=== PATIENT | female | born 1940 | race Caucasian/White ===

== ENCOUNTER → 2020-06-19 14:52 | Outpatient (BNVA) | payer MEDICARE, SELFPAY | PROVIDERS: PCP Internal Medicine; Referring Provider Orthopaedic Surgery; Visit Provider Nurse Practitioner | DX: K58.2 Mixed irritable bowel syndrome (principal); K21.9 Gastro-esophageal reflux disease without esophagitis; Z87.19 Personal history of other diseases of the digestive system | CPT/HCPCS: 99214 ==

== ENCOUNTER 2020-07-01 08:15 | Outpatient (REF) | payer MEDICARE, SELFPAY ==
--- NOTE | 2020-07-01 08:24 | FL_ITS ---
EXAMINATION: FL SMALL BOWEL SERIES CLINICAL INFORMATION: Lower abdominal pain. COMPARISON: CT abdomen and pelvis with contrast 05/19/2020 TECHNIQUE: Following a oceanologist image of the abdomen, contrast was administered orally, and interval abdominal radiographs were performed to assess for contrast progression through the small bowel. Following contrast transit through the small bowel and into the colon, the patient was placed on the fluoroscopy table, and multiple spot images were obtained. FINDINGS: Office Runner image of the abdomen demonstrates scattered stool in the right colon. There is no megaly. No radiopaque calculi seen. There is mild facet joint arthropathy L4-L5 and L3-L5 disc levels. There is normal transit time of contrast material through the small bowel, with contrast present in the colon by 1 hour 30 minutes. Small bowel loops are of normal caliber throughout the abdomen and pelvis. The jejunal and ileal fold patterns are normal, without evidence of abnormal thickening. No fixed regions of luminal narrowing are seen to suggest stricturing. The terminal ileum demonstrates a normal appearance. FLUOROSCOPY TIME: 1.0 minute DOSE AREA PRODUCT: 7.197 uGy-m2 (microgray-meter squared) FL/FL small bowel follow through IMPRESSION: Normal small bowel series.
== END 2020-07-01 08:16 | disposition home or self-care (01) ==
LOC: HO.XRAY 08:15
PROVIDERS: PCP Internal Medicine; Visit Provider Nurse Practitioner
DX: R10.30 Lower abdominal pain, unspecified (principal)
CPT/HCPCS: 74250

== ENCOUNTER → 2020-07-04 08:24 | Outpatient (BNVA) | payer MEDICARE, SELFPAY | PROVIDERS: PCP Internal Medicine; Referring Provider Internal Medicine; Visit Provider Nurse Practitioner | DX: K58.2 Mixed irritable bowel syndrome (principal); K21.9 Gastro-esophageal reflux disease without esophagitis; Z88.1 Allergy status to other antibiotic agents; R10.30 Lower abdominal pain, unspecified | CPT/HCPCS: 99212 ==

== ENCOUNTER 2020-09-10 08:47 | Outpatient (REF) | payer MEDICARE, SELFPAY ==
[2020-09-10 11:12] LABS: MANUAL DIFF FLAG NO
[2020-09-10 11:29] LABS: Basophils Percent Auto 0.4 % (0-2); Eosinophils Absolute Auto 0.1 X10*3/uL (0.0-0.4); Eosinophils Percent Auto 0.6 % (0-4); Hematocrit 36.4 % (37-47); Hemoglobin 11.2 g/dl (12.0-16.0); Imm Gran Abs Auto 0.03 X10*3/uL (0.00-0.03); Imm Gran Pct Auto 0.4 % (0.0-0.4); Lymphocytes Absolute Auto 2.6 X10*3/uL (1.2-4.9); Mean Corpuscular HGB Conc 30.8 g/dl (31.0-35.0); Mean Corpuscular Hemoglobin 24.8 pg (27.0-33.0); Mean Corpuscular Volume 80.7 fL (80-98); Mean Platelet Volume 9.9 fL (9.4-12.3); Monocytes Absolute Auto 0.7 X10*3/uL (0.1-1.2); Monocytes Percent Auto 8.8 % (2-11); Neutrophils Absolute Auto 4.3 X10*3/uL (2.0-8.3); Neutrophils Percent Auto 55.8 % (45-73); Platelet Count 323 X10*3/uL (160-400); Red Blood Count 4.51 X10*6/uL (4.20-5.50); Red Cell Distribution Width 13.8 % (11.0-16.0); White Blood Count 7.8 X10*3/uL (4.8-10.8)
[2020-09-10 11:56] LABS: Alanine Aminotransferase 12 U/L (0-31); Albumin Level 4.1 g/dL (3.5-5.0); Alkaline Phosphatase 56 U/L (39-117); Anion Gap 18 (12-20); Aspartate Amino Transferase 14 U/L (5-31); Bilirubin Total 0.6 mg/dL (0.0-1.0); Blood Urea Nitrogen 19 mg/dL (9-16); Calcium 9.5 mg/dL (8.4-10.2); Carbon Dioxide 25 mmol/L (22-29); Chloride 100 mmol/L (96-108); Cholesterol 214 mg/dL; Estimated Glomerular Filt Rate > 60; Glucose Fasting 109 mg/dL (60-99); HDL Cholesterol 59 mg/dL; Iron 25 mcg/dL (30-160); LDL Cholesterol Calculated 113 mg/dl; Percent Iron Saturation 6 % (15-50); Sodium 139 mmol/L (135-145); Total Iron Binding Capacity 445 mcg/dL (228-428); Total Protein 6.5 g/dL (6.5-8.0); Triglycerides 210 mg/dL; Unsaturated Iron Binding 420 ug/dL
[2020-09-10 12:05] LABS: Ferritin 9 ng/mL (10-250)
[2020-09-10 12:06] LABS: Estimated Average Glucose 111 mg/dL; Hemoglobin A1c % 5.5 %
== END 2020-09-10 08:48 | disposition home or self-care (01) ==
LOC: HO.HMGCLDS 08:47
PROVIDERS: PCP Internal Medicine; Visit Provider Internal Medicine
DX: M81.0 Age-related osteoporosis without current pathological fracture (principal); N95.1 Menopausal and female climacteric states; R35.0 Frequency of micturition; I10 Essential (primary) hypertension; D64.9 Anemia, unspecified; I48.0 Paroxysmal atrial fibrillation; K21.9 Gastro-esophageal reflux disease without esophagitis; Z78.0 Asymptomatic menopausal state
CPT/HCPCS: 36415; 80053; 80061; 82306; 82728; 83036; 83540; 85025

== ENCOUNTER 2020-11-10 14:08 | Outpatient (REF) | payer MEDICARE, SELFPAY | END 2020-11-10 14:09 | disposition home or self-care (01) | LOC: HO.HOSX 14:08 | PROVIDERS: Visit Provider Orthopaedic Surgery | DX: Z13.89 Encounter for screening for other disorder (principal) ==

== ENCOUNTER → 2020-12-04 08:48 | Outpatient (BNVA) | payer MEDICARE, SELFPAY | PROVIDERS: PCP Internal Medicine; Visit Provider Internal Medicine | DX: I48.0 Paroxysmal atrial fibrillation (principal); I10 Essential (primary) hypertension; Z51.81 Encounter for therapeutic drug level monitoring; Z79.899 Other long term (current) drug therapy | CPT/HCPCS: 93005; 99212 ==

== ENCOUNTER 2021-03-10 10:19 | Outpatient (REF) | payer MEDICARE, SELFPAY ==
--- NOTE | ~2021-03-10 | XR_ITS ---
EXAMINATION: XR KNEE, RIGHT CLINICAL INFORMATION: Right knee pain COMPARISON: Right knee radiograph on 12/13/2018 TECHNIQUE: Four views of the right knee. FINDINGS: Prosthetic components of the right total knee arthroplasty are appropriately aligned without periprosthetic fracture or lucency. No component migration. No joint effusion. XR/XR knee RT 4V IMPRESSION: Appropriate alignment of the right total knee arthroplasty without evidence of complications.
== END 2021-03-10 10:20 | disposition home or self-care (01) ==
LOC: HO.XRAY 10:19
PROVIDERS: PCP Internal Medicine; Visit Provider Internal Medicine
DX: T84.84XA Pain due to internal orthopedic prosthetic devices, implants and grafts, initial encounter (principal); Z96.651 Presence of right artificial knee joint
CPT/HCPCS: 73564

== ENCOUNTER → 2021-03-12 13:46 | Outpatient (BNVA) | payer MEDICARE, SELFPAY | PROVIDERS: PCP Internal Medicine; Referring Provider Internal Medicine; Visit Provider Internal Medicine | DX: I10 Essential (primary) hypertension (principal); I48.0 Paroxysmal atrial fibrillation; R00.0 Tachycardia, unspecified; M81.0 Age-related osteoporosis without current pathological fracture; Z88.1 Allergy status to other antibiotic agents; Z51.81 Encounter for therapeutic drug level monitoring; Z79.899 Other long term (current) drug therapy | CPT/HCPCS: 93005; 99212 ==

== ENCOUNTER 2021-03-16 13:28 | Outpatient (REF) | payer MEDICARE, SELFPAY ==
[2021-03-16 16:45] LABS: MANUAL DIFF FLAG NO
[2021-03-16 16:50] LABS: Basophils Percent Auto 0.3 % (0-2); Eosinophils Absolute Auto 0.1 X10*3/uL (0.0-0.4); Eosinophils Percent Auto 0.5 % (0-4); Hematocrit 44.7 % (37-47); Hemoglobin 14.5 g/dl (12.0-16.0); Imm Gran Abs Auto 0.04 X10*3/uL (0.00-0.03); Imm Gran Pct Auto 0.4 % (0.0-0.4); Lymphocytes Absolute Auto 2.8 X10*3/uL (1.2-4.9); Lymphocytes Percent Auto 26.6 % (20-40); Mean Corpuscular HGB Conc 32.4 g/dl (31.0-35.0); Mean Corpuscular Hemoglobin 30.7 pg (27.0-33.0); Mean Corpuscular Volume 94.7 fL (80-98); Mean Platelet Volume 9.8 fL (9.4-12.3); Monocytes Absolute Auto 0.8 X10*3/uL (0.1-1.2); Monocytes Percent Auto 7.2 % (2-11); Neutrophils Absolute Auto 6.9 X10*3/uL (2.0-8.3); Platelet Count 346 X10*3/uL (160-400); Red Blood Count 4.72 X10*6/uL (4.20-5.50); Red Cell Distribution Width 12.9 % (11.0-16.0); White Blood Count 10.6 X10*3/uL (4.8-10.8)
[2021-03-16 17:15] LABS: Iron 48 mcg/dL (30-160); Percent Iron Saturation 11 % (15-50); Total Iron Binding Capacity 424 mcg/dL (228-428); Unsaturated Iron Binding 376 ug/dL
[2021-03-16 17:37] LABS: Ferritin 21 ng/mL (10-250)
== END 2021-03-16 13:29 | disposition home or self-care (01) ==
LOC: HO.HMGCLDS 13:28
PROVIDERS: PCP Internal Medicine; Visit Provider Internal Medicine
DX: D64.9 Anemia, unspecified (principal); I48.0 Paroxysmal atrial fibrillation; R00.0 Tachycardia, unspecified; Z86.2 Personal history of diseases of the blood and blood-forming organs and certain disorders involving the immune mechanism
CPT/HCPCS: 36415; 82728; 83540; 85025

== ENCOUNTER → 2021-06-01 10:15 | Outpatient (REF) | payer MEDICARE, SELFPAY ==
--- NOTE | 2021-06-01 10:19 | CA_ITS ---
Transthoracic Echocardiogram Patient (Last, First, Middle): Alisa Castaneda L Gender: Female Date of : 1940 Age: 81 Procedure Date: 06/01/2021 Procedure Type: Transthoracic Echocardiogram Location: OP Height: 152.4 cm Weight: 65.77 kg BSA: 1.63 m2 Heart Rate: bpm BP: 122 / 77 mmHg Environmental Program Manager: SARIKA/CARIN Referring MD: William Hansen MD Symptoms: I48.0 - Paroxysmal atrial fibrillation Study Quality: Good ECG Rhythm: Sinus Conclusions: - The left ventricular systolic function is normal. The calculated ejection fraction is 67% by biplane method. - There is mild calcification of the aortic valve. - There is mild posterior mitral annular calcification. There is mild mitral valve regurgitation. - Small plaque is seen in the sino tubular ridge. Findings Left Ventricle Normal left ventricular cavity size. There is mildly increased left ventricular wall thickness. The left ventricular systolic function is normal. The calculated ejection fraction is 67% by biplane method. There is no evidence of regional wall motion abnormalities. E/E prime ratio is between 8 and 15 consistent with indeterminate filling pressures. Evidence suggests grade I (mild) diastolic dysfunction. Right Ventricle Normal right ventricular cavity size and systolic function. Atria Both atria are normal in size. Aortic Valve There is a normal trileaflet aortic valve. There is mild calcification of the aortic valve. There is no aortic valve stenosis. There is mild aortic valve regurgitation. Mitral Valve There is mild posterior mitral annular calcification. There is mild mitral valve regurgitation. There is no mitral valve stenosis. Pulmonic Valve The pulmonic valve was not well visualized. There is trace pulmonic valve regurgitation. Tricuspid Valve Normal tricuspid valve structure. There is mild tricuspid valve regurgitation. The pulmonary artery systolic pressure is normal. Great Vessels The asc aorta is normal in size. Small plaque is seen in the sino tubular ridge. Venous The inferior vena cava is normal in size and collapses greater than 50% with inspiration. Pericardium/Pleural There is no evidence of pericardial effusion. Prior Study Comparison No significant change compared to prior study dated: 04/01/2020. Measurements 2D Linear Measurements IVSd: 1.00 0.6-0.9/0.6-1.0 cm LVIDd: 4.06 3.9-5.3/4.2-5.9 cm LVIDd Index: 2.49 2.4-3.2/2.2-3.1 cm/m2 LVIDs: 3.03 2.0-3.6 cm LVPWd: 1.01 0.7-1.1 cm Ao Root: 2.80 2.1-3.5 cm LA Diam: 3.40 2.7-3.8/3.0-4.0 cm LAIDs Index: 2.09 1.5-2.3 cm/m2 LV Mass: 162.99 67-162/88-224 g LV Mass Index: 100.00 43-95/49-115 g/m2 LVOT Diam: 2.10 3.0+(-)1.3 cm 2D Systolic Function EF 4C: 65.20 >55% EF 2C: 68.80 >55% EF BiP: 67.20 >55% Mitral Valve MV Pk E: 0.78 MV PK A: 1.21 MV Decel Time: 319.00 E/A: 0.60 E'Lateral: 8.16 E'Medial: 5.55 E/E' Med: 14.00 E/E' Lat: 9.50 PHT: 94.00 MVA PHT: 2.34 Decel [place]: 2.44 Aortic Valve AoV Pk Nick: 1.91 AoV Mn Nick: 1.36 AoV VTI: 0.49 AoV Pk Grad: 15.00 Aov Mn Grad: 8.00 ELVIE Cont.VTI: 1.90 AI Pk Nick: 4.34 AI [place]: 1.70 LVOT LVOT Pk Nick: 1.07 LVOT Mn Nick: 0.66 LVOT VTI: 0.27 LVOT Pk Grad: 5.00 LVOT Mn Grad: 2.00 LVOT Diam: 2.10 LVOT Area: 3.46 Diastolic Function MV Pk E: 0.78 MV Pk A: 1.21 E/A: 0.60 E'Medial: 5.55 E/E' Med: 14.00 E' Laterial: 8.16 E/E' Lat: 9.50 Right Ventricle TAPSE (mm): 2.28 TVS' Nick: 9.79 Tricuspid Valve TR Pk Nick: 2.44 TR Pk Grad: 24.00 RA Press: 3.00 RVSP: 27.00 Great Vessels Aorta Ao Root-2D: 2.80 2.0-3.7 cm Ao Asc: 2.80 2.1-3.4 cm Ao Arch: 2.60 Updated in Other Vendor System with Status of Final William Hansen MD electronically signed on 06/01/2021 12:09:31 PM with status of Final
== END ==
LOC: HO.CARD 10:15
PROVIDERS: PCP Internal Medicine; Visit Provider Internal Medicine
DX: I48.0 Paroxysmal atrial fibrillation (principal)
CPT/HCPCS: 93306

== ENCOUNTER → 2021-06-08 09:36 | Outpatient (BNVA) | payer MEDICARE, SELFPAY | PROVIDERS: PCP Internal Medicine; Referring Provider Internal Medicine; Visit Provider Internal Medicine | DX: I48.0 Paroxysmal atrial fibrillation (principal); I10 Essential (primary) hypertension; Z51.81 Encounter for therapeutic drug level monitoring; Z79.899 Other long term (current) drug therapy | CPT/HCPCS: 93005; 99212 ==

== ENCOUNTER → 2021-08-21 14:24 | Outpatient (BNVA) | payer MEDICARE, SELFPAY | PROVIDERS: PCP Internal Medicine; Referring Provider Internal Medicine; Visit Provider Nurse Practitioner | DX: K21.9 Gastro-esophageal reflux disease without esophagitis (principal); K30 Functional dyspepsia | CPT/HCPCS: 99212 ==

== ENCOUNTER → 2021-10-01 12:15 | Outpatient (BNVA) | payer MEDICARE, SELFPAY | PROVIDERS: PCP Internal Medicine; Referring Provider Internal Medicine; Visit Provider Nurse Practitioner | DX: K30 Functional dyspepsia (principal); K58.2 Mixed irritable bowel syndrome; K21.9 Gastro-esophageal reflux disease without esophagitis | CPT/HCPCS: 99212 ==

== ENCOUNTER → 2021-11-03 12:15 | Outpatient (BNVA) | payer MEDICARE, SELFPAY | PROVIDERS: PCP Internal Medicine; Referring Provider Internal Medicine; Visit Provider Nurse Practitioner | DX: K30 Functional dyspepsia (principal); K21.9 Gastro-esophageal reflux disease without esophagitis; K58.2 Mixed irritable bowel syndrome | CPT/HCPCS: 99212 ==

== ENCOUNTER → 2021-12-14 09:32 | Outpatient (BNVA) | payer MEDICARE, SELFPAY | PROVIDERS: PCP Internal Medicine; Referring Provider Internal Medicine; Visit Provider Internal Medicine | DX: I48.0 Paroxysmal atrial fibrillation (principal); I10 Essential (primary) hypertension; Z51.81 Encounter for therapeutic drug level monitoring; Z79.899 Other long term (current) drug therapy | CPT/HCPCS: 93005; 99212 ==

== ENCOUNTER → 2022-02-15 11:49 | Outpatient (BNVA) | payer MEDICARE, SELFPAY | PROVIDERS: PCP Internal Medicine; Visit Provider Nurse Practitioner | DX: K30 Functional dyspepsia (principal); K21.9 Gastro-esophageal reflux disease without esophagitis; K58.2 Mixed irritable bowel syndrome | CPT/HCPCS: 99212 ==

== ENCOUNTER 2022-05-26 12:23 | Emergency (ER) | payer MEDICARE, SELFPAY ==
--- NOTE | ~2022-05-26 | CT_ITS ---
EXAMINATION: CT ABDOMEN AND PELVIS WITHOUT CONTRAST CLINICAL INFORMATION: Left lower quadrant pain. COMPARISON: CT abdomen/pelvis dated from 05/19/2020. TECHNIQUE: Multidetector volumetric imaging was performed from the superior aspect of the liver through the pubic symphysis. Sagittal and coronal reformatted images were obtained on the technologist's workstation. This CT examination was performed using dose optimization techniques as appropriate, variously including the following: *Automated exposure control *Adjustment of mA and/or kV according to patient size (this includes techniques or standardized protocols for targeted exams where dose is matched to indication/reason for exam; i.e. extremities or head) *Use of iterative reconstruction technique DLP: 512 mGy-cm FINDINGS: LUNG BASES: Micronodules noted, for instance in the right middle lobe on image 7 of series 4. No focal consolidation or pleural effusion. Mild cardiomegaly with coronary calcifications. LIVER, GALLBLADDER, AND BILIARY TREE: The liver is normal in size, shape, and attenuation. No focal hepatic lesion or biliary ductal dilatation is present. The gallbladder is not visualized, possibly surgically absent. PANCREAS: Unremarkable. SPLEEN: Unremarkable. ADRENAL GLANDS: Unremarkable. KIDNEYS AND URETERS: Limited noncontrast examination. There are several water density cortical and parapelvic cysts and also a few other too small to characterize hypodensities that are in favor to represent simple cysts as well and for which no imaging follow-up is recommended. No nephrolithiasis or hydronephrosis. No perinephric fat stranding. BLADDER: Decompressed and suboptimally assessed. GASTROINTESTINAL TRACT: Moderate size hiatal hernia with equivocal gastric wall thickening. The stomach and the small bowel are nondilated. The appendix is not definitely seen, however there are no regional inflammatory changes to suspected acute appendicitis. Sigmoid diverticulosis. No pericolic inflammatory changes. No evidence of bowel obstruction. ABDOMINAL WALL: Small fat-containing umbilical hernia. LYMPH NODES: No lymphadenopathy by size criteria. VASCULAR: Limited noncontrast examination. Abdominal aorta is of normal diameter. Atherosclerotic disease. PELVIC VISCERA: Hysterectomy. No pelvic mass. OSSEOUS STRUCTURES: Degenerative change of the spine. No acute or aggressive appearing osseous abnormalities. CT/CT abdomen pelvis wo IV con IMPRESSION: Moderate size hiatal hernia with equivocal lower esophageal and gastric wall thickening suggesting the possibility of esophagitis/gastritis in the appropriate clinical context. Sigmoid diverticulosis but with no pericolic inflammatory changes to suspect acute diverticulitis. Incidentally noted pulmonary micronodules. Assuming patient has no history of malignancy, recommend follow-up per Fleischner Society recommendations. According to the UPDATED 2017 Fleischner Society recommendations, the advised followup imaging for solid nodules < 6 mm is: LOW RISK PATIENT: No routine follow up. HIGH RISK PATIENT: Optional CT at 12 months.
[2022-05-26 13:47] VITALS: BP 172/58; PULSE 59; RESP 16; TEMP 36.2; O2SAT 99; BMI 27.3
[2022-05-26 14:30] LABS: Basophils Percent Auto 0.4 % (0-2); Eosinophils Percent Auto 0.5 % (0-4); Hematocrit 40.7 % (37.0-47.0); Imm Gran Abs Auto 0.02 X10*3/uL (0.00-0.03); Imm Gran Pct Auto 0.2 % (0.0-0.4); Lymphocytes Absolute Auto 2.8 X10*3/uL (1.2-4.9); Lymphocytes Percent Auto 33.7 % (20-40); MANUAL DIFF FLAG NO; Mean Corpuscular HGB Conc 31.9 g/dl (31.0-35.0); Mean Corpuscular Hemoglobin 27.5 pg (27.0-33.0); Mean Platelet Volume 9.2 fL (9.4-12.3); Monocytes Absolute Auto 0.6 X10*3/uL (0.1-1.2); Monocytes Percent Auto 7.2 % (2-11); Neutrophils Absolute Auto 4.8 x10*3/uL (2.0-8.3); Platelet Count 296 X10*3/uL (160-400); Red Blood Count 4.73 X10*6/uL (4.20-5.50); Red Cell Distribution Width 13.5 % (11.0-16.0); White Blood Count 8.3 X10*3/uL (4.8-10.8)
[2022-05-26 14:44] LABS: Anion Gap 17 (12-20); Blood Urea Nitrogen 19 mg/dL (9-16); Calcium 10.1 mg/dL (8.4-10.2); Carbon Dioxide 27 mmol/L (22-29); Chloride 98 mmol/L (96-108); Creatinine Clr Calc Pharmacy 48.7; Estimated Glomerular Filt Rate > 60; Glucose Random 100 mg/dL (60-115); Potassium 4.4 mmol/L (3.3-5.1); Sodium 138 mmol/L (135-145)
[2022-05-26 16:53] VITALS: BP 179/69; PULSE 66; RESP 18; TEMP 36.5; O2SAT 98
--- NOTE | 2022-05-26 16:57 | ED.ABDPAIN ---
HPI - Abdominal Pain General Chief Complaint: Abdominal Pain Stated Complaint: abd pain Time Seen by Provider: 05/26/22 15:26 Source: patient Mode of arrival: ambulatory Limitations: no limitations History of Present Illness HPI narrative: 81-year-old female htn, a fib on eliquis, IBS? presents to the clinic with complaints of left lower quadrant pain times 2-3 weeks worsening.? Patient tells me it is a dull, nagging pain that intermittently turns into a sharp discomfort that is intolerable.? Patient tells me initially she thought she pulled a muscle however the pain is now constant in nature and very uncomfortable.? She reports associated nausea and changes in bowel habits, she tells me she has fluctuating between constipated and diarrhea.? She has been tolerating PO intake without issue. Reports subjective chills however denies fevers, chest pain, shortness of breath, nausea, vomiting, headache, dizziness, vision changes.? No history of diverticulitis.? However patient tells me she has a longstanding GI history. Was seen at by this PA and advised to go to ED for CT of abdomen. Related Data Previous Rx's Medication Instructions Recorded hydrochlorothiazide 25 mg tablet 25 mg PO DAILY #90 tabs 12/29/21 apixaban 5 mg tablet (Eliquis) 5 mg PO BID #180 tabs 01/26/22 metoclopramide HCl 5 mg tablet 5 mg PO QIDACHS 30 days #120 tabs 02/15/22 (Reglan) omeprazole 20 mg capsule,delayed 20 mg PO BID #180 caps 02/15/22 release amlodipine 2.5 mg tablet 2.5 mg PO DAILY #90 tabs 03/29/22 metoprolol succinate 25 mg 25 mg PO DAILY #90 tabs 03/29/22 tablet,extended release 24 hr flecainide 50 mg tablet 50 mg PO BID #180 tabs 05/17/22 cyclobenzaprine 10 mg tablet 5 mg PO BEDTIME PRN muscle spasm 05/26/22 #7 tabs ondansetron 4 mg disintegrating 4 mg PO Q6H PRN nausea and 05/26/22 tablet vomiting #14 tabs Allergies Allergy/AdvReac Type Severity Reaction Status Date / Time levofloxacin [From Levaquin] Allergy Unknown RASH Verified 05/26/22 10:35 Review of Systems Review of Systems Constitutional : No Weight loss, No Fever, + Chills, No Fatigue, No Malaise ENT/Mouth : No sore throat, No Rhinorrhea Eyes: No Eye Pain, No Swelling, No Redness Cardiovascular : No Chest Pain, No SOB, No Dyspnea on Exertion, No Orthopnea, No Edema, No Palpitations Respiratory : No Cough, No Sputum, No Wheezing Gastrointestinal : + Nausea, No Vomiting, + Diarrhea, + Constipation, + abdominal Pain, No Hematochezia, No Melena Genitourinary : No Dysuria, No Urinary Frequency, No Hematuria, Musculoskeletal : No joint pain, No Myalgias, No Joint Swelling Skin : No Skin Lesions, No rash Neuro : No Weakness, No Numbness, No Dizziness, No Headache Yes all other systems are reviewed and are negative [facility] Past Medical History Attestation statement: The following information was validated with the patient. Source: old records reviewed and nursing notes reviewed Medical History Anemia Essential hypertension History of colitis Hx of iron deficiency anemia Mixed dyslipidemia Osteoarthritis of right knee Osteoporosis Paroxysmal atrial fibrillation Post-menopause Primary osteoarthritis involving multiple joints Urinary frequency Vaginal dryness, menopausal Surgical History History of bladder suspension procedure History of cholecystectomy History of mammogram History of repair of hiatal hernia Hx of bilateral oophorectomy Hx of total knee arthroplasty Hx of total knee arthroplasty Family History Family History Father No problems noted. Mother No problems noted. Family/Other Cancer Brother History of kidney cancer Lung cancer, Onset Age: 65 Sister Breast cancer, Onset Age: 28 Social History Social History Housing: Assisted Living Facility Alcohol intake: current Alcohol intake frequency: holidays/special occasions only Patient Tobacco Use Status: Never used Tobacco e-Cigarette/Vaping Use: Never Used Advance Directives: No Advance Directives Information Provided: No Current occupational status: retired Physical Exam ED Vital Signs: Vital Signs - 24 hr 05/26/22 13:47 05/26/22 16:53 Temperature 97.1 F 97.7 F Pulse Rate 59 66 Respiratory Rate 16 18 Blood Pressure 172/58 H 179/69 H Pulse Oximetry 99 98 Oxygen Delivery Method Room Air Room Air BMI result Body Mass Index 27.3 vss Appearance: Alert.? Oriented X3.? No acute distress.? Head:? Normocephalic, atraumatic, no step-offs or deformities Eyes: Pupils equal, round and reactive to light.? ENT: Pharynx normal.? Neck: Normal inspection.? Neck supple.? CVS: Normal heart rate and rhythm.? Pulses normal.? Respiratory: No respiratory distress.? Breath sounds normal.? Abdomen: Soft and +LLQ pain.? Skin: Skin warm and dry.? Normal skin color.? Normal skin turgor.? Extremities: No lower extremity edema.? No calf ttp.? 5/5 strength to bilateral upper and lower extremities Neuro: Oriented X 3.? No motor deficit.? No sensory deficit. CN 2-12 intact Course Reevaluation(s) Reevaluation #1: CBCB within normal limits. Chemistry no acute electrolyte abnormalities requiring intervention. UA and scan pending. Time: 17:02 Reevaluation #2: Patient requesting to go home, unable to give us a urine. Telling me she would like to leave, not complaining of urinary symptoms, no CVA tenderness unlikely Suzie lower UTI. CT of the abdomen and pelvis with a moderate-sized hiatal hernia with surrounding gastric wall thickening suggesting possible esophagitis versus gastritis. However, patient's history not consistent with this. Sigmoid diverticulosis is noted however no acute diverticulitis. There are pulmonary nodules noted, educated patient on this. Advised to follow-up with PCP and return with new or worsening symptoms. Educated on worrisome signs and symptoms and outlined on discharge. At this time I feel comfortable discharge home this pain could also be musculoskeletal in nature therefore sending her home on a low dose of cyclobenzaprine as well as Zofran for nausea. Comfortable discharge Time: 17:47 MDM - Abdominal Pain MDM Narrative Medical decision making narrative: [id number] 81 year old female present to ED with LLQ pain X few weeks worsening. Went to and was sent in for further evaluation. On exam tender to LLQ. VSS. Concerns for diverticulitis vs diverticulosis. unlikely acute abdomen. Plan- labs, urine, ct of abd and pelvis. Medical Records Attestation: I reviewed the patient's medical records. Lab Data Attestation: I reviewed the patient's lab results. Result diagrams: 05/26/22 14:24 05/26/22 14:24 Labs: Lab Results 05/26/22 05/26/22 Range/Units 14:24 14:24 WBC 8.3 (4.8-10.8) X10*3/uL RBC 4.73 (4.20-5.50) X10*6/uL Hgb 13.0 (12.0-16.0) g/dl Hct 40.7 (37.0-47.0) % MCV 86.0 (80.0-98.0) fL MCH 27.5 (27.0-33.0) pg MCHC 31.9 (31.0-35.0) g/dl RDW 13.5 (11.0-16.0) % Plt Count 296 (160-400) X10*3/uL MPV 9.2 L (9.4-12.3) fL Immature Gran % (Auto) 0.2 (0.0-0.4) % Neut % (Auto) 58.0 (45-73) % Lymph % (Auto) 33.7 (20-40) % [place] % (Auto) 7.2 (2-11) % Eos % (Auto) 0.5 (0-4) % Baso % (Auto) 0.4 (0-2) % Lymph # (Auto) 2.8 (1.2-4.9) X10*3/uL [place] # (Auto) 0.6 (0.1-1.2) X10*3/uL Eos # (Auto) 0.0 (0.0-0.4) X10*3/uL Baso # (Auto) 0.0 (0.0-0.2) X10*3/uL Abs Immat Gran (auto) 0.02 (0.00-0.03) X10*3/uL Absolute Neuts (auto) 4.8 (2.0-8.3) x10*3/uL Absolute Nucleated RBC 0.000 (0.0-0.012) X10*3/uL Nucleated RBC % (auto) 0.0 (0.0-0.2) /100WBC Sodium 138 (135-145) mmol/L Potassium 4.4 (3.3-5.1) mmol/L Chloride 98 (96-108) mmol/L Carbon Dioxide 27 (22-29) mmol/L Anion Gap 17 (12-20) BUN 19 H (9-16) mg/dL Creatinine 0.74 (0.5-1.4) mg/dL Estim Creat Clear Calc 48.7 Estimated GFR > 60 Random Glucose 100 (60-115) mg/dL Calcium 10.1 D (8.4-10.2) mg/dL Discharge Plan Discharge Clinical Impression: Abdominal pain, LLQ, Diverticulosis, Pulmonary nodule, Hiatal hernia Patient Disposition: Home, Self-Care Instructions: Abdominal Pain (ED) Additional Instructions: Take your medications as prescribed. If you were prescribed antibiotics today, it is important that you take your medication to their entirety, do not skip any doses, do not finish them early. Follow-up with your primary care provider this week. Follow-up with GI if needed. Return to the emergency department with new or worsening symptoms. Such as fevers, chills, chest pain, shortness of breath, nausea, vomiting, dizziness, headache, vision changes, lethargy In case of emergency call 911 CT/CT abdomen pelvis wo IV con IMPRESSION: Moderate size hiatal hernia with equivocal lower esophageal and gastric wall thickening suggesting the possibility of esophagitis/gastritis in the appropriate clinical context. Sigmoid diverticulosis but with no pericolic inflammatory changes to suspect acute diverticulitis. Incidentally noted pulmonary micronodules. Assuming patient has no history of malignancy, recommend follow-up per Fleischner Society recommendations. According to the UPDATED 2017 Fleischner Society recommendations, the advised followup imaging for solid nodules < 6 mm is: LOW RISK PATIENT: No routine follow up. HIGH RISK PATIENT: Optional CT at 12 months. Prescriptions: New cyclobenzaprine 10 mg tablet 5 mg PO BEDTIME PRN (Reason: muscle spasm) Qty: 7 0RF ondansetron 4 mg tablet,disintegrating 4 mg PO Q6H PRN (Reason: nausea and vomiting) Qty: 14 0RF No Action hydrochlorothiazide 25 mg tablet 25 mg PO DAILY Qty: 90 3RF Eliquis 5 mg tablet 5 mg PO BID Qty: 180 3RF amlodipine 2.5 mg tablet 2.5 mg PO DAILY Qty: 90 3RF metoprolol succinate 25 mg tablet extended release 24 hr 25 mg PO DAILY Qty: 90 0RF flecainide 50 mg tablet 50 mg PO BID Qty: 180 3RF metoclopramide HCl [Reglan] 5 mg tablet 5 mg PO QIDACHS 30 Days Qty: 120 6RF omeprazole 20 mg capsule,delayed release(DR/EC) 20 mg PO BID Qty: 180 2RF Referrals: Mer Quinonez MD [Primary Care Provider] - 2 days [place] [Physician] - 2 weeks Stand Alone Forms: Work/School Release
[2022-05-26 18:55] LABS: Alanine Aminotransferase 12 U/L (0-31); Albumin Level 4.4 g/dL (3.5-5.0); Alkaline Phosphatase 58 U/L (39-117); Aspartate Amino Transferase 14 U/L (5-31); Bilirubin Direct 0.2 mg/dL (0.0-0.5); Bilirubin Total 0.6 mg/dL (0.0-1.0); Lipase 39 U/L (8-78); Total Protein 6.8 g/dL (6.5-8.0)
== END 2022-05-26 18:16 | disposition home or self-care (01) ==
PROVIDERS: Physician Assistant; Emergency Provider Emergency Medicine; PCP Internal Medicine
DX: R10.32 Left lower quadrant pain (principal); K57.30 Diverticulosis of large intestine without perforation or abscess without bleeding; K44.9 Diaphragmatic hernia without obstruction or gangrene; R91.1 Solitary pulmonary nodule; I10 Essential (primary) hypertension; I48.0 Paroxysmal atrial fibrillation; E78.2 Mixed hyperlipidemia; Z79.01 Long term (current) use of anticoagulants; Z79.899 Other long term (current) drug therapy
CPT/HCPCS: 36415; 74176; 80048; 80076; 83690; 85025; 99282; 99284

== ENCOUNTER → 2022-06-21 10:02 | Outpatient (BNVA) | payer MEDICARE, SELFPAY | PROVIDERS: PCP Internal Medicine; Referring Provider Internal Medicine; Visit Provider Internal Medicine | DX: I48.0 Paroxysmal atrial fibrillation (principal); I10 Essential (primary) hypertension; Z51.81 Encounter for therapeutic drug level monitoring; Z79.899 Other long term (current) drug therapy | CPT/HCPCS: 93005; 99212 ==

== ENCOUNTER → 2022-08-10 12:12 | Outpatient (BNVA) | payer MEDICARE, SELFPAY | PROVIDERS: PCP Internal Medicine; Visit Provider Nurse Practitioner | DX: K21.9 Gastro-esophageal reflux disease without esophagitis (principal); K30 Functional dyspepsia; K58.2 Mixed irritable bowel syndrome; Z79.899 Other long term (current) drug therapy | CPT/HCPCS: 99212 ==

== ENCOUNTER → 2022-10-05 11:35 | Outpatient (BNVA) | payer MEDICARE, SELFPAY | PROVIDERS: PCP Internal Medicine; Visit Provider Nurse Practitioner | DX: K30 Functional dyspepsia (principal); K21.9 Gastro-esophageal reflux disease without esophagitis; K58.2 Mixed irritable bowel syndrome | CPT/HCPCS: 99212 ==

== ENCOUNTER → 2022-12-14 10:20 | Outpatient (BNVA) | payer MEDICARE, SELFPAY | PROVIDERS: PCP Internal Medicine; Referring Provider Internal Medicine; Visit Provider Internal Medicine | DX: I48.0 Paroxysmal atrial fibrillation (principal); I10 Essential (primary) hypertension; Z51.81 Encounter for therapeutic drug level monitoring; Z79.899 Other long term (current) drug therapy | CPT/HCPCS: 93005; 99212 ==

== ENCOUNTER 2022-12-29 10:35 | Outpatient (AMB) | payer MEDICARE, SELFPAY ==
--- NOTE | 2022-12-29 11:03 | MHC.PC.OV ---
Vital Signs 12/29/22 11:11 Height 5 ft Weight 145 lb BMI 28.3 BP 130/66 Blood Pressure Location Lt brachial Position Sitting Pulse 57 Pulse Source Pulse Oximeter Pulse Oximetry (%) 97 Oxygen Delivery Method Room Air Intake Visit Reasons: 6 month follow up Intake Note: Pt is here today for her 6 mo. f/u Allergies levofloxacin [From Levaquin] Allergy (Unknown, Verified 08/02/23 00:48) RASH Medication List - Last Reconciled 12/29/22 by Mer Quinonez MD amlodipine 2.5 mg PO DAILY apixaban (Eliquis) 5 mg PO BID dicyclomine 10 mg PO QID flecainide 50 mg PO BID hydrochlorothiazide 25 mg PO DAILY metoclopramide HCl (Reglan) 5 mg PO QIDACHS 30 days metoprolol succinate ER 25 mg PO DAILY omeprazole 20 mg PO BID Tobacco use date assessed: 12/29/22 Fall risk assessment: No Falls in past year Last assessed Fall Risk: 12/29/22 HPI 6 month follow up HPI Details 83-year-old lady with atrial fibrillation, mixed dyslipidemia, osteoarthritis, and hypertension, here today for follow-up. She has been feeling well with no complaints at present time, blood pressure has been staying stable and controlled on amlodipine, metoprolol and hydrochlorothiazide. [facility] Medical History Hx of diverticulitis of colon Mixed dyslipidemia Hx of iron deficiency anemia Osteoarthritis of right knee Anemia Post-menopause Vaginal dryness, menopausal Urinary frequency Primary osteoarthritis involving multiple joints Osteoporosis Paroxysmal atrial fibrillation Essential hypertension History of colitis Surgical History Hx of total knee arthroplasty History of mammogram Hx of total knee arthroplasty Hx of bilateral oophorectomy History of bladder suspension procedure History of repair of hiatal hernia (01/26/06) History of cholecystectomy Family History Father No problems noted. Mother No problems noted. Family/Other Cancer Brother History of kidney cancer Lung cancer, Onset Age: 65 Sister Breast cancer, Onset Age: 28 Household Members: None Housing: Apartment Do you presently have visiting nurse or other home services: No Alcohol intake: current Alcohol intake frequency: holidays/special occasions only Alcohol type: wine Patient Tobacco Use Status: Never used Tobacco e-Cigarette/Vaping Use: Never Used service: No Current occupational status: retired Cognitive needs: No Hearing needs: No Vision needs: Yes Questionnaire PHQ-9 Over the last 2 weeks, how often have you been bothered by any of the following problems? 1. Little interest or pleasure in doing things: not at all 2. Feeling down, depressed, or hopeless: not at all 3. Trouble falling or staying asleep, or sleeping too much: several days 4. Feeling tired or having little energy: several days 5. Poor appetite or overeating: not at all 6. Feeling bad about yourself - or that you are a failure or have let yourself or your family down: not at all 7. Trouble concentrating on things, such as reading the newspaper or watching television: not at all 8. Moving or speaking so slowly that other people could have noticed. Or the opposite - being so fidgety or restless that you have been moving around a lot more than usual: not at all 9. Thoughts that you would be better off or of hurting yourself in some way: not at all Total score: 2 Depression Screening Interpretation: Negative [id number] - PHQ-9 Billing: Yes Source: Developed by Drs. Rio Levine, Hazel Hinton, Ronnie Bueno and colleagues, with an educational patricia from [employer]. Thrive Questionnaire Declines Thrive assessment: No Date Thrive assessed: 12/29/22 I am a: Patient What is your living situation today?: I have a steady place to live Within the past 12 months, did the food you bought not last and you didn't have the money to get more?: Never true Within the past 12 months, did you worry whether your food would run out before you got money to buy more?: Never true Do you have trouble paying for medicines?: No Do you have trouble getting transportation to medical appointments?: No Do you have trouble paying your heating and electricity bill?: No Do you have trouble taking care of your child, family member or friend?: No Do you have trouble with day-to-day activities such as bathing, preparing meals, shopping, managing finances, etc.?: No Are you currently unemployed and looking for a job?: No Are you interested in more education?: No AUDIT C Alcohol Use Questionnaire (AUDIT-C) 1. How often do you have a drink containing alcohol?: Monthly or less 2. How many drinks containing alcohol do you have on a typical day when you are drinking?: 1 or 2 3. How often do you have six or more drinks on one occasion?: Never Total Score: 1 SERGIO-7 AMB Questionnaire SERGIO-7 Date SERGIO - 7 assessed: 12/29/22 Source: Developed by Drs. Rio Levine, Hazel Hinton, Ronnie Bueno and colleagues, with an educational patricia from [employer]. SERGIO-7 Assessment Billing SERGIO-7 Assessment Tool: pt declined-do not bill Review of Systems Const Denies weakness Eyes Denies change in vision ENT Reports Normal hearing present and Denies dizziness Card Denies chest pain, Denies chest pain with activity, Denies rapid heart rate, Denies edema, Denies leg edema, Denies lightheadedness, Denies palpitations, Denies dyspnea on exertion and Denies orthopnea Resp Denies cough and Denies dyspnea on exertion GI Denies hematochezia and Denies change in stool character Reports no additional complaints Musc Denies abnormal gait, Denies muscle cramps, Denies muscle weakness, Denies numbness, Denies radiating pain into limb and Denies tingling Neuro Reports Normal hearing present, Denies Abnormal speech present, Denies abnormal gait, Denies dizziness, Denies numbness, Denies tingling and Denies weakness Psych Reports no additional complaints Endo Denies palpitations Physical exam (Primary Care) Vital Signs: Last Vital Signs Pulse 57 12/29/22 11:11 BP 130/66 12/29/22 11:11 Pulse Ox 97 12/29/22 11:11 Oxygen Delivery Method Room Air 12/29/22 11:11 BMI result Body Mass Index 28.3 Tobacco/Smoking Status: Tobacco use Status Tobacco use date assessed 12/29/22 12/29/22 11:16 Patient Tobacco Use Status Never used Tobacco 12/29/22 11:03 e-Cigarette/Vaping Use Never Used 12/29/22 11:03 PHQ-9: PHQ-9 Score PHQ-9: Total score 2 12/29/22 11:46 Depression Screening Interpretation: Negative Thrive Assessment: Date of Thrive Assessment Date Thrive assessed 12/29/22 12/29/22 11:21 Advance Care Planning discussion: Exists, not on file Const General: cooperative, comfortable and no acute distress Orientation/consciousness: patient oriented x3 Limitations: no limitations HENMT Ears: hearing grossly normal bilaterally, external ears normal, TM's normal bilaterally and EAC's normal General nose exam: Normal external nose present, Normal nasal mucous membranes and turbinates present and No nasal discharge present Mouth: Normal oral and palatal mucosa present, oropharynx normal and moist mucous membranes Eyes General: appearance normal, both eyes and all related structures Conjunctivae: conjunctivae normal Pupils: Equal, round and reactive pupils present EOM: EOMs intact bilaterally Neck Neck: Yes full ROM, Yes no lymphadenopathy and Yes supple Resp Effort & Inspection: normal respiratory effort and able to speak in complete sentences Auscultation: clear to auscultation bilaterally Cardio Rate: regular rate Rhythm: regular rhythm Heart sounds: S1 normal heart sound present and S2 normal heart sound present GI Inspection: Yes normal to inspection Palpation (GI): Soft to palpation, Firmness to palpation present (GI), nontender and no masses Auscultation: normal bowel sounds Back/Spine/Pelvis Cervical Spine: cervical ROM normal Thoracic/Lumbar Spine: thoracic and lumbar spine normal to inspection Skin General skin exam: no rashes or lesions noted Neuro General: patient oriented x3, gait normal, tone normal, moves all extremities, Normal light touch and pain sensation and no focal motor deficits Cranial nerves: Yes Equal, round and reactive pupils present and Yes Normal hearing present Cognition (Neuro): normal cognition Speech: No Abnormal speech present Gait exam (Neuro): Normal gait present Motor exam (neuro): 5/5 motor strength present throughout Extrem General: Yes full ROM, Yes no joint enlargement, Yes no pedal edema and Yes normal gait Assessment and Plan Assessment & Plan (1) Essential hypertension: Code(s): I10 - Essential (primary) hypertension Plan: Blood pressure at goal of less than 130/80. Continue with current medication. Reinforced importance of following a low sodium diet, getting regular exercise, and lowering stress levels. (2) GERD (gastroesophageal reflux disease): Code(s): K21.9 - Gastro-esophageal reflux disease without esophagitis Plan: Followed by GI clinic, currently on omeprazole 20 mg 1 capsule twice a day (3) Irritable bowel syndrome with both constipation and diarrhea: Comment: seems to have resolved once started reglan that solved the CIC part of the sequence Code(s): K58.2 - Mixed irritable bowel syndrome Plan: Controlled with metoclopramide (4) Paroxysmal atrial fibrillation: Code(s): I48.0 - Paroxysmal atrial fibrillation Plan: Currently on apixaban 5 mg 1 tablet twice a day and flecainide 50 mg 1 tablet twice a day, currently followed by cardiology Orders: Orders Vitamin D 25-OH Total 12/29/22 M81.0 - Age-related osteoporosis without current pathological fracture, I10 - Essential (primary) hypertension, K21.9 - Gastro-esophageal reflux disease without esophagitis, K58.2 - Mixed irritable bowel syndrome Basic Metabolic Panel Fasting 12/29/22 M81.0 - Age-related osteoporosis without current pathological fracture, I10 - Essential (primary) hypertension, K21.9 - Gastro-esophageal reflux disease without esophagitis, K58.2 - Mixed irritable bowel syndrome Complete Blood Count Auto Diff 12/29/22 M81.0 - Age-related osteoporosis without current pathological fracture, I10 - Essential (primary) hypertension, K21.9 - Gastro-esophageal reflux disease without esophagitis, K58.2 - Mixed irritable bowel syndrome Coding Level of Care Code Est Pt Level 4 (48666) Diagnoses Essential hypertension I10 GERD (gastroesophageal reflux disease) K21.9 Irritable bowel syndrome with both constipation and diarrhea K58.2 Paroxysmal atrial fibrillation I48.0 Additional Codes Vital Signs *Quality* - Advance Care Planning discussion: Exists, not on file ([id number])
[2022-12-29 11:11] VITALS: BP 130/66; PULSE 57; O2SAT 97; BMI 28.3
== END 2022-12-29 11:55 | disposition home or self-care (01) ==
LOC: HO.HMGC 10:35
PROVIDERS: PCP Internal Medicine; Visit Provider Internal Medicine
DX: I10 Essential (primary) hypertension (principal); K21.9 Gastro-esophageal reflux disease without esophagitis; K58.2 Mixed irritable bowel syndrome; I48.0 Paroxysmal atrial fibrillation; Z00.00 Encounter for general adult medical examination without abnormal findings
CPT/HCPCS: 1123F; 99214

== ENCOUNTER 2023-04-01 11:06 | Outpatient (AMB) | payer MEDICARE, SELFPAY ==
[2023-04-01 11:10] VITALS: BP 123/58; PULSE 57; BMI 28.4
--- NOTE | 2023-04-01 11:10 | MHC.OFFVIS ---
Intake Vital Signs 04/01/23 11:10 Height 5 ft Weight 145 lb 8.081 oz BMI 28.4 BP 123/58 L Blood Pressure Location Lt brachial Position Sitting Pulse 57 Intake Visit Reasons: 6 month follow up Intake Note: Patient returns today in 6 months follow up. CC: Patient reports very painful BMs and nausea. Denies ohter GI symptoms today. [employer] Required: No Allergies levofloxacin [From Levaquin] Allergy (Unknown, Verified 04/13/23 11:11) RASH HPI 6 month follow up HPI Details Assessment & Plan (1) Delayed gastric emptying: ?Code(s): K30 - Functional dyspepsia ?Plan: She found the dicyclomine at the 10 mg dose was very helpful for her left lower quadrant pain and she is pleased with this.? She continues on her Reglan with no adverse effects and along with her omeprazole twice a day has good control of her heartburn.? At this time she is quite pleased with her entire GI regimen and has no further complaints.? Return office visit in 6 months. (2) GERD (gastroesophageal reflux disease): ?Code(s): K21.9 - Gastro-esophageal reflux disease without esophagitis (3) Irritable bowel syndrome with both constipation and diarrhea: ?Comment: seems to have resolved once started reglan that solved the CIC part of the sequence ?Code(s): K58.2 - Mixed irritable bowel syndrome ? ? ? Medications: Refilled omeprazole 20 mg PO BID 180 c aps 2RF K21.9 - Gastro-eso phageal reflux dis ease without esoph agitis ? dicyclomine 10 mg PO QID 120 c aps 6RF K58.2 - Mixed irri table bowel syndro me ? metoclopramide HCl (Reglan) 5 mg PO QIDACHS 12 0 tabs 6RF 30 days K30 - Functional d yspepsia TODAY'S VISIT She is having more abdominal pain, at times severe, when she has to have a BM. It is so bad she gets sweaty and dizzy at times and 'I feel like I will pass out. The pain is more in the periumbilical area now and it moves. This really sounds like biliary cramping. She admits she does not like to take medicines, and she is unsure how often she takes the Bentyl and whether or not she is taking the reglan. She is also on omeprazole, and her GERD has been okay. She says her PCP and her dtr wants her to have a colonoscopy, but she is not keen on the idea. Her last colonoscopy was > 10 years ago here, with Dr. Hanley, [place] I can not find the record. She denies any FHX of crc or polyps. She would be too old (over 79) for Cologuard. I doubt this would be of any diagnostic benefit for the current condition, and she has not alarm signs or sx that would indicate a risk for CRC. Before doing any test, I write down the medications she is supposed to be taking, and I will see her back in 2 weeks to see how her body responds to restarting all medications and taking them as directed. Additional testing will depend on her response. ROV 2 weeks. [facility] Medical History Anemia Essential hypertension History of colitis Hx of iron deficiency anemia Mixed dyslipidemia Osteoarthritis of right knee Osteoporosis Paroxysmal atrial fibrillation Post-menopause Primary osteoarthritis involving multiple joints Urinary frequency Vaginal dryness, menopausal Surgical History History of bladder suspension procedure History of cholecystectomy History of mammogram History of repair of hiatal hernia Hx of bilateral oophorectomy Hx of total knee arthroplasty Hx of total knee arthroplasty Family History Father No problems noted. Mother No problems noted. Family/Other Cancer Brother History of kidney cancer Lung cancer, Onset Age: 65 Sister Breast cancer, Onset Age: 28 Social History Housing: Assisted Living Facility Alcohol intake: current Alcohol intake frequency: holidays/special occasions only Patient Tobacco Use Status: Never used Tobacco e-Cigarette/Vaping Use: Never Used Current occupational status: retired Cognitive needs: No Hearing needs: No Vision needs: Yes Review of Systems Const Denies fatigue, Denies fever(s), Denies night sweats, Reports poor appetite and Denies weight loss ENT Reports Normal hearing present, Denies dental pain, Denies dysphagia, Denies hearing loss, Denies mouth pain, Denies odynophagia, Denies throat swelling, Denies tongue swelling and Reports other (Dentition adequate) Card Reports no additional complaints Resp Reports no additional complaints GI Reports abdominal pain, Denies melena, Denies bloating, Denies hematochezia, Reports constipation, Reports GI cramping, Denies dysphagia, Denies excessive flatus, Denies early satiety, Reports heartburn, Denies diarrhea, Reports nausea, Denies odynophagia, Denies vomiting and Denies hematemesis Skin/Breast Denies pruritus, Denies lesions, Denies rash and Denies jaundice Neuro Reports Normal hearing present and Denies Abnormal speech present Endo Denies fatigue Aller/Immun Denies throat swelling and Denies tongue swelling Physical Exam Vital Signs: Last Vital Signs Pulse 57 04/01/23 11:10 BP 123/58 L 04/01/23 11:10 BMI result Body Mass Index 28.4 Const General: cooperative, no acute distress, well developed and well groomed Nutritional Appearance: average body habitus and well nourished Orientation/consciousness: oriented to person, oriented to place and oriented to time Limitations: No language barrier HEENT Head: Yes normocephalic and Yes atraumatic Eyes General: appearance normal, both eyes and all related structures Pupils: Equal, round and reactive pupils present Neck Neck: Yes normal visual inspection and Yes no lymphadenopathy Thyroid: Thyroid normal Resp Effort & Inspection: normal respiratory effort and able to speak in complete sentences Auscultation: clear to auscultation bilaterally Cardio Rate: regular rate Rhythm: regular rhythm Heart sounds: Normal, physiologic split S2 sound present Peripheral pulses: radial pulses present and posterior tibial pulses present GI Inspection: No distended and No Abdominal panniculus present Palpation (GI): Soft to palpation, nontender, no guarding, not rigid and No hepatosplenomegaly present Percussion: Yes normal to percussion Auscultation: normal bowel sounds Rectal Exam - Female: deferred Skin General skin exam: no rashes or lesions noted, turgor normal, skin not dry, no jaundice, No spider nevi and no striae Rashes: no rashes Nails: normal Neuro General: oriented to person, oriented to place and oriented to time Cranial nerves: Yes Equal, round and reactive pupils present and Yes Normal hearing present Speech: No Abnormal speech present Extrem General: Yes normal to inspection, No clubbing, No cyanosis and No edema Psych Appearance: grossly normal and well kempt Mental Status: mental status grossly normal Speech and movement: Normal speech and movement present Affect: normal affect Attitude: cooperative Thought process: Normal thought process present and not confabulating Thought content: Normal thought content present Insight: Limited insight present (Psych) Judgement: Limited judgement present (Psych) Assessment & Plan Assessment & Plan (1) Irritable bowel syndrome with both constipation and diarrhea: Comment: seems to have resolved once started reglan that solved the CIC part of the sequence Code(s): K58.2 - Mixed irritable bowel syndrome Plan: She is having more abdominal pain, at times severe, when she has to have a BM. It is so bad she gets sweaty and dizzy at times and 'I feel like I will pass out. The pain is more in the periumbilical area now and it moves. This really sounds like biliary cramping. She admits she does not like to take medicines, and she is unsure how often she takes the Bentyl and whether or not she is taking the reglan. She is also on omeprazole, and her GERD has been okay. She says her PCP and her dtr wants her to have a colonoscopy, but she is not keen on the idea. Her last colonoscopy was > 10 years ago here, with Dr. Hanley, [place] I can not find the record. She denies any FHX of crc or polyps. She would be too old (over 79) for Cologuard. I doubt this would be of any diagnostic benefit for the current condition, and she has not alarm signs or sx that would indicate a risk for CRC. Before doing any test, I write down the medications she is supposed to be taking, and I will see her back in 2 weeks to see how her body responds to restarting all medications and taking them as directed. Additional testing will depend on her response. ROV 2 weeks. (2) GERD (gastroesophageal reflux disease): Code(s): K21.9 - Gastro-esophageal reflux disease without esophagitis (3) Delayed gastric emptying: Code(s): K30 - Functional dyspepsia Coding Level of Care Code Est Pt Level 3 (76509) Diagnoses Irritable bowel syndrome with both constipation and diarrhea K58.2 GERD (gastroesophageal reflux disease) K21.9 Delayed gastric emptying K30
== END 2023-04-01 11:43 | disposition home or self-care (01) ==
PROVIDERS: Visit Provider Nurse Practitioner
DX: K58.2 Mixed irritable bowel syndrome (principal); K21.9 Gastro-esophageal reflux disease without esophagitis; K30 Functional dyspepsia
CPT/HCPCS: 99213

== ENCOUNTER → 2023-04-01 11:06 | Outpatient (BNVA) | payer MEDICARE, SELFPAY | PROVIDERS: Visit Provider Nurse Practitioner | DX: K30 Functional dyspepsia (principal); K21.9 Gastro-esophageal reflux disease without esophagitis; K58.2 Mixed irritable bowel syndrome | CPT/HCPCS: 99212 ==

== ENCOUNTER 2023-04-13 11:04 | Outpatient (AMB) | payer MEDICARE, SELFPAY ==
--- NOTE | 2023-04-13 11:08 | A.OFFVIS_ITS ---
Intake Vital Signs 04/13/23 11:09 Height 5 ft Weight 145 lb 8.081 oz BMI 28.4 BP 140/64 H Blood Pressure Location Lt brachial Position Sitting Pulse 59 Intake Visit Reasons: 2 week follow up Intake Note: Patient returns today in 2 weeks follow up. CC: Patient reports she is feeling much much better from painful BMs and nausea.Denies ohter GI symptoms today. 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 It is so bad she gets sweaty and dizzy at times adn 'I feel like I will pass out. The pain is more in the periumbilical area now and it moves. This really sounds like biliary cramping. She admits she does not like to take medicines, and she is unsure how often she takes the bnetyl and whether or not she is taking the reglan. She is also on omeprazole, and her GERD has been okay. She says her PCP and her dtr wants her to have a colonoscopy, but she is not keen on the idea. Her last colonoscopy was > 10 years ago here, with Dr. Hanley, bur I can not find the record. She denies any FHX of crc or polyps. She would be too old (over 79) for Cologuard. I doubt this would be of any diagnostic benefit for the current condition, and she has not alarm signs or sx that would indicate a risk for CRC. Before doing any test, I write down the medications she is supposed to be taking, and I wll see her back in 2 weeks to see how her body responds to restarting all medications and taking them as directed. Additional testing will depend on her response. ROV 2 weeks.??? Assessment & Plan (1) Irritable bowel syndrome with both constipation and diarrhea: ?Comment: seems to have resolved once started reglan that solved the CIC part of the sequence ?Code(s): K58.2 - Mixed irritable bowel syndrome (2) GERD (gastroesophageal reflux disease): ?Code(s): K21.9 - Gastro-esophageal reflux disease without esophagitis (3) Delayed gastric emptying: ?Code(s): K30 - Functional dyspepsia TODAY'S VISIT She restarted her medications and although she is not taking the 4th dose 3 seems to control her sx acceptably. She also only takes the reglan twice a day but also this helps her. She still has cramping just before BM's,but I don't feel like I will pass out. She is happy with this and hopes it will get better. Return office visit in 4 months [facility] Medical History Anemia Essential hypertension History of colitis Hx of iron deficiency anemia Mixed dyslipidemia Osteoarthritis of right knee Osteoporosis Paroxysmal atrial fibrillation Post-menopause Primary osteoarthritis involving multiple joints Urinary frequency Vaginal dryness, menopausal Surgical History History of bladder suspension procedure History of cholecystectomy History of mammogram History of repair of hiatal hernia Hx of bilateral oophorectomy Hx of total knee arthroplasty Hx of total knee arthroplasty Family History Father No problems noted. Mother No problems noted. Family/Other Cancer Brother History of kidney cancer Lung cancer, Onset Age: 65 Sister Breast cancer, Onset Age: 28 Social History Housing: Assisted Living Facility Alcohol intake: current Alcohol intake frequency: holidays/special occasions only Patient Tobacco Use Status: Never used Tobacco e-Cigarette/Vaping Use: Never Used Current occupational status: retired Cognitive needs: No Hearing needs: No Vision needs: Yes Review of Systems Const Denies fatigue, Denies fever(s), Denies night sweats, Denies poor appetite and Denies weight loss ENT Reports Normal hearing present, Denies dental pain, Denies dysphagia, Denies hearing loss, Denies mouth pain, Denies odynophagia, Denies throat swelling, Denies tongue swelling and Reports other (Dentition adequate) Card Reports no additional complaints Resp Reports no additional complaints GI Denies abdominal pain, Denies melena, Denies bloating, Denies hematochezia, Reports constipation, Reports GI cramping, Denies dysphagia, Denies excessive flatus, Denies early satiety, Reports heartburn, Denies diarrhea, Denies nausea, Denies odynophagia, Denies vomiting and Denies hematemesis Skin/Breast Denies pruritus, Denies lesions, Denies rash and Denies jaundice Neuro Reports Normal hearing present and Denies Abnormal speech present Endo Denies fatigue Aller/Immun Denies throat swelling and Denies tongue swelling Physical Exam Vital Signs: Last Vital Signs Pulse 59 04/13/23 11:09 BP 140/64 H 04/13/23 11:09 BMI result Body Mass Index 28.4 Const General: cooperative, no acute distress, well developed and well groomed Nutritional Appearance: average body habitus and well nourished Orientation/consciousness: oriented to person, oriented to place and oriented to time Limitations: No language barrier HEENT Head: Yes normocephalic and Yes atraumatic Eyes General: appearance normal, both eyes and all related structures Pupils: Equal, round and reactive pupils present Neck Neck: Yes normal visual inspection and Yes no lymphadenopathy Thyroid: Thyroid normal Resp Effort & Inspection: normal respiratory effort and able to speak in complete sentences Auscultation: clear to auscultation bilaterally Cardio Rate: regular rate Rhythm: regular rhythm Heart sounds: Normal, physiologic split S2 sound present Peripheral pulses: radial pulses present and posterior tibial pulses present GI Inspection: No distended and No Abdominal panniculus present Palpation (GI): Soft to palpation, nontender, no guarding, not rigid and No hepatosplenomegaly present Percussion: Yes normal to percussion Auscultation: normal bowel sounds Rectal Exam - Female: deferred Skin General skin exam: no rashes or lesions noted, turgor normal, skin not dry, no jaundice, No spider nevi and no striae Rashes: no rashes Nails: normal Neuro General: oriented to person, oriented to place and oriented to time Cranial nerves: Yes Equal, round and reactive pupils present and Yes Normal hearing present Speech: No Abnormal speech present Extrem General: Yes normal to inspection, No clubbing, No cyanosis and No edema Psych Appearance: grossly normal and well kempt Mental Status: mental status grossly normal Speech and movement: Normal speech and movement present Affect: normal affect Attitude: cooperative Thought process: Normal thought process present and not confabulating Thought content: Normal thought content present Insight: Fair insight present (Psych) Judgement: Fair judgement present (Psych) Assessment & Plan Assessment & Plan (1) Irritable bowel syndrome with both constipation and diarrhea: Comment: seems to have resolved once started reglan that solved the CIC part of the sequence Code(s): K58.2 - Mixed irritable bowel syndrome Plan: She restarted her medications and although she is not taking the 4th dose 3 seems to control her sx acceptably. She also only takes the reglan twice a day but also this helps her. She still has cramping just before BM's,but I don't feel like I will pass out. She is happy with this and hopes it will get better. Return office visit in 4 months (2) GERD (gastroesophageal reflux disease): Code(s): K21.9 - Gastro-esophageal reflux disease without esophagitis Medications: Refilled metoclopramide HCl (Reglan) 5 mg PO QIDACHS 30 days 120 tabs 6RF K30 - Functional dyspepsia Coding Level of Care Code Est Pt Level 3 (15893) Diagnoses Irritable bowel syndrome with both constipation and diarrhea K58.2 GERD (gastroesophageal reflux disease) K21.9
[2023-04-13 11:09] VITALS: BP 140/64; PULSE 59; BMI 28.4
== END 2023-04-13 11:22 | disposition home or self-care (01) ==
PROVIDERS: PCP Internal Medicine; Visit Provider Nurse Practitioner
DX: K58.2 Mixed irritable bowel syndrome (principal); K21.9 Gastro-esophageal reflux disease without esophagitis
CPT/HCPCS: 99213

== ENCOUNTER → 2023-04-13 11:04 | Outpatient (BNVA) | payer MEDICARE, SELFPAY | PROVIDERS: PCP Internal Medicine; Visit Provider Nurse Practitioner | DX: K58.2 Mixed irritable bowel syndrome (principal); K21.9 Gastro-esophageal reflux disease without esophagitis | CPT/HCPCS: 99212 ==

== ENCOUNTER 2023-06-06 18:46 | Inpatient (IN) | payer MEDICARE, SELFPAY ==
--- NOTE | ~2023-06-06 | CT_ITS ---
EXAMINATION: CT ABDOMEN AND PELVIS WITHOUT CONTRAST CLINICAL INFORMATION: 83-year-old female with abdominal pain and no bowel movement, history of diverticulosis diverticulitis COMPARISON: 05/26/2022 TECHNIQUE: Multidetector volumetric imaging was performed from the superior aspect of the liver through the pubic symphysis. Sagittal and coronal reformatted images were obtained on the technologist's workstation. This CT examination was performed using dose optimization techniques as appropriate, variously including the following: *Automated exposure control *Adjustment of mA and/or kV according to patient size (this includes techniques or standardized protocols for targeted exams where dose is matched to indication/reason for exam; i.e. extremities or head) *Use of iterative reconstruction technique DLP: 614 mGy-cm FINDINGS: LUNG BASES: The visualized lung bases are unremarkable. LIVER, GALLBLADDER, AND BILIARY TREE: The liver is normal in size, shape, and attenuation. No focal hepatic lesion or biliary ductal dilatation is present. Bladder is not seen likely surgically absent. CBD is nondilated. PANCREAS: Unremarkable. SPLEEN: Unremarkable. ADRENAL GLANDS: Unremarkable. KIDNEYS AND URETERS: There is an exophytic cyst in the upper pole of right kidney measured 3.7 cm in the lower pole of right kidney measured 2.8 cm, another upper pole 2.0 cm cyst seen and there are parapelvic cysts seen bilaterally. No evidence of hydroureteronephrosis or solid masses and no calcifications seen. BLADDER: Unremarkable. GASTROINTESTINAL TRACT: There is large hiatal hernia with significant amount of stomach is identified above the diaphragm. There are changes of diverticulosis in the sigmoid colon and there is haziness surrounding the thickened wall of the sigmoid colon most likely diverticulitis. There is likely abscess formation surrounding sigmoid colon, new since previous examination correlate clinically and follow-up by colonoscopy following treatment. ABDOMINAL WALL: No significant hernia is appreciated. LYMPH NODES: Not seen VASCULAR: Calcified abdominal aorta is nondilated PELVIC VISCERA: Patient is status post hysterectomy OSSEOUS STRUCTURES: There are degenerative changes in lumbar spine without fractures. CT/CT abdomen pelvis wo IV con IMPRESSION: 1. Sigmoid colon diverticulitis with likely abscess formation surrounding the sigmoid colon. Follow-up by colonoscopy following treatment is recommended. 2. Large hiatal hernia. 3. Bilateral renal cysts. 4. Status post cholecystectomy and hysterectomy. Fleischner guidelines were followed.
[2023-06-06 18:59] VITALS: BP 132/62; BP 186/90; PULSE 80; PULSE 84; RESP 18; TEMP 37.3; O2SAT 96; BMI 29.7
--- NOTE | 2023-06-06 18:59 | ED_ITS ---
HPI - Abdominal Pain General Chief Complaint: Abdominal Pain Stated Complaint: ABD PAIN Time Seen by Provider: 06/06/23 18:52 Source: patient and EMS Mode of arrival: EMS Limitations: no limitations History of Present Illness HPI narrative: 83-year-old female came in by ambulance for evaluation of lower abdominal pain. Started at 02:30 this morning awake the patient up from sleep, patient was complaining of lower abdominal crampy pain that has been constant since it started now it is getting worse, last bowel movement was 2 days ago and was normal, patient feeling nauseous but no vomiting, no fever or chills, no sick contact. Do not remember passing flatus. Past surgical history is significant for hysterectomy, appendectomy, cholecystectomy. Patient had history of diverticulitis in the past. Related Data Previous Rx's Medication Instructions Recorded dicyclomine 10 mg capsule 10 mg PO QID #120 caps 10/05/22 omeprazole 20 mg capsule,delayed 20 mg PO BID #180 caps 10/05/22 release hydrochlorothiazide 25 mg tablet 25 mg PO DAILY #90 tabs 01/04/23 metoprolol succinate 25 mg 25 mg PO DAILY #90 tabs 01/04/23 tablet,extended release 24 hr metoclopramide HCl 5 mg tablet 5 mg PO QIDACHS 30 days #120 tabs 04/13/23 (Reglan) amlodipine 2.5 mg tablet 2.5 mg PO DAILY #90 tabs 04/25/23 flecainide 50 mg tablet 50 mg PO BID #180 tabs 05/02/23 apixaban 5 mg tablet (Eliquis) 5 mg PO BID 90 days #180 tabs 05/17/23 Allergies Allergy/AdvReac Type Severity Reaction Status Date / Time levofloxacin [From Levaquin] Allergy Unknown RASH Verified 06/06/23 18:58 Review of Systems Review of Systems All other systems are reviewed and are negative Constitutional: Reports as per HPI and Reports no additional constitutional complaints Eyes: Reports as per HPI and Reports no additional eye complaints Reports system reviewed and no additional complaints, except as documented Cardiovascular: Reports as per HPI and Reports no additional cardiovascular complaints Respiratory: Reports as per HPI and Reports no additional respiratory complaints Gastrointestinal: Reports as per HPI and Reports no additional gastrointestinal complaints Genitourinary: Reports no additional female genitourinary complaints Musculoskeletal: Reports no additional musculoskeletal complaints Skin/Breast: Reports system reviewed and no additional complaints, except as docu Psychiatric: Reports no additional psychiatric complaints Endocrine: Reports no additional endocrine complaints Hematologic/Lymphatic: Reports no additional hematologic/lymphatic complaints Allergic/Immunologic: Reports no additional allergic/immunologic complaints Reports system reviewed and no additional complaints, except as documented and Reports Abnormal speech present [facility] Past Medical History Medical History Mixed dyslipidemia Hx of iron deficiency anemia Osteoarthritis of right knee Anemia Post-menopause Vaginal dryness, menopausal Urinary frequency Primary osteoarthritis involving multiple joints Osteoporosis Paroxysmal atrial fibrillation Essential hypertension History of colitis Surgical History Hx of total knee arthroplasty History of mammogram Hx of total knee arthroplasty Hx of bilateral oophorectomy History of bladder suspension procedure History of repair of hiatal hernia History of cholecystectomy Family History Family History Father No problems noted. Mother No problems noted. Family/Other Cancer Brother History of kidney cancer Lung cancer, Onset Age: 65 Sister Breast cancer, Onset Age: 28 Social History Social History Housing: Assisted Living Facility Alcohol intake: current Alcohol intake frequency: holidays/special occasions only Alcohol type: wine Patient Tobacco Use Status: Never used Tobacco Smoked in Last 30 Days: No e-Cigarette/Vaping Use: Never Used Use of substances other than those prescribed or required for medical reasons: No Advance Directives: No Advance Directives Information Provided: No Current occupational status: retired Cognitive needs: No Hearing needs: No Vision needs: Yes Physical Exam ED Vital Signs: Vital Signs - 24 hr 06/06/23 18:59 06/06/23 19:23 06/06/23 21:19 Temperature 99.1 F Pulse Rate 80 77 78 Respiratory Rate 18 18 18 Blood Pressure 132/62 154/64 H 159/52 H Pulse Oximetry 96 94 96 Oxygen Delivery Method Room Air Room Air Room Air BMI result Body Mass Index 29.7 Vital signs have been reviewed and appear to be correct. Blood pressure elevated. Heart rate normal. Respiratory rate normal. Temperature normal. Oxygen saturation normal. Appearance: Alert. Oriented X3. No acute distress. Head: Normal external exam. Normocephalic. Atraumatic. No Decker signs noted. No raccoon eyes noted Eyes: PERRLA. EOMI. Conjunctiva and sclera normal. Eyelids normal. ENT: TM's Normal. Pharynx normal. Uvula midline. Moist mucous membranes. No trismus noted. No drooling noted. No muffled voice noted. Neck: Normal inspection. Neck supple. FROM. No adenopathy. Thyroid Normal. No meningeal signs. No neck mass noted. CVS: Normal heart rate and rhythm. Heart sound normal. No murmurs noted. Pulses normal throughout. Respiratory: No respiratory distress. Painless inspiration. Breath sounds normal. No wheezes/rales/rhonchi noted. Chest nontender. No accessory muscle usage noted or decreased air movement noted. Abdomen: Soft , lower abdominal tenderness, no guarding, no rebound tenderness. Bowel sounds normal in all 4 quadrants. No distention noted. No organomegaly noted. No visible injury noted. Back: No CVA tenderness. Full range of motion noted. Skin: Skin warm and dry. Normal skin color. Normal skin turgor. No rashes/lesions/lacerations noted. Extremities: No lower extremity edema. Extremities exhibit normal range of motion. Extremities nontender. Neuro: Oriented X 3. Cranial nerve exam: II-XII are grossly intact No motor deficit. No sensory deficit. Reflexes normal. Course Course Course Narrative: 83-year-old female came in with abdominal pain CT revealed acute sigmoid diverticulitis with abscess formation the case was discussed with Dr. Milner. Plan is 1. Admit to the hospitalist. 2. Broad-spectrum antibiotic 3. Further surgical evaluation as an inpatient. Medical Decision Making Differential Diagnosis Differential Diagnoses: The differential diagnosis associated with the presentation includes ( SBO, diverticulitis, colitis, constipation, electrolyte abnormality, severe anemia, sepsis.) Admission/Observation Consideration of admission/observation: Escalation of care including admission/observation considered Consult Healthcare Provider Management of the patient was discussed with: Hospitalist ( Dr. Mendosa.) and Planishing Hammer Operator (Dr. Milner.) Lab Data MDM Lab Attestation statement: I reviewed the patient's lab results. 06/06/23 19:57 06/06/23 19:57 Labs: Lab Results 06/06/23 Range/Units 19:57 WBC 11.9 H (4.8-10.8) X10*3/uL RBC 3.91 L (4.20-5.50) X10*6/uL Hgb 9.2 L D (12.0-16.0) g/dl Hct 30.2 L D (37.0-47.0) % MCV 77.2 L (80.0-98.0) fL MCH 23.5 L (27.0-33.0) pg MCHC 30.5 L (31.0-35.0) g/dl RDW 14.7 (11.0-16.0) % Plt Count 289 (160-400) X10*3/uL MPV 9.5 (9.4-12.3) fL Immature Gran % (Auto) 0.6 H (0.0-0.4) % Neut % (Auto) 75.7 H (45-73) % Lymph % (Auto) 14.4 L (20-40) % [place]oshone % (Auto) 9.0 (2-11) % Eos % (Auto) 0.0 (0-4) % Baso % (Auto) 0.3 (0-2) % Lymph # (Auto) 1.7 (1.2-4.9) X10*3/uL [place]oshone # (Auto) 1.1 (0.1-1.2) X10*3/uL Eos # (Auto) 0.0 (0.0-0.4) X10*3/uL Baso # (Auto) 0.0 (0.0-0.2) X10*3/uL Abs Immat Gran (auto) 0.07 H (0.00-0.03) X10*3/uL Absolute Neuts (auto) 9.1 H (2.0-8.3) x10*3/uL Absolute Nucleated RBC 0.000 (0.0-0.012) X10*3/uL Nucleated RBC % (auto) 0.0 (0.0-0.2) /100WBC Sodium 136 (135-145) mmol/L Potassium 3.5 D (3.3-5.1) mmol/L Chloride 98 (96-108) mmol/L Carbon Dioxide 27 (22-29) mmol/L Anion Gap 15 (12-20) BUN 13 (9-16) mg/dL Creatinine 0.72 (0.5-1.4) mg/dL Estim Creat Clear Calc 50.4 Estimated GFR > 60 Random Glucose 116 H (60-115) mg/dL Calcium 9.8 (8.4-10.2) mg/dL Total Bilirubin 0.6 (0.0-1.0) mg/dL Direct Bilirubin 0.3 (0.0-0.5) mg/dL AST 14 (5-31) U/L ALT 11 (0-31) U/L Alkaline Phosphatase 52 (39-117) U/L Troponin I High Sens < 2.7 (<3.5-17.0) ng/L Total Protein 6.2 L (6.5-8.0) g/dL Albumin 3.8 (3.5-5.0) g/dL Lipase 18 (8-78) U/L Independent Interpretation I performed an independent interpretation of an: CT Scan ( abdomen and pelvis: Sigmoid diverticulitis with possible abscess formation.) Radiology Impression Discussion of test interpretation with radiology: I have reviewed the radiologist's reading. (1. Sigmoid colon diverticulitis with likely abscess formation surrounding the sigmoid colon. Follow-up by colonoscopy following treatment is recommended. 2. Large hiatal hernia. 3. Bilateral renal cysts. 4. Status post cholecystectomy and hysterectomy. ) Medications Administered Discontinued Medications Generic Name Dose Route Start Last Admin Trade Name Freq PRN Reason Stop Dose Admin Sodium Chloride 1,000 mls @ 999 mls/hr 06/06/23 18:57 06/06/23 19:58 Ns IV 06/06/23 19:57 999 mls/hr .Q1H1M ONE Administration Magnesium Hydroxide 30 ml 06/06/23 18:57 06/06/23 19:58 Milk Of Magnesia 30 Ml Oral.Susp PO 06/06/23 18:58 30 ml ONCE ONE Administration Discharge Plan Discharge Clinical Impression: Diverticulitis large intestine Patient Disposition: Admitted As Inpatient
[2023-06-06 19:23] VITALS: BP 154/64; PULSE 77; RESP 18; O2SAT 94
[2023-06-06] MEDS: Milk of Magnesia 30 ML ORAL.SUSP PO (19:58)
[2023-06-06] MEDS: 0.9 % Sodium Chloride 1,000 ML 999 ML IV (19:58)
--- NOTE | 2023-06-06 20:05 | PC.NURSE ---
this RN assumed care of pt. pt a&ox3. respirations even and unlabored. pt reports abdominal pain since 2am this morning. pt reports last BM yesterday. pt abdomen soft but tender to touch in all 4 quadrants. pt has hypoactive bowel sounds throughout. IV established, labs obtained and sent. pt medicated per nov.
[2023-06-06 20:07] LABS: MANUAL DIFF FLAG NO
[2023-06-06 20:11] LABS: Basophils Percent Auto 0.3 % (0-2); Hematocrit 30.2 % (37.0-47.0); Hemoglobin 9.2 g/dl (12.0-16.0); Imm Gran Abs Auto 0.07 X10*3/uL (0.00-0.03); Imm Gran Pct Auto 0.6 % (0.0-0.4); Lymphocytes Absolute Auto 1.7 X10*3/uL (1.2-4.9); Lymphocytes Percent Auto 14.4 % (20-40); Mean Corpuscular HGB Conc 30.5 g/dl (31.0-35.0); Mean Corpuscular Hemoglobin 23.5 pg (27.0-33.0); Mean Corpuscular Volume 77.2 fL (80.0-98.0); Mean Platelet Volume 9.5 fL (9.4-12.3); Monocytes Absolute Auto 1.1 X10*3/uL (0.1-1.2); Neutrophils Absolute Auto 9.1 x10*3/uL (2.0-8.3); Neutrophils Percent Auto 75.7 % (45-73); Platelet Count 289 X10*3/uL (160-400); Red Blood Count 3.91 X10*6/uL (4.20-5.50); Red Cell Distribution Width 14.7 % (11.0-16.0); White Blood Count 11.9 X10*3/uL (4.8-10.8)
[2023-06-06 20:28] LABS: Alanine Aminotransferase 11 U/L (0-31); Albumin Level 3.8 g/dL (3.5-5.0); Alkaline Phosphatase 52 U/L (39-117); Anion Gap 15 (12-20); Aspartate Amino Transferase 14 U/L (5-31); Bilirubin Direct 0.3 mg/dL (0.0-0.5); Bilirubin Total 0.6 mg/dL (0.0-1.0); Blood Urea Nitrogen 13 mg/dL (9-16); Calcium 9.8 mg/dL (8.4-10.2); Carbon Dioxide 27 mmol/L (22-29); Chloride 98 mmol/L (96-108); Creatinine Clr Calc Pharmacy 50.4; Estimated Glomerular Filt Rate > 60; Glucose Random 116 mg/dL (60-115); Lipase 18 U/L (8-78); Potassium 3.5 mmol/L (3.3-5.1); Sodium 136 mmol/L (135-145); Total Protein 6.2 g/dL (6.5-8.0)
[2023-06-06 20:37] LABS: Troponin-I High Sensitivity < 2.7 ng/L (<3.5-17.0)
[2023-06-06 21:19] VITALS: BP 159/52; PULSE 78; RESP 18; O2SAT 96
--- NOTE | 2023-06-06 22:17 | P.HPHOSP_ITS ---
History of Present Illness Date of Service: 06/06/23 Chief Complaint: Abd pain An 83 years old lady with PMH of Afib on Eliquis, HTN, GERD among others who presents to the hospital with LL abdominal pain and chills. The patient reports feeling well until last night when she started to feel abd pain and chills with associated nausea but no fever, vomiting, change in bowel habit or urinary symptoms. Her bowel movements are regular every day but she has been constipated for 2 days now. In ED a CT scan showed evidence of diverticulitis with possible abscess formation. discussed with surgery and will be admitted for medical management and surgical evaluation. Review of Systems 2 Review of Systems: No fever but reporting chills and weakness No chest pain, palpitation No shortness of breath or coughing LLQ abdominal pain with nausea but no vomiting No urinary symptoms No any rash or wounds PMFSH Medical History Mixed dyslipidemia Hx of iron deficiency anemia Osteoarthritis of right knee Anemia Post-menopause Vaginal dryness, menopausal Urinary frequency Primary osteoarthritis involving multiple joints Osteoporosis Paroxysmal atrial fibrillation Essential hypertension History of colitis Family History Father No problems noted. Mother No problems noted. Family/Other Cancer Brother History of kidney cancer Lung cancer, Onset Age: 65 Sister Breast cancer, Onset Age: 28 Surgical History Hx of total knee arthroplasty History of mammogram Hx of total knee arthroplasty Hx of bilateral oophorectomy History of bladder suspension procedure History of repair of hiatal hernia History of cholecystectomy Social History Housing: Assisted Living Facility Alcohol intake: current Alcohol intake frequency: holidays/special occasions only Alcohol type: wine Patient Tobacco Use Status: Never used Tobacco Smoked in Last 30 Days: No e-Cigarette/Vaping Use: Never Used Use of substances other than those prescribed or required for medical reasons: No Advance Directives: No Advance Directives Information Provided: No Current occupational status: retired Cognitive needs: No Hearing needs: No Vision needs: Yes Meds Allergies Allergy/AdvReac Type Severity Reaction Status Date / Time levofloxacin [From Levaquin] Allergy Unknown RASH Verified 06/06/23 18:58 Physical Exam 2 Vital Signs and Narrative: Vital Signs: Last Vital Signs Temp 99.1 F 06/06/23 18:59 Pulse 78 06/06/23 21:19 Resp 18 06/06/23 21:19 BP 159/52 H 06/06/23 21:19 Pulse Ox 96 06/06/23 21:19 O2 Del Method Room Air 06/06/23 21:19 BMI result Body Mass Index 29.7 Const: Other: Constitutional : Awake, interactive, not in distress Neck : Normal inspection, Supple Cardiovascular : RRR, no JVP, no lower extremity edema Respiratory : good bilateral air entry, no crackles, wheezes or rhonchi Gastrointestinal: soft, lax, decreased bowel sounds, LLQ tenderness with no rebound or surgical signs Skin : Warm, Dry Neurological : Alert & oriented x3, No focal deficit Results Labs 06/06/23 19:57 06/06/23 19:57 Labs: Laboratory Results - last 24 hr 06/06/23 19:57 MCV 77.2 L MCH 23.5 L MCHC 30.5 L RDW 14.7 Plt Count 289 MPV 9.5 Immature Gran % (Auto) 0.6 H Neut % (Auto) 75.7 H Lymph % (Auto) 14.4 L [place] % (Auto) 9.0 Eos % (Auto) 0.0 Baso % (Auto) 0.3 Lymph # (Auto) 1.7 [place] # (Auto) 1.1 Eos # (Auto) 0.0 Baso # (Auto) 0.0 Abs Immat Gran (auto) 0.07 H Absolute Neuts (auto) 9.1 H Absolute Nucleated RBC 0.000 Nucleated RBC % (auto) 0.0 Anion Gap 15 Estim Creat Clear Calc 50.4 Estimated GFR > 60 Random Glucose 116 H Calcium 9.8 Total Bilirubin 0.6 Direct Bilirubin 0.3 AST 14 ALT 11 Alkaline Phosphatase 52 Total Protein 6.2 L Albumin 3.8 Lipase 18 Imaging Radiologist's Impressions: Impressions Abdomen/Pelvis CT 06/06/23 19:18 IMPRESSION: 1. Sigmoid colon diverticulitis with likely abscess formation surrounding the sigmoid colon. Follow-up by colonoscopy following treatment is recommended. 2. Large hiatal hernia. 3. Bilateral renal cysts. 4. Status post cholecystectomy and hysterectomy. Fleischner guidelines were followed. Assessment and Plan (1) Diverticulitis large intestine: Status: Acute Plan An 83 years old lady with PMH of Afib on Eliquis, HTN, GERD among others who presents to the hospital with LL abdominal pain and chills. Acute infectious diverticulitis w possible abscess Not septic pending cultures CT scan as reported Start IV Flagyl and Ceftriaxone NPO now , advance as tolerated surgery eval PAF Hold eliquis in case surgical intervention needed, full dose Lovenox Continue Flecainide and Metoprolol HTN Hold home meds for now Med rec pending DVT PPx Lovenox Patient will need at least 2 nights of hospital stay for treatment of diverticulitis pending sepcialist evaluation Time Spent With Patient Time: Total time managing care of this patient today ____ minutes. Quality Stroke Does the patient have a stroke diagnosis?: No VTE Prior VTE?: No VTE Risk Level:: Medical - moderate - high VTE Device Contraindication: Treatment Not Indicated VTE Drug Contraindication: N/A - Med Ordered
[2023-06-06] MEDS: Piperacillin Sodium/Tazobactam 3.375 GM in 0.9 % Sodium Chloride 50 ML IV (22:21)
--- NOTE | 2023-06-06 22:31 | PHA.MEDREC ---
Pharmacy Consult ? Medication Reconciliation Pharmacy has completed the medication reconciliation.
[2023-06-06 22:42] LABS: Lactic Acid 1.3 mmol/L (0.5-2.0)
--- NOTE | 2023-06-06 23:25 | PC.NURSE ---
report given to [facility] nurse
[2023-06-06 23:31] VITALS: BP 143/53; PULSE 75; TEMP 37.1; O2SAT 94
[2023-06-06] MEDS: cefTRIAXone sodium 1 GM in 0.9 % Sodium Chloride 50 ML IV (23:36)
[2023-06-06] MEDS: 0.9 % Sodium Chloride 1,000 ML 75 ML IVCONT (23:41)
[2023-06-07 00:14] VITALS: BP 169/72; PULSE 72; RESP 18; TEMP 37.3; O2SAT 95
[2023-06-07] MEDS: metroNIDAZOLE/NS 500 MG/100 ML PIGGYBACK 100 MG IV ×3 (00:16→16:28)
[2023-06-07] MEDS: 0.9 % Sodium Chloride Flush 3 ML SYRINGE IVFLUSH (00:16)
[2023-06-07 07:12] LABS: Hematocrit 28.1 % (37.0-47.0); Hemoglobin 8.5 g/dl (12.0-16.0); Mean Corpuscular HGB Conc 30.2 g/dl (31.0-35.0); Mean Corpuscular Hemoglobin 23.7 pg (27.0-33.0); Mean Corpuscular Volume 78.3 fL (80.0-98.0); Mean Platelet Volume 9.8 fL (9.4-12.3); Platelet Count 287 X10*3/uL (160-400); Red Blood Count 3.59 X10*6/uL (4.20-5.50); Red Cell Distribution Width 14.8 % (11.0-16.0); White Blood Count 11.5 X10*3/uL (4.8-10.8)
[2023-06-07 07:34] LABS: Anion Gap 13 (12-20); Blood Urea Nitrogen 9 mg/dL (9-16); Carbon Dioxide 25 mmol/L (22-29); Chloride 102 mmol/L (96-108); Creatinine Clr Calc Pharmacy 56.7; Estimated Glomerular Filt Rate > 60; Glucose Random 99 mg/dL (60-115); Potassium 3.4 mmol/L (3.3-5.1); Sodium 137 mmol/L (135-145)
[2023-06-07 07:49] VITALS: BP 167/80; PULSE 72; RESP 18; TEMP 37.3; O2SAT 95
--- NOTE | 2023-06-07 08:11 | P.CONGS_ITS ---
History of Present Illness Consult details Consult date: 06/07/23 Requesting physician: Padmaja Hdez Narrative: 83-year-old female patient presenting with complaints of lower abdominal pain. She reports a long history of abdominal symptoms and is being followed by Gastroenterology. The current symptoms began at approximately 02:00 on Tuesday and suddenly woke her up from sleep. She denies symptoms as severe as this located mainly in the lower abdomen. She denies nausea, vomiting, fever or chills. She last moved her bowels on Tuesday but does report passing a small amount of flatus today. She denies a previous history of diverticulitis. Workup in the emergency department revealed a mildly elevated WBC. CT abdomen and pelvis revealed evidence of diverticulitis with a small abscess. She is admitted to the hospitalist service for IV antibiotics. Review of Systems 2 Review of Systems: Yes all other systems are reviewed and are negative Constitutional: Constitutional: Denies chills, Denies fever(s), Denies headache(s), Denies poor appetite and Denies weakness ENT: Denies headache(s) Cardiovascular: Cardiovascular: Denies chest pain, Denies irregular heart rhythm, Denies palpitations and Denies dyspnea Respiratory: Respiratory: Denies cough, Denies excessive phlegm production and Denies dyspnea Gastrointestinal: Gastrointestinal: Reports abdominal pain, Denies bloating, Denies change in bowel habits, Reports constipation, Denies heartburn, Denies diarrhea, Denies nausea and Denies vomiting Genitourinary: Genitourinary: Denies urinary frequency Musculoskeletal: Musculoskeletal: Denies back pain, Denies muscle weakness and Denies numbness Integumentary/Breasts: Skin/Breast: Denies changing lesions and Denies unusual bruising Neurologic: Denies headache(s), Denies numbness, Denies paresthesias and Denies weakness Psychiatric: Psychiatric: Denies anxiety and Denies depression Endocrine: Endocrine: Denies palpitations Hematologic/Lymphatic: Hematologic/Lymphatic: Denies lymphadenopathy PMFSH Past Medical History Medical History Mixed dyslipidemia Hx of iron deficiency anemia Osteoarthritis of right knee Anemia Post-menopause Vaginal dryness, menopausal Urinary frequency Primary osteoarthritis involving multiple joints Osteoporosis Paroxysmal atrial fibrillation Essential hypertension History of colitis Family History Family History Father No problems noted. Mother No problems noted. Family/Other Cancer Brother History of kidney cancer Lung cancer, Onset Age: 65 Sister Breast cancer, Onset Age: 28 Surgical History Surgical History Hx of total knee arthroplasty History of mammogram Hx of total knee arthroplasty Hx of bilateral oophorectomy History of bladder suspension procedure History of repair of hiatal hernia History of cholecystectomy Social History Social History Household Members: None Housing: Apartment Do you presently have visiting nurse or other home services: No Alcohol intake: current Alcohol intake frequency: holidays/special occasions only Alcohol type: wine Patient Tobacco Use Status: Never used Tobacco Smoked in Last 30 Days: No e-Cigarette/Vaping Use: Never Used Use of substances other than those prescribed or required for medical reasons: No Have you been hit, kicked, punched, or otherwise hurt by someone within the past year? If so, by whom?: No Do you feel safe in your current relationship?: No Current Relationship Is there a partner from a previous relationship who is making you feel unsafe now?: No Are you made to feel afraid or neglected: No Advance Directives: No Advance Directives Information Provided: No Do you have thoughts of harming others: None Do you have a plan to hurt others: No Plan Recently lost weight without trying: No Eating poorly because of decreased appetite: No Nutrition Risks: Gastrointestinal Malabsorption Patient : No : No Poor oral hygiene: No Current occupational status: retired Cognitive needs: No Hearing needs: No Vision needs: Yes Meds Allergies Allergy/AdvReac Type Severity Reaction Status Date / Time levofloxacin [From Levaquin] Allergy Unknown RASH Verified 06/06/23 18:58 Active Medications: Current Medications Acetaminophen (Acetaminophen 325 Mg Tablet) 650 mg PO Q6H PRN PRN Reason: Pain, Mild (Pain Scale 1-3) Enoxaparin Sodium (Enoxaparin Sodium 80 Mg/0.8 Ml Syringe) 70 mg SUBCUT Q12H [facility] Flecainide Acetate (Flecainide Acetate 50 Mg Tablet) 50 mg PO BID [facility] Ceftriaxone Sodium 1 gm/ (Sodium Chloride) 50 mls @ 100 mls/hr IV Q24H [facility] Last Infusion: 06/07/23 00:17 Dose: Infused Metronidazole (Flagyl) 500 mg in 100 mls @ 100 mls/hr IV Q8H [facility] Last Infusion: 06/07/23 01:20 Dose: Infused Sodium Chloride (Ns) 1,000 mls @ 75 mls/hr IVCONT .[id number] [facility] Last Admin: 06/06/23 23:41 Dose: 75 mls/hr Metoprolol Succinate (Metoprolol Succinate Er 25 Mg Tab.Er.24h) 25 mg PO DAILY [facility]; Protocol Morphine Sulfate (Morphine Sulfate 4 Mg/Ml Cartridge) 1 mg IVPUSH Q4H PRN; Protocol PRN Reason: Pain, Severe (Pain Scale 7-10) Ondansetron HCl (Ondansetron Hcl 4 Mg/2 Ml Vial) 4 mg IVPUSH Q8H PRN PRN Reason: Nausea and Vomiting Sodium Chloride (0.9 % Sodium Chloride Flush 3 Ml Syringe) 3 ml IVFLUSH QSHIFT [facility] Last Admin: 06/07/23 07:14 Dose: Not Given Home Medications Medication Instructions Recorded Confirmed Last Taken Type metoclopramide HCl 5 mg tablet 5 mg PO QIDACHS PRN stomach pain 06/06/23 06/06/23 Unknown History (Reglan) Physical Exam 2 Vital Signs: Vital Signs: Last Vital Signs Temp 99.2 F 06/07/23 07:49 Pulse 72 06/07/23 07:49 Resp 18 06/07/23 07:49 BP 167/80 H 06/07/23 07:49 Pulse Ox 95 06/07/23 07:49 O2 Del Method Room Air 06/07/23 07:49 BMI result Body Mass Index 29.7 Const: General: cooperative and no acute distress Nutritional Appearance: w ell nourished Orientation/consciousness: patient oriented x3 Limitations: no limitations HEENT: Head: Yes normocephalic and Yes atraumatic Ears: hearing grossly normal bilaterally Resp: Effort & Inspection: normal respiratory effort, no audible wheezes, no cough and no respiratory distress Cardio: Jugular venous distension: no JVD GI: Inspection: Yes normal to inspection Palpation (GI): Soft to palpation, Tenderness to palpation present (GI) in the LLQ and in the RLQ, Guarding due to palpation present (GI) and not rigid Skin: Other: Warm, dry, no rash Neuro: General: patient oriented x3 Extrem: General: Yes no clubbing, cyanosis or edema Results Labs 06/07/23 06:18 06/07/23 06:18 Labs: Abnormal lab results 06/06/23 06/07/23 Range/Units 19:57 06:18 WBC 11.9 H 11.5 H (4.8-10.8) X10*3/uL RBC 3.91 L 3.59 L (4.20-5.50) X10*6/uL Hgb 9.2 L D 8.5 L (12.0-16.0) g/dl Hct 30.2 L D 28.1 L (37.0-47.0) % MCV 77.2 L 78.3 L (80.0-98.0) fL MCH 23.5 L 23.7 L (27.0-33.0) pg MCHC 30.5 L 30.2 L (31.0-35.0) g/dl Immature Gran % (Auto) 0.6 H (0.0-0.4) % Neut % (Auto) 75.7 H (45-73) % Lymph % (Auto) 14.4 L (20-40) % Abs Immat Gran (auto) 0.07 H (0.00-0.03) X10*3/uL Absolute Neuts (auto) 9.1 H (2.0-8.3) x10*3/uL Random Glucose 116 H (60-115) mg/dL Total Protein 6.2 L (6.5-8.0) g/dL Short CBC 06/06/23 06/07/23 Range/Units 19:57 06:18 WBC 11.9 H 11.5 H (4.8-10.8) X10*3/uL Hgb 9.2 L D 8.5 L (12.0-16.0) g/dl Hct 30.2 L D 28.1 L (37.0-47.0) % Plt Count 289 287 (160-400) X10*3/uL BMP 06/06/23 06/07/23 19:57 06:18 Sodium 136 137 Potassium 3.5 D 3.4 Chloride 98 102 Carbon Dioxide 27 25 BUN 13 9 Creatinine 0.72 0.64 Calcium 9.8 9.0 D Liver Function 06/06/23 Range/Units 19:57 Total Bilirubin 0.6 (0.0-1.0) mg/dL Direct Bilirubin 0.3 (0.0-0.5) mg/dL AST 14 (5-31) U/L ALT 11 (0-31) U/L Alkaline Phosphatase 52 (39-117) U/L Albumin 3.8 (3.5-5.0) g/dL All other labs normal. Imaging Abdomen CT scan report/results: image reviewed CT scan - pelvis: image reviewed Assessment and Plan (1) Diverticulitis large intestine: Qualifiers: Diverticulitis bleeding: without bleeding Diverticulitis complication: with abscess Qualified Code(s): K57.20 - Diverticulitis of large intestine with perforation and abscess without bleeding Status: Acute Plan 83-year-old female patient presenting with acute onset of abdominal pain in lower abdomen found to have sigmoid diverticulitis with an abscess formation. Abscess does not appear amenable to drainage with IR. Patient is on Eliquis for PAF. Options include sigmoid colectomy with end-colostomy verses treatment with IV antibiotics with eventual elective sigmoid colectomy. I would recommend continuing antibiotics and reserve surgery of the patient does not improve with non operative management. Patient expressed understanding and agrees with the plan. Time Spent With Patient Time: Total time managing care of this patient today ____ minutes. Procedures Date of Service Date of Service: 06/07/23
[2023-06-07] MEDS: Flecainide Acetate 50 MG TABLET PO ×2 (08:26→19:51)
[2023-06-07] MEDS: Metoprolol Succinate ER 25 MG TAB.ER.24H PO (08:26)
[2023-06-07] MEDS: Enoxaparin Sodium 80 MG/0.8 ML SYRINGE 70 MG SUBCUT ×2 (08:27→19:50)
[2023-06-07] MEDS: amLODIPine Besylate 2.5 MG TABLET PO (09:01)
--- NOTE | 2023-06-07 09:10 | MHC.CM.PN ---
IMM DELIVERED. PT LIVES IN [facility]DEP[facility]IVING AT [facility]. INDEPENDENT WITH MOBILITY. +DRIVES +COVID VAX + HCP AT HOME (PART OF WILL) PCP DR. MARTI AT [facility] DP: HOME, NO SERVICES ANTICIPATED. DAUGHTER WILL TRANSPORT. CM WILL CONTINUE TO FOLLOW FOR ANY CHANGE IN DC PLAN/NEEDS.
[2023-06-07 11:57] VITALS: BP 133/70; PULSE 68; RESP 18; TEMP 36.3; O2SAT 98
[2023-06-07] MEDS: 0.9 % Sodium Chloride 1,000 ML 75 ML IVCONT (12:31)
[2023-06-07 15:24] VITALS: BP 163/72; PULSE 64; RESP 14; TEMP 37.3; O2SAT 96
--- NOTE | 2023-06-07 15:31 | HO.PM.IMPN ---
Subjective Subjective Date of Service: 06/07/23 Interval History: Acute infectious diverticulitis w possible abscess Review of Systems still has llq pain slightly improving than last night no fever or chills Physical Exam Vital Signs: Vital Signs: Last Vital Signs Temp 99.2 F 06/07/23 15:24 Pulse 64 06/07/23 15:24 Resp 14 06/07/23 15:24 BP 163/72 H 06/07/23 15:24 Pulse Ox 96 06/07/23 15:24 O2 Del Method Room Air 06/07/23 15:24 BMI result Body Mass Index 29.7 Constitutional : Awake, interactive, not in distress Neck : Normal inspection, Supple Cardiovascular : RRR, no JVP, no lower extremity edema Respiratory : good bilateral air entry, no crackles, wheezes or rhonchi Gastrointestinal: soft,bowel sounds present , LLQ tenderness with no rebound or guarding Skin : Warm, Dry Neurological : Alert & oriented x3, No focal deficit Objective Data Active Medications Acetaminophen (Acetaminophen 325 Mg Tablet) 650 mg PO Q6H PRN PRN Reason: Pain, Mild (Pain Scale 1-3) Amlodipine Besylate (Amlodipine Besylate 2.5 Mg Tablet) 2.5 mg PO DAILY [facility]; Protocol Last Admin: 06/07/23 09:01 Dose: 2.5 mg Documented By: COTEMA Enoxaparin Sodium (Enoxaparin Sodium 80 Mg/0.8 Ml Syringe) 70 mg SUBCUT Q12H [facility] Last Admin: 06/07/23 08:27 Dose: 70 mg Documented By: COTEMA Flecainide Acetate (Flecainide Acetate 50 Mg Tablet) 50 mg PO BID [facility] Last Admin: 06/07/23 08:26 Dose: 50 mg Documented By: COTEMA Ceftriaxone Sodium 1 gm/ (Sodium Chloride) 50 mls @ 100 mls/hr IV Q24H [facility] Last Infusion: 06/07/23 00:17 Dose: Infused Documented By: ANTOIC Metronidazole (Flagyl) 500 mg in 100 mls @ 100 mls/hr IV Q8H [facility] Last Infusion: 06/07/23 09:34 Dose: Infused Documented By: COTEMA Sodium Chloride (Ns) 1,000 mls @ 75 mls/hr IVCONT .[id number] [facility] Last Admin: 06/07/23 12:31 Dose: 75 mls/hr Documented By: COTEMA Metoclopramide HCl (Metoclopramide Hcl 5 Mg Tablet) 5 mg PO QIDACHS PRN PRN Reason: stomach pain Metoprolol Succinate (Metoprolol Succinate Er 25 Mg Tab.Er.24h) 25 mg PO DAILY [facility]; Protocol Last Admin: 06/07/23 08:26 Dose: 25 mg Documented By: COTEMA Morphine Sulfate (Morphine Sulfate 4 Mg/Ml Cartridge) 1 mg IVPUSH Q4H PRN; Protocol PRN Reason: Pain, Severe (Pain Scale 7-10) Omeprazole (Omeprazole 20 Mg Capsule.Dr) 20 mg PO BID@0630,1630 [facility] Ondansetron HCl (Ondansetron Hcl 4 Mg/2 Ml Vial) 4 mg IVPUSH Q8H PRN PRN Reason: Nausea and Vomiting Sodium Chloride (0.9 % Sodium Chloride Flush 3 Ml Syringe) 3 ml IVFLUSH QSHIFT [facility] Last Admin: 06/07/23 07:14 Dose: Not Given Documented By: COTEMA Non-Admin Reason: IV Running Labs 06/07/23 06:18 06/07/23 06:18 Labs: Laboratory Results - last 24 hr 06/06/23 06/06/23 06/07/23 19:57 22:21 06:18 MCV 77.2 L 78.3 L MCH 23.5 L 23.7 L MCHC 30.5 L 30.2 L RDW 14.7 14.8 Plt Count 289 287 MPV 9.5 9.8 Immature Gran % (Auto) 0.6 H Neut % (Auto) 75.7 H Lymph % (Auto) 14.4 L [place] % (Auto) 9.0 Eos % (Auto) 0.0 Baso % (Auto) 0.3 Lymph # (Auto) 1.7 [place] # (Auto) 1.1 Eos # (Auto) 0.0 Baso # (Auto) 0.0 Abs Immat Gran (auto) 0.07 H Absolute Neuts (auto) 9.1 H Absolute Nucleated RBC 0.000 0.000 Nucleated RBC % (auto) 0.0 0.0 Anion Gap 15 13 Estim Creat Clear Calc 50.4 56.7 Estimated GFR > 60 > 60 Random Glucose 116 H 99 Lactic Acid 1.3 Calcium 9.8 9.0 D Total Bilirubin 0.6 Direct Bilirubin 0.3 AST 14 ALT 11 Alkaline Phosphatase 52 Total Protein 6.2 L Albumin 3.8 Lipase 18 Assessment and Plan (1) Diverticulitis large intestine: Status: Acute Plan 83 years old lady with PMH of Afib on Eliquis, HTN, GERD among others who presents to the hospital with LL abdominal pain and chills. Acute infectious diverticulitis w possible abscess Not septic pending cultures CT scan as reported continue IV Flagyl and Ceftriaxone (06/07/23) surgery eval noted- continue iv antibiotics and start clearliquids PAF Hold eliquis in case surgical intervention needed, full dose Lovenox Continue Flecainide and Metoprolol HTN Hold home meds for now Med rec pending DVT PPx: Lovenox ongoing hospitlisatio need:Acute infectious diverticulitis w possible abscess -need iv antibiotics ,need to follow blood cultures and moniter clinically. Time Spent With Patient Time: Total time managing care of this patient today ____ minutes. Quality Stroke Does the patient have a stroke diagnosis?: No VTE Prior VTE?: No VTE Risk Level:: Medical - moderate - high VTE Device Contraindication: Treatment Not Indicated VTE Drug Contraindication: N/A - Med Ordered
[2023-06-07] MEDS: Omeprazole 20 MG CAPSULE.DR PO (16:28)
[2023-06-07] MEDS: cefTRIAXone sodium 2 GM in 0.9 % Sodium Chloride 50 ML IV (17:55)
[2023-06-07] MEDS: Acetaminophen 325 MG TABLET 650 MG PO (19:50)
[2023-06-07 20:37] VITALS: TEMP 36.3
[2023-06-08] MEDS: metroNIDAZOLE/NS 500 MG/100 ML PIGGYBACK 100 MG IV ×4 (00:42→23:40)
[2023-06-08 00:48] VITALS: BP 178/79; PULSE 66; RESP 18; TEMP 36.6; O2SAT 94
[2023-06-08] MEDS: 0.9 % Sodium Chloride 1,000 ML 75 ML IVCONT (03:15)
[2023-06-08] MEDS: Omeprazole 20 MG CAPSULE.DR PO ×2 (05:52→15:21)
[2023-06-08 06:32] LABS: Appearance Urine Clear; Color Urine Yellow; Glucose Urine UA Negative (Negative); Leukocyte Esterase Urine Negative (Negative); Nitrite Urine Negative (Negative); Specific Gravity - Urine 1.015 (1.005-1.025); Urine Blood Negative (Negative); Urine Ketones Negative (Negative); Urine Protein Negative (Neg-Trace)
[2023-06-08 07:03] VITALS: BP 171/74; PULSE 68; RESP 18; TEMP 37; O2SAT 97
--- NOTE | 2023-06-08 08:30 | PM.PNGS ---
Subjective Subjective Date of Service: 06/08/23 <Susanne Benson PA-C - Last Filed: 06/08/23 08:33> 06/08/23 <Gilbert Milner MD - Last Filed: 06/08/23 10:30> Interval history: Feels a little better this morning, pain improved. Would like to advance diet. Passing flatus and having BM without increasing pain. Has been up out of bed and ambulating. <Susanne Benson PA-C - Last Filed: 06/08/23 08:33> Physical Exam Vital Signs: Vital Signs: Last Vital Signs Temp 98.6 F 06/08/23 07:03 Pulse 68 06/08/23 07:03 Resp 18 06/08/23 07:03 BP 171/74 H 06/08/23 07:03 Pulse Ox 97 06/08/23 07:03 O2 Del Method Room Air 06/08/23 07:03 BMI result Body Mass Index 29.7 <Susanne Benson PA-C - Last Filed: 06/08/23 08:33> Const: General: comfortable, no acute distress and alert <Susanne Benson PA-C - Last Filed: 06/08/23 08:33> Orientation/consciousness: patient oriented x3 <PAT White Last Filed: 06/08/23 08:33> GI: Inspection: Yes normal to inspection and No distended <Susanne Benson PA-C - Last Filed: 06/08/23 08:33> Palpation (GI): Soft to palpation, Tenderness to palpation present (GI) (mild LLQ tenderness), no guarding and not rigid <Susanne Benson PA-C - Last Filed: 06/08/23 08:33> Skin: General skin exam: no rashes or lesions noted <PAT White Last Filed: 06/08/23 08:33> Neuro: General: patient oriented x3 and moves all extremities <PAT White Last Filed: 06/08/23 08:33> Objective Data Active Medications Acetaminophen (Acetaminophen 325 Mg Tablet) 650 mg PO Q6H PRN PRN Reason: Pain, Mild (Pain Scale 1-3) Last Admin: 06/07/23 19:50 Dose: 650 mg Documented By: AFSHIN Amlodipine Besylate (Amlodipine Besylate 2.5 Mg Tablet) 2.5 mg PO DAILY [facility]; Protocol Last Admin: 06/07/23 09:01 Dose: 2.5 mg Documented By: CAITLIN Enoxaparin Sodium (Enoxaparin Sodium 80 Mg/0.8 Ml Syringe) 70 mg SUBCUT Q12H [facility] Last Admin: 06/07/23 19:50 Dose: 70 mg Documented By: AFSHIN Flecainide Acetate (Flecainide Acetate 50 Mg Tablet) 50 mg PO BID [facility] Last Admin: 06/07/23 19:51 Dose: 50 mg Documented By: AFSHIN Metronidazole (Flagyl) 500 mg in 100 mls @ 100 mls/hr IV Q8H [facility] Last Infusion: 06/08/23 02:02 Dose: Infused Documented By: BELINDA Sodium Chloride (Ns) 1,000 mls @ 75 mls/hr IVCONT .[id number] [facility] Last Admin: 06/08/23 03:15 Dose: 75 mls/hr Documented By: MARU Ceftriaxone Sodium 2 gm/ (Sodium Chloride) 50 mls @ 100 mls/hr IV Q24H [facility] Last Infusion: 06/07/23 18:29 Dose: Infused Documented By: CAITLIN Lidocaine (Lidocaine 4 % Patch Adh..Patch) 1 patch TRANSDERMA DAILY [facility]; Protocol Metoclopramide HCl (Metoclopramide Hcl 5 Mg Tablet) 5 mg PO QIDACHS PRN PRN Reason: stomach pain Metoprolol Succinate (Metoprolol Succinate Er 25 Mg Tab.Er.24h) 25 mg PO DAILY [facility]; Protocol Last Admin: 06/07/23 08:26 Dose: 25 mg Documented By: CAITLIN Morphine Sulfate (Morphine Sulfate 4 Mg/Ml Cartridge) 2 mg IVPUSH Q4H PRN; Protocol PRN Reason: Pain, Severe (Pain Scale 7-10) Omeprazole (Omeprazole 20 Mg Capsule.Dr) 20 mg PO BID@0630,1630 [facility] Last Admin: 06/08/23 05:52 Dose: 20 mg Documented By: BELINDA Ondansetron HCl (Ondansetron Hcl 4 Mg/2 Ml Vial) 4 mg IVPUSH Q8H PRN PRN Reason: Nausea and Vomiting Sodium Chloride (0.9 % Sodium Chloride Flush 3 Ml Syringe) 3 ml IVFLUSH QSHIFT [facility] Last Admin: 06/08/23 00:42 Dose: Not Given Documented By: BELINDA Non-Admin Reason: IV Running <Susanne Benson PA-C - Last Filed: 06/08/23 08:33> Labs CBC & Chem 7: 06/07/23 06:18 06/07/23 06:18 <Susanne Benson PA-C - Last Filed: 06/08/23 08:33> Labs: Laboratory Results - last 24 hr 06/08/23 05:50 Urine Color Yellow Urine Appearance Clear Urine pH 6.0 Ur Specific Crane 1.015 Urine Protein Negative Urine Glucose (UA) Negative Urine Ketones Negative Urine Blood Negative Urine Nitrite Negative Ur Leukocyte Esterase Negative <Susanne Benson PA-C - Last Filed: 06/08/23 08:33> Microbiology Microbiology Results: Microbiology 06/06/23 22:37 Blood Culture - Preliminary Blood - Venous No growth after 24 hours. 06/06/23 22:21 Blood Culture - Preliminary Blood - Venous No growth after 24 hours. <Susanne Benson PA-C - Last Filed: 06/08/23 08:33> Procedures Date of Service Date of Service: 06/08/23 <Susanne Benson PA-C - Last Filed: 06/08/23 08:33> 06/08/23 <Gilbert Milner MD - Last Filed: 06/08/23 10:30> Progress Note: A&P Assessment and plan (1) Diverticulitis large intestine: Status: Acute <Susanne Benson PA-C - Last Filed: 06/08/23 08:33> Assessment and Plan: 83-year-old female patient admitted for sigmoid diverticulitis with an abscess formation. Appears to be improving with supportive measures. Recommend continuing antibiotics. Advance diet as tolerated. Patient agrees with the plan. <Susanne Benson PA-C - Last Filed: 06/08/23 08:33> 83-year-old female patient admitted for sigmoid diverticulitis with an abscess formation. Appears to be improving with supportive measures. Recommend continuing antibiotics. Advance diet as tolerated. Patient agrees with the plan. Agree with the above assessment and plan. Patient is symptomatically improved and her abdominal exam is much improved. Agree with advancing diet; transition to po meds in 1-2 days. Discussed possible elective sigmoid colectomy to prevent further episodes. Patient ideally should have a colonoscopy prior to surgery once diverticulitis has resolved. <Gilbert Milner MD - Last Filed: 06/08/23 10:30> Time Spent With Patient Time: Total time managing care of this patient today ____ minutes. <Susanne Benson PA-C - Last Filed: 06/08/23 08:33> Quality Stroke Does the patient have a stroke diagnosis?: No <Susanne Benson PA-C - Last Filed: 06/08/23 08:33> VTE Prior VTE?: No <Susanne Benson PA-C - Last Filed: 06/08/23 08:33> VTE Risk Level:: Medical - moderate - high <Susanne Benson PA-C - Last Filed: 06/08/23 08:33> VTE Device Contraindication: Treatment Not Indicated <Susanne Benson PA-C - Last Filed: 06/08/23 08:33> VTE Drug Contraindication: N/A - Med Ordered <Susanne Benson PA-C - Last Filed: 06/08/23 08:33>
[2023-06-08] MEDS: amLODIPine Besylate 2.5 MG TABLET PO (09:14)
[2023-06-08] MEDS: Flecainide Acetate 50 MG TABLET PO ×2 (09:15→20:22)
[2023-06-08] MEDS: Enoxaparin Sodium 80 MG/0.8 ML SYRINGE 70 MG SUBCUT ×2 (09:15→20:22)
[2023-06-08] MEDS: Metoprolol Succinate ER 25 MG TAB.ER.24H PO (09:15)
--- NOTE | 2023-06-08 11:06 | MHC.CM.PN ---
EMR reviewed. Per MD rounds pt not medically cleared for DC at this time. Continues IV abx, advancing diet. CM will continue to follow.
--- NOTE | 2023-06-08 14:54 | P.PNIM_ITS ---
Subjective Subjective Date of Service: 06/08/23 Interval History: Acute infectious diverticulitis w possible abscess Review of Systems LLq pain ( still present but improving somewhat) no fevers leucocytosis seems improving Physical Exam 2 Vital Signs: Vital Signs: Last Vital Signs Temp 98.6 F 06/08/23 07:03 Pulse 68 06/08/23 07:03 Resp 18 06/08/23 07:03 BP 171/74 H 06/08/23 07:03 Pulse Ox 97 06/08/23 07:03 O2 Del Method Room Air 06/08/23 07:03 BMI result Body Mass Index 29.7 Constitutional : Awake, interactive, not in distress Neck : Normal inspection, Supple Cardiovascular : RRR, no JVP, no lower extremity edema Respiratory : good bilateral air entry, no crackles, wheezes or rhonchi Gastrointestinal: soft,bowel sounds present , LLQ tenderness with no rebound or guarding Skin : Warm, Dry Neurological : Alert & oriented x3, No focal deficit Objective Data Active Medications Acetaminophen (Acetaminophen 325 Mg Tablet) 650 mg PO Q6H PRN PRN Reason: Pain, Mild (Pain Scale 1-3) Last Admin: 06/07/23 19:50 Dose: 650 mg Documented By: AFSHIN Amlodipine Besylate (Amlodipine Besylate 2.5 Mg Tablet) 2.5 mg PO DAILY [facility]; Protocol Last Admin: 06/08/23 09:14 Dose: 2.5 mg Documented By: JESSICA Enoxaparin Sodium (Enoxaparin Sodium 80 Mg/0.8 Ml Syringe) 70 mg SUBCUT Q12H [facility] Last Admin: 06/08/23 09:15 Dose: 70 mg Documented By: JESSICA Flecainide Acetate (Flecainide Acetate 50 Mg Tablet) 50 mg PO BID [facility] Last Admin: 06/08/23 09:15 Dose: 50 mg Documented By: JESSICA Metronidazole (Flagyl) 500 mg in 100 mls @ 100 mls/hr IV Q8H [facility] Last Infusion: 06/08/23 10:38 Dose: Infused Documented By: NASIR Ceftriaxone Sodium 2 gm/ (Sodium Chloride) 50 mls @ 100 mls/hr IV Q24H [facility] Last Infusion: 06/07/23 18:29 Dose: Infused Documented By: COTEMA Lidocaine (Lidocaine 4 % Patch Adh..Patch) 1 patch TRANSDERMA DAILY [facility]; Protocol Last Admin: 06/08/23 09:17 Dose: Not Given Documented By: JESSICA Non-Admin Reason: Patient Refused Metoclopramide HCl (Metoclopramide Hcl 5 Mg Tablet) 5 mg PO QIDACHS PRN PRN Reason: stomach pain Metoprolol Succinate (Metoprolol Succinate Er 25 Mg Tab.Er.24h) 25 mg PO DAILY [facility]; Protocol Last Admin: 06/08/23 09:15 Dose: 25 mg Documented By: JESSICA Morphine Sulfate (Morphine Sulfate 4 Mg/Ml Cartridge) 2 mg IVPUSH Q4H PRN; Protocol PRN Reason: Pain, Severe (Pain Scale 7-10) Omeprazole (Omeprazole 20 Mg Capsule.Dr) 20 mg PO BID@0630,1630 [facility] Last Admin: 06/08/23 05:52 Dose: 20 mg Documented By: BELINDA Ondansetron HCl (Ondansetron Hcl 4 Mg/2 Ml Vial) 4 mg IVPUSH Q8H PRN PRN Reason: Nausea and Vomiting Sodium Chloride (0.9 % Sodium Chloride Flush 3 Ml Syringe) 3 ml IVFLUSH QSHIFT [facility] Last Admin: 06/08/23 14:26 Dose: Not Given Documented By: TITO Non-Admin Reason: IV Running Labs 06/07/23 06:18 06/07/23 06:18 Labs: Laboratory Results - last 24 hr 06/08/23 05:50 Urine Color Yellow Urine Appearance Clear Urine pH 6.0 Ur Specific [place] 1.015 Urine Protein Negative Urine Glucose (UA) Negative Urine Ketones Negative Urine Blood Negative Urine Nitrite Negative Ur Leukocyte Esterase Negative Microbiology Microbiology Results: Microbiology 06/06/23 22:37 Blood Culture - Preliminary Blood - Venous No growth after 24 hours. 06/06/23 22:21 Blood Culture - Preliminary Blood - Venous No growth after 24 hours. Assessment and Plan (1) Diverticulitis large intestine: Status: Acute Plan 83 years old lady with PMH of Afib on Eliquis, HTN, GERD among others who presents to the hospital with LL abdominal pain and chills. Acute infectious diverticulitis w possible abscess Not septic pending cultures CT scan as reported continue IV Flagyl and Ceftriaxone (06/07/23) surgery eval noted- continue iv antibiotics and start clearliquids PAF Hold eliquis in case surgical intervention needed, full dose Lovenox Continue Flecainide and Metoprolol HTN Hold home meds for now Med rec pending DVT PPx: Lovenox ongoing hospitlisation need:Acute infectious diverticulitis w possible abscess - need iv antibiotics ,need to follow blood cultures and moniter clinically. Time Spent With Patient Time: Total time managing care of this patient today ____ minutes. Quality Stroke Does the patient have a stroke diagnosis?: No VTE Prior VTE?: No VTE Risk Level:: Medical - moderate - high VTE Device Contraindication: Treatment Not Indicated VTE Drug Contraindication: N/A - Med Ordered
[2023-06-08 15:24] VITALS: BP 147/68; PULSE 69; RESP 20; TEMP 36.6; O2SAT 97
[2023-06-08] MEDS: cefTRIAXone sodium 2 GM in 0.9 % Sodium Chloride 50 ML IV (17:29)
[2023-06-08 19:19] VITALS: BP 137/61; PULSE 64; RESP 20; TEMP 36.7; O2SAT 98
[2023-06-08] MEDS: Acetaminophen 325 MG TABLET 650 MG PO (20:25)
[2023-06-08] MEDS: 0.9 % Sodium Chloride Flush 3 ML SYRINGE IVFLUSH (23:40)
[2023-06-09] VITALS: BP 160/68; PULSE 71; RESP 18; TEMP 36.2; O2SAT 97
[2023-06-09] MEDS: ondansetron HCL 4 MG/2 ML VIAL IVPUSH (05:39)
[2023-06-09] MEDS: Omeprazole 20 MG CAPSULE.DR PO (05:41)
[2023-06-09 07:44] VITALS: BP 143/67; PULSE 70; RESP 16; TEMP 36.2; O2SAT 96
[2023-06-09] MEDS: Metoprolol Succinate ER 25 MG TAB.ER.24H PO (08:30)
[2023-06-09] MEDS: Enoxaparin Sodium 80 MG/0.8 ML SYRINGE 70 MG SUBCUT ×2 (08:30→20:34)
[2023-06-09] MEDS: Flecainide Acetate 50 MG TABLET PO ×2 (08:30→20:33)
[2023-06-09] MEDS: metroNIDAZOLE/NS 500 MG/100 ML PIGGYBACK 100 MG IV ×3 (08:35→23:18)
[2023-06-09] MEDS: 0.9 % Sodium Chloride Flush 3 ML SYRINGE IVFLUSH ×3 (08:35→20:34)
--- NOTE | 2023-06-09 12:51 | HO.PM.IMPN ---
Subjective Subjective Date of Service: 06/09/23 Interval History: Acute infectious diverticulitis w possible abscess Review of Systems LLq pain improving no fevers leucocytosis seems improving Physical Exam Vital Signs: Vital Signs: Last Vital Signs Temp 97.2 F 06/09/23 07:44 Pulse 70 06/09/23 07:44 Resp 16 06/09/23 07:44 BP 143/67 H 06/09/23 07:44 Pulse Ox 96 06/09/23 07:44 O2 Del Method Room Air 06/09/23 07:44 BMI result Body Mass Index 29.7 Constitutional : Awake, interactive, not in distress Neck : Normal inspection, Supple Cardiovascular : RRR, no JVP, no lower extremity edema Respiratory : good bilateral air entry, no crackles, wheezes or rhonchi Gastrointestinal: soft,bowel sounds present , LLQ tenderness with no rebound or guarding Skin : Warm, Dry Neurological : Alert & oriented x3, No focal deficit Objective Data Active Medications Acetaminophen (Acetaminophen 325 Mg Tablet) 650 mg PO Q6H PRN PRN Reason: Pain, Mild (Pain Scale 1-3) Last Admin: 06/08/23 20:25 Dose: 650 mg Documented By: MERYL Amlodipine Besylate (Amlodipine Besylate 2.5 Mg Tablet) 2.5 mg PO DAILY [facility]; Protocol Last Admin: 06/09/23 08:30 Dose: 2.5 mg Documented By: HIMANSHU Enoxaparin Sodium (Enoxaparin Sodium 80 Mg/0.8 Ml Syringe) 70 mg SUBCUT Q12H [facility] Last Admin: 06/09/23 08:30 Dose: 70 mg Documented By: HIMANSHU Flecainide Acetate (Flecainide Acetate 50 Mg Tablet) 50 mg PO BID [facility] Last Admin: 06/09/23 08:30 Dose: 50 mg Documented By: HIMANSHU Metronidazole (Flagyl) 500 mg in 100 mls @ 100 mls/hr IV Q8H [facility] Last Infusion: 06/09/23 09:35 Dose: Infused Documented By: HIMANSHU Ceftriaxone Sodium 2 gm/ (Sodium Chloride) 50 mls @ 100 mls/hr IV Q24H [facility] Last Infusion: 06/08/23 18:02 Dose: Infused Documented By: TITO Lidocaine (Lidocaine 4 % Patch Adh..Patch) 1 patch TRANSDERMA DAILY [facility]; Protocol Last Admin: 06/09/23 08:39 Dose: Not Given Documented By: HIMANSHU Non-Admin Reason: Patient Refused Metoclopramide HCl (Metoclopramide Hcl 5 Mg Tablet) 5 mg PO QIDACHS PRN PRN Reason: stomach pain Metoprolol Succinate (Metoprolol Succinate Er 25 Mg Tab.Er.24h) 25 mg PO DAILY [facility]; Protocol Last Admin: 06/09/23 08:30 Dose: 25 mg Documented By: HIMANSHU Morphine Sulfate (Morphine Sulfate 4 Mg/Ml Cartridge) 2 mg IVPUSH Q4H PRN; Protocol PRN Reason: Pain, Severe (Pain Scale 7-10) Omeprazole (Omeprazole 20 Mg Capsule.Dr) 20 mg PO BID@0630,1630 [facility] Last Admin: 06/09/23 05:41 Dose: 20 mg Documented By: DANAERISJayy Ondansetron HCl (Ondansetron Hcl 4 Mg/2 Ml Vial) 4 mg IVPUSH Q8H PRN PRN Reason: Nausea and Vomiting Last Admin: 06/09/23 05:39 Dose: 4 mg Documented By: MERYL Sodium Chloride (0.9 % Sodium Chloride Flush 3 Ml Syringe) 3 ml IVFLUSH QSHIFT [facility] Last Admin: 06/09/23 08:35 Dose: 3 ml Documented By: HIMANSHU Labs 06/09/23 09:01 06/07/23 06:18 Labs: Laboratory Results - last 24 hr 06/09/23 09:01 Hold Green Top See Note Microbiology Microbiology Results: Microbiology 06/06/23 22:37 Blood Culture - Preliminary Blood - Venous No growth after 48 hours. 06/06/23 22:21 Blood Culture - Preliminary Blood - Venous No growth after 48 hours. Assessment and Plan (1) Diverticulitis large intestine: Status: Acute Plan 83 years old lady with PMH of Afib on Eliquis, HTN, GERD among others who presents to the hospital with LL abdominal pain and chills. Acute infectious diverticulitis w possible abscess Not septic pending cultures CT scan as reported continue IV Flagyl and Ceftriaxone (06/07/23) surgery eval noted- continue iv antibiotics and start clearliquids PAF Hold eliquis in case surgical intervention needed, full dose Lovenox Continue Flecainide and Metoprolol HTN Hold home meds for now Med rec pending DVT PPx: Lovenox ongoing hospitlisation need:Acute infectious diverticulitis w possible abscess -need iv antibiotics ,need to follow blood cultures and moniter clinically. Time Spent With Patient Time: Total time managing care of this patient today ____ minutes. Quality Stroke Does the patient have a stroke diagnosis?: No VTE Prior VTE?: No VTE Risk Level:: Medical - moderate - high VTE Device Contraindication: Treatment Not Indicated VTE Drug Contraindication: N/A - Med Ordered
--- NOTE | 2023-06-09 13:36 | PM.PNGS ---
Subjective Subjective Date of Service: 06/09/23 Interval history: Patient is tolerating regular diet but does note some nausea as she eats. She is to have some low-level abdominal pain in the left lower quadrant. Bowels are passing but are loose. No blood is noted. Physical Exam Vital Signs: Vital Signs: Last Vital Signs Temp 97.2 F 06/09/23 07:44 Pulse 70 06/09/23 07:44 Resp 16 06/09/23 07:44 BP 143/67 H 06/09/23 07:44 Pulse Ox 96 06/09/23 07:44 O2 Del Method Room Air 06/09/23 07:44 BMI result Body Mass Index 29.7 Const: General: comfortable and no acute distress Nutritional Appearance: well nourished Orientation/consciousness: patient oriented x3 Resp: Effort & Inspection: normal respiratory effort GI: Inspection: Yes normal to inspection Palpation (GI): Soft to palpation, Tenderness to palpation present (GI) in the LLQ, no guarding and not rigid Percussion: Yes normal to percussion Auscultation: normal bowel sounds Neuro: General: patient oriented x3 Extrem: General: Yes no clubbing, cyanosis or edema Objective Data Active Medications Acetaminophen (Acetaminophen 325 Mg Tablet) 650 mg PO Q6H PRN PRN Reason: Pain, Mild (Pain Scale 1-3) Last Admin: 06/08/23 20:25 Dose: 650 mg Documented By: MERYL Amlodipine Besylate (Amlodipine Besylate 2.5 Mg Tablet) 2.5 mg PO DAILY [facility]; Protocol Last Admin: 06/09/23 08:30 Dose: 2.5 mg Documented By: HIMANSHU Enoxaparin Sodium (Enoxaparin Sodium 80 Mg/0.8 Ml Syringe) 70 mg SUBCUT Q12H [facility] Last Admin: 06/09/23 08:30 Dose: 70 mg Documented By: HIMANSHU Flecainide Acetate (Flecainide Acetate 50 Mg Tablet) 50 mg PO BID [facility] Last Admin: 06/09/23 08:30 Dose: 50 mg Documented By: HIMANSHU Metronidazole (Flagyl) 500 mg in 100 mls @ 100 mls/hr IV Q8H [facility] Last Infusion: 06/09/23 09:35 Dose: Infused Documented By: HIMANSHU Ceftriaxone Sodium 2 gm/ (Sodium Chloride) 50 mls @ 100 mls/hr IV Q24H [facility] Last Infusion: 06/08/23 18:02 Dose: Infused Documented By: TITO Lidocaine (Lidocaine 4 % Patch Adh..Patch) 1 patch TRANSDERMA DAILY [facility]; Protocol Last Admin: 06/09/23 08:39 Dose: Not Given Documented By: HIMANSHU Non-Admin Reason: Patient Refused Metoclopramide HCl (Metoclopramide Hcl 5 Mg Tablet) 5 mg PO QIDACHS PRN PRN Reason: stomach pain Metoprolol Succinate (Metoprolol Succinate Er 25 Mg Tab.Er.24h) 25 mg PO DAILY [facility]; Protocol Last Admin: 06/09/23 08:30 Dose: 25 mg Documented By: HIMANSHU Morphine Sulfate (Morphine Sulfate 4 Mg/Ml Cartridge) 2 mg IVPUSH Q4H PRN; Protocol PRN Reason: Pain, Severe (Pain Scale 7-10) Omeprazole (Omeprazole 20 Mg Capsule.Dr) 20 mg PO BID@0630,1630 [facility] Last Admin: 06/09/23 05:41 Dose: 20 mg Documented By: MERYL Ondansetron HCl (Ondansetron Hcl 4 Mg/2 Ml Vial) 4 mg IVPUSH Q8H PRN PRN Reason: Nausea and Vomiting Last Admin: 06/09/23 05:39 Dose: 4 mg Documented By: MERYL Sodium Chloride (0.9 % Sodium Chloride Flush 3 Ml Syringe) 3 ml IVFLUSH QSHIFT [facility] Last Admin: 06/09/23 08:35 Dose: 3 ml Documented By: HIMANSHU Labs 06/09/23 09:01 06/07/23 06:18 Labs: Laboratory Results - last 24 hr 06/09/23 09:01 Hold Green Top See Note Microbiology Microbiology Results: Microbiology 06/06/23 22:37 Blood Culture - Preliminary Blood - Venous No growth after 48 hours. 06/06/23 22:21 Blood Culture - Preliminary Blood - Venous No growth after 48 hours. Procedures Date of Service Date of Service: 06/09/23 Progress Note: A&P Assessment and plan (1) Diverticulitis large intestine: Status: Acute Plan 83-year-old female patient admitted for sigmoid diverticulitis with abscess formed. She continues to make improvement with decreased abdominal pain. She is now tolerating a small amount of a regular diet but does report some nausea. Continue antibiotics per hospitalist team. I will follow patient up in 1-2 weeks following discharge to discuss definitive treatment for her sigmoid diverticulitis. Patient expressed understanding and agrees with the plan. Time Spent With Patient Time: Total time managing care of this patient today ____ minutes. Quality Stroke Does the patient have a stroke diagnosis?: No VTE Prior VTE?: No VTE Risk Level:: Medical - moderate - high VTE Device Contraindication: Treatment Not Indicated VTE Drug Contraindication: N/A - Med Ordered
[2023-06-09 15:38] VITALS: BP 144/65; PULSE 71; RESP 22; TEMP 37.1; O2SAT 97
[2023-06-09] MEDS: cefTRIAXone sodium 2 GM in 0.9 % Sodium Chloride 50 ML IV (16:37)
[2023-06-09] MEDS: Acetaminophen 325 MG TABLET 650 MG PO (19:42)
[2023-06-09 23:23] VITALS: BP 171/70; PULSE 62; RESP 22; TEMP 36.6; O2SAT 94
[2023-06-10 07:29] VITALS: BP 161/72; PULSE 60; RESP 20; TEMP 36.1; O2SAT 97
[2023-06-10] MEDS: Flecainide Acetate 50 MG TABLET PO (08:38)
[2023-06-10] MEDS: Metoprolol Succinate ER 25 MG TAB.ER.24H PO (08:38)
[2023-06-10] MEDS: Enoxaparin Sodium 80 MG/0.8 ML SYRINGE 70 MG SUBCUT (08:39)
[2023-06-10] MEDS: metroNIDAZOLE/NS 500 MG/100 ML PIGGYBACK 100 MG IV (08:39)
--- NOTE | 2023-06-10 15:00 | PM.DS ---
DS: Providers Provider Date of Service: 06/10/23 Date of admission: 06/06/23 22:27 Date of discharge: 06/10/23 Primary care physician: Mer Quinonez MD Consults: 06/06/23 22:12 Consult to General Surgery Routine Consulting Provider: [facility] General Surgeons Reason for consultation: Diverticuliti with suspected abscess Attending physician on discharge: Padmaja Hdez Discharging clinician: Padmaja Hdez DS: Diagnosis Discharge Diagnosis (1) Diverticulitis large intestine: Status: Acute DS: Summary Hospital Course Hospital Course: 83 years old lady with PMH of Afib on Eliquis, HTN, GERD among others who presents to the hospital with LL abdominal pain and chills. The patient reports feeling well until last night when she started to feel abd pain and chills with associated nausea but no fever, vomiting, change in bowel habit or urinary symptoms. Her bowel movements are regular every day but she has been constipated for 2 days now. In ED a CT scan showed evidence of diverticulitis with possible abscess formation. discussed with surgery and will be admitted for medical management and surgical evaluation. Hospital course: Patient was admitted for abdominal pain found to have a diverticulitis with the possible abscess: Started on IV antibiotics, blood cultures sent: Patient seems to be improved significantly with IV antibiotics, abdominal pain resolved, tolerating diet, seen by surgery: Recommended to switch to p.o. antibiotics upon discharge as well as patient will benefit from outpatient colonoscopy and Discussed possible elective sigmoid colectomy to prevent further episodes.blood culture nge @48 hrs. plan: Complete the course of p.o. Augmentin for 7 days. Assessment plan coordination time spent 50 minute. Time Spent with Patient Time attestation: Total time managing care of this patient today ____ minutes. Discharge coordination time: Greater than 30 minutes Quality: Safe Use of Opioids Does Pt have an Active Cancer Diagnosis on the Problem List?: No Quality: Stroke Does the patient have a stroke diagnosis?: No Physical Exam Vital Signs: Vital Signs: Last Vital Signs Temp 97.0 F 06/10/23 07:29 Pulse 60 06/10/23 07:29 Resp 20 06/10/23 07:29 BP 161/72 H 06/10/23 07:29 Pulse Ox 97 06/10/23 07:29 O2 Del Method Room Air 06/10/23 07:29 BMI result Body Mass Index 29.7 Constitutional : Awake, interactive, not in distress Neck : Normal inspection, Supple Cardiovascular : RRR, no JVP, no lower extremity edema Respiratory : good bilateral air entry, no crackles, wheezes or rhonchi Gastrointestinal: soft,bowel sounds present ,no rebound or guarding Skin : Warm, Dry Neurological : Alert & oriented x3, No focal deficit DS: Data Data Completed and Pending Labs on day of discharge: Preliminary micro results at discharge 06/06/23 22:37 Blood Culture - Preliminary Blood - Venous No growth after 48 hours. 06/06/23 22:21 Blood Culture - Preliminary Blood - Venous No growth after 48 hours. Imaging Chest x-ray: Radiologist's impression: ITS Impressions Abdomen/Pelvis CT 06/06/23 19:18 IMPRESSION: 1. Sigmoid colon diverticulitis with likely abscess formation surrounding the sigmoid colon. Follow-up by colonoscopy following treatment is recommended. 2. Large hiatal hernia. 3. Bilateral renal cysts. 4. Status post cholecystectomy and hysterectomy. Fleischner guidelines were followed. Discharge Plan Discharge Anticipated Discharge Date/Time: 06/10/23 14:52 Patient Disposition: Home, Self-Care Discharge Diagnosis: diverticulitis with abcess Referrals: Mer Quinonez MD [Primary Care Provider] - 1 Week Gilbert Milner MD [Physician] - 1 Week Discharge Medications: New amoxicillin-pot clavulanate 875-125 mg tablet 1 tab PO BID Qty: 14 0RF Continued hydrochlorothiazide 25 mg tablet 25 mg PO DAILY Qty: 90 1RF metoprolol succinate 25 mg tablet extended release 24 hr 25 mg PO DAILY Qty: 90 1RF amlodipine 2.5 mg tablet 2.5 mg PO DAILY Qty: 90 3RF flecainide 50 mg tablet 50 mg PO BID Qty: 180 3RF Eliquis 5 mg tablet 5 mg PO BID 90 Days Qty: 180 3RF metoclopramide HCl [Reglan] 5 mg tablet 5 mg PO QIDACHS PRN (Reason: stomach pain) omeprazole 20 mg capsule,delayed release(DR/EC) 20 mg PO BID Qty: 180 2RF Discharge Orders: Discharge Order (Routine); Ordered 06/10/23 Ordered By: Padmaja Hdez Diet: Advance to usual diet Activity on Discharge: As tolerated Stand Alone Forms: Patient Portal Discharge page Care Plan Goals: Patient was admitted for abdominal pain found to have a diverticulitis with the possible abscess: Started on IV antibiotics, blood cultures sent: Patient seems to be improved significantly with IV antibiotics, abdominal pain resolved, tolerating diet, seen by surgery: Recommended to switch to p.o. antibiotics upon discharge as well as patient will benefit from outpatient colonoscopy and Discussed possible elective sigmoid colectomy to prevent further episodes. Health Concerns: As above. Plan of Treatment: Complete the course of p.o. Augmentin for 7 days. Assessment: As above.
--- NOTE | 2023-06-10 15:36 | MHC.CM.PN ---
PT WILL DC HOME TODAY WITH NO SERVICES VIA FAMILY TRANSPORT
== END 2023-06-10 17:39 | disposition home or self-care (01) | DRG 392 ==
LOC: HO.ED 21:23 → HO.EDOVER 22:32 → HO.IMC 22:54
PROVIDERS: Admitting Provider Student in an Organized Health Care Education/Training Program; Emergency Provider Emergency Medicine; PCP Internal Medicine; Visit Provider Internal Medicine
DX: K57.20 Diverticulitis of large intestine with perforation and abscess without bleeding (principal); K21.9 Gastro-esophageal reflux disease without esophagitis; I48.0 Paroxysmal atrial fibrillation; I10 Essential (primary) hypertension; Z79.01 Long term (current) use of anticoagulants; Z79.899 Other long term (current) drug therapy
CPT/HCPCS: 36415; 74176; 80048; 80076; 81003; 83605; 83690; 84484; 85014; 85018; 85025; 85027; 87040; 99285; J0696; J1650; J2405; J2543

== ENCOUNTER → 2023-06-06 20:52 | Outpatient (BNV) | payer MEDICARE, SELFPAY | PROVIDERS: Emergency Provider Emergency Medicine; PCP Internal Medicine; Visit Provider Student in an Organized Health Care Education/Training Program | DX: K57.20 Diverticulitis of large intestine with perforation and abscess without bleeding (principal) | CPT/HCPCS: 99222; 99232; 99239 ==

== ENCOUNTER → 2023-06-06 22:27 | Outpatient (BNV) | payer MEDICARE, SELFPAY | PROVIDERS: Admitting Provider Student in an Organized Health Care Education/Training Program; Emergency Provider Emergency Medicine; PCP Internal Medicine; Visit Provider Surgery | DX: K57.20 Diverticulitis of large intestine with perforation and abscess without bleeding (principal) | CPT/HCPCS: 99222; 99232 ==

== ENCOUNTER 2023-06-21 10:28 | Outpatient (AMB) | payer MEDICARE, SELFPAY ==
[2023-06-21 10:30] VITALS: BP 143/66; PULSE 70; BMI 27.9
--- NOTE | 2023-06-21 10:30 | MHC.OFFVIS ---
Intake Vital Signs 06/21/23 10:30 Height 5 ft Weight 143 lb BMI 27.9 BP 143/66 H Blood Pressure Location Rt brachial Position Sitting Pulse 70 Intake Visit Reasons: Sigmoid diverticulitis Intake Note: Patient referred for sigmoid diverticulitis. Had abd/ pelvis US on 06-06-23. Denies pain or discomfort on abd. Reports normal BM. 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 She was also found to be anemic at that time. Patient has complete resolution of her lower abdominal symptoms. She has time diet. He is having regular bowel habits. Patient has not had colonoscopy for many years time. She is unclear how long perhaps greater than 10 years. Patient also states she has had chronic diverticulitis symptoms going on for several decades. Chart was reviewed patient evaluated. Patient among other things is on Eliquis for atrial fibrillation. [facility] Medical History Mixed dyslipidemia Hx of iron deficiency anemia Osteoarthritis of right knee Anemia Post-menopause Vaginal dryness, menopausal Urinary frequency Primary osteoarthritis involving multiple joints Osteoporosis Paroxysmal atrial fibrillation Essential hypertension History of colitis Surgical History Hx of total knee arthroplasty History of mammogram Hx of total knee arthroplasty Hx of bilateral oophorectomy History of bladder suspension procedure History of repair of hiatal hernia (01/26/06) History of cholecystectomy Family History Father No problems noted. Mother No problems noted. Family/Other Cancer Brother History of kidney cancer Lung cancer, Onset Age: 65 Sister Breast cancer, Onset Age: 28 Social History Household Members: None Housing: Apartment Do you presently have visiting nurse or other home services: No Alcohol intake: current Alcohol intake frequency: holidays/special occasions only Alcohol type: wine Patient Tobacco Use Status: Never used Tobacco e-Cigarette/Vaping Use: Never Used service: No Current occupational status: retired Cognitive needs: No Hearing needs: No Vision needs: Yes Physical Exam Vital Signs: Last Vital Signs Pulse 70 06/21/23 10:30 BP 143/66 H 06/21/23 10:30 BMI result Body Mass Index 27.9 Const Other: Pleasant elderly female in no acute distress. Chest Other: Chest breath sounds bilaterally, HS 1 and 2, atrial fibrillation? GI Other: Abdomen moderately corpulent, soft, benign. Assessment & Plan Assessment & Plan (1) Diverticulitis large intestine: Code(s): K57.32 - Diverticulitis of large intestine without perforation or abscess without bleeding Qualifiers: Diverticulitis bleeding: without bleeding Diverticulitis complication: with abscess Qualified Code(s): K57.20 - Diverticulitis of large intestine with perforation and abscess without bleeding (2) Anemia: Code(s): D64.9 - Anemia, unspecified Plan Current plan is for the patient for GI evaluation for colonoscopy which is long overdue. This is to confirm the diverticular disease and to rule out any other pathology , with the patient being anemic. All questions were answered. Patient will see me after colonoscopy. Coding Level of Care Code New Pt Level 5 (12995) Diagnoses Diverticulitis of large intestine with abscess without bleeding K57.20 Diverticulitis bleeding: without bleeding Diverticulitis complication: with abscess Anemia D64.9
== END 2023-06-21 11:01 | disposition home or self-care (01) ==
PROVIDERS: PCP Internal Medicine; Visit Provider Surgery
DX: K57.20 Diverticulitis of large intestine with perforation and abscess without bleeding (principal); D64.9 Anemia, unspecified
CPT/HCPCS: 99204

== ENCOUNTER → 2023-06-21 10:28 | Outpatient (BNVA) | payer MEDICARE, SELFPAY | PROVIDERS: PCP Internal Medicine; Visit Provider Surgery ==

== ENCOUNTER 2023-06-30 12:48 | Outpatient (AMB) | payer MEDICARE, SELFPAY ==
--- NOTE | 2023-06-30 13:02 | MHC.PC.OV ---
Vital Signs 06/30/23 13:03 Height 5 ft Weight 143 lb 6 oz BMI 28.0 Intake Visit Reasons: AWV G0439 Allergies levofloxacin [From Levaquin] Allergy (Unknown, Verified 06/30/23 13:06) RASH Tobacco use date assessed: 06/30/23 Fall risk assessment: No Falls in past year Last assessed Fall Risk: 06/30/23 Dental Screening Dental Screen Date: 06/30/23 Did you have a dental visit in the last 12 months?: Yes Did you have a dental problem in the last 6 months where you did not have access to dental care?: No Was dental information given to patient?: Patient has dentist COUNTS INCLUDE 234 BEDS AT THE [facility] Medical History Mixed dyslipidemia Hx of iron deficiency anemia Osteoarthritis of right knee Anemia Post-menopause Vaginal dryness, menopausal Urinary frequency Primary osteoarthritis involving multiple joints Osteoporosis Paroxysmal atrial fibrillation Essential hypertension History of colitis Surgical History Hx of total knee arthroplasty History of mammogram Hx of total knee arthroplasty Hx of bilateral oophorectomy History of bladder suspension procedure History of repair of hiatal hernia (01/26/06) History of cholecystectomy Family History Father No problems noted. Mother No problems noted. Family/Other Cancer Brother History of kidney cancer Lung cancer, Onset Age: 65 Sister Breast cancer, Onset Age: 28 Social History Household Members: None Housing: Apartment Do you presently have visiting nurse or other home services: No Alcohol intake: current Alcohol intake frequency: holidays/special occasions only Alcohol type: wine Patient Tobacco Use Status: Never used Tobacco e-Cigarette/Vaping Use: Never Used service: No Current occupational status: retired Cognitive needs: No Hearing needs: No Vision needs: Yes Questionnaire Thrive Questionnaire Date Thrive assessed: 06/07/23 SERGIO-7 AMB Questionnaire SERIGO-7 Date SERGIO - 7 assessed: 12/29/22 Source: Developed by Drs. Rio Levine, Hazel Hinton, Ronnie Bueno and colleagues, with an educational patricia from [employer] Physical exam (Primary Care) Tobacco/Smoking Status: Tobacco use Status Tobacco use date assessed 12/29/22 12/29/22 11:16 Patient Tobacco Use Status Never used Tobacco 06/10/23 14:56 e-Cigarette/Vaping Use Never Used 12/29/22 11:03 Thrive Assessment: Date of Thrive Assessment Date Thrive assessed 06/07/23 06/07/23 09:07 Coding
[2023-06-30 13:03] VITALS: BP 170/88; PULSE 54; O2SAT 98; BMI 28.0
[2023-06-30 13:07] VITALS: BMI 28.0
--- NOTE | 2023-06-30 13:07 | AM.OFFVISMDC ---
Intake Vital Signs 06/30/23 13:03 06/30/23 13:07 Height 5 ft Weight 143 lb 6 oz BMI 28.0 28.0 BP 170/88 H Blood Pressure Location Lt brachial Position Sitting Pulse 54 Pulse Source Pulse Oximeter Pulse Oximetry (%) 98 Oxygen Delivery Method Room Air Intake Visit Reasons: AWV G0439 Intake Note: ?SWV ? year old presents for her ? Annual Wellness Visit, initial visit.? Medical / Social History Reviewed? Past Medical History ?Yes . ? [place] of Care / Care Team list updated ?Yes . ? Surgical/Hospitalization History ?Yes . ? Current Medications (including OTC and supplements) ?Yes . ? Family History ?Yes . ? Tobacco Control form ?Yes . ? AUDIT-C (Alcohol use) form ?Yes . ? Illicit drug use in Social History ?Yes . ? Current diagnosis of depression? ?No ? Appropriate PHQ2/PHQ9 completed ?Yes . ? Data entered by ?Lock[employer] Pocket Setter and reviewed by provider ? Fall Risk ? Fall History? Have you had any falls with injury in the past year? ?No . ? Have you had two or more falls in the past year? ?No . ? Fall Risk Assessment: ?No falls in the past year . ? HRA filled out by the patient, reviewed by Provider and scanned. ?SWV ? Balance? Romberg ?Yes . ? Tandem walk ?Yes . ? Walk and Turn ?Yes . ? Rise from sit to stand ?Yes . ?Vision? Corrective lens ?Yes ? Vision screen ? Up-to-date, has an appointment Dr. Lui 01/13/2021 for her vision screening and glaucoma screening ?Hearing? Whisper test ?pass . ?Written Plan?Completed. See Patient Documents.? ? ? Allergies levofloxacin [From Levaquin] Allergy (Unknown, Verified 06/30/23 13:06) RASH PFSH Medical History (Updated 06/30/23 @ 13:45 by Mer Quinonez MD) Hx of diverticulitis of colon Mixed dyslipidemia Hx of iron deficiency anemia Osteoarthritis of right knee Anemia Post-menopause Vaginal dryness, menopausal Urinary frequency Primary osteoarthritis involving multiple joints Osteoporosis Paroxysmal atrial fibrillation Essential hypertension History of colitis Surgical History (Updated 06/21/23 @ 10:50 by Ky Marquis MD) Hx of total knee arthroplasty History of mammogram Hx of total knee arthroplasty Hx of bilateral oophorectomy History of bladder suspension procedure History of repair of hiatal hernia (01/26/06) History of cholecystectomy Family History Father No problems noted. Mother No problems noted. Family/Other Cancer Brother History of kidney cancer Lung cancer, Onset Age: 65 Sister Breast cancer, Onset Age: 28 Social History Household Members: None Housing: Apartment Do you presently have visiting nurse or other home services: No Alcohol intake: current Alcohol intake frequency: holidays/special occasions only Alcohol type: wine Patient Tobacco Use Status: Never used Tobacco e-Cigarette/Vaping Use: Never Used service: No Current occupational status: retired Cognitive needs: No Hearing needs: No Vision needs: Yes Questionnaire Medicare Wellness Checkup What is your age?: 79 or older What gender do you identify with?: female During the past 4 weeks, how much have you been bothered by emotional problems such as feeling anxious, depressed, irritable, sad or downhearted, and blue?: slightly During the past 4 weeks, has your physical & emotional health limited your social activities with family, friends, neighbors, or groups?: slightly During the past 4 weeks, how much bodily pain have you generally had?: mild pain During the past 4 weeks, was someone available to help you if you needed & wanted help?: yes, as much as I wanted During the past 4 weeks, what was the hardest physical activity you could do for at least 2 minutes?: moderate Can you get to places out of walking distance without help? (For eg., can you travel alone on buses, taxis or drive your car?): Yes Can you go shopping for groceries or clothes without someone's help?: Yes Can you prepare your own meals?: Yes Can you do your housework without help?: Yes Because of any health problems, do you need the help of another person with your personal care needs such as eating, bathing, dressing or getting around the house?: No Can you handle your own money without help?: Yes During the past 4 weeks, how would you rate your health in general?: good During the past 4 weeks how have things been going for you?: good & bad parts about equal Are you having difficulties driving your car?: no Do you always fasten your seat belt when you are in a car?: yes, usually During past 4 weeks, have you been bothered by the following: never: Falling or dizzy when standing up, Sexual problems?, Trouble eating well?, Teeth or denture problems? and Problems using the telephone? and sometimes: Tiredness or fatigue? Have you fallen 2 or more times in the past year?: No Are you afraid of falling?: No Are you a smoker?: no During the past 4 weeks, how many drinks of wine, beer, or other alcoholic beverages did you have?: 1 drink or less per week Do you exercise for about 20 minutes 3 or more times a week?: yes, most of the time Have you been given information to help with the following?: yes: Hazards in your house that might hurt you? and no: Keeping track of your medications? How often do you have trouble taking medicines the way you have been told to take them?: I always take medicine as prescribed What is your race?: White PHQ-9 Over the last 2 weeks, how often have you been bothered by any of the following problems? 1. Little interest or pleasure in doing things: not at all 2. Feeling down, depressed, or hopeless: not at all 3. Trouble falling or staying asleep, or sleeping too much: several days 4. Feeling tired or having little energy: several days 5. Poor appetite or overeating: not at all 6. Feeling bad about yourself - or that you are a failure or have let yourself or your family down: not at all 7. Trouble concentrating on things, such as reading the newspaper or watching television: not at all 8. Moving or speaking so slowly that other people could have noticed. Or the opposite - being so fidgety or restless that you have been moving around a lot more than usual: not at all 9. Thoughts that you would be better off or of hurting yourself in some way: not at all Total score: 2 Source: Developed by Drs. Rio Levine, Hazel Hinton, Ronnie Bueno and colleagues, with an educational patricia from [employer]. Physical Exam Vital Signs: Last Vital Signs Pulse 54 06/30/23 13:03 BP 170/88 H 06/30/23 13:03 Pulse Ox 98 06/30/23 13:03 Oxygen Delivery Method Room Air 06/30/23 13:03 BMI result Body Mass Index 28.0 Assessment & Plan Assessment & Plan (1) Anemia: Code(s): D64.9 - Anemia, unspecified (2) Hx of diverticulitis of colon: Code(s): Z87.19 - Personal history of other diseases of the digestive system Orders: Orders Vitamin D 25-OH Total Today D64.9 - Anemia, unspecified, Z87.19 - Personal history of other diseases of the digestive system IRON PROFILE Today D64.9 - Anemia, unspecified, Z87.19 - Personal history of other diseases of the digestive system Complete Blood Count Auto Diff Today D64.9 - Anemia, unspecified, Z87.19 - Personal history of other diseases of the digestive system Vitamin B12 and Folate Today D64.9 - Anemia, unspecified, Z87.19 - Personal history of other diseases of the digestive system Medications: New ferrous fumarate 325 mg PO DAILY 90 tabs 1RF Quality Reporting (2019) Depression/Bipolar (159/160/161/177) PHQ-9: Total score: 2 Coding Diagnoses Anemia D64.9 Hx of diverticulitis of colon Z87.19
--- NOTE | 2023-06-30 13:55 | A.OFFPC_ITS ---
<Statement entered by Mer Quinonez MD - 10/06/25 23:52> This note has been administratively?closed. Vital Signs 06/30/23 13:03 06/30/23 13:07 Height 5 ft Weight 143 lb 6 oz BMI 28.0 28.0 BP 170/88 H Blood Pressure Location Lt brachial Position Sitting Pulse 54 Pulse Source Pulse Oximeter Pulse Oximetry (%) 98 Oxygen Delivery Method Room Air Intake Visit Reasons: Follow up DC Intake Note: Pt is here today to f/u d/c Allergies levofloxacin (From Levaquin) Allergy (Intermediate, Verified 10/02/25 12:41) RASH Medication List - Last Reconciled 04/09/24 by Mer Quinonez MD amlodipine 5 mg PO QAM apixaban (Eliquis) 5 mg PO BID 90 days buspirone 5 mg PO QAM flecainide 50 mg PO BID hydrochlorothiazide 25 mg PO QAM hydrocodone-acetaminophen 5-325 mg 1 tab PO Q4-6H PRN metoclopramide HCl (Reglan) 5 mg PO QIDACHS PRN metoprolol succinate ER 25 mg PO BEDTIME omeprazole 40 mg PO BID@0630,1630 Tobacco use date assessed: 06/30/23 Fall risk assessment: No Falls in past year Last assessed Fall Risk: 06/30/23 Dental Screening Dental Screen Date: 06/30/23 Did you have a dental visit in the last 12 months?: Yes Was dental information given to patient?: Patient has dentist [facility] Medical History Hx of bad fall Laceration of left knee Iron deficiency anemia Nausea Generalized anxiety disorder Fundic gland polyposis of stomach Gastritis determined by biopsy Diverticulitis Colitis GERD (gastroesophageal reflux disease) Mixed dyslipidemia Hx of iron deficiency anemia Osteoarthritis of right knee Encounter for monitoring anti-arrhythmic therapy Post-menopause Vaginal dryness, menopausal Urinary frequency Primary osteoarthritis involving multiple joints Osteoporosis Paroxysmal atrial fibrillation Essential hypertension Surgical History Diverticular disease Status post partial resection of colon (03/15/24) History of esophagogastroduodenoscopy (EGD) (02/08/25) H/O colonoscopy Hx of hysterectomy Hx of total knee arthroplasty Hx of bilateral oophorectomy History of bladder suspension procedure History of repair of hiatal hernia (01/26/06) History of cholecystectomy Family History Father No problems noted. Mother No problems noted. Family/Other Cancer Brother History of kidney cancer Lung cancer, Onset Age: 65 Sister Breast cancer, Onset Age: 28 Social History Household Members: None Household Members Other:: lives at [facility] Housing: Apartment Housing Other:: resides in [place] across her daughter's house Are you a primary manager respiratory care to a significant other at home: No Do you presently have visiting nurse or other home services: No Alcohol intake: current Alcohol intake frequency: holidays/special occasions only Alcohol type: wine Patient Tobacco Use Status: Former Tobacco user Tobacco use type: Cigarette Years Smoked: 2 e-Cigarette/Vaping Use: Never Used Advance Directives Date on File: 09/24/19 service: No Current occupational status: retired Cognitive needs: No Hearing needs: No Vision needs: Yes Questionnaire Thrive Questionnaire Date Thrive assessed: 06/07/23 SERGIO-7 AMB Questionnaire SERGIO-7 Date SERGIO - 7 assessed: 12/29/22 Source: Developed by Drs. Rio Levine, Hazel Hinton, Ronnie Buneo and colleagues, with an educational patricia from [employer]. Physical exam (Primary Care) Vital Signs: Last Vital Signs Pulse 54 06/30/23 13:03 BP 170/88 H 06/30/23 13:03 Pulse Ox 98 06/30/23 13:03 Oxygen Delivery Method Room Air 06/30/23 13:03 BMI result Body Mass Index 28.0 Tobacco/Smoking Status: Tobacco use Status Tobacco use date assessed 06/30/23 06/30/23 13:56 Patient Tobacco Use Status Never used Tobacco 06/30/23 13:56 e-Cigarette/Vaping Use Never Used 06/30/23 13:56 Thrive Assessment: Date of Thrive Assessment Date Thrive assessed 06/07/23 06/30/23 13:56 Coding Level of Care Code Admin Sign Off/No Billing Diagnoses Anemia D64.9 Hx of diverticulitis of colon Z87.19
== END 2023-06-30 14:22 | disposition home or self-care (01) ==
PROVIDERS: Visit Provider Internal Medicine
DX: D64.9 Anemia, unspecified (principal); Z87.19 Personal history of other diseases of the digestive system
CPT/HCPCS: 99499

== ENCOUNTER 2023-06-30 13:56 | Outpatient (REF) | payer MEDICARE, SELFPAY ==
[2023-06-30 16:07] LABS: MANUAL DIFF FLAG NO
[2023-06-30 16:15] LABS: Basophils Percent Auto 0.3 % (0-2); Eosinophils Absolute Auto 0.1 X10*3/uL (0.0-0.4); Hematocrit 33.8 % (37.0-47.0); Hemoglobin 9.9 g/dl (12.0-16.0); Imm Gran Abs Auto 0.03 X10*3/uL (0.00-0.03); Imm Gran Pct Auto 0.3 % (0.0-0.4); Lymphocytes Absolute Auto 3.8 X10*3/uL (1.2-4.9); Lymphocytes Percent Auto 39.7 % (20-40); Mean Corpuscular HGB Conc 29.3 g/dl (31.0-35.0); Mean Corpuscular Hemoglobin 22.5 pg (27.0-33.0); Mean Corpuscular Volume 76.8 fL (80.0-98.0); Mean Platelet Volume 9.7 fL (9.4-12.3); Monocytes Absolute Auto 0.7 X10*3/uL (0.1-1.2); Monocytes Percent Auto 7.3 % (2-11); Neutrophils Absolute Auto 4.9 x10*3/uL (2.0-8.3); Neutrophils Percent Auto 51.4 % (45-73); Platelet Count 395 X10*3/uL (160-400); Red Cell Distribution Width 14.3 % (11.0-16.0); White Blood Count 9.5 X10*3/uL (4.8-10.8)
[2023-06-30 16:28] LABS: Iron 14 mcg/dL (30-160); Percent Iron Saturation 3 % (15-50); Total Iron Binding Capacity 411 mcg/dL (228-428); Unsaturated Iron Binding 397 ug/dL
[2023-06-30 16:46] LABS: Vitamin D 25-OH Total 102.5 ng/mL (>30)
[2023-06-30 17:01] LABS: Folate 14.5 ng/mL (> or = 4.0); Vitamin B12 419 pg/mL (200-900)
== END 2023-06-30 13:57 | disposition home or self-care (01) ==
LOC: HO.HMGCLDS 13:56
PROVIDERS: PCP Internal Medicine; Visit Provider Internal Medicine
DX: D64.9 Anemia, unspecified (principal); Z87.19 Personal history of other diseases of the digestive system
CPT/HCPCS: 36415; 82306; 82607; 82746; 83540; 85025

== ENCOUNTER 2023-07-04 12:34 | Outpatient (AMB) | payer MEDICARE, SELFPAY ==
--- NOTE | 2023-07-04 12:45 | A.OFFVIS_ITS ---
Intake Vital Signs 07/04/23 12:47 Height 5 ft Weight 143 lb BMI 27.9 BP 162/75 H Blood Pressure Location Lt brachial Position Sitting Pulse 60 Intake Visit Reasons: Colonoscopy needed Intake Note: Patient follow up for Anemia and 2nd pre colonoscopy screening. Patient cc: constipation and denies any other GI issues. Patient was admitted at [facility] x 5 days, she have some BW and CT scan was done . Investments Manager Required: No Accompanied by: Self / Same As Patient Allergies levofloxacin [From Levaquin] Allergy (Unknown, Verified 07/04/23 12:44) RASH HPI HPI Comments History of Present Illness Details This is an 83y.o F with PMH of pAF on eliquis, HTN, diverticulosis, chronic anemia who is here for pre-procedure appt. Pt previously pt of [facility] but requested to be seen for second opinion. Pertinent hx is significant for recent admission for complicated sigmoid diverticulitis with abscess formation. Was managed with Abx. Follow up imaging not available. She was also noted to be anemic during this admission with H/H 9.2/30.2 with microcytosis. Last known H/H prior to this in 2021 was normal. Of note, on review of labs FOBT + 2019 but pt does not recall having this done or its results. Last colo 2004 (Dr Dong): x1 rectal polyp which was HP. Pt was supposed to have a follow up colo in 2014 but lost to follow up and then switched providers to [facility] in the midst of pandemic when elective colos were not being scheduled. Currently, reports intermittent abd cramping maricarmen in LLQ which is chronic. No N/V/D, blood in stool. No change in appetite or unintentional weight loss. Lives by herself in an independent living facility and capable of all IADLs. [place] an [place] in [place] and well aware of her medical issues. [facility] Medical History (Updated 07/04/23 @ 13:39 by Vivien Rey MD) Hx of diverticulitis of colon Mixed dyslipidemia Hx of iron deficiency anemia Osteoarthritis of right knee Anemia Post-menopause Vaginal dryness, menopausal Urinary frequency Primary osteoarthritis involving multiple joints Osteoporosis Paroxysmal atrial fibrillation Essential hypertension History of colitis Surgical History Hx of total knee arthroplasty History of mammogram Hx of total knee arthroplasty Hx of bilateral oophorectomy History of bladder suspension procedure History of repair of hiatal hernia (01/26/06) History of cholecystectomy Family History Father No problems noted. Mother No problems noted. Family/Other Cancer Brother History of kidney cancer Lung cancer, Onset Age: 65 Sister Breast cancer, Onset Age: 28 Social History Household Members: None Housing: Apartment Do you presently have visiting nurse or other home services: No Alcohol intake: current Alcohol intake frequency: holidays/special occasions only Alcohol type: wine Patient Tobacco Use Status: Never used Tobacco e-Cigarette/Vaping Use: Never Used service: No Current occupational status: retired Cognitive needs: No Hearing needs: No Vision needs: Yes Review of Systems Const All systems reviewed & are unremarkable except as noted in HPI and below Physical Exam Vital Signs: Last Vital Signs Pulse 60 07/04/23 12:47 BP 162/75 H 07/04/23 12:47 BMI result Body Mass Index 27.9 Gen appear: NAD HEENT: nonicteric, no cervical lymphadenopathy Chest: CTA CVS: Regular S1/S2 Abd: soft, nontender, nondistended, bowel sounds + Ext: no peripheral edema Neuro: A/Ox3, noted to move all extremities spontaneously Psych: interacting appropriately Assessment & Plan Assessment & Plan (1) Hx of diverticulitis of colon: Code(s): Z87.19 - Personal history of other diseases of the digestive system (2) Anemia: Code(s): D64.9 - Anemia, unspecified (3) Paroxysmal atrial fibrillation: Code(s): I48.0 - Paroxysmal atrial fibrillation (4) Chronic anticoagulation: Code(s): Z79.01 - assisted (current) use of anticoagulants Plan Needs endoscopic evaluation for i) follow up of complicated diverticulitis and ii) iron deficiency anemia. Pt also had FOBT + in 2019 though context of this testing is unclear. DDx include gastritis/duodenitis, AVMs, large friable polyp, malignancy etc. Since has hx of recent complicated diverticulitis, this will be booked at least 6-8 weeks out. Will also get updated imaging to ensure resolution of abscess prior to colo. Plan: - CT Abd/pel with IV contrast - EGD/colo to be booked at least 8 weeks from complicated diverticulitis episode. She is aware this may be ovidio with a different provider. - Pt aware to HOLD her eliquis for 48h prior to the procedure based on Cr clearance - Requests suprep, instructions reviewed verbally and handout provided Follow up after scopes Orders: Orders CT abdomen pelvis w IV con Today K57.32 - Diverticulitis of large intestine without perforation or abscess without bleeding Medications: New sodium,potassium,mag sulfates 17.5-3.13-1.6 gram (Suprep Bowel Prep Kit) DILUTE as per instruction 354 mL 0RF Coding Level of Care Code Est Pt Level 4 (99378) Diagnoses Hx of diverticulitis of colon Z87.19 Anemia D64.9 Paroxysmal atrial fibrillation I48.0 Chronic anticoagulation Z79.01
[2023-07-04 12:47] VITALS: BP 162/75; PULSE 60; BMI 27.9
== END 2023-07-04 13:32 | disposition home or self-care (01) ==
PROVIDERS: PCP Internal Medicine; Visit Provider Internal Medicine
DX: Z87.19 Personal history of other diseases of the digestive system (principal); D64.9 Anemia, unspecified; I48.0 Paroxysmal atrial fibrillation; Z79.01 Long term (current) use of anticoagulants
CPT/HCPCS: 99214

== ENCOUNTER → 2023-07-04 12:34 | Outpatient (BNVA) | payer MEDICARE, SELFPAY | PROVIDERS: PCP Internal Medicine; Visit Provider Internal Medicine | DX: D64.9 Anemia, unspecified (principal); I48.0 Paroxysmal atrial fibrillation; Z79.01 Long term (current) use of anticoagulants; Z87.19 Personal history of other diseases of the digestive system | CPT/HCPCS: 99212 ==

== ENCOUNTER 2023-07-18 12:00 | Outpatient (AMB) | payer MEDICARE, SELFPAY ==
--- NOTE | 2023-07-18 12:30 | MHC.OFFVIS ---
Intake Vital Signs 07/18/23 12:31 Height 5 ft Weight 143 lb 4.807 oz BMI 28.0 BP 138/66 Blood Pressure Location Lt brachial Position Sitting Pulse 60 Intake Visit Reasons: 6 mth f/up Intake Note: 6 month follow up Group [employer] Vp Required: No Accompanied by: Self / Same As Patient Allergies levofloxacin [From Levaquin] Allergy (Unknown, Verified 07/18/23 12:32) RASH Medication List - Last Reconciled 07/18/23 by William Hansen MD amlodipine 2.5 mg PO DAILY apixaban (Eliquis) 5 mg PO BID 90 days ferrous fumarate 325 mg PO DAILY flecainide 50 mg PO BID hydrochlorothiazide 25 mg PO DAILY metoclopramide HCl (Reglan) 5 mg PO QIDACHS PRN metoprolol succinate ER 25 mg PO DAILY omeprazole 20 mg PO BID sodium,potassium,mag sulfates 17.5-3.13-1.6 gram (Suprep Bowel Prep Kit) DILUTE as per instruction HPI HPI Comments History of Present Illness Details Alisa returns for follow-up regarding atrial fibrillation. To recall, she was hospitalized in 2016 with atrial fibrillation and rapid rate. She was treated with beta-blockers for rate control and converted to sinus. On other occasion, she was readmitted with dizziness and presyncope and had sinus bradycardia. Then beta-nicole dose was decreased and Flecainide added. Over the last few years, she has generally been stable. No recurrent issues from atrial fibrillation standpoint. No issues anticoagulation. Blood pressures do go intermittently high but she states that during those times she is not well. More recently, she had a hospitalization for diverticulitis and she states she still not back to normal. During that time, she had high blood pressures but she also states she was in a lot of pain. [facility] Medical History (Updated 07/04/23 @ 13:39 by Vivien Rey MD) Hx of diverticulitis of colon Mixed dyslipidemia Hx of iron deficiency anemia Osteoarthritis of right knee Anemia Post-menopause Vaginal dryness, menopausal Urinary frequency Primary osteoarthritis involving multiple joints Osteoporosis Paroxysmal atrial fibrillation Essential hypertension History of colitis Surgical History Hx of total knee arthroplasty History of mammogram Hx of total knee arthroplasty Hx of bilateral oophorectomy History of bladder suspension procedure History of repair of hiatal hernia (01/26/06) History of cholecystectomy Family History Father No problems noted. Mother No problems noted. Family/Other Cancer Brother History of kidney cancer Lung cancer, Onset Age: 65 Sister Breast cancer, Onset Age: 28 Social History Household Members: None Housing: Apartment Do you presently have visiting nurse or other home services: No Alcohol intake: current Alcohol intake frequency: holidays/special occasions only Alcohol type: wine Patient Tobacco Use Status: Never used Tobacco e-Cigarette/Vaping Use: Never Used service: No Current occupational status: retired Cognitive needs: No Hearing needs: No Vision needs: Yes Review of Systems Const All systems reviewed & are unremarkable except as noted in HPI and below Reports as per HPI and Reports no additional complaints Eyes Reports as per HPI and Denies no additional complaints ENT Denies no additional complaints and Reports as per HPI Card Reports as per HPI, Reports no additional complaints, Denies acrocyanosis, Denies chest pain, Denies leg edema, Denies lightheadedness, Denies palpitations and Denies dyspnea Resp Reports as per HPI, Denies no additional complaints and Denies dyspnea GI Reports as per HPI and Denies no additional complaints Reports as per HPI Musc Reports no additional complaints and Reports as per HPI Skin/Breast Reports system reviewed and no additional complaints, except as documented Neuro Reports no additional complaints and Reports as per HPI Psych Reports no additional complaints and Reports as per HPI Endo Reports no additional complaints, Reports as per HPI and Denies palpitations Geovanny/Lymph Reports no additional complaints and Reports as per HPI Aller/Immun Reports no additional complaints and Reports as per HPI Physical Exam Vital Signs: Last Vital Signs Pulse 60 07/18/23 12:31 BP 138/66 07/18/23 12:31 BMI result Body Mass Index 28.0 Const General: comfortable and no acute distress Orientation/consciousness: patient oriented x3 HEENT Other: Unremarkable Head: Yes normal to inspection Neck Neck: Yes normal visual inspection Chest Chest palpation & inspection: normal inspection of the chest Resp Auscultation: clear to auscultation bilaterally Cardio Palpation: normal PMI Heart sounds: S1 normal heart sound present, S2 normal heart sound present, no gallops, no murmurs and no rubs GI Palpation (GI): Soft to palpation Back/Spine/Pelvis Other: unremarkable Skin General skin exam: no rashes or lesions noted Neuro General: patient oriented x3 Extrem General: Yes normal to inspection Psych Mental Status: mental status grossly normal Office Procedures EKG Details: EKG with sinus rhythm at 60/Min; leftward axis; left ventricular hypertrophy with mild QRS widening; borderline MT prolongation to 202 millisecond; [place] [id number], Complete Assessment & Plan Assessment & Plan (1) Paroxysmal atrial fibrillation: Code(s): I48.0 - Paroxysmal atrial fibrillation Plan: Continue beta-blockers and flecainide. On Eliqius. (2) Encounter for monitoring anti-arrhythmic therapy: Code(s): Z51.81 - Encounter for therapeutic drug level monitoring; Z79.899 - Other mcfp (current) drug therapy Plan: Has been stable on flecainide for many years. In the past, perfusion imaging unremarkable. Echocardiogram with preserved LVEF. Recheck echo before next visit. (3) Essential hypertension: Code(s): I10 - Essential (primary) hypertension Plan: Blood pressures do go up intermittently. Today, borderline. She states pressures generally go up when she is in pain or otherwise not well. No changes made today. In the repeat echo, we can assess for any significant LVH. Orders: Orders CA echo transthoracic complete 6 Months I48.0 - Paroxysmal atrial fibrillation, Z51.81 - Encounter for therapeutic drug level monitoring, Z79.899 - Other terminal makeup operator (current) drug therapy Coding Level of Care Code Est Pt Level 4 (64259) Diagnoses Paroxysmal atrial fibrillation I48.0 Encounter for monitoring anti-arrhythmic therapy Z51.81; Z79.899 Essential hypertension I10 CPT Codes EKG - CPT: 10326-[id number], Complete ([id number])
[2023-07-18 12:31] VITALS: BP 138/66; PULSE 60; BMI 28.0
== END 2023-07-18 12:51 | disposition home or self-care (01) ==
PROVIDERS: PCP Internal Medicine; Visit Provider Internal Medicine
DX: I48.0 Paroxysmal atrial fibrillation (principal); Z51.81 Encounter for therapeutic drug level monitoring; Z79.899 Other long term (current) drug therapy; I10 Essential (primary) hypertension
CPT/HCPCS: 93010; 99214

== ENCOUNTER 2023-07-18 12:00 | Outpatient (REF) | payer MEDICARE, SELFPAY ==
[2023-07-18 15:21] LABS: Anion Gap 12 (12-20); Blood Urea Nitrogen 14 mg/dL (9-16); Carbon Dioxide 31 mmol/L (22-29); Chloride 99 mmol/L (96-108); Estimated Glomerular Filt Rate > 60; Glucose Random 93 mg/dL (60-115); Potassium 4.1 mmol/L (3.3-5.1); Sodium 138 mmol/L (135-145)
== END 2023-07-18 12:01 | disposition home or self-care (01) ==
LOC: HO.LAB 12:00
PROVIDERS: Absent Provider Internal Medicine; PCP Internal Medicine; Visit Provider Internal Medicine
DX: I48.0 Paroxysmal atrial fibrillation (principal); I10 Essential (primary) hypertension; Z79.01 Long term (current) use of anticoagulants; Z79.899 Other long term (current) drug therapy
CPT/HCPCS: 36415; 80048; 93005; 99212

== ENCOUNTER 2023-08-09 13:41 | Outpatient (REF) | payer MEDICARE, SELFPAY ==
--- NOTE | ~2023-08-09 | CT_ITS ---
EXAMINATION: CT ABDOMEN AND PELVIS WITH CONTRAST CLINICAL INFORMATION: Diverticulitis of large intestine without perforation or abscess. COMPARISON: CT abdomen and pelvis 06/06/2023: Sigmoid colon diverticulitis with likely abscess formation surrounding the sigmoid colon. Follow-up by colonoscopy following treatment is recommended. TECHNIQUE: Multidetector volumetric images were obtained from the superior aspect of the liver through the pubic symphysis following administration 85 mL of Omnipaque 350 intravenous contrast. Sagittal and coronal reformatted images were obtained on the technologist's workstation. Oral Contrast: No. This CT examination was performed using dose optimization techniques as appropriate, variously including the following: *Automated exposure control. *Adjustment of mA and/or kV according to patient size (this includes techniques or standardized protocols for targeted exams where dose is matched to indication/reason for exam; i.e. extremities or head). *Use of iterative reconstruction technique. DLP: 382 mGy-cm FINDINGS: LUNG BASES: Heart is mildly enlarged. Triple-vessel coronary calcium is present. No infiltrates, effusions or lung masses are seen at the lung bases. LIVER, GALLBLADDER, AND BILIARY TREE: The liver is normal in size, shape, and attenuation. A single tiny 3 mm hypoattenuating mass is seen in the right lobe of the liver just beneath the hemidiaphragm (3:8). Statistically, a benign cyst and unchanged when compared to 05/19/2020 (prior 7:43). No worrisome focal hepatic lesion or biliary ductal dilatation is present. The gallbladder is not seen. PANCREAS: Unremarkable. SPLEEN: Unremarkable. ADRENAL GLANDS: Unremarkable. KIDNEYS AND URETERS: The kidneys are normal in size, shape, and attenuation. Extensive bilateral benign Bosniak class I cortical and parapelvic renal cysts are noted which require no additional imaging or follow-up. No solid renal masses are seen. No hydronephrosis, hydroureter, or calculi seen. No perinephric stranding. BLADDER: Unremarkable. GASTROINTESTINAL TRACT: Moderate-sized hiatal hernia is present. The small and large bowel are unremarkable aside from sigmoid diverticula without diverticulitis. The changes of acute diverticulitis seen at the time of the 06/06/2023 study have completely resolved. The appendix is unremarkable. ABDOMINAL WALL: No significant hernia is appreciated. There is a tiny periumbilical hernia seen containing only fat. LYMPH NODES: No retroperitoneal lymphadenopathy. VASCULAR: Calcific atherosclerotic changes are present in the aorta and iliac vessels. There is no evidence of an abdominal aortic aneurysm. PELVIC VISCERA: The uterus is not seen. An abnormal adnexal mass is not detected. No free intraperitoneal fluid is present. OSSEOUS STRUCTURES: Mild degenerative changes are present in the spine most marked in the lower thoracic region and at L5-S1 where there is a grade [address]/CT abdomen pelvis w IV con IMPRESSION: 1. No evidence of diverticulitis with resolution of the changes seen on the 06/06/2023 study. 2. Incidental note made of mild cardiomegaly with triple-vessel coronary calcium, tiny hepatic cyst, moderate-sized hiatal hernia, bilateral benign Bosniak class I renal cysts which require no additional imaging or follow-up, hysterectomy changes and degenerative changes in the spine with grade 1 anterolisthesis at L5-S1. Fleischner guidelines were followed.
== END 2023-08-09 13:42 | disposition home or self-care (01) ==
LOC: HO.CT 13:41
PROVIDERS: PCP Internal Medicine; Visit Provider Internal Medicine
DX: K57.32 Diverticulitis of large intestine without perforation or abscess without bleeding (principal)
CPT/HCPCS: 74177

== ENCOUNTER 2023-08-19 11:46 | Day surgery (SDC) | payer MEDICARE, SELFPAY ==
--- NOTE | 2023-08-18 09:25 | P.CONAN_ITS ---
Documented by User: Chinyere Lopez NP 08/18/23 09:28 HPI - Anesthesia Eval Consult details Narrative: 83yo F for Upper Endoscopy and Colonoscopy Eliquis for PAF Follows [facility] [place] cardiology. Last office visit 07/2023, stable. [facility] Active Problems Active Problems: All Active Problems (Updated 07/04/23 @ 13:39 by Vivien Rey MD) Chronic anticoagulation (Acute) Hx of diverticulitis of colon (Acute) Diverticulitis large intestine (Acute) Encounter for monitoring anti-arrhythmic therapy (Acute) Mixed dyslipidemia (Acute) Delayed gastric emptying (Acute) Sinus tachycardia (Acute) Hx of total knee arthroplasty (Acute) Post-menopause (Acute) Vaginal dryness, menopausal (Acute) Primary osteoarthritis involving multiple joints (Acute) Osteoporosis (Acute) Paroxysmal atrial fibrillation (Acute) Essential hypertension (Acute) GERD (gastroesophageal reflux disease) (Acute) Irritable bowel syndrome with both constipation and diarrhea (Acute) Past Medical History Medical History Hx of diverticulitis of colon Mixed dyslipidemia Hx of iron deficiency anemia Osteoarthritis of right knee Anemia Post-menopause Vaginal dryness, menopausal Urinary frequency Primary osteoarthritis involving multiple joints Osteoporosis Paroxysmal atrial fibrillation Essential hypertension History of colitis Family History Family History Father No problems noted. Mother No problems noted. Family/Other Cancer Brother History of kidney cancer Lung cancer, Onset Age: 65 Sister Breast cancer, Onset Age: 28 Surgical History Surgical History Hx of total knee arthroplasty History of mammogram Hx of total knee arthroplasty Hx of bilateral oophorectomy History of bladder suspension procedure History of repair of hiatal hernia (01/26/06) History of cholecystectomy Social History Social History Household Members: None Housing: Apartment Do you presently have visiting nurse or other home services: No Alcohol intake: current Alcohol intake frequency: holidays/special occasions only Alcohol type: wine Patient Tobacco Use Status: Never used Tobacco e-Cigarette/Vaping Use: Never Used Advance Directives: No Advance Directives Information Provided: Yes service: No Current occupational status: retired Cognitive needs: No Hearing needs: No Vision needs: Yes Meds Allergies Allergy/AdvReac Type Severity Reaction Status Date / Time levofloxacin [From Levaquin] Allergy Unknown RASH Verified 08/02/23 00:48 Home Medications Medication Instructions Recorded Confirmed Last Taken Type metoclopramide HCl 5 mg tablet 5 mg PO QIDACHS PRN stomach pain 06/06/23 3 Unknown History (Reglan) Exam Pertinent Lab Results Pertinent Lab Results: Laboratory Tests 06/30/23 07/18/23 14:01 13:23 WBC 9.5 Hgb 9.9 L Hct 33.8 L Plt Count 395 D Sodium 138 Potassium 4.1 D Chloride 99 Carbon Dioxide 31 H BUN 14 Creatinine 0.77 Narrative Narrative: EKG 07/2023 sinus rhythm at 60/Min; leftward axis; left ventricular hypertrophy with mild QRS widening; borderline MT prolongation to 202 millisecond; normal corrected QT. Assessment and Plan Assessment Anesthesia Assessment: Chart Reviewed Documented by User: Debbi Riley MD 08/19/23 11:50 PMFSH Past Medical History Medical History Hx of diverticulitis of colon Mixed dyslipidemia Hx of iron deficiency anemia Osteoarthritis of right knee Anemia Post-menopause Vaginal dryness, menopausal Urinary frequency Primary osteoarthritis involving multiple joints Osteoporosis Paroxysmal atrial fibrillation Essential hypertension History of colitis Family History Family History Father No problems noted. Mother No problems noted. Family/Other Cancer Brother History of kidney cancer Lung cancer, Onset Age: 65 Sister Breast cancer, Onset Age: 28 Family history of problems with anesthesia: No Surgical History Surgical History Hx of total knee arthroplasty History of mammogram Hx of total knee arthroplasty Hx of bilateral oophorectomy History of bladder suspension procedure History of repair of hiatal hernia (01/26/06) History of cholecystectomy History of Problems with Anesthesia: No Social History Social History Household Members: None Housing: Apartment Do you presently have visiting nurse or other home services: No Alcohol intake: current Alcohol intake frequency: holidays/special occasions only Alcohol type: wine Patient Tobacco Use Status: Never used Tobacco e-Cigarette/Vaping Use: Never Used Advance Directives: No Advance Directives Information Provided: Yes service: No Current occupational status: retired Cognitive needs: No Hearing needs: No Vision needs: Yes Meds Allergies Allergy/AdvReac Type Severity Reaction Status Date / Time levofloxacin [From Levaquin] Allergy Unknown RASH Verified 08/02/23 00:48 Home Medications Medication Instructions Recorded Confirmed Last Taken Type metoclopramide HCl 5 mg tablet 5 mg PO QIDACHS PRN stomach pain 06/06/23 07/18/23 Unknown History (Reglan) Exam Airway Mallampati Class: II TM Dist: >3cm Neck ROM: Full Heart: rrr Lungs: cta Assessment and Plan Assessment Anesthesia Assessment: Anesthesia Plan Discussed Final Anesthetic Review Family History of Problems with Anesthesia: No History of Problems with Anesthesia: No NPO: Yes ASA Class: II Final Preanesthetic Review: No Changes in Pt Med Stat, Meds/Allgs Chart Reviewed and Consent Obtained/Reviewed Patient Risk: Intermediate Procedure Risk: Intermediate Anesthetic Plan Anesthetic Plan: MAC: Disposition: Standard PACU
[2023-08-19 12:36] VITALS: BP 184/63; PULSE 68; RESP 16; TEMP 36.7; O2SAT 97; BMI 27.2
--- NOTE | 2023-08-19 12:37 | MHC.SHP ---
Pre-Procedural Eval Section A Date of Service: 08/19/23 The patient is an INPATIENT: No The History & Physical has been completed within 30 days and I have reviewed it.: No Section B Chief Complaint: screening, hx of diverticulitis, anemia Relevant Family History (Specify if Yes): No Relevant Social History: None Present Medications: see Short Stay Collaborative assessment Medical History: Significant History (Hx of diverticulitis of colon Mixed dyslipidemia Hx of iron deficiency anemia Osteoarthritis of right knee Anemia Post-menopause Vaginal dryness, menopausal Urinary frequency Primary osteoarthritis involving multiple joints Osteoporosis Paroxysmal atrial fibrillation Essential hypertension History o) History of Previous Operations: Relevant previous surgery/procedure and date(s) (Hx of total knee arthroplasty History of mammogram Hx of total knee arthroplasty Hx of bilateral oophorectomy History of bladder suspension procedure History of repair of hiatal hernia (01/26/06) History of cholecystectomy) Allergies: Allergies Allergy/AdvReac Type Severity Reaction Status Date / Time levofloxacin [From Levaquin] Allergy Unknown RASH Verified 08/02/23 00:48 Review of Systems Sugical H&P ROS: Negative: Constitution, Cardiovascular, Respiratory and Gastrointestinal Plan Diagnosis/Plan: Unchanged I have reviewed the history and physical and performed a pertinent physical examination on my patient. No changes have occurred unless specified. Time Spent With Patient Time: Total time managing care of this patient today ____ minutes.
--- NOTE | 2023-08-19 12:38 | HO.ANESPROP2 ---
[facility] Active Problems Active Problems: All Active Problems (Updated 07/04/23 @ 13:39 by Vivien Rey MD) Chronic anticoagulation (Acute) Hx of diverticulitis of colon (Acute) Diverticulitis large intestine (Acute) Encounter for monitoring anti-arrhythmic therapy (Acute) Mixed dyslipidemia (Acute) Delayed gastric emptying (Acute) Sinus tachycardia (Acute) Hx of total knee arthroplasty (Acute) Post-menopause (Acute) Vaginal dryness, menopausal (Acute) Primary osteoarthritis involving multiple joints (Acute) Osteoporosis (Acute) Paroxysmal atrial fibrillation (Acute) Essential hypertension (Acute) GERD (gastroesophageal reflux disease) (Acute) Irritable bowel syndrome with both constipation and diarrhea (Acute) Past Medical History Medical History Hx of diverticulitis of colon Mixed dyslipidemia Hx of iron deficiency anemia Osteoarthritis of right knee Anemia Post-menopause Vaginal dryness, menopausal Urinary frequency Primary osteoarthritis involving multiple joints Osteoporosis Paroxysmal atrial fibrillation Essential hypertension History of colitis Family History Family History Father No problems noted. Mother No problems noted. Family/Other Cancer Brother History of kidney cancer Lung cancer, Onset Age: 65 Sister Breast cancer, Onset Age: 28 Family history of problems with anesthesia: No Surgical History Surgical History (Updated 08/19/23 @ 12:35 by Brisa Tracy RN) Hx of hysterectomy Hx of total knee arthroplasty History of mammogram Hx of total knee arthroplasty Hx of bilateral oophorectomy History of bladder suspension procedure History of repair of hiatal hernia (01/26/06) History of cholecystectomy History of Problems with Anesthesia: No Social History Social History Household Members: None Housing: Apartment Do you presently have visiting nurse or other home services: No Alcohol intake: current Alcohol intake frequency: holidays/special occasions only Alcohol type: wine Patient Tobacco Use Status: Never used Tobacco e-Cigarette/Vaping Use: Never Used Advance Directives: No Advance Directives Information Provided: Yes service: No Current occupational status: retired Cognitive needs: No Hearing needs: No Vision needs: Yes Meds Allergies Allergy/AdvReac Type Severity Reaction Status Date / Time levofloxacin [From Levaquin] Allergy Unknown RASH Verified 08/02/23 00:48 Active Medications: Current Medications Lactated Ringer's (Lr) 1,000 mls @ 100 mls/hr IVCONT .Q10H [facility] Home Medications Medication Instructions Recorded Confirmed Last Taken Type metoclopramide HCl 5 mg tablet 5 mg PO QIDACHS PRN stomach pain 06/06/23 07/18/23 Unknown History (Reglan) Exam Airway Mallampati Class: II (top left tooth bonded) TM Dist: >3cm Neck ROM: Full Heart: rrr Lungs: cts Assessment and Plan Assessment Anesthesia Assessment: Anesthesia Plan Discussed and Chart Reviewed Final Anesthetic Review Family History of Problems with Anesthesia: No History of Problems with Anesthesia: No NPO: Yes ASA Class: III Final Preanesthetic Review: No Changes in Pt Med Stat, Meds/Allgs Chart Reviewed and Consent Obtained/Reviewed Patient Risk: Intermediate Procedure Risk: Intermediate Anesthetic Plan Anesthetic Plan: MAC: Disposition: Standard PACU
--- NOTE | 2023-08-19 12:42 | W.PM.OPN ---
Operative Note Operative Note Date of Service: 08/19/23 Narrative: FLEXIBLE TRANSORAL UPPER GASTROINTESTINAL ENDOSCOPY WITH BIOPSIES AND SNARE POLYPECTOMY OF GASTRIC POLYPS AND HEMOCLIP PLACEMENT AND COLONOSCOPY TILL CECUM WITH SNARE POLYPECTOMY, SUBMUCOSAL INJECTION AND HEMOCLIP PLACEMENT Pre-op diagnosis: Colon cancer screening, anemia, recent episode of diverticulitis Post-op diagnosis: Multiple gastric polyps, gastritis, colon polyps, diverticulosis, hemorrhoids Endoscopist:? Jasper Villasenor MD Anesthesia:?MAC UPPER ENDOSCOPY Consent: Indications for the procedure and potential complications of bleeding, perforation, reaction to medications and missed diagnosis were discussed with the patient and informed consent was obtained. Instrument: Olympus GIF H 190 mid size upper endoscope Monitoring: Vital signs and clinical assessment, continuous EKG monitoring, Pulse oximetry, Carbon Dioxide monitoring and blood pressure monitoring were done throughout the procedure. Procedure: The patient was placed in the left lateral decubitis position and pre-procedure medications were administered and a bite block was placed. The endoscope was inserted into the mouth and advanced under direct vision to the third part of duodenum. A careful inspection was made as the upper endoscope was withdrawn including a retroflexed examination of the proximal stomach; Findings and interventions are described below. Findings: Larynx: Normal Esophagus: GE junction at 34 cms, hiatal hernia 34 to 36 cms. A 3 cms elongated and ulcerated polyp in the hiatal hernia sac - partially removed with a hot snare. No esophagitis or Sadler's. Stomach: Multiple 2 to 4 cms elongated and ulcerated polyps in the gastric body. Six polyps were removed with a hot snare and removed with a Brewer net. A few additional polyps were not removed due to excessive length of the procedure. Multiple 5 to 10 mm smaller polyps in the gastric body and fundus. There was some bleeding from one polypectomy site which was controlled with one hemoclip placement Mild gastric erythema. Biopsies were obtained to check for H pylori. Grade 2 flap valve on retroflexed examination of the cardia. Duodenum: Normal bulb and descending duodenum Intervention: Biopsies as noted above COLONOSCOPY PROCEDURE NOTE Consent: Indications for the procedure and potential complications of bleeding, perforation, reaction to medications and missed diagnosis were discussed with the patient and informed consent was obtained. Instrument: Olympus PCF H 190 L variable stiffness pediatric colonoscope Monitoring: Vital signs and clinical assessment, intermittent blood pressure monitoring, continuous EKG monitoring, Pulse oximetry and Carbon Dioxide monitoring were done throughout the procedure. Colon withdrawl time was 16 minutes. Procedure: The patient was placed in the left lateral decubitis position and pre-procedure medications were administered. After a digital rectal examination of the ano-rectum, the video colonoscope was inserted into the rectum and advanced through the colon to the cecum. The colonoscope was slowly withdrawn in a retrograde panoramic fashion and the colon mucosa was carefully examined including a retroflexed view of the rectum. Findings and interventions are described below. Procedure Difficulty: There was narrowing of the colon from 25 to 30 cms due to severe diverticulosis which was navigated with some difficulty Findings: Terminal Ileum: Not evaluated Cecum: A 12-15 mm sessile polyp - raised with 3 cc of Eleview and removed with a hot snare. Polypectomy site was closed with 1 hemoclip. A 2nd 12 to 15 mm sessile polyp adjacent to the appendical orifice. Polyp was raised with 3 cc of Eleview and removed with a hot snare. Polypectomy site was closed with 1 hemoclip. Ascending Colon: A 2 cms sessile polyp in the mid AC removed with a hot snare and polypectomy site was closed with 1 hemoclip Transverse Colon: Normal Descending Colon: Moderate diverticulosis Sigmoid Colon: Severe diverticulosis with luminal narrowing Rectum: Normal Ano-rectum: Small internal hemorrhoids and hypertrophied anal papillae Colon preparation: Good after some irrigation Impression and Post Procedure Diagnosis: Endoscopy Findings: ESOPHAGUS: GE junction at 34 cms, hiatal hernia 34 to 36 cms. A 3 cms elongated and ulcerated polyp in the hiatal hernia sac - partially removed with a hot snare. STOMACH: Multiple elongated and ulcerated gastric polyps - removed with a hot snare and retrieved with a Brewer net. Anemia is likely due to slow blood loss from gastric polyps Colonoscopy Findings: Three medium sized polyps removed Moderate to severe diverticulosis seen in the left colon Small hemorrhoids on retroflexed exam. Plan: Await pathology results Patient has an appointment on 09/08/23 in the GI Clinic with Sierra Conklin NP. Repeat EGD in 4-6 months for FU of gastric polyps. Repeat Colonoscopy interval based on path results - in 3 years if polyps are adenomatous and 10 years if polyps are hyperplastic. Above findings were reviewed with the patient and gastric polyps, colon polyps and diverticulosis handouts were given in the discharge area
[2023-08-19] MEDS: Lactated Ringers 1,000 ML 100 ML IVCONT (12:56)
[2023-08-19 14:10] VITALS: BP 121/66; PULSE 76; RESP 16; TEMP 36.1; O2SAT 96
[2023-08-19 14:25] VITALS: BP 122/68; PULSE 69; RESP 16; O2SAT 96
[2023-08-19 14:40] VITALS: BP 138/60; PULSE 70; RESP 16; TEMP 36.7; O2SAT 96
== END 2023-08-19 15:10 | disposition home or self-care (01) ==
PROVIDERS: PCP Internal Medicine; Visit Provider Internal Medicine Gastroenterology
PROC: (CPT 43251; principal; 2023-08-19 13:00)
DX: K31.7 Polyp of stomach and duodenum (principal); K29.60 Other gastritis without bleeding; K44.9 Diaphragmatic hernia without obstruction or gangrene; Z12.11 Encounter for screening for malignant neoplasm of colon; D12.2 Benign neoplasm of ascending colon; D12.0 Benign neoplasm of cecum; K56.2 Volvulus; K57.30 Diverticulosis of large intestine without perforation or abscess without bleeding; K64.8 Other hemorrhoids; K62.89 Other specified diseases of anus and rectum; Z87.19 Personal history of other diseases of the digestive system; D64.9 Anemia, unspecified; R19.5 Other fecal abnormalities; I10 Essential (primary) hypertension; E78.2 Mixed hyperlipidemia; I48.0 Paroxysmal atrial fibrillation; Z79.01 Long term (current) use of anticoagulants; Z79.899 Other long term (current) drug therapy
CPT/HCPCS: 43251; 43239; 45385; 45381; 88305; 88342; J2704

== ENCOUNTER → 2023-08-19 11:46 | Outpatient (BNV) | payer MEDICARE, SELFPAY | PROVIDERS: PCP Internal Medicine; Visit Provider Internal Medicine Gastroenterology | DX: Z12.11 Encounter for screening for malignant neoplasm of colon (principal); K29.70 Gastritis, unspecified, without bleeding; K22.81 Esophageal polyp; K31.7 Polyp of stomach and duodenum; K57.30 Diverticulosis of large intestine without perforation or abscess without bleeding; K64.8 Other hemorrhoids; D12.0 Benign neoplasm of cecum; D12.2 Benign neoplasm of ascending colon | CPT/HCPCS: 43251; 45385 ==

== ENCOUNTER 2023-09-08 10:25 | Outpatient (AMB) | payer MEDICARE, SELFPAY ==
[2023-09-08 10:28] VITALS: BP 117/59; PULSE 59; BMI 27.6
--- NOTE | 2023-09-08 10:28 | MHC.OFFVIS ---
Intake Vital Signs 09/08/23 10:28 Height 5 ft Weight 141 lb 1.533 oz BMI 27.6 BP 117/59 L Blood Pressure Location Lt brachial Position Sitting Pulse 59 Intake Visit Reasons: S/P Double; Dr. Flannery Intake Note: Patient returns to in office visit today in follow up of EGD and Colonoscopy. CC: Patient underwent colo and EGD on 08/19/[address] Villasenor. Per patient she went to the ER in June last year and was found to have diverticulitis and anemia. Patient reports feeling a little weak. Denies other GI symptoms today. Drum Cleaner Required: No Accompanied by: Self / Same As Patient Allergies levofloxacin [From Levaquin] Allergy (Unknown, Verified 09/08/23 10:32) RASH HPI S/P Double; Dr. Flannery HPI Details Assessment & Plan (1) Irritable bowel syndrome with both constipation and diarrhea: Comment: seems to have resolved once started reglan that solved the CIC part of the sequence Code(s): K58.2 - Mixed irritable bowel syndrome Plan: She restarted her medications and although she is not taking the 4th dose 3 seems to control her sx acceptably. She also only takes the reglan twice a day but also this helps her. She still has cramping just before BM's,but I don't feel like I will pass out. She is happy with this and hopes it will get better. Return office visit in 4 months (2) GERD (gastroesophageal reflux disease): Code(s): K21.9 - Gastro-esophageal reflux disease without esophagitis Medications: Refilled metoclopramide HCl (Reglan) 5 mg PO QIDACHS 3 0 days 120 tabs 6R F K30 - Functional d yspepsia EGD/COLONOSCOPY 08/22/23 Findings: Larynx: Normal Esophagus: GE junction at 34 cms, hiatal hernia 34 to 36 cms. A 3 cms elongated and ulcerated polyp in the hiatal hernia sac - partially removed with a hot snare. No esophagitis or Sadler's. Stomach: Multiple 2 to 4 cms elongated and ulcerated polyps in the gastric body. Six polyps were removed with a hot snare and removed with a Brewer net. A few additional polyps were not removed due to excessive length of the procedure. Multiple 5 to 10 mm smaller polyps in the gastric body and fundus. There was some bleeding from one polypectomy site which was controlled with one hemoclip placement Mild gastric erythema. Biopsies were obtained to check for H pylori. Grade 2 flap valve on retroflexed examination of the cardia. Duodenum: Normal bulb and descending duodenum Findings: Terminal Ileum: Not evaluated Cecum: A 12-15 mm sessile polyp - raised with 3 cc of Eleview and removed with a hot snare. Polypectomy site was closed with 1 hemoclip. A 2nd 12 to 15 mm sessile polyp adjacent to the appendical orifice. Polyp was raised with 3 cc of Eleview and removed with a hot snare. Polypectomy site was closed with 1 hemoclip. Ascending Colon: A 2 cms sessile polyp in the mid AC removed with a hot snare and polypectomy site was closed with 1 hemoclip Transverse Colon: Normal Descending Colon: Moderate diverticulosis Sigmoid Colon: Severe diverticulosis with luminal narrowing Rectum: Normal Ano-rectum: Small internal hemorrhoids and hypertrophied anal papillae Colon preparation: Good after some irrigation Impression and Post Procedure Diagnosis: Endoscopy Findings: ESOPHAGUS: GE junction at 34 cms, hiatal hernia 34 to 36 cms. A 3 cms elongated and ulcerated polyp in the hiatal hernia sac - partially removed with a hot snare. STOMACH: Multiple elongated and ulcerated gastric polyps - removed with a hot snare and retrieved with a Brewer net. Anemia is likely due to slow blood loss from gastric polyps Colonoscopy Findings: Three medium sized polyps removed Moderate to severe diverticulosis seen in the left colon Small hemorrhoids on retroflexed exam. Plan: Await pathology results Patient has an appointment on 09/08/23 in the GI Clinic with Sierra Conklin NP. Repeat EGD in 4-6 months for FU of gastric polyps. Repeat Colonoscopy interval based on path results - in 3 years if polyps are adenomatous and 10 years if polyps are hyperplastic. BIOPSY Received: 08/22/23 Diagnosis A. Stomach, antrum, biopsy: Antral-type mucosa with moderate chronic inactive inflammation; no Helicobacter organisms seen. B. Stomach, polyps, biopsy: Fundic gland and hyperplastic mucosal polyps with background chronic ... active inflammation and erosive changes; negative for dysplasia no Helicobacter organisms seen. C. Cecum, polypectomies: Fragments of sessile serrated lesions/polyps; negative for cytologic dysplasia. D. Colon, ascending, polypectomy: Fragments of tubular adenoma; negative for high-grade dysplasia or carcinoma.. TODAY'S VISIT The EGD requires a 4 to six-month follow-up to check on the gastric polyps, and the colonoscopy needs to be repeated in 3 years due to the large size of the tubular adenomas. The procedure was well tolerated. The results were explained and the patient is agreeable to the follow-up interval as stated. The bowel pattern has returned to normal. Education was provided to tell any 1st degree relatives about their findings to be sure that they are screened by age 45. Educated that they will be put on a recall list when it is time for their repeat scope but should they move out of state or away from the hospital they will need to remember along with their primary to repeat the procedure in a timely fashion to avoid any adverse complications. She continues on Reglan 5 mg which she takes only twice a day, and omeprazole 20 mg twice a day. Given the polyps in the active inflammation we may wish to consider increasing the PPI dose. She is currently on iron therapy oral for anemia. She has been more constipated recently and has been taking her reglan more and she added senna which seems to be working well. I will try sending this as an rx. She requests that we do some additional blood work since she has not had her knee me a checked since June of 2023. She is also complaining of fatigue so if she is not anemic I think it is hood to add a thyroid study to try to help her discern the reason for her lack of energy. She will be seeing her primary soon as well but having this lab work will help facilitate her primary visit. ROV 4 weeks to eval o2o increase. [facility] Medical History (Updated 09/08/23 @ 15:17 by DAVIDA Harper) Encounter for monitoring anti-arrhythmic therapy Hx of diverticulitis of colon Mixed dyslipidemia Hx of iron deficiency anemia Osteoarthritis of right knee Anemia Post-menopause Vaginal dryness, menopausal Urinary frequency Primary osteoarthritis involving multiple joints Osteoporosis Paroxysmal atrial fibrillation Essential hypertension History of colitis Surgical History (Updated 09/08/23 @ 10:37 by DAVIDA Harper) Diverticulitis large intestine Hx of total knee arthroplasty History of esophagogastroduodenoscopy (EGD) H/O colonoscopy Hx of hysterectomy History of mammogram Hx of total knee arthroplasty Hx of bilateral oophorectomy History of bladder suspension procedure History of repair of hiatal hernia (01/26/06) History of cholecystectomy Family History Father No problems noted. Mother No problems noted. Family/Other Cancer Brother History of kidney cancer Lung cancer, Onset Age: 65 Sister Breast cancer, Onset Age: 28 Social History Household Members: None Housing: Apartment Do you presently have visiting nurse or other home services: No Alcohol intake: current Alcohol intake frequency: holidays/special occasions only Alcohol type: wine Patient Tobacco Use Status: Never used Tobacco e-Cigarette/Vaping Use: Never Used service: No Current occupational status: retired Cognitive needs: No Hearing needs: No Vision needs: Yes Review of Systems Const Reports fatigue, Denies fever(s), Denies night sweats, Denies poor appetite and Denies weight loss ENT Reports Normal hearing present, Denies dental pain, Denies dysphagia, Denies hearing loss, Denies mouth pain, Denies odynophagia, Denies throat swelling, Denies tongue swelling and Reports other (Dentition adequate) Card Reports no additional complaints Resp Reports no additional complaints GI Denies abdominal pain, Denies melena, Denies bloating, Denies hematochezia, Reports constipation, Reports GI cramping, Denies dysphagia, Denies excessive flatus, Denies early satiety, Reports heartburn, Reports diarrhea, Reports nausea, Denies odynophagia, Denies vomiting and Denies hematemesis Skin/Breast Denies pruritus, Denies lesions, Denies rash and Denies jaundice Neuro Reports Normal hearing present and Denies Abnormal speech present Endo Reports fatigue Aller/Immun Denies throat swelling and Denies tongue swelling Physical Exam Vital Signs: Last Vital Signs Pulse 59 09/08/23 10:28 BP 117/59 L 09/08/23 10:28 BMI result Body Mass Index 27.6 Const General: cooperative, no acute distress, well developed and well groomed Nutritional Appearance: average body habitus and well nourished Orientation/consciousness: oriented to person, oriented to place and oriented to time Limitations: No language barrier HEENT Head: Yes normocephalic and Yes atraumatic Eyes General: appearance normal, both eyes and all related structures Pupils: Equal, round and reactive pupils present Neck Neck: Yes normal visual inspection and Yes no lymphadenopathy Thyroid: Thyroid normal Resp Effort & Inspection: normal respiratory effort and able to speak in complete sentences Auscultation: clear to auscultation bilaterally Cardio Rate: regular rate Rhythm: regular rhythm Heart sounds: Normal, physiologic split S2 sound present Peripheral pulses: radial pulses present and posterior tibial pulses present GI Inspection: No distended and No Abdominal panniculus present Palpation (GI): Soft to palpation, nontender, no guarding, not rigid and No hepatosplenomegaly present Percussion: Yes normal to percussion Auscultation: normal bowel sounds Rectal Exam - Female: deferred Skin General skin exam: no rashes or lesions noted, turgor normal, skin not dry, no jaundice, No spider nevi and no striae Rashes: no rashes Nails: normal Neuro General: oriented to person, oriented to place and oriented to time Cranial nerves: Yes Equal, round and reactive pupils present and Yes Normal hearing present Speech: No Abnormal speech present Extrem General: Yes normal to inspection, No clubbing, No cyanosis and No edema Psych Appearance: grossly normal and well kempt Mental Status: mental status grossly normal Speech and movement: Normal speech and movement present Affect: normal affect Attitude: cooperative Thought process: Normal thought process present and not confabulating Thought content: Normal thought content present Insight: Fair insight present (Psych) and Limited insight present (Psych) Judgement: Fair judgement present (Psych) and Limited judgement present (Psych) Results Reviewed Results Reviewed: EGD/COLONOSCOPY 08/22/23 Findings: Larynx: Normal Esophagus: GE junction at 34 cms, hiatal hernia 34 to 36 cms. A 3 cms elongated and ulcerated polyp in the hiatal hernia sac - partially removed with a hot snare. No esophagitis or Sadler's. Stomach: Multiple 2 to 4 cms elongated and ulcerated polyps in the gastric body. Six polyps were removed with a hot snare and removed with a Brewer net. A few additional polyps were not removed due to excessive length of the procedure. Multiple 5 to 10 mm smaller polyps in the gastric body and fundus. There was some bleeding from one polypectomy site which was controlled with one hemoclip placement Mild gastric erythema. Biopsies were obtained to check for H pylori. Grade 2 flap valve on retroflexed examination of the cardia. Duodenum: Normal bulb and descending duodenum Findings: Terminal Ileum: Not evaluated Cecum: A 12-15 mm sessile polyp - raised with 3 cc of Eleview and removed with a hot snare. Polypectomy site was closed with 1 hemoclip. A 2nd 12 to 15 mm sessile polyp adjacent to the appendical orifice. Polyp was raised with 3 cc of Eleview and removed with a hot snare. Polypectomy site was closed with 1 hemoclip. Ascending Colon: A 2 cms sessile polyp in the mid AC removed with a hot snare and polypectomy site was closed with 1 hemoclip Transverse Colon: Normal Descending Colon: Moderate diverticulosis Sigmoid Colon: Severe diverticulosis with luminal narrowing Rectum: Normal Ano-rectum: Small internal hemorrhoids and hypertrophied anal papillae Colon preparation: Good after some irrigation Impression and Post Procedure Diagnosis: Endoscopy Findings: ESOPHAGUS: GE junction at 34 cms, hiatal hernia 34 to 36 cms. A 3 cms elongated and ulcerated polyp in the hiatal hernia sac - partially removed with a hot snare. STOMACH: Multiple elongated and ulcerated gastric polyps - removed with a hot snare and retrieved with a Brewer net. Anemia is likely due to slow blood loss from gastric polyps Colonoscopy Findings: Three medium sized polyps removed Moderate to severe diverticulosis seen in the left colon Small hemorrhoids on retroflexed exam. Plan: Await pathology results Patient has an appointment on 09/08/23 in the GI Clinic with Sierra Conklin NP. Repeat EGD in 4-6 months for FU of gastric polyps. Repeat Colonoscopy interval based on path results - in 3 years if polyps are adenomatous and 10 years if polyps are hyperplastic. BIOPSY Received: 08/22/23 Diagnosis A. Stomach, antrum, biopsy: Antral-type mucosa with moderate chronic inactive inflammation; no Helicobacter organisms seen. B. Stomach, polyps, biopsy: Fundic gland and hyperplastic mucosal polyps with background chronic ... active inflammation and erosive changes; negative for dysplasia no Helicobacter organisms seen. C. Cecum, polypectomies: Fragments of sessile serrated lesions/polyps; negative for cytologic dysplasia. D. Colon, ascending, polypectomy: Fragments of tubular adenoma; negative for high-grade dysplasia or carcinoma.. Assessment & Plan Assessment & Plan (1) Tubular adenoma of colon: Comment: 2022 scope= 2 large TA is repeat in 3 years Code(s): D12.6 - Benign neoplasm of colon, unspecified (2) Fundic gland polyposis of stomach: Code(s): K31.7 - Polyp of stomach and duodenum (3) Gastritis determined by biopsy: Code(s): K29.70 - Gastritis, unspecified, without bleeding (4) Anemia: Code(s): D64.9 - Anemia, unspecified (5) Irritable bowel syndrome with both constipation and diarrhea: Comment: seems to have resolved once started reglan that solved the CIC part of the sequence Code(s): K58.2 - Mixed irritable bowel syndrome (6) GERD (gastroesophageal reflux disease): Code(s): K21.9 - Gastro-esophageal reflux disease without esophagitis (7) Delayed gastric emptying: Code(s): K30 - Functional dyspepsia (8) Fatigue: Code(s): R53.83 - Other fatigue (9) Chronic anticoagulation: Code(s): 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 The procedure was well tolerated. The results were explained and the patient is agreeable to the follow-up interval as stated. The bowel pattern has returned to normal. Education was provided to tell any 1st degree relatives about their findings to be sure that they are screened by age 45. Educated that they will be put on a recall list when it is time for their repeat scope but should they move out of state or away from the hospital they will need to remember along with their primary to repeat the procedure in a timely fashion to avoid any adverse complications. She continues on Reglan 5 mg which she takes only twice a day, and omeprazole 20 mg twice a day. Given the polyps in the active inflammation we may wish to consider increasing the PPI dose. She is currently on iron therapy oral for anemia. She has been more constipated recently and has been taking her reglan more and she added senna which seems to be working well. I will try sending this as an rx. She requests that we do some additional blood work since she has not had her knee me a checked since June of 2023. She is also complaining of fatigue so if she is not anemic I think it is hood to add a thyroid study to try to help her discern the reason for her lack of energy. She will be seeing her primary soon as well but having this lab work will help facilitate her primary visit. If her anemia persists it is likely multifactorial including poor iron intake on top of chronic anticoagulation and possibly from continued gastritis with slow GI losses. ROV 4 weeks to eval o2o increase. Orders: Orders Comprehensive Met. 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 Medications: New omeprazole 40 mg PO BID 30 days 60 caps 6RF K29.70 - Gastritis, unspecified, without bleeding, K31.7 - Polyp of stomach and duodenum sennosides (Senna Laxative) 17.2 mg (2 x 8.6 mg) PO BEDTIME 60 tabs 6RF Changed From metoclopramide HCl (Reglan) 5 mg PO QIDACHS PRN stomach pain K30 - Functional dyspepsia To metoclopramide HCl (Reglan) 5 mg PO QIDACHS 120 tabs 6RF stomach pain K30 - Functional dyspepsia Discontinued omeprazole Discontinued Reason: Doctor's Order 20 mg PO BID 180 caps 2RF K21.9 - Gastro-esophageal reflux disease without esophagitis Coding Level of Care Code Est Pt Level 4 (04154) Diagnoses Tubular adenoma of colon D12.6 Fundic gland polyposis of stomach K31.7 Gastritis determined by biopsy K29.70 Anemia D64.9 Irritable bowel syndrome with both constipation and diarrhea K58.2 GERD (gastroesophageal reflux disease) K21.9 Delayed gastric emptying K30 Fatigue R53.83 Chronic anticoagulation Z79.01
== END 2023-09-08 10:55 | disposition home or self-care (01) ==
PROVIDERS: PCP Internal Medicine; Visit Provider Nurse Practitioner
DX: D12.6 Benign neoplasm of colon, unspecified (principal); K31.7 Polyp of stomach and duodenum; K29.70 Gastritis, unspecified, without bleeding; D64.9 Anemia, unspecified; K58.2 Mixed irritable bowel syndrome; K21.9 Gastro-esophageal reflux disease without esophagitis; K30 Functional dyspepsia; R53.83 Other fatigue; Z79.01 Long term (current) use of anticoagulants
CPT/HCPCS: 99214

== ENCOUNTER 2023-09-08 10:25 | Outpatient (REF) | payer MEDICARE, SELFPAY ==
[2023-09-08 11:24] LABS: MANUAL DIFF FLAG NO
[2023-09-08 11:39] LABS: Basophils Percent Auto 0.3 % (0-2); Eosinophils Absolute Auto 0.1 X10*3/uL (0.0-0.4); Hematocrit 42.9 % (37.0-47.0); Hemoglobin 13.7 g/dl (12.0-16.0); Imm Gran Abs Auto 0.03 X10*3/uL (0.00-0.03); Imm Gran Pct Auto 0.4 % (0.0-0.4); Lymphocytes Absolute Auto 2.4 X10*3/uL (1.2-4.9); Lymphocytes Percent Auto 33.5 % (20-40); Mean Corpuscular HGB Conc 31.9 g/dl (31.0-35.0); Mean Corpuscular Hemoglobin 27.6 pg (27.0-33.0); Mean Corpuscular Volume 86.3 fL (80.0-98.0); Mean Platelet Volume 9.4 fL (9.4-12.3); Monocytes Absolute Auto 0.6 X10*3/uL (0.1-1.2); Monocytes Percent Auto 8.1 % (2-11); Neutrophils Absolute Auto 4.1 x10*3/uL (2.0-8.3); Neutrophils Percent Auto 56.7 % (45-73); Platelet Count 261 X10*3/uL (160-400); Red Blood Count 4.97 X10*6/uL (4.20-5.50); Red Cell Distribution Width 18.1 % (11.0-16.0); White Blood Count 7.3 X10*3/uL (4.8-10.8)
[2023-09-08 12:19] LABS: Alanine Aminotransferase 17 U/L (0-31); Albumin Level 4.3 g/dL (3.5-5.0); Alkaline Phosphatase 55 U/L (39-117); Anion Gap 15 (12-20); Aspartate Amino Transferase 16 U/L (5-31); Bilirubin Total 0.3 mg/dL (0.0-1.0); Blood Urea Nitrogen 20 mg/dL (9-16); Calcium 10.4 mg/dL (8.4-10.2); Carbon Dioxide 26 mmol/L (22-29); Chloride 102 mmol/L (96-108); Estimated Glomerular Filt Rate > 60; Glucose Random 104 mg/dL (60-115); Potassium 3.8 mmol/L (3.3-5.1); Sodium 139 mmol/L (135-145); Total Protein 6.8 g/dL (6.5-8.0)
[2023-09-08 12:26] LABS: TSH reflex Free T4 1.06 uIU/mL (0.32-4.0)
== END 2023-09-08 10:26 | disposition home or self-care (01) ==
LOC: HO.LAB 10:25
PROVIDERS: PCP Internal Medicine; Visit Provider Nurse Practitioner
DX: D64.9 Anemia, unspecified (principal); R53.83 Other fatigue; Z79.01 Long term (current) use of anticoagulants
CPT/HCPCS: 36415; 80053; 84443; 85025; 99212

== ENCOUNTER 2023-09-14 10:49 | Outpatient (AMB) | payer MEDICARE, SELFPAY ==
--- NOTE | 2023-09-14 10:55 | A.OFFPC_ITS ---
Vital Signs 09/14/23 10:56 Height 5 ft Weight 140 lb 4 oz BMI 27.4 BP 160/84 H Blood Pressure Location Lt brachial Position Sitting Pulse 53 Pulse Source Pulse Oximeter Pulse Oximetry (%) 98 Oxygen Delivery Method Room Air Intake Visit Reasons: f/u anemia Ok'd per Kamar Intake Note: Pt is here to follow up for her labs Allergies levofloxacin [From Levaquin] Allergy (Unknown, Verified 09/14/23 10:59) RASH Tobacco use date assessed: 09/14/23 Fall risk assessment: No Falls in past year Last assessed Fall Risk: 09/14/23 Dental Screening Dental Screen Date: 09/14/23 Did you have a dental visit in the last 12 months?: Yes Did you have a dental problem in the last 6 months where you did not have access to dental care?: No Was dental information given to patient?: Patient has dentist HPI HPI Comments History of Present Illness Details Patient is an 83-year-old female here for follow-up visit for anemia. She was seen in office 3 months prior with complaints of fatigue and weakness. Labs demonstrated anemia, she was placed on 325 mg of ferrous fumarate. Patient recently had blood draw 7 days prior to this appointment. Patient no longer has anemia, levels have been corrected. She also recently had colonoscopy with several polyps removed. At today's appointment she offers similar complaint of fatigue, which is nearly constant. Denies any syncopal events. States she is able to eat and drink normally. Denies nausea, vomiting, diarrhea, shortness of breath, dizziness, chest pain. She has a past medical history significant for AFib, hypertension, GERD, and IBS. Patient is in office EKG demonstrated no changes. Her most recent thyroid, vitamin-D, CBC, vitamin B12 levels are all within normal limits. [facility]LY [facility] Medical History (Updated 09/14/23 @ 11:56 by DANETTE Hwang) Encounter for monitoring anti-arrhythmic therapy Hx of diverticulitis of colon Mixed dyslipidemia Hx of iron deficiency anemia Osteoarthritis of right knee Anemia Post-menopause Vaginal dryness, menopausal Urinary frequency Primary osteoarthritis involving multiple joints Osteoporosis Paroxysmal atrial fibrillation Essential hypertension History of colitis Surgical History (Updated 09/08/23 @ 10:37 by DAVIDA Harper) Diverticulitis large intestine Hx of total knee arthroplasty History of esophagogastroduodenoscopy (EGD) H/O colonoscopy Hx of hysterectomy History of mammogram Hx of total knee arthroplasty Hx of bilateral oophorectomy History of bladder suspension procedure History of repair of hiatal hernia (01/26/06) History of cholecystectomy Family History Father No problems noted. Mother No problems noted. Family/Other Cancer Brother History of kidney cancer Lung cancer, Onset Age: 65 Sister Breast cancer, Onset Age: 28 Social History Household Members: None Housing: Apartment Do you presently have visiting nurse or other home services: No Alcohol intake: current Alcohol intake frequency: holidays/special occasions only Alcohol type: wine Patient Tobacco Use Status: Never used Tobacco e-Cigarette/Vaping Use: Never Used service: No Current occupational status: retired Cognitive needs: No Hearing needs: No Vision needs: Yes Questionnaire Thrive Questionnaire Date Thrive assessed: 06/07/23 SERGIO-7 AMB Questionnaire SERGIO-7 Date SERGIO - 7 assessed: 12/29/22 Source: Developed by Drs. Rio Levine, Hazel Hinton, Ronnie Bueno and colleagues, with an educational patricia from [employer]. Review of Systems Const Details: Constitutional : No Weight loss, No Fever, No Chills, Admits Fatigue, ENT/Mouth : No sore throat, No Rhinorrhea Eyes: No Eye Pain, No Swelling, No Redness Cardiovascular : No Chest Pain, No SOB, No Dyspnea on Exertion, No Orthopnea, No Edema, No Palpitations Respiratory : No Cough, No Sputum, No Wheezing Gastrointestinal : No Nausea, No Vomiting, No Diarrhea, No Constipation, No abdominal Pain, No Hematochezia, No Melena Genitourinary : No Dysuria, No Urinary Frequency, No Hematuria, Musculoskeletal : No joint pain, No Myalgias, No Joint Swelling Skin : No Skin Lesions, No rash Neuro : No Weakness, No Numbness, No Dizziness, No Headache Psych : No Anxiety/Panic, No Depression Heme/Lymph: No Bruising, No Bleeding,No Lymphadenopathy Endocrine : No Polyuria, No Polydipsia All other systems reviewed and are negative Physical exam (Primary Care) Vital Signs: Last Vital Signs Pulse 53 09/14/23 10:56 BP 160/84 H 09/14/23 10:56 Pulse Ox 98 09/14/23 10:56 Oxygen Delivery Method Room Air 09/14/23 10:56 Care Plan Goal for BP management: Patient is in office EKG demonstrated heart rate of 63 beats per minute. Next steps: Patient will monitor blood pressure at home. BMI result Body Mass Index 27.4 Tobacco/Smoking Status: Tobacco use Status Tobacco use date assessed 09/14/23 09/14/23 11:01 Patient Tobacco Use Status Never used Tobacco 09/14/23 10:55 e-Cigarette/Vaping Use Never Used 09/14/23 10:55 Thrive Assessment: Date of Thrive Assessment Date Thrive assessed 06/07/23 09/14/23 10:55 Const Other: Appearance: Alert.? Oriented X3.? No acute distress.? Head: Normocephalic, atraumatic, no step-offs or deformities Eyes: Pupils equal, round and reactive to light.? ENT: Pharynx normal.? Neck: Normal inspection.? Neck supple.? CVS: Normal heart rate and rhythm.? Pulses normal.? Respiratory: No respiratory distress.? Breath sounds normal.? Abdomen: Soft and nontender.? Skin: Skin warm and dry.? Normal skin color.? Normal skin turgor.? Extremities: No lower extremity edema.? No calf ttp. 5/5 strength to bilateral upper and lower extremities Neuro: Oriented X 3.? No motor deficit.? No sensory deficit. CN 2-12 intact Office Procedures EKG [id number]-[id number], Complete Results Reviewed Results Reviewed: WBC 7.3 4.8-10.8 X10*3/uL RBC 4.97 4.20-5.50 X10*6/uL HGB 13.7 # 12.0-16.0 g/dl HCT 42.9 # 37.0-47.0 % MCV 86.3 80.0-98.0 fL MCH 27.6 27.0-33.0 pg MCHC 31.9 31.0-35.0 g/dl RDW 18.1 H 11.0-16.0 % PLT 261 # 160-400 X10*3/uL MPV 9.4 9.4-12.3 fL Neut Pct Auto 56.7 45-73 % ImGran Pct Auto 0.4 0.0-0.4 % Lymp Pct Auto 33.5 20-40 % Young Pct Auto 8.1 2-11 % Eos Pct Auto 1.0 0-4 % Baso Pct Auto 0.3 0-2 % NRBC Pct Auto 0.0 0.0-0.2 /100WBC ANC Neut Abs # 4.1 2.0-8.3 x10*3/uL ImGran Abs Auto 0.03 0.00-0.03 X10*3/uL Lymph Abs Auto 2.4 1.2-4.9 X10*3/uL Young Abs Auto 0.6 0.1-1.2 X10*3/uL Eos Abs Auto 0.1 0.0-0.4 X10*3/uL Baso Abs Auto 0.0 0.0-0.2 X10*3/uL NRBC Abs Auto 0.000 0.0-0.012 X10*3/uL Sodium 139 135-145 mmol/L Potassium 3.8 3.3-5.1 mmol/L CL 102 96-108 mmol/L CO2 26 22-29 mmol/L Gap 15 12-20 BUN 20 H 9-16 mg/dL Creat 0.80 0.5-1.4 mg/dL EGFR > 60 NOTE: For -[place] individuals, multiply the result by 1.210. Chronic Kidney Disease: Estimated GFR < 60 mL/min/1. 73m2 Severe Kidney Disease: Estimated GFR < 15 mL/min/1.73m2 Glucose, Random 104 60-115 mg/dL CA 10.4 H 8.4-10.2 mg/dL Total Bili 0.3 0.0-1.0 mg/dL AST (GOT) 16 5-31 U/L ALT (GPT) 17 0-31 U/L Protein, Total 6.8 6.5-8.0 g/dL Alb 4.3 3.5-5.0 g/dL Alk Phos 55 39-117 U/L TSH 1.06 0.32-4.0 uIU/mL Assessment and Plan Assessment & Plan (1) Fatigue: Comment: Patient baird had recent workup for anemia. Which has been corrected. The patient still has feelings of general fatigue during the day. 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 She has been instructed to get an appointment as soon as possible. She has been educated on signs of worsening symptoms and when to return back to the office or when to present to the emergency room. Code(s): R53.83 - Other fatigue Qualifiers: Fatigue type: other Qualified Code(s): R53.83 - Other fatigue Plan: Cardiology appointment. Follow-up with pcp. Orders: Orders AMB EKG-In Office Today R53.1 - Weakness Coding Level of Care Code Est Pt Level 3 (92714) Diagnoses Other fatigue R53.83 Fatigue type: other CPT Codes EKG - CPT: 10364-[id number], Complete ([id number]) Time Spent (min) 45
[2023-09-14 10:56] VITALS: BP 160/84; PULSE 53; O2SAT 98; BMI 27.4
== END 2023-09-14 13:44 | disposition home or self-care (01) ==
PROVIDERS: PCP Internal Medicine; Visit Provider Nurse Practitioner Primary Care
DX: R53.83 Other fatigue (principal)
CPT/HCPCS: 93000; 99213

== ENCOUNTER 2023-09-15 14:33 | Outpatient (AMB) | payer MEDICARE, SELFPAY ==
[2023-09-15 14:44] VITALS: BP 160/70; PULSE 61; BMI 27.4
--- NOTE | 2023-09-15 14:44 | A.OFFVIS_ITS ---
Intake Vital Signs 09/15/23 14:44 Height 5 ft Weight 140 lb 3.424 oz BMI 27.4 BP 160/70 H Blood Pressure Location Lt brachial Position Sitting Pulse 61 Intake Visit Reasons: Atrial fibrillation Intake Note: follow up Facility Specialist Required: No Accompanied by: Self / Same As Patient Allergies levofloxacin [From Levaquin] Allergy (Unknown, Verified 09/15/23 14:44) RASH Medication List - Last Reconciled 09/15/23 by William Hansen MD amlodipine 2.5 mg PO DAILY apixaban (Eliquis) 5 mg PO BID 90 days ferrous fumarate 325 mg PO DAILY flecainide 50 mg PO BID hydrochlorothiazide 25 mg PO DAILY metoclopramide HCl (Reglan) 5 mg PO QIDACHS metoprolol succinate ER 25 mg PO DAILY omeprazole 40 mg PO BID 30 days sennosides (Senna Laxative) 17.2 mg (2 x 8.6 mg) PO BEDTIME HPI HPI Comments History of Present Illness Details Alisa returns for follow-up regarding atrial fibrillation. To recall, she was hospitalized in 2016 with atrial fibrillation and rapid rate. She was treated with beta-blockers for rate control and converted to sinus. On other occasion, she was readmitted with dizziness and presyncope and had sinus bradycardia. Then beta-nicole dose was decreased and Flecainide added. She has essentially been in sinus rhythm all along and has not had any recurrent arrhythmia issues. She does get intermittent hypertension but it is very variable and lot of good readings and some high readings. Few months back, hospitalized for diverticulitis and after that, she still just not back to normal self. Lots of nonspecific complaints, tiredness, fatigue, lack of energy and overall sensation of not feeling good. [facility] Medical History (Updated 09/14/23 @ 11:56 by DANETTE Hwang) Encounter for monitoring anti-arrhythmic therapy Hx of diverticulitis of colon Mixed dyslipidemia Hx of iron deficiency anemia Osteoarthritis of right knee Anemia Post-menopause Vaginal dryness, menopausal Urinary frequency Primary osteoarthritis involving multiple joints Osteoporosis Paroxysmal atrial fibrillation Essential hypertension History of colitis Surgical History Diverticulitis large intestine Hx of total knee arthroplasty History of esophagogastroduodenoscopy (EGD) H/O colonoscopy Hx of hysterectomy History of mammogram Hx of total knee arthroplasty Hx of bilateral oophorectomy History of bladder suspension procedure History of repair of hiatal hernia (01/26/06) History of cholecystectomy Family History Father No problems noted. Mother No problems noted. Family/Other Cancer Brother History of kidney cancer Lung cancer, Onset Age: 65 Sister Breast cancer, Onset Age: 28 Social History Household Members: None Housing: Apartment Do you presently have visiting nurse or other home services: No Alcohol intake: current Alcohol intake frequency: holidays/special occasions only Alcohol type: wine Patient Tobacco Use Status: Never used Tobacco e-Cigarette/Vaping Use: Never Used service: No Current occupational status: retired Cognitive needs: No Hearing needs: No Vision needs: Yes Review of Systems Card Denies chest pain, Denies chest pain with activity, Denies syncope, Denies rapid heart rate, Denies pedal edema, Denies edema, Denies leg edema, Denies palpitati ons, Denies dyspnea, Denies dyspnea on exertion and Denies orthopnea Resp Denies cough, Denies dyspnea and Denies dyspnea on exertion GI Denies hematochezia and Denies change in stool character Musc Denies abnormal gait, Denies muscle cramps, Denies muscle weakness, Denies numbness, Denies radiating pain into limb and Denies tingling Neuro Denies abnormal gait, Denies syncope, Denies numbness and Denies tingling Endo Denies palpitations Physical Exam Vital Signs: Last Vital Signs Pulse 61 09/15/23 14:44 BP 160/70 H 09/15/23 14:44 BMI result Body Mass Index 27.4 Const General: comfortable and no acute distress Orientation/consciousness: patient oriented x3 HEENT Other: Unremarkable Head: Yes normal to inspection Neck Neck: Yes normal visual inspection Chest Chest palpation & inspection: normal inspection of the chest Resp Auscultation: clear to auscultation bilaterally Cardio Palpation: normal PMI Heart sounds: S1 normal heart sound present, S2 normal heart sound present, no gallops, no murmurs and no rubs GI Palpation (GI): Soft to palpation Back/Spine/Pelvis Other: unremarkable Skin General skin exam: no rashes or lesions noted Neuro General: patient oriented x3 Extrem General: Yes normal to inspection Psych Mental Status: mental status grossly normal Assessment & Plan Assessment & Plan (1) Paroxysmal atrial fibrillation: Code(s): I48.0 - Paroxysmal atrial fibrillation Plan: EKG from yesterday shows sinus rhythm at 63/Min; leftward axis; left ventricular hypertrophy; normal DE and corrected QT. Similar to prior. Continue beta-blockers and flecainide. Continue Eliquis. (2) Encounter for monitoring anti-arrhythmic therapy: Code(s): Z51.81 - Encounter for therapeutic drug level monitoring; Z79.899 - Other prison (current) drug therapy Plan: Has been stable on flecainide for many years. In the past, perfusion imaging unremarkable. Echocardiogram with preserved LVEF. (3) Essential hypertension: Code(s): I10 - Essential (primary) hypertension Plan: Blood pressure is intermittently high. Advised her to try taking amlodipine 2.5 mg x 2 tablets for the next few days and monitor blood pressures. We can adjust the doses according to her response. Possibly, may need to have different doses on different days based on her pressures as it seems to be fairly labile. Coding Level of Care Code Est Pt Level 4 (29768) Diagnoses Paroxysmal atrial fibrillation I48.0 Encounter for monitoring anti-arrhythmic therapy Z51.81; Z79.899 Essential hypertension I10
== END 2023-09-15 15:00 | disposition home or self-care (01) ==
PROVIDERS: PCP Internal Medicine; Visit Provider Internal Medicine
DX: I48.0 Paroxysmal atrial fibrillation (principal); Z51.81 Encounter for therapeutic drug level monitoring; Z79.899 Other long term (current) drug therapy; I10 Essential (primary) hypertension
CPT/HCPCS: 99214

== ENCOUNTER → 2023-09-15 14:33 | Outpatient (BNVA) | payer MEDICARE, SELFPAY | PROVIDERS: PCP Internal Medicine; Visit Provider Internal Medicine | DX: Z51.81 Encounter for therapeutic drug level monitoring (principal); I48.0 Paroxysmal atrial fibrillation; I10 Essential (primary) hypertension; Z79.899 Other long term (current) drug therapy | CPT/HCPCS: 99212 ==

== ENCOUNTER 2023-10-13 13:15 | Outpatient (AMB) | payer MEDICARE, SELFPAY ==
[2023-10-13 13:23] VITALS: BP 136/70; PULSE 53; BMI 27.0
--- NOTE | 2023-10-13 13:23 | A.OFFVIS_ITS ---
Intake Vital Signs 10/13/23 13:23 Height 5 ft Weight 138 lb 7.205 oz BMI 27.0 BP 136/70 Blood Pressure Location Lt brachial Position Sitting Pulse 53 Intake Visit Reasons: 1 month fu Intake Note: 1 month follow up Electrical Test Technician Required: No Accompanied by: Self / Same As Patient Allergies levofloxacin [From Levaquin] Allergy (Unknown, Verified 10/13/23 13:25) RASH Medication List - Last Reconciled 10/13/23 by William Hansen MD amlodipine 2.5 mg PO BID apixaban (Eliquis) 5 mg PO BID 90 days ferrous fumarate 325 mg PO DAILY flecainide 50 mg PO BID hydrochlorothiazide 25 mg PO DAILY metoclopramide HCl (Reglan) 5 mg PO QIDACHS metoprolol succinate ER 25 mg PO DAILY omeprazole 40 mg PO BID 30 days sennosides (Senna Laxative) 17.2 mg (2 x 8.6 mg) PO BEDTIME HPI HPI Comments History of Present Illness Details Alisa returns for follow-up regarding atrial fibrillation. To recall, she was hospitalized in 2016 with atrial fibrillation and rapid rate. She was treated with beta-blockers for rate control and converted to sinus. On another occasion, she was readmitted with dizziness and presyncope and had sinus bradycardia. Then beta-nicole dose was decreased and Flecainide added. She has essentially been in sinus rhythm all along and has not had any recurrent arrhythmia issues. She does get intermittent hypertension but it is very variable and lot of good readings and some high readings. Overall, tiredness but otherwise feels okay. [facility] Medical History (Updated 09/14/23 @ 11:56 by DANETTE Hwang) Encounter for monitoring anti-arrhythmic therapy Hx of diverticulitis of colon Mixed dyslipidemia Hx of iron deficiency anemia Osteoarthritis of right knee Anemia Post-menopause Vaginal dryness, menopausal Urinary frequency Primary osteoarthritis involving multiple joints Osteoporosis Paroxysmal atrial fibrillation Essential hypertension History of colitis Surgical History Diverticulitis large intestine Hx of total knee arthroplasty History of esophagogastroduodenoscopy (EGD) H/O colonoscopy Hx of hysterectomy History of mammogram Hx of total knee arthroplasty Hx of bilateral oophorectomy History of bladder suspension procedure History of repair of hiatal hernia (01/26/06) History of cholecystectomy Family History Father No problems noted. Mother No problems noted. Family/Other Cancer Brother History of kidney cancer Lung cancer, Onset Age: 65 Sister Breast cancer, Onset Age: 28 Social History Household Members: None Housing: Apartment Do you presently have visiting nurse or other home services: No Alcohol intake: current Alcohol intake frequency: holidays/special occasions only Alcohol type: wine Patient Tobacco Use Status: Never used Tobacco e-Cigarette/Vaping Use: Never Used service: No Current occupational status: retired Cognitive needs: No Hearing needs: No Vision needs: Yes Review of Systems Const Denies weakness ENT Denies dizziness Card Denies chest pain, Denies chest pain with activity, Denies syncope, Denies rapid heart rate, Denies pedal edema, Denies edema, Denies leg edema, Denies lightheadedness, Denies palpitations, Denies dyspnea, Denies dyspnea on exertion and Denies orthopnea Resp Denies cough, Denies dyspnea and Denies dyspnea on exertion GI Denies hematochezia and Denies change in stool character Musc Denies abnormal gait, Denies muscle cramps, Denies muscle weakness, Denies numbness, Denies radiating pain into limb and Denies tingling Neuro Denies abnormal gait, Denies dizziness, Denies syncope, Denies numbness, Denies tingling and Denies weakness Endo Denies palpitations Physical Exam Vital Signs: Last Vital Signs Pulse 53 10/13/23 13:23 BP 136/70 10/13/23 13:23 BMI result Body Mass Index 27.0 Const General: comfortable and no acute distress Orientation/consciousness: patient oriented x3 HEENT Other: Unremarkable Head: Yes normal to inspection Neck Neck: Yes normal visual inspection Chest Chest palpation & inspection: normal inspection of the chest Resp Auscultation: clear to auscultation bilaterally Cardio Palpation: normal PMI Heart sounds: S1 normal heart sound present, S2 normal heart sound present, no gallops, no murmurs and no rubs GI Palpation (GI): Soft to palpation Back/Spine/Pelvis Other: unremarkable Skin General skin exam: no rashes or lesions noted Neuro General: patient oriented x3 Extrem General: Yes normal to inspection Psych Mental Status: mental status grossly normal Office Procedures EKG Details: EKG with sinus bradycardia at 53/Min; leftward axis; ventricular hypertrophy with nonspecific QRS widening; top normal IN; normal corrected QT. Similar to prior. [id number], Complete Assessment & Plan Assessment & Plan (1) Paroxysmal atrial fibrillation: Code(s): I48.0 - Paroxysmal atrial fibrillation Plan: Continue beta-blockers and flecainide. Continue Eliquis. (2) Encounter for monitoring anti-arrhythmic therapy: Code(s): Z51.81 - Encounter for therapeutic drug level monitoring; Z79.899 - Other detention (current) drug therapy Plan: Has been stable on flecainide for many years. In the past, perfusion imaging unremarkable. Echocardiogram with preserved LVEF. (3) Essential hypertension: Code(s): I10 - Essential (primary) hypertension Plan: She has not taking amlodipine 2.5 mg twice a day and feels better with that. Blood pressure also improved. No further changes. Plan Total time spent including review of data, counseling, documentation, coordination of care-31 minutes. Medications: Changed From amlodipine 2.5 mg PO BID I10 - Essential (primary) hypertension To amlodipine 2.5 mg PO BID 180 tabs 3RF 90 days I10 - Essential (primary) hypertension Coding Level of Care Code Est Pt Level 4 (88184) Diagnoses Paroxysmal atrial fibrillation I48.0 Encounter for monitoring anti-arrhythmic therapy Z51.81; Z79.899 Essential hypertension I10 CPT Codes EKG - CPT: 34474-[id number], Complete ([id number])
== END 2023-10-13 13:42 | disposition home or self-care (01) ==
PROVIDERS: PCP Internal Medicine; Visit Provider Internal Medicine
DX: I48.0 Paroxysmal atrial fibrillation (principal); Z51.81 Encounter for therapeutic drug level monitoring; Z79.899 Other long term (current) drug therapy; I10 Essential (primary) hypertension
CPT/HCPCS: 93010; 99214

== ENCOUNTER → 2023-10-13 13:15 | Outpatient (BNVA) | payer MEDICARE, SELFPAY | PROVIDERS: PCP Internal Medicine; Visit Provider Internal Medicine | DX: I48.0 Paroxysmal atrial fibrillation (principal); I10 Essential (primary) hypertension; Z51.81 Encounter for therapeutic drug level monitoring; Z79.899 Other long term (current) drug therapy | CPT/HCPCS: 93005; 99212 ==

== ENCOUNTER 2023-10-27 11:22 | Outpatient (AMB) | payer MEDICARE, SELFPAY ==
--- NOTE | 2023-10-27 11:23 | A.OFFVIS_ITS ---
Intake Vital Signs 10/27/23 11:32 Height 5 ft Weight 138 lb BMI 26.9 BP 124/60 Blood Pressure Location Lt brachial Position Sitting Pulse 55 Intake Visit Reasons: 4 Wks F/U anemia, incr o2o for gastric polyps Intake Note: Patient follow up for Anemia and abdominal discomfort. Patient said everything is fine for today no GI issues. Stock Clerk Required: No Accompanied by: Self / Same As Patient Allergies levofloxacin [From Levaquin] Allergy (Unknown, Verified 11/09/23 09:17) RASH HPI 4 Wks F/U anemia, incr o2o for gastric polyps HPI Details Assessment & Plan (1) Tubular adenoma of colon: Comment: 2022 scope= 2 large TA is repeat in 3 ye ars Code(s): D12.6 - Benign neoplasm of colon, unspecified (2) Fundic gland polyposis of stomach: Code(s): K31.7 - Polyp of stomach and duodenum (3) Gastritis determined by biopsy: Code(s): K29.70 - Gastritis, unspecified, without bleeding (4) Anemia: Code(s): D64.9 - Anemia, unspecified (5) 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: Comment: seems to have resolved once started reglan that solved the CIC part of the sequence Code(s): K58.2 - Mixed irritable bowel syndrome (6) GERD (gastroesophageal reflux diseas e): Code(s): K21.9 - Gastro-esophageal reflux disease without esophagitis (7) Delayed gastric emptying: Code(s): K30 - Functional dyspepsia (8) Fatigue: Code(s): R53.83 - Other fatigue (9) Chronic anticoagulation: Code(s): Z79.01 - intermediate accountant (current) use of anticoagulants Plan The EGD requires a 4 to six-month follow-up to check on the gastric polyps, and the colonoscopy needs to be repeated in 3 years due to the large size of the tubular adenomas. The procedure was well tolerated. The results were explained and the patient is agreeable to the follow-up interval as stated. The bowel pattern has returned to normal. Education was provided to tell any 1st degree relatives about their findings to be sure that they are screened by age 45. Educated that they will be put on a recall list when it is time for their repeat scope but should they move out of state or away from the hospital they will need to remember along with their primary to repeat the procedure in a timely fashion to avoid any adverse complications. She continues on Reglan 5 mg which she takes only twice a day, and omeprazole 20 mg twice a day. Given the polyps in the active inflammation we may wish to consider increasing the PPI dose. She is currently on iron therapy oral for anemia. She has been more constipated recently and has been taking her reglan more and she added senna which seems to be working well. I will try sending this as an rx. She requests that we do some additional blood work since she has not had her knee me a checked since June of 2023. She is also complaining of fatigue so if she is not anemic I think it is hood to add a thyroid study to try to help her discern the reason for her lack of energy. She will be seeing her primary soon as well but having this lab work will help facilitate her primary visit. If her anemia persists it is likely multifactorial including poor iron intake on top of chronic anticoagulation and possibly from continued gastritis with slow GI losses. ROV 4 weeks to eval o2o increase. Orders: Orders Comprehensive Met. Panel Today D64.9 - Anemia, un specified, R53.83 - Other fatigue, Z 79.01 - intermediate accountant (current) use of a nticoagulants Complete Blood Cou nt Auto Diff Today D64.9 - Anemia, un specified, R53.83 - Other fatigue, Z 79.01 - intermediate accountant (current) use of a nticoagulants TSH reflex Free T4 Today D64.9 - Anemia, un specified, R53.83 - Other fatigue, Z 79.01 - intermediate accountant (current) use of a nticoagulants Medications: New omeprazole 40 mg PO BID 30 d ays 60 caps 6RF K29.70 - Gastritis , unspecified, wit hout bleeding, K31 .7 - Polyp of stom ach and duodenum sennosides (Senna Laxative) 17.2 mg (2 x 8.6 m g) PO BEDTIME 60 t abs 6RF Changed From metoclopramide HCl (Reglan) 5 mg PO QIDACHS P RN stomach pain K30 - Functional d yspepsia To metoclopramide HCl (Reglan) 5 mg PO QIDACHS 1 20 tabs 6RF stomac h pain K30 - Functional d yspepsia Discontinued omeprazole Disc ontinued Reason: Doctor's Order 20 mg PO BID 180 caps 2RF K21.9 - Gastro-eso phageal reflux dis ease without esoph agitis LABS: Laboratory Tests 09/08/23 11:22 WBC 7.3 Hgb 13.7 D Hct 42.9 D MCV 86.3 MCH 27.6 Plt Count 261 D Estimated GFR > 60 Total Bilirubin 0.3 AST 16 ALT 17 Alkaline Phosphata se 55 TSH 1.06 REPEAT EGD FROM 08/27 PROCEDURE BIOPSY TODAY'S VISIT Things are going well at the moment, she finds that if she does not get herself constipated, she does much better. She is using the senna every other day with good results. She continues on Reglan 5 mg which she takes only twice a day, senna 2 tabs at bedtime as needed, and omeprazole 40 mg twice a day. Return office visit in 6 months and after the EGD. [facility] Medical History (Updated 11/09/23 @ 09:36 by Elizabeth Zuluaga PA-C) Encounter for monitoring anti-arrhythmic therapy Hx of diverticulitis of colon Mixed dyslipidemia Hx of iron deficiency anemia Osteoarthritis of right knee Anemia Post-menopause Vaginal dryness, menopausal Urinary frequency Primary osteoarthritis involving multiple joints Osteoporosis Paroxysmal atrial fibrillation Essential hypertension History of colitis Surgical History Diverticulitis large intestine Hx of total knee arthroplasty History of esophagogastroduodenoscopy (EGD) H/O colonoscopy Hx of hysterectomy History of mammogram Hx of total knee arthroplasty Hx of bilateral oophorectomy History of bladder suspension procedure History of repair of hiatal hernia (01/26/06) History of cholecystectomy Family History Father No problems noted. Mother No problems noted. Family/Other Cancer Brother History of kidney cancer Lung cancer, Onset Age: 65 Sister Breast cancer, Onset Age: 28 Social History Household Members: None Housing: Apartment Do you presently have visiting nurse or other home services: No Alcohol intake: current Alcohol intake frequency: holidays/special occasions only Alcohol type: wine Patient Tobacco Use Status: Never used Tobacco e-Cigarette/Vaping Use: Never Used service: No Current occupational status: retired Cognitive needs: No Hearing needs: No Vision needs: Yes Review of Systems Const Denies fatigue, Denies fever(s), Denies night sweats, Denies poor appetite and Denies weight loss ENT Reports Normal hearing present, Denies dental pain, Denies dysphagia, Denies hearing loss, Denies mouth pain, Denies odynophagia, Denies throat swelling, Denies tongue swelling and Reports other (Dentition adequate) Card Reports no additional complaints Resp Reports no additional complaints GI Details: Denies abdominal pain, Denies melena, Denies bloating, Denies hematochezia, Reports constipation, Denies GI cramping, Denies dysphagia, Denies excessive flatus, Reports early satiety, Reports heartburn, Denies diarrhea, Denies nausea, Denies odynophagia, Denies vomiting and Denies hematemesis Skin/Breast Denies pruritus, Denies lesions, Denies rash and Denies jaundice Neuro Reports Normal hearing present and Denies Abnormal speech present Endo Denies fatigue Aller/Immun Denies throat swelling and Denies tongue swelling Physical Exam Vital Signs: Last Vital Signs Pulse 55 10/27/23 11:32 BP 124/60 10/27/23 11:32 BMI result Body Mass Index 26.9 Const General: cooperative, no acute distress, well developed and well groomed Nutritional Appearance: average body habitus and well nourished Orientation/consciousness: oriented to person, oriented to place and oriented to time Limitations: No language barrier HEENT Head: Yes normocephalic and Yes atraumatic Eyes General: appearance normal, both eyes and all related structures Pupils: Equal, round and reactive pupils present Neck Neck: Yes normal visual inspection and Yes no lymphadenopathy Thyroid: Thyroid normal Resp Effort & Inspection: normal respiratory effort and able to speak in complete sentences Auscultation: clear to auscultation bilaterally Cardio Rate: regular rate Rhythm: regular rhythm Heart sounds: Normal, physiologic split S2 sound present Peripheral pulses: radial pulses present and posterior tibial pulses present GI Inspection: No distended and No Abdominal panniculus present Palpation (GI): Soft to palpation, nontender, no guarding, not rigid and No hepatosplenomegaly present Percussion: Yes normal to percussion Auscultation: normal bowel sounds Rectal Exam - Female: deferred Skin General skin exam: no rashes or lesions noted, turgor normal, skin not dry, no jaundice, No spider nevi and no striae Rashes: no rashes Nails: normal Neuro General: oriented to person, oriented to place and oriented to time Cranial nerves: Yes Equal, round and reactive pupils present and Yes Normal hearing present Speech: No Abnormal speech present Extrem General: Yes normal to inspection, No clubbing, No cyanosis and No edema Psych Appearance: grossly normal and well kempt Mental Status: mental status grossly normal Speech and movement: Normal speech and movement present Affect: normal affect Attitude: cooperative Thought process: Normal thought process present and not confabulating Thought content: Normal thought content present Insight: Fair insight present (Psych) Judgement: Fair judgement present (Psych) Assessment & Plan Assessment & Plan (1) GERD (gastroesophageal reflux disease): Code(s): K21.9 - Gastro-esophageal reflux disease without esophagitis (2) Irritable bowel syndrome with both constipation and diarrhea: Comment: seems to have resolved once started reglan that solved the CIC part of the sequence Code(s): K58.2 - Mixed irritable bowel syndrome (3) Delayed gastric emptying: Code(s): K30 - Functional dyspepsia Plan Things are going well at the moment, she finds that if she does not get herself constipated, she does much better. She is using the senna every other day with good results. She continues on Reglan 5 mg which she takes only twice a day, senna 2 tabs at bedtime as needed, and omeprazole 40 mg twice a day. Return office visit in 6 months and after the EGD. REPEAT EGD FROM 08/27 PROCEDURE BIOPSY Medications: Refilled omeprazole 40 mg PO BID 180 caps 1RF 30 days K29.70 - Gastritis, unspecified, without bleeding, K31.7 - Polyp of stomach and duodenum sennosides (Senna Laxative) 17.2 mg (2 x 8.6 mg) PO BEDTIME 180 tabs 1RF metoclopramide HCl (Reglan) 5 mg PO QIDACHS 360 tabs 1RF stomach pain K30 - Functional dyspepsia omeprazole 40 mg PO BID 60 caps 6RF 30 days K29.70 - Gastritis, unspecified, without bleeding, K31.7 - Polyp of stomach and duodenum metoclopramide HCl (Reglan) 5 mg PO QIDACHS 360 tabs 1RF stomach pain K30 - Functional dyspepsia sennosides (Senna Laxative) 17.2 mg (2 x 8.6 mg) PO BEDTIME 180 tabs 1RF Coding Level of Care Code Est Pt Level 3 (28962) Diagnoses GERD (gastroesophageal reflux disease) K21.9 Irritable bowel syndrome with both constipation and diarrhea K58.2 Delayed gastric emptying K30
[2023-10-27 11:32] VITALS: BP 124/60; PULSE 55; BMI 26.9
== END 2023-10-27 12:10 | disposition home or self-care (01) ==
PROVIDERS: PCP Internal Medicine; Visit Provider Nurse Practitioner
DX: K21.9 Gastro-esophageal reflux disease without esophagitis (principal); K58.2 Mixed irritable bowel syndrome; K30 Functional dyspepsia
CPT/HCPCS: 99213

== ENCOUNTER → 2023-10-27 11:22 | Outpatient (BNVA) | payer MEDICARE, SELFPAY | PROVIDERS: PCP Internal Medicine; Visit Provider Nurse Practitioner | DX: K21.9 Gastro-esophageal reflux disease without esophagitis (principal); K58.2 Mixed irritable bowel syndrome; K30 Functional dyspepsia | CPT/HCPCS: 99212 ==

== ENCOUNTER 2023-11-09 09:05 | Outpatient (AMB) | payer MEDICARE, SELFPAY ==
--- NOTE | 2023-11-09 09:11 | MHC.OFFWIV ---
Intake Vital Signs 11/09/23 09:15 Height 5 ft Weight 137 lb BMI 26.8 BP 116/70 Blood Pressure Location Lt brachial Position Sitting Pulse 65 Pulse Source Pulse Oximeter Temp 97.3 F Temp Source Temporal Artery Scan Pulse Oximetry (%) 96 Oxygen Delivery Method Room Air Intake Visit Reasons: EST/uti (lobby) Intake Note: pt is here today for UTI started 3 days ago Patient Tobacco Use Status: Never used Tobacco Allergies levofloxacin [From Levaquin] Allergy (Unknown, Verified 11/09/23 09:17) RASH Do you need a note to return to daycare/school/sports/work: No HPI HPI Comments History of Present Illness Details She present with concern of UTI Onset a few days ago Overnight + dysuria, pressure, frequency and urgency No hematuria No fevers or chills No back pain She has tried to drink cranberry juice without relief PFSH Medical History (Updated 11/09/23 @ 09:36 by Elizabeth Zuluaga PA-C) Encounter for monitoring anti-arrhythmic therapy Hx of diverticulitis of colon Mixed dyslipidemia Hx of iron deficiency anemia Osteoarthritis of right knee Anemia Post-menopause Vaginal dryness, menopausal Urinary frequency Primary osteoarthritis involving multiple joints Osteoporosis Paroxysmal atrial fibrillation Essential hypertension History of colitis Surgical History Diverticulitis large intestine Hx of total knee arthroplasty History of esophagogastroduodenoscopy (EGD) H/O colonoscopy Hx of hysterectomy History of mammogram Hx of total knee arthroplasty Hx of bilateral oophorectomy History of bladder suspension procedure History of repair of hiatal hernia (01/26/06) History of cholecystectomy Family History Father No problems noted. Mother No problems noted. Family/Other Cancer Brother History of kidney cancer Lung cancer, Onset Age: 65 Sister Breast cancer, Onset Age: 28 Social History Household Members: None Housing: Apartment Do you presently have visiting nurse or other home services: No Alcohol intake: current Alcohol intake frequency: holidays/special occasions only Alcohol type: wine Patient Tobacco Use Status: Never used Tobacco e-Cigarette/Vaping Use: Never Used service: No Current occupational status: retired Cognitive needs: No Hearing needs: No Vision needs: Yes Review of Systems Const Denies body aches, Denies chills and Denies fever(s) Resp Denies cough GI Reports abdominal pain (suprapubic pressure), Denies constipation, Denies diarrhea, Denies nausea and Denies vomiting Denies hematuria, Reports dysuria, Denies urinary incontinence, Reports urinary hesitancy and Reports urinary urgency Musc Denies back pain Physical Exam Vital Signs: Last Vital Signs Temp 97.3 F 11/09/23 09:15 Pulse 65 11/09/23 09:15 BP 116/70 11/09/23 09:15 Pulse Ox 96 11/09/23 09:15 Oxygen Delivery Method Room Air 11/09/23 09:15 BMI result Body Mass Index 26.8 General: Non-toxic, NAD. Speaking full sentences. Skin: Warm dry throughout Eye: EOMI Respiratory: No respiratory distress MSK: Full ROM extremities. ABdominal: No CVAT. Non-tender Neurology: A/O. No aphasia or facial droop. Gait without abnormality Psych: Good mood and affect Assessment & Plan Assessment & Plan (1) Urinary tract infection: Code(s): N39.0 - Urinary tract infection, site not specified Qualifiers: Hematuria presence: without hematuria Urinary tract infection type: acute cystitis Qualified Code(s): N30.00 - Acute cystitis without hematuria Plan: Patient seen and evaluated. She was unable to give urine sample so additional water will be given 10:31 Pt has been given over 5 cups of water and placed in the waiting room to obtain a urine sample. She has been unable to in the last hour. 10:40 I went out to talk to patient and she is trying to urinate; 10:45 it was sucessful u/a: + leuks, blood, nitrate Keflex to pharmacy urine culture sent Patient gave verbal understanding and had no additional questions or concerns at time of discharge All questions answered Orders: Orders Urine Culture Today N39.0 - Urinary tract infection, site not specified Medications: New cephalexin 500 mg PO Q12H 14 caps 0RF Coding Level of Care Code Est Pt Level 3 (08007) Diagnoses Acute cystitis without hematuria N30.00 Hematuria presence: without hematuria Urinary tract infection type: acute cystitis
[2023-11-09 09:15] VITALS: BP 116/70; PULSE 65; TEMP 36.3; O2SAT 96; BMI 26.8
== END 2023-11-09 10:57 | disposition home or self-care (01) ==
PROVIDERS: PCP Internal Medicine; Visit Provider Physician Assistant
DX: N30.00 Acute cystitis without hematuria (principal)
CPT/HCPCS: 81003; 99213

== ENCOUNTER 2023-11-09 13:05 | Outpatient (REF) | payer MEDICARE, SELFPAY | END 2023-11-09 13:06 | disposition home or self-care (01) | LOC: HO.HMGCLNP 13:05 | PROVIDERS: Visit Provider Physician Assistant | DX: N39.0 Urinary tract infection, site not specified (principal) | CPT/HCPCS: 87086; 87088; 87186 ==

== ENCOUNTER 2023-12-09 09:44 | Inpatient (IN) | payer MEDICARE, SELFPAY ==
[2023-12-09] VITALS (10 sets, daily range): BP systolic 125–183; BP diastolic 52–96; PULSE 54–74; RESP 15–19; TEMP 36.1–37.2; O2SAT 95–99; BMI 26.3
--- NOTE | ~2023-12-09 | CT_ITS ---
EXAMINATION: CT ANGIOGRAM HEAD CT ANGIOGRAM NECK CLINICAL INFORMATION: Reason for Exam dizziness, unable to walk COMPARISON: None. TECHNIQUE: Initial noncontrast purchase request editor imaging of the head and neck was performed. Noncontrast head CT was also performed. Test bolus sequences followed by intravenous administration 70 mL of Omnipaque 350. Helical imaging was performed in the axial plane from the aortic arch to the skull vertex. Delayed postcontrast imaging of the head was also performed. The data was processed at the soil technologist workstation for generation of MIP sequences. Angled MIPs and volume rendered reformatted images were also generated at an offline 3D workstation. Stenoses are assessed in accordance with NASCET criteria unless otherwise indicated. DLP: 1944.06 mGy-cm This CT examination was performed using dose optimization techniques as appropriate, variously including the following: *Automated exposure control. *Adjustment of mA and/or kV according to patient size (this includes techniques or standardized protocols for targeted exams where dose is matched to indication/reason for exam; i.e. extremities or head). *Use of iterative reconstruction technique. FINDINGS: CT Head: There is no evidence of acute intracranial hemorrhage or edematous territorial infarction. A few foci of hypoattenuation in the periventricular and deep white matter are consistent with mild microangiopathy. May-white matter differentiation is preserved. Proportional prominence of the ventricles and sulcal spaces. No evidence for obstructive hydrocephalus. No abnormal mass effect or midline shift. No extra-axial fluid collections. No pathologic intra-axial enhancement or regional oligemia. Small right superior frontoparietal developmental venous anomaly. No acute soft tissue or osseous abnormalities. Complete right frontal sinus opacification. Partial opacification of the left frontal sinus and anterior ethmoid sinuses. CT Neck: There are several subcentimeter hypodense nodules in the thyroid gland which do not require further imaging follow-up based on size and age criteria. The remaining cervical soft tissues are within normal limits. Multilevel cervical spondylosis. CT Upper Chest: The visualized lung apices and upper mediastinum are within normal limits. Neck CTA: Aortic Arch: Normal contour and caliber. Classic 3 vessel branching pattern of the aortic arch. Great Vessel Origins: No significant stenosis of the branch origins. Right Common Carotid Artery: No focal stenosis or occlusion. Cervical Right Internal Carotid Artery: Mild calcific atherosclerotic disease of the carotid bulb and proximal internal carotid artery without flow-limiting stenosis. Left Common Carotid Artery: No focal stenosis or occlusion. Cervical Left Internal Carotid Artery: Mild calcific atherosclerotic disease of the carotid bulb and proximal internal carotid artery without flow-limiting stenosis. Cervical Right Vertebral Artery: No focal stenosis or occlusion. Cervical Left Vertebral Artery: Dominant. No focal stenosis or occlusion. Brain CTA: Intracranial Internal Carotid Arteries: Calcific atherosclerotic disease of the intracranial internal carotid arteries without occlusion or flow-limiting stenosis. Right Anterior Cerebral Artery: Normal A1 segment. Normal opacification of the distal [place] segments. Left Anterior Cerebral Artery: Normal A1 segment. Normal opacification of the distal DE[place]AH segments. Anterior Communicating Artery: Normal. Right Middle Cerebral Artery: Normal M1 segment of the MCA without focal stenosis or occlusion. Normal arborization of the distal segments. Left Middle Cerebral Artery: Normal M1 segment of the MCA without focal stenosis or occlusion. Normal arborization of the distal segments. Right Vertebral Artery: Normal V4 segment. Left Vertebral Artery: Normal V4 segment. Basilar Artery: Normal without focal stenosis or occlusion. Normal appearance of the proximal superior cerebellar arteries. Right Posterior Cerebral Artery: configuration.. Normal opacification of the distal SIZE MAKER segments. Left Posterior Cerebral Artery: The P1 segment is diminutive. origin of the SIZE MAKER with robust opacification of the posterior communicating artery. Normal opacification of the distal SIZE MAKER segments. Normal opacification of the superior sagittal, straight, transverse, and sigmoid sinuses. CT/CT angio head neck IMPRESSION: 1. No acute intracranial abnormality including hemorrhage, mass effect, hydrocephalus, or acute territorial edematous infarction. 2. No arterial high grade stenosis or large vessel occlusion in the head or neck.
--- NOTE | 2023-12-09 10:04 | ED_ITS ---
HPI - General Adult General Chief complaint: Dizziness Stated complaint: NEAR SYNCOPE DIZZY Time Seen by Provider: 12/09/23 10:04 History of Present Illness HPI narrative: The patient is an 83-year-old woman who lives alone in her own apartment. She says that she felt very tired this morning and got out of bed later than usual. She was able to make her way to the bathroom but while sitting on the toilet she felt increasingly dizzy as if she might pass out. She thought she was going to fall off the toilet but was able to lower herself to the floor so that she did not injure herself. She then was able to contact an ambulance and was brought to the hospital. No significant headache. No difficulty speaking. No visual symptoms. No lateralizing weakness. She says that she felt that there was some room spinning dizziness but no significant nausea or vomiting. Related Data Home Medications ?Medication ?Instructions ?Recorded ?Confirmed amlodipine 2.5 mg tablet 5 mg PO DAILY 12/09/23 12/09/23 metoclopramide HCl 5 mg tablet 5 mg PO QIDACHS PRN stomach pain 12/09/23 12/09/23 (Reglan) sennosides 8.6 mg tablet (Senna 8.6 mg PO BEDTIME PRN Constipation 12/09/23 12/09/23 Laxative) Previous Rx's ?Medication ?Instructions ?Recorded flecainide 50 mg tablet 50 mg PO BID #180 tabs 05/02/23 apixaban 5 mg tablet (Eliquis) 5 mg PO BID 90 days #180 tabs 05/17/23 hydrochlorothiazide 25 mg tablet 25 mg PO DAILY #90 tabs 06/14/23 metoprolol succinate 25 mg 25 mg PO DAILY #90 tabs 06/14/23 tablet,extended release 24 hr omeprazole 40 mg capsule,delayed 40 mg PO BID 30 days #180 caps 10/27/23 release Allergies Allergy/AdvReac Type Severity Reaction Status Date / Time levofloxacin [From Levaquin] Allergy Unknown RASH Verified 12/09/23 10:08 [facility] Past Medical History Medical History (Updated 12/09/23 @ 15:31 by Caleb Fuentes MD) Encounter for monitoring anti-arrhythmic therapy Hx of diverticulitis of colon Mixed dyslipidemia Hx of iron deficiency anemia Osteoarthritis of right knee Anemia Post-menopause Vaginal dryness, menopausal Urinary frequency Primary osteoarthritis involving multiple joints Osteoporosis Paroxysmal atrial fibrillation Essential hypertension History of colitis Surgical History Diverticulitis large intestine Hx of total knee arthroplasty History of esophagogastroduodenoscopy (EGD) H/O colonoscopy Hx of hysterectomy History of mammogram Hx of total knee arthroplasty Hx of bilateral oophorectomy History of bladder suspension procedure History of repair of hiatal hernia (01/26/06) History of cholecystectomy Family History Family History Father No problems noted. Mother No problems noted. Family/Other Cancer Brother History of kidney cancer Lung cancer, Onset Age: 65 Sister Breast cancer, Onset Age: 28 Social History Social History Household Members: None Housing: Apartment Do you presently have visiting nurse or other home services: No Alcohol intake: current Alcohol intake frequency: holidays/special occasions only Alcohol type: wine Patient Tobacco Use Status: Never used Tobacco Smoked in Last 30 Days: Yes e-Cigarette/Vaping Use: Never Used Use of substances other than those prescribed or required for medical reasons: No Advance Directives: No Advance Directives Information Provided: No service: No Current occupational status: retired Cognitive needs: No Hearing needs: No Vision needs: Yes Physical Exam ED Vital Signs: Vital Signs - 24 hr 12/09/23 09:58 12/09/23 11:09 12/09/23 13:05 Temperature 98.9 F 97.7 F 98.1 F Pulse Rate 63 54 65 Respiratory Rate 18 17 15 Blood Pressure 125/61 173/63 H 183/62 H Pulse Oximetry 96 99 97 Oxygen Delivery Method Room Air Room Air Room Air 12/09/23 14:57 Temperature Pulse Rate 68 Respiratory Rate 19 Blood Pressure Pulse Oximetry Oxygen Delivery Method BMI result Body Mass Index 26.3 Medications Administered Discontinued Medications Generic Name Dose Route Start Last Admin Trade Name Freq PRN Reason Stop Dose Admin Aspirin 81 mg 12/09/23 14:17 12/09/23 15:15 Aspirin 81 Mg Tab.Chew PO 12/09/23 14:18 81 mg ONCE ONE Administration Sodium Chloride 1,000 mls @ 999 mls/hr 12/09/23 12:00 12/09/23 14:58 Ns IV 12/09/23 13:00 Infused .Q1H1M OSIEL Infusion Iohexol 100 ml 12/09/23 12:53 12/09/23 12:54 Iohexol 350 Mg/Ml 100 Ml Infus..Btl IV 12/09/23 12:54 70 ml ONCE ONE Administration Meclizine HCl 25 mg 12/09/23 13:54 12/09/23 15:15 Meclizine Hcl 25 Mg Tablet PO 12/09/23 13:55 25 mg ONCE ONE Administration Medical Decision Making Medical Decision Making [facility] Narrative: The patient is an 83-year-old woman who presents with a near syncopal episode, a sense of dizziness, and difficulty walking. She says that she woke up feeling very tired and not quite right. I think it is therefore reasonable to infer that the patient's last known well time was when she last got up to go to the bathroom during the middle of the night which she estimates as being at around 04:00. On arrival here the patient does not have any miserable neurological deficit. Her NIH stroke scale was 0. The patient is not a candidate for thrombolytic therapy as her NIH stroke scale is 0 and her last known well time was more than 4-1/2 hours prior to arrival. Additionally the patient is on apixaban. Although the patient had an NIH stroke scale of 0 her gait is significantly impaired and she can not walk safely by herself. It is possible her symptoms could represent peripheral vertigo syndrome but she does not show any obvious nystagmus and she has not really showing obvious severe positional changes. I think therefore that possible stroke syndrome has to be considered and she should be hospitalized for further evaluation. Lab Data 12/09/23 10:55 12/09/23 10:55 Labs: Lab Results 12/09/23 12/09/23 12/09/23 Range/Units 10:41 10:42 10:55 WBC 7.5 (4.8-10.8) X10*3/uL RBC 4.28 (4.20-5.50) X10*6/uL Hgb 13.3 (12.0-16.0) g/dl Hct 39.1 (37.0-47.0) % MCV 91.4 (80.0-98.0) fL MCH 31.1 (27.0-33.0) pg MCHC 34.0 (31.0-35.0) g/dl RDW 13.2 (11.0-16.0) % Plt Count 244 (160-400) X10*3/uL MPV 9.0 L (9.4-12.3) fL Immature Gran % (Auto) 0.3 (0.0-0.4) % Neut % (Auto) 63.2 (45-73) % Lymph % (Auto) 28.1 (20-40) % [place] % (Auto) 7.4 (2-11) % Eos % (Auto) 0.7 (0-4) % Baso % (Auto) 0.3 (0-2) % Lymph # (Auto) 2.1 (1.2-4.9) X10*3/uL [place] # (Auto) 0.6 (0.1-1.2) X10*3/uL Eos # (Auto) 0.1 (0.0-0.4) X10*3/uL Baso # (Auto) 0.0 (0.0-0.2) X10*3/uL Abs Immat Gran (auto) 0.02 (0.00-0.03) X10*3/uL Absolute Neuts (auto) 4.7 (2.0-8.3) x10*3/uL Absolute Nucleated RBC 0.000 (0.0-0.012) X10*3/uL Nucleated RBC % (auto) 0.0 (0.0-0.2) /100WBC Sodium 140 (135-145) mmol/L Potassium 4.1 (3.3-5.1) mmol/L Chloride 101 (96-108) mmol/L Carbon Dioxide 29 (22-29) mmol/L Anion Gap 14 (12-20) BUN 17 H (9-16) mg/dL Creatinine 0.72 (0.5-1.4) mg/dL Estim Creat Clear Calc 47.5 Estimated GFR > 60 Random Glucose 112 (60-115) mg/dL Calcium 10.0 (8.4-10.2) mg/dL Magnesium 1.9 (1.6-2.6) mg/dL Total Bilirubin 0.4 (0.0-1.0) mg/dL Direct Bilirubin 0.1 (0.0-0.5) mg/dL AST 14 (5-31) U/L ALT 12 (0-31) U/L Alkaline Phosphatase 52 (39-117) U/L Troponin I High Sens < 2.7 (<3.5-17.0) ng/L C-Reactive Protein 0.30 (< or = 0.50) mg/dL B-Natriuretic Peptide 69 (<100) pg/mL Total Protein 6.4 L (6.5-8.0) g/dL Albumin 3.9 (3.5-5.0) g/dL Urine Color Yellow Urine Appearance Clear Urine pH 7.0 (5.0-9.0) Ur Specific [place] 1.020 (1.005-1.025) Urine Protein Negative (Neg-Trace) mg/dL Urine Glucose (UA) Negative (Negative) mg/dL Urine Ketones Negative (Negative) mg/dL Urine Blood Negative (Negative) Urine Nitrite Negative (Negative) Ur Leukocyte Esterase Negative (Negative) Ethyl Alcohol < 10 mg/dL Influenza Type A (PCR) NEGATIVE (Negative) Influenza Type B (PCR) NEGATIVE (Negative) RSV RNA Qual (PCR) NEGATIVE (Negative) SARS-CoV-2 RNA (RT-PCR) NEGATIVE (Negative) Critical Care Time Critical Care Time Critical Care Time: Yes Total Critical Care Time: 35 Attestation: The patient was critically ill with a high probability of imminent or life- threatening deterioration. ?I spent greater than 30 minutes of discontinuous time evaluating the patient, delivering critical care at the bedside, discussing evaluating data with consultants. ?Critical care time does not include time spent performing separately billable procedures or teaching. ?Time spent performing critical care with 35 minutes. Discharge Plan Discharge Clinical Impression: Difficulty walking, Near syncope Patient Disposition: Admitted As Inpatient
--- NOTE | 2023-12-09 10:13 | ECG_ITS ---
Test Reason : syncope Blood Pressure : / mmHG Vent. Rate : 055 BPM Atrial Rate : 055 BPM P-R Int : 170 ms QRS Dur : 114 ms QT Int : 446 ms P-R-T Axes : 000 218 162 degrees QTc Int : 426 ms Suspect limb lead reversal, interpretation assumes no reversal Sinus bradycardia Right superior axis deviation Pulmonary disease pattern T wave abnormality, consider inferior ischemia Abnormal ECG When compared with ECG of 15-AUG-2018 04:06, QRS axis Shifted left T wave inversion now evident in Lateral leads Referred By: Caleb Fuentes Electronically Signed By:VLADIMIR CH MD
[2023-12-09 10:54] LABS: Appearance Urine Clear; Color Urine Yellow; Glucose Urine UA Negative (Negative); Leukocyte Esterase Urine Negative (Negative); Nitrite Urine Negative (Negative); Urine Blood Negative (Negative); Urine Ketones Negative (Negative); Urine Protein Negative (Neg-Trace)
[2023-12-09 10:59] LABS: MANUAL DIFF FLAG NO
[2023-12-09 11:01] LABS: Basophils Percent Auto 0.3 % (0-2); Eosinophils Absolute Auto 0.1 X10*3/uL (0.0-0.4); Eosinophils Percent Auto 0.7 % (0-4); Hematocrit 39.1 % (37.0-47.0); Hemoglobin 13.3 g/dl (12.0-16.0); Imm Gran Abs Auto 0.02 X10*3/uL (0.00-0.03); Imm Gran Pct Auto 0.3 % (0.0-0.4); Lymphocytes Absolute Auto 2.1 X10*3/uL (1.2-4.9); Lymphocytes Percent Auto 28.1 % (20-40); Mean Corpuscular Hemoglobin 31.1 pg (27.0-33.0); Mean Corpuscular Volume 91.4 fL (80.0-98.0); Monocytes Absolute Auto 0.6 X10*3/uL (0.1-1.2); Monocytes Percent Auto 7.4 % (2-11); Neutrophils Absolute Auto 4.7 x10*3/uL (2.0-8.3); Neutrophils Percent Auto 63.2 % (45-73); Platelet Count 244 X10*3/uL (160-400); Red Blood Count 4.28 X10*6/uL (4.20-5.50); Red Cell Distribution Width 13.2 % (11.0-16.0); White Blood Count 7.5 X10*3/uL (4.8-10.8)
[2023-12-09 11:20] LABS: B Type Natriuretic Peptide 69 pg/mL (<100)
[2023-12-09 11:22] LABS: Alanine Aminotransferase 12 U/L (0-31); Albumin Level 3.9 g/dL (3.5-5.0); Alkaline Phosphatase 52 U/L (39-117); Anion Gap 14 (12-20); Aspartate Amino Transferase 14 U/L (5-31); Bilirubin Direct 0.1 mg/dL (0.0-0.5); Bilirubin Total 0.4 mg/dL (0.0-1.0); Blood Urea Nitrogen 17 mg/dL (9-16); Carbon Dioxide 29 mmol/L (22-29); Chloride 101 mmol/L (96-108); Creatinine Clr Calc Pharmacy 47.5; Estimated Glomerular Filt Rate > 60; Ethanol < 10 mg/dL; Glucose Random 112 mg/dL (60-115); Magnesium 1.9 mg/dL (1.6-2.6); Potassium 4.1 mmol/L (3.3-5.1); Sodium 140 mmol/L (135-145); Total Protein 6.4 g/dL (6.5-8.0)
[2023-12-09 11:23] LABS: Troponin-I High Sensitivity < 2.7 ng/L (<3.5-17.0)
[2023-12-09 11:51] LABS: Influenza A PCR NEGATIVE (Negative); Influenza B PCR NEGATIVE (Negative); Resp Syncy Virus RNA Qual PCR NEGATIVE (Negative); SARS COV2 PCR INHOUSE NEGATIVE (Negative)
[2023-12-09] MEDS: iohexoL 350 MG/ML 100 ML INFUS..BTL IV (12:54)
[2023-12-09] MEDS: 0.9 % Sodium Chloride 1,000 ML 999 ML IV (14:05)
--- NOTE | 2023-12-09 14:31 | P.HPHOSP_ITS ---
History of Present Illness Date of Service: 12/09/23 Attending physician on admission: Padmaja Hdez Chief Complaint: Dizziness, weakness, fall at home Pt is an 83-year-old female with a PMH significant for?paroxysmal AFib on Eliquis, HTN, and irritable bowel syndrome who presents to the ED for evaluation of presyncopal episode with fall at home. Patient reports she was essentially in her normal state of health when she woke up this morning. [place] tired but states that has been her normal for awhile now. Went into the bathroom, sat on the toilet, and felt and aura like she was going to pass out before going to the bathroom. Began tipping to her right side, missed grabbing the safety rail and ended up on the floor. Denies head strike or any other trauma during the fall. Used a call rodriguez in the bathroom to reach out for help. When EMS arrived and helped her up she reports feeling lightheaded and dizzy with difficulty walking, though denies feeling like the room was spinning. Reports she has been eating and drinking normally. Has been complaint with medications and no recent medication changes. No recent illnesses. Denies any hemiparesis, numbness or tingling in extremities, dysarthria, or difficulty word finding. Reports one previous similar episode an unspecified long time ago . At that time pt was able to sit on the sofa until she felt better. Today in the ED pt was ambulated but felt wobbly and had difficutly walking. Denies chest pain/pressure, palpitations. No shortness of breath. Denies headache or acute vision changes. No fever, chills, nausea, vomiting, or abdominal pain. Of note, says it has been years since she was last known to be in AFib. In the ED pt was hypertensive up to 183/62, vitals otherwise WNL. Labs were grossly unremarkable. No leukocytosis. Stable H& H. No electrolyte abnormalities. Renal and hepatic function WNL. Troponin negative. BNP WNL. UA negative for UTI. Tested negative for flu, COVID, RSV. Ethyl alcohol levels undetectable. CTA of head and neck negative for acute intracranial abnormality including hemorrhage, mass effect, hydrocephalus, or acute territorial edematous infarction. Also negative for arterial high-grade stenosis or large vessel occlusion in the head or neck. EKG demonstrated sinus bradycardia 55 with pulmonary disease pattern and T-wave inversions in I, II, and aVL, the likely had limb lead reversal. Pt was treated with IVF, meclizine, and aspirin. Pt will be admitted to the hospital under observation for treatment and further evaluation presyncopal episode. Review of Systems 2 Review of Systems: Lightheadedness, dizziness Fall at home Weakness, difficulty ambulating Denies hemiparesis, headache, acute vision changes, dysarthria, or difficulty word finding No numbness or tingling in extremities Denies chest pain/pressure, palpitations No shortness a breath Denies fever, chills, nausea, vomiting, abdominal pain PMFSH Medical History Encounter for monitoring anti-arrhythmic therapy Hx of diverticulitis of colon Mixed dyslipidemia Hx of iron deficiency anemia Osteoarthritis of right knee Anemia Post-menopause Vaginal dryness, menopausal Urinary frequency Primary osteoarthritis involving multiple joints Osteoporosis Paroxysmal atrial fibrillation Essential hypertension History of colitis Family History Father No problems noted. Mother No problems noted. Family/Other Cancer Brother History of kidney cancer Lung cancer, Onset Age: 65 Sister Breast cancer, Onset Age: 28 Surgical History Diverticulitis large intestine Hx of total knee arthroplasty History of esophagogastroduodenoscopy (EGD) H/O colonoscopy Hx of hysterectomy History of mammogram Hx of total knee arthroplasty Hx of bilateral oophorectomy History of bladder suspension procedure History of repair of hiatal hernia (01/26/06) History of cholecystectomy Social History Household Members: None Housing: Apartment Do you presently have visiting nurse or other home services: No Alcohol intake: current Alcohol intake frequency: holidays/special occasions only Alcohol type: wine Patient Tobacco Use Status: Never used Tobacco e-Cigarette/Vaping Use: Never Used service: No Current occupational status: retired Cognitive needs: No Hearing needs: No Vision needs: Yes Meds Allergies Allergy/AdvReac Type Severity Reaction Status Date / Time levofloxacin [From Levaquin] Allergy Unknown RASH Verified 12/09/23 10:08 Home Medications ?Medication ?Instructions ?Recorded ?Confirmed ?Last Taken ?Type amlodipine 2.5 mg tablet 5 mg PO DAILY 12/09/23 12/09/23 12/08/23 History metoclopramide HCl 5 mg tablet 5 mg PO QIDACHS PRN stomach pain 12/09/23 12/09/23 12/08/23 History (Reglan) sennosides 8.6 mg tablet (Senna 8.6 mg PO BEDTIME PRN Constipation 12/09/23 12/09/23 Unknown History Laxative) Physical Exam 2 Vital Signs and Narrative: Vital Signs: Last Vital Signs Temp 98.1 F 12/09/23 13:05 Pulse 65 12/09/23 13:05 Resp 15 12/09/23 13:05 BP 183/62 H 12/09/23 13:05 Pulse Ox 97 12/09/23 13:05 O2 Del Method Room Air 12/09/23 13:05 BMI result Body Mass Index 26.3 Constitutional: Alert, in no acute distress. Mental Status: Oriented to person, place and time. Eyes: Pupils are equal, round, and reactive to light. Ear, Nose, and Throat: Oropharynx clear, mucous membranes moist. Ears and nose without deformities. Trachea midline. Respiratory: Clear to auscultation bilaterally. No wheezing, rales, or rhonchi. Cardiovascular: S1, S2 regular. No murmurs, rubs, or gallops. Gastrointestinal: Abdomen soft, non-tender, non-distended. Normal bowel sounds. Neurologic: Cranial nerves II-XII are grossly intact bilaterally. No focal neurological deficits. Moves all extremities spontaneously. Skin: Warm, dry. Musculoskeletal: No cyanosis or clubbing. Extremities: No edema. Psychiatric: Normal mood and affect. Results Labs 12/09/23 10:55 12/09/23 10:55 Labs: Laboratory Results - last 24 hr 12/09/23 12/09/23 12/09/23 10:41 10:42 10:55 MCV 91.4 MCH 31.1 MCHC 34.0 RDW 13.2 Plt Count 244 MPV 9.0 L Immature Gran % (Auto) 0.3 Neut % (Auto) 63.2 Lymph % (Auto) 28.1 [place] % (Auto) 7.4 Eos % (Auto) 0.7 Baso % (Auto) 0.3 Lymph # (Auto) 2.1 [place] # (Auto) 0.6 Eos # (Auto) 0.1 Baso # (Auto) 0.0 Abs Immat Gran (auto) 0.02 Absolute Neuts (auto) 4.7 Absolute Nucleated RBC 0.000 Nucleated RBC % (auto) 0.0 Anion Gap 14 Estim Creat Clear Calc 47.5 Estimated GFR > 60 Random Glucose 112 Calcium 10.0 Magnesium 1.9 Total Bilirubin 0.4 Direct Bilirubin 0.1 AST 14 ALT 12 Alkaline Phosphatase 52 Troponin I High Sens < 2.7 C-Reactive Protein 0.30 B-Natriuretic Peptide 69 Total Protein 6.4 L Albumin 3.9 Urine Color Yellow Urine Appearance Clear Urine pH 7.0 Ur Specific [place] 1.020 Urine Protein Negative Urine Glucose (UA) Negative Urine Ketones Negative Urine Blood Negative Urine Nitrite Negative Ur Leukocyte Esterase Negative Ethyl Alcohol < 10 Influenza Type A (PCR) NEGATIVE Influenza Type B (PCR) NEGATIVE RSV RNA Qual (PCR) NEGATIVE SARS-CoV-2 RNA (RT-PCR) NEGATIVE Imaging Radiologist's Impressions: Impressions Head/Neck CTA 12/09/23 12:55 IMPRESSION: 1. No acute intracranial abnormality including hemorrhage, mass effect, hydrocephalus, or acute territorial edematous infarction. 2. No arterial high grade stenosis or large vessel occlusion in the head or neck. Assessment and Plan (1) Near syncope: Status: Acute Plan Pt is an 83-year-old female with a PMH significant for?paroxysmal AFib on Eliquis, HTN, and irritable bowel syndrome who presents to the ED for evaluation of presyncopal episode with fall at home. Pt will be admitted to the hospital under observation for treatment and further evaluation presyncopal episode. Pre syncopal episode with fall at home Unclear etiology:? Differential includes vasovagal, cardiac, neurologic, orthostatic CTA of head and neck negative for acute intracranial pathology or large vessel stenosis Random glucose 112; EKG NSR; CBC & CMP unremarkable; RSV/COVID/flu negative Patient received IVF in ED Cardiology consult Neurology consult Will defer additional imaging -- echocardiogram and/or MRI -- to specialist consults Monitor on telemetry Paroxysmal AFib Denies any chest pain/pressure, palpitations Reports last known to be in AFib many years ago EKG showing normal sinus rhythm Continue flecainide, metoprolol, Eliquis IBS/GERD Continue omeprazole, metoclopramide Full Code Attending:?Dr. Hdez DVT Prophylaxis: On Eliquis Patient will be hospital under observation treatment and further evaluation of presyncopal episode. Patient will require close cardiac monitoring and specialist consultation with Neurology and Cardiology with the possibility for additional imaging. Quality Stroke Does the patient have a stroke diagnosis?: No VTE Prior VTE?: No VTE Risk Level:: Medical - moderate - high VTE Device Contraindication: Treatment Not Indicated VTE Drug Contraindication: N/A - Med Ordered
[2023-12-09] MEDS: Aspirin 81 MG TAB.CHEW PO (15:15)
[2023-12-09] MEDS: Meclizine HCl 25 MG TABLET PO (15:15)
--- NOTE | 2023-12-09 15:42 | MHC.STROKE ---
Pt to be admitted to hospital for pre-syncope, fall Consult given to Dr. Duarte per hospitalist request. Pt awake, alert and oriented x 3. Reports that she felt well yesterday. Denies any recent illness or headaches. States that she went to bed last evening at 2230 and felt well at that time. States I don't sleep well so I got up in the middle of the night to use the bathroom . Pt denies any symptoms at that time. (cannot recall at what time she woke in the middle of the night) In the am, patient reports that she woke at approx 0845 and when she went to sit on the toilet, she didn't feel right. Patient could not articulate whether or not it was dizziness or weakness. She reports that she fell on the floor. Denies headstrike. Pt is on Eliquis. She states that she lives in assisted living and was able to get to the call rodriguez in her bathroom and rang for help. Pt denies difficulty with speech or significant weakness in her limbs. No neuro deficits at this time. CTA did not reveal any acute changes or LVO. Plan is for admission to hospital with consults to neuro and cardiology. Pt aware and agreeable to plan. Will assist as needed.
--- NOTE | 2023-12-09 16:00 | PHA.MEDREC ---
Pharmacy Consult ? Medication Reconciliation Pharmacy has completed the medication reconciliation. Pt states that she takes two-2.5 mg tablets of norvasc once in the am instead of 1 tab bid
[2023-12-09] MEDS: amLODIPine Besylate 5 MG TABLET PO (17:44)
[2023-12-09] MEDS: Metoprolol Succinate ER 25 MG TAB.ER.24H PO (17:44)
[2023-12-09] MEDS: Apixaban 5 MG TABLET PO (17:44)
[2023-12-09] MEDS: hydroCHLOROthiazide 25 MG TABLET PO (17:44)
--- NOTE | 2023-12-09 18:37 | PC.NURSE ---
called pharmacy for medication not available in pyxis, awaiting medication to arrive from pharmacy
--- NOTE | 2023-12-09 19:10 | PC.NURSE ---
Assumed care of pt. Pt lying on stretcher, no acute distress or complaints. VSS per charting. Neuro intact. Continuing plan of care for admission
[2023-12-09] MEDS: Flecainide Acetate 50 MG TABLET PO (19:13)
[2023-12-10] VITALS (9 sets, daily range): BP systolic 129–170; BP diastolic 59–73; PULSE 56–67; RESP 16–20; TEMP 36.2–37.3; O2SAT 94–99
[2023-12-10] MEDS: 0.9 % Sodium Chloride Flush 3 ML SYRINGE IVFLUSH ×4 (05:06→22:04)
[2023-12-10] MEDS: Omeprazole 40 MG CAPSULE.DR PO ×2 (05:06→15:36)
[2023-12-10] MEDS: Apixaban 5 MG TABLET PO ×2 (09:24→22:03)
[2023-12-10] MEDS: amLODIPine Besylate 5 MG TABLET PO (09:25)
[2023-12-10] MEDS: Metoprolol Succinate ER 25 MG TAB.ER.24H PO (09:25)
[2023-12-10] MEDS: Flecainide Acetate 50 MG TABLET PO ×2 (09:25→22:03)
[2023-12-10] MEDS: hydroCHLOROthiazide 25 MG TABLET PO (09:25)
--- NOTE | 2023-12-10 11:37 | PM.CNCAR ---
History of Present Illness History of Present Illness Date of Service: 12/10/23 Requesting physician: Padmaja Hdez Consult reason: other (Dizziness) Chief complaint: Pre-syncope with fall at home Narrative: I was consulted to see Gilbert in cardiology consultation today. She follows with Dr. Hansen for paroxysmal atrial fibrillation. Patient with prior medical history of paroxysmal atrial fibrillation, hypertension, hyperlipidemia acid reflux disease as well as irritable bowel syndrome. Patient says she was in usual state of health yesterday. Got up to go to the bathroom and she felt somewhat dizzy/lightheaded when she started sitting on the toilet seat. She said this has happened once many years ago. She does suffer from vertigo. She felt like things were spinning and then she lost balance and fell to the ground. She did not lose consciousness. She not have any palpitations, chest pain, shortness of breath. She has never had a syncopal episode in the past. She came to the emergency room. Initially noted to have hypertension but subsequently blood pressure have kind of lowered and slightly elevated range. There is no clear evidence of orthostasis. She denies any recent illness. Denies any nausea vomiting, diarrhea. Denies any upper respiratory lower respiratory symptoms. Also denies any bleeding issues. No focal neurologic deficits. Overnight admitted and observed. During sleep hours heart rate going into the 30s. No ventricular arrhythmias. Review of Systems Constitutional: Constitutional: Reports no additional constitutional complaints Eyes: Eyes: Reports no additional eye complaints Cardiovascular: Cardiovascular: Denies chest pain, Reports lightheadedness, Denies Loss of Consciousness, Denies palpitations and Denies dyspnea Respiratory: Respiratory: Reports no additional respiratory complaints and Denies dyspnea Gastrointestinal: Gastrointestinal: Reports no additional gastrointestinal complaints Genitourinary: Genitourinary: Reports no additional female genitourinary complaints Musculoskeletal: Musculoskeletal: Reports no additional musculoskeletal complaints Integumentary/Breasts: Skin/Breast: Reports system reviewed and no additional complaints, except as docu Neurologic: Reports system reviewed and no additional complaints, except as documented Psychiatric: Psychiatric: Reports no additional psychiatric complaints Endocrine: Endocrine: Denies palpitations PMFSH Past Medical History Medical History Encounter for monitoring anti-arrhythmic therapy Hx of diverticulitis of colon Mixed dyslipidemia Hx of iron deficiency anemia Osteoarthritis of right knee Anemia Post-menopause Vaginal dryness, menopausal Urinary frequency Primary osteoarthritis involving multiple joints Osteoporosis Paroxysmal atrial fibrillation Essential hypertension History of colitis Family History Family History Father No problems noted. Mother No problems noted. Family/Other Cancer Brother History of kidney cancer Lung cancer, Onset Age: 65 Sister Breast cancer, Onset Age: 28 Surgical History Surgical History Diverticulitis large intestine Hx of total knee arthroplasty History of esophagogastroduodenoscopy (EGD) H/O colonoscopy Hx of hysterectomy History of mammogram Hx of total knee arthroplasty Hx of bilateral oophorectomy History of bladder suspension procedure History of repair of hiatal hernia (01/26/06) History of cholecystectomy Social History Social History Household Members: None Housing: Other Housing Other:: independent living Do you presently have visiting nurse or other home services: No Alcohol intake: current Alcohol intake frequency: holidays/special occasions only Alcohol type: wine Patient Tobacco Use Status: Never used Tobacco Smoked in Last 30 Days: Yes e-Cigarette/Vaping Use: Never Used Use of substances other than those prescribed or required for medical reasons: No Currently Displaying Signs/Symptoms of Drug Intoxication Withdrawal: No Have you been hit, kicked, punched, or otherwise hurt by someone within the past year? If so, by whom?: No Is there a partner from a previous relationship who is making you feel unsafe now?: No Are you made to feel afraid or neglected: No Advance Directives: No Advance Directives Information Provided: No Do you have thoughts of harming others: None Do you have a plan to hurt others: No Plan Nutrition Risks: No Nutritional Risk Patient : No service: No Current occupational status: retired Cognitive needs: No Hearing needs: No Vision needs: Yes Meds Allergies Allergy/AdvReac Type Severity Reaction Status Date / Time levofloxacin [From Levaquin] Allergy Unknown RASH Verified 12/09/23 10:08 Active Medications: Current Medications Acetaminophen (Acetaminophen 325 Mg Tablet) 650 mg PO Q6H PRN PRN Reason: Pain, Mild (Pain Scale 1-3) Amlodipine Besylate (Amlodipine Besylate 5 Mg Tablet) 5 mg PO DAILY [facility]; Protocol Last Admin: 12/10/23 09:25 Dose: 5 mg Apixaban (Apixaban 5 Mg Tablet) 5 mg PO BID [facility] Last Admin: 12/10/23 09:24 Dose: 5 mg Benzonatate (Benzonatate 100 Mg Capsule) 100 mg PO TID PRN PRN Reason: Cough Docusate Sodium (Docusate Sodium 100 Mg Capsule) 100 mg PO DAILY PRN PRN Reason: Constipation Flecainide Acetate (Flecainide Acetate 50 Mg Tablet) 50 mg PO BID [facility] Last Admin: 12/10/23 09:25 Dose: 50 mg Hydrochlorothiazide (Hydrochlorothiazide 25 Mg Tablet) 25 mg PO DAILY [facility]; Protocol Last Admin: 12/10/23 09:25 Dose: 25 mg Melatonin (Melatonin 3 Mg Tablet) 6 mg PO BEDTIME PRN PRN Reason: Insomnia Metoclopramide HCl (Metoclopramide Hcl 5 Mg Tablet) 5 mg PO QIDACHS PRN PRN Reason: stomach pain Metoprolol Succinate (Metoprolol Succinate Er 25 Mg Tab.Er.24h) 25 mg PO DAILY [facility]; Protocol Last Admin: 12/10/23 09:25 Dose: 25 mg Omeprazole (Omeprazole 40 Mg Capsule.Dr) 40 mg PO BID@0630,1630 [facility] Last Admin: 12/10/23 05:06 Dose: 40 mg Ondansetron HCl (Ondansetron Hcl 4 Mg/2 Ml Vial) 4 mg IVPUSH Q8H PRN PRN Reason: Nausea and Vomiting Senna (Sennosides 8.6 Mg Tablet) 8.6 mg PO BEDTIME PRN PRN Reason: Constipation Sodium Chloride (0.9 % Sodium Chloride Flush 3 Ml Syringe) [facility] Last Admin: 12/10/23 09:26 Dose: 3 ml Home Medications ?Medication ?Instructions ?Recorded ?Confirmed ?Last Taken ?Type amlodipine 2.5 mg tablet 5 mg PO DAILY 12/09/23 12/09/23 12/08/23 History metoclopramide HCl 5 mg tablet 5 mg PO QIDACHS PRN stomach pain 12/09/23 12/09/23 12/08/23 History (Reglan) sennosides 8.6 mg tablet (Senna 8.6 mg PO BEDTIME PRN Constipation 12/09/23 12/09/23 Unknown History Laxative) Physical Exam Vital Signs: Vital Signs: Last Vital Signs Temp 97.7 F 12/10/23 11:15 Pulse 57 12/10/23 11:15 Resp 18 12/10/23 11:15 BP 132/60 12/10/23 11:15 Pulse Ox 94 12/10/23 11:15 O2 Del Method Room Air 12/10/23 11:15 BMI result Body Mass Index 26.3 Const: General: cooperative, comfortable, no acute distress, alert and awake Nutritional Appearance: average body habitus Orientation/consciousness: patient oriented x3 Limitations: no limitations HEENT: Head: Yes normocephalic and Yes atraumatic Neck: Neck: Yes trachea midline, Yes supple and Yes no JVD Resp: Effort & Inspection: normal respiratory effort Auscultation: clear to auscultation bilaterally Cardio: Jugular venous distension: no JVD Palpation: normal PMI Rate: regular rate Rhythm: regular rhythm Heart sounds: S1 normal heart sound present, S2 normal heart sound present, no click, no gallops and no murmurs GI: Auscultation: normal bowel sounds Skin: General skin exam: no rashes or lesions noted Neuro: General: patient oriented x3 and no focal motor deficits Extrem: General: Yes no clubbing, cyanosis or edema Psych: Appearance: grossly normal Objective Labs and Meds 12/09/23 10:55 12/09/23 10:55 Lab results: Laboratory Results - last 24 hr 12/09/23 10:42 Influenza Type A (PCR) NEGATIVE Influenza Type B (PCR) NEGATIVE RSV RNA Qual (PCR) NEGATIVE SARS-CoV-2 RNA (RT-PCR) NEGATIVE EKG as listed Imaging Radiologist's impression: Impressions Head/Neck CTA 12/09/23 12:55 IMPRESSION: 1. No acute intracranial abnormality including hemorrhage, mass effect, hydrocephalus, or acute territorial edematous infarction. 2. No arterial high grade stenosis or large vessel occlusion in the head or neck. Assessment and Plan (1) Dizziness: Status: Acute Dizziness which is unexplained. There is no clear evidence of orthostasis. Noted overnight to have sinus bradycardia. Sick sinus syndrome as possible although less likely. Would suggest to reduce metoprolol to 12.5 mg daily. Will require outpatient workup. She is scheduled for echocardiogram in January will pre permanent. Will also suggest a stress test. Meanwhile currently do not notice any cardiac etiology for her symptoms. Possible vertigo. Awaiting Neurology consultation. From cardiac perspective can be discharged home. Maintain adequate hydration. (2) Paroxysmal atrial fibrillation: Status: Acute Paroxysmal atrial fibrillation without any clear recurrence. Currently on flecainide therapy. Will need to evaluate for structural heart issues given her advanced age and symptoms of dizziness. There is no evidence of ventricular arrhythmias at this point time. Will continue with flecainide. Reduce metoprolol as above but requires to be continued given that she is on flecainide therapy. Continue full oral anticoagulation with no obvious source of bleeding or signs of bleeding noted. Will follow up in the clinic. Thank you for allowing us to partake in her care Procedures Date of Service Date of Service: 12/10/23
--- NOTE | 2023-12-10 15:00 | PM.NEUROCN ---
History of Present Illness Data of Consult Service Date: 12/10/23 Primary Care Provider: Mer Quinonez MD HPI Reason for consult: Syncope 83 years old woman with underlying history of atrial fibrillation and hypertension slept without any problem and woke up couple of times to urinate. Around 09:00 she finally woke up and was going to the bathroom when she fell lightheaded and dizzy and might have passed out. She said that something similar had happened once in the past when she was walking. There was no physical injury or witnessing of any convulsion. There was no headache. Review of Systems Review of Systems: No cold or flu-like illness or cardiac symptoms PMFSH Past Medical History Medical History Encounter for monitoring anti-arrhythmic therapy Hx of diverticulitis of colon Mixed dyslipidemia Hx of iron deficiency anemia Osteoarthritis of right knee Anemia Post-menopause Vaginal dryness, menopausal Urinary frequency Primary osteoarthritis involving multiple joints Osteoporosis Paroxysmal atrial fibrillation Essential hypertension History of colitis Family History Family History Father No problems noted. Mother No problems noted. Family/Other Cancer Brother History of kidney cancer Lung cancer, Onset Age: 65 Sister Breast cancer, Onset Age: 28 Surgical History Surgical History Diverticulitis large intestine Hx of total knee arthroplasty History of esophagogastroduodenoscopy (EGD) H/O colonoscopy Hx of hysterectomy History of mammogram Hx of total knee arthroplasty Hx of bilateral oophorectomy History of bladder suspension procedure History of repair of hiatal hernia (01/26/06) History of cholecystectomy Social History Social History Household Members: None Housing: Other Housing Other:: independent living Do you presently have visiting nurse or other home services: No Alcohol intake: current Alcohol intake frequency: holidays/special occasions only Alcohol type: wine Patient Tobacco Use Status: Never used Tobacco Smoked in Last 30 Days: Yes e-Cigarette/Vaping Use: Never Used Use of substances other than those prescribed or required for medical reasons: No Currently Displaying Signs/Symptoms of Drug Intoxication Withdrawal: No Have you been hit, kicked, punched, or otherwise hurt by someone within the past year? If so, by whom?: No Is there a partner from a previous relationship who is making you feel unsafe now?: No Are you made to feel afraid or neglected: No Advance Directives: No Advance Directives Information Provided: No Do you have thoughts of harming others: None Do you have a plan to hurt others: No Plan Nutrition Risks: No Nutritional Risk Patient : No service: No Current occupational status: retired Cognitive needs: No Hearing needs: No Vision needs: Yes Meds Allergies Allergy/AdvReac Type Severity Reaction Status Date / Time levofloxacin [From Levaquin] Allergy Unknown RASH Verified 12/09/23 10:08 Active Medications: Current Medications Acetaminophen (Acetaminophen 325 Mg Tablet) 650 mg PO Q6H PRN PRN Reason: Pain, Mild (Pain Scale 1-3) Amlodipine Besylate (Amlodipine Besylate 5 Mg Tablet) 5 mg PO DAILY [facility]; Protocol Last Admin: 12/10/23 09:25 Dose: 5 mg Apixaban (Apixaban 5 Mg Tablet) 5 mg PO BID [facility] Last Admin: 12/10/23 09:24 Dose: 5 mg Benzonatate (Benzonatate 100 Mg Capsule) 100 mg PO TID PRN PRN Reason: Cough Docusate Sodium (Docusate Sodium 100 Mg Capsule) 100 mg PO DAILY PRN PRN Reason: Constipation Flecainide Acetate (Flecainide Acetate 50 Mg Tablet) 50 mg PO BID [facility] Last Admin: 12/10/23 09:25 Dose: 50 mg Hydrochlorothiazide (Hydrochlorothiazide 25 Mg Tablet) 25 mg PO DAILY [facility]; Protocol Last Admin: 12/10/23 09:25 Dose: 25 mg Melatonin (Melatonin 3 Mg Tablet) 6 mg PO BEDTIME PRN PRN Reason: Insomnia Metoclopramide HCl (Metoclopramide Hcl 5 Mg Tablet) 5 mg PO QIDACHS PRN PRN Reason: stomach pain Metoprolol Succinate (Metoprolol Succinate Er 25 Mg Tab.Er.24h) 25 mg PO DAILY [facility]; Protocol Last Admin: 12/10/23 09:25 Dose: 25 mg Omeprazole (Omeprazole 40 Mg Capsule.Dr) 40 mg PO BID@0630,1630 [facility] Last Admin: 12/10/23 05:06 Dose: 40 mg Ondansetron HCl (Ondansetron Hcl 4 Mg/2 Ml Vial) 4 mg IVPUSH Q8H PRN PRN Reason: Nausea and Vomiting Senna (Sennosides 8.6 Mg Tablet) 8.6 mg PO BEDTIME PRN PRN Reason: Constipation Sodium Chloride (0.9 % Sodium Chloride Flush 3 Ml Syringe) 3 ml IVFLUSH QSHIFT [facility] Last Admin: 12/10/23 09:26 Dose: 3 ml Home Medications ?Medication ?Instructions ?Recorded ?Confirmed ?Last Taken ?Type amlodipine 2.5 mg tablet 5 mg PO DAILY 12/09/23 12/09/23 12/08/23 History metoclopramide HCl 5 mg tablet 5 mg PO QIDACHS PRN stomach pain 12/09/23 12/09/23 12/08/23 History (Reglan) sennosides 8.6 mg tablet (Senna 8.6 mg PO BEDTIME PRN Constipation 12/09/23 12/09/23 Unknown History Laxative) Physical Exam Vital Signs: Vital Signs: Last Vital Signs Temp 97.7 F 12/10/23 11:15 Pulse 57 12/10/23 11:15 Resp 18 12/10/23 11:15 BP 132/60 12/10/23 11:15 Pulse Ox 94 12/10/23 11:15 O2 Del Method Room Air 12/10/23 11:15 BMI result Body Mass Index 26.3 Neuro: Other: She is alert and awake with normal spontaneity of speech fluency comprehension and normal affect. Face is symmetrical. Visual max are full. Deep tendon reflexes are trace with flexor plantars. [id number] testing is normal. Speech is normal. Results Labs 12/09/23 10:55 12/09/23 10:55 Labs: Head CT revealed mild cerebral and cerebellar atrophy and minimal microvascular ischemic changes Assessment and Plan (1) Near syncope: Status: Acute 83 years old woman with couple of reported episodes of feeling lightheaded and dizzy an either passing out or feeling like she was going to pass out. Her blood pressure was not low and she was not medically sick. Despite that, in elderly, orthostasis is not uncommon upon waking up. She was advised to take appropriate precautions. As far as complex partial seizure disorder is concerned, which is also possibility, EEG is recommended as outpatient or while she is here. Procedures Date of Service Date of Service: 12/10/23
--- NOTE | 2023-12-10 16:10 | HO.PM.IMPN ---
Subjective Subjective Date of Service: 12/10/23 Interval History: dizziness Review of Systems still has dizziness denies any chest pain or sob orthostasis negative Physical Exam Vital Signs: Vital Signs: Last Vital Signs Temp 98.4 F 12/10/23 15:29 Pulse 59 12/10/23 15:29 Resp 18 12/10/23 15:29 BP 131/61 12/10/23 15:29 Pulse Ox 95 12/10/23 15:29 O2 Del Method Room Air 12/10/23 15:29 BMI result Body Mass Index 26.3 Appearance: Alert.? Oriented X3.? cvs: rrr, [id number] . res: clear to auscultation ,no rhonchii or wheezing abd: no rebound or guarding ,nt, bs present. ext pulses present , no cyanosis. neuro: axo3 , nonfocal. Objective Data Active Medications Acetaminophen (Acetaminophen 325 Mg Tablet) 650 mg PO Q6H PRN PRN Reason: Pain, Mild (Pain Scale 1-3) Amlodipine Besylate (Amlodipine Besylate 5 Mg Tablet) 5 mg PO DAILY [facility]; Protocol Last Admin: 12/10/23 09:25 Dose: 5 mg Documented By: JAMILA Apixaban (Apixaban 5 Mg Tablet) 5 mg PO BID [facility] Last Admin: 12/10/23 09:24 Dose: 5 mg Documented By: JAMILA Benzonatate (Benzonatate 100 Mg Capsule) 100 mg PO TID PRN PRN Reason: Cough Docusate Sodium (Docusate Sodium 100 Mg Capsule) 100 mg PO DAILY PRN PRN Reason: Constipation Flecainide Acetate (Flecainide Acetate 50 Mg Tablet) 50 mg PO BID [facility] Last Admin: 12/10/23 09:25 Dose: 50 mg Documented By: JAMILA Hydrochlorothiazide (Hydrochlorothiazide 25 Mg Tablet) 25 mg PO DAILY [facility]; Protocol Last Admin: 12/10/23 09:25 Dose: 25 mg Documented By: JAMILA Melatonin (Melatonin 3 Mg Tablet) 6 mg PO BEDTIME PRN PRN Reason: Insomnia Metoclopramide HCl (Metoclopramide Hcl 5 Mg Tablet) 5 mg PO QIDACHS PRN PRN Reason: stomach pain Metoprolol Succinate (Metoprolol Succinate Er 25 Mg Tab.Er.24h) 25 mg PO DAILY [facility]; Protocol Last Admin: 12/10/23 09:25 Dose: 25 mg Documented By: JAMILA Omeprazole (Omeprazole 40 Mg Ignacio.) 40 mg PO BID@0630,1630 [facility] Last Admin: 12/10/23 15:36 Dose: 40 mg Documented By: JASON Ondansetron HCl (Ondansetron Hcl 4 Mg/2 Ml Vial) 4 mg IVPUSH Q8H PRN PRN Reason: Nausea and Vomiting Senna (Sennosides 8.6 Mg Tablet) 8.6 mg PO BEDTIME PRN PRN Reason: Constipation Sodium Chloride (0.9 % Sodium Chloride Flush 3 Ml Syringe) 3 ml IVFLUSH QSHIFT [facility] Last Admin: 12/10/23 15:36 Dose: 3 ml Documented By: JASON Labs 12/09/23 10:55 12/09/23 10:55 Assessment and Plan (1) Dizziness: Status: Acute (2) Difficulty walking: Status: Acute Assessment and Plan: 83-year-old female with a PMH significant for?paroxysmal AFib on Eliquis, HTN, and irritable bowel syndrome who presents to the ED for evaluation of presyncopal episode with fall at home. Pt will be admitted to the hospital under observation for treatment and further evaluation presyncopal episode. Pre syncopal episode with fall at home Unclear etiology:? Differential includes neurocardiogenic CTA of head and neck negative for acute intracranial pathology or large vessel stenosis EKG NSR; CBC & CMP unremarkable; RSV/COVID/flu negative no clear cut evidence of orthostasis, but still symptomatic cardiology /neuroeval noted -adjusted metoprolol to 12.5 mg po bid Pt -possible need acute rehab. also added Ot eval. Monitor on telemetry Paroxysmal AFib Denies any chest pain/pressure, palpitations Reports last known to be in AFib many years ago EKG showing normal sinus rhythm Continue flecainide, metoprolol, Eliquis IBS/GERD Continue omeprazole, metoclopramide Full Code Attending:?Dr. Hdez DVT Prophylaxis: On Eliquis Patient will be hospital under observation treatment and further evaluation of presyncopal episode.: bradycardia overnight ,dizziness - Patient will require close cardiac monitoring and specialist consultation with Neurology and Cardiology with the possibility for additional imaging. ? rehab placement. Quality Stroke Does the patient have a stroke diagnosis?: No VTE Prior VTE?: No VTE Risk Level:: Medical - moderate - high VTE Device Contraindication: Treatment Not Indicated VTE Drug Contraindication: N/A - Med Ordered
--- NOTE | 2023-12-10 16:24 | MHC.CM.PN ---
PT REPORTS SHE LIVES ALONE AT [facility] SHE IS INDEPENDENT WITH CARE, HAS NO DME AND NO SERVICES SHE REPORTS SHE HAS A HCP AT HOME, COPY REQUESTED PCP: YAS MARTI OBSERVATION NOTICE DELIVERED DCP TBD: HOME WITH [facility] VS REHAB TRANSPORT TBD BY [facility]
[2023-12-11] VITALS (10 sets, daily range): BP systolic 126–149; BP diastolic 61–69; PULSE 56–70; RESP 16–18; TEMP 36.1–36.9; O2SAT 95–97
[2023-12-11] MEDS: Omeprazole 40 MG CAPSULE.DR PO ×2 (06:23→16:03)
[2023-12-11] MEDS: hydroCHLOROthiazide 12.5 MG TABLET PO (09:06)
[2023-12-11] MEDS: Metoprolol Tartrate 12.5 MG HALFTAB PO (09:06)
[2023-12-11] MEDS: 0.9 % Sodium Chloride Flush 3 ML SYRINGE IVFLUSH (09:07)
[2023-12-11] MEDS: amLODIPine Besylate 5 MG TABLET PO (09:07)
[2023-12-11] MEDS: Apixaban 5 MG TABLET PO ×2 (09:07→20:03)
[2023-12-11] MEDS: Flecainide Acetate 50 MG TABLET PO ×2 (09:07→20:03)
[2023-12-11] MEDS: Lactated Ringers 1,000 ML 100 ML IVCONT ×2 (09:11→20:03)
--- NOTE | 2023-12-11 14:25 | HO.PM.IMPN ---
Subjective Subjective Date of Service: 12/11/23 Interval History: dizziness Review of Systems feels dizzy , difficult to walk feels dizzy denies chest pain or sob Physical Exam Vital Signs: Vital Signs: Last Vital Signs Temp 97.0 F 12/11/23 07:44 Pulse 63 12/11/23 11:50 Resp 18 12/11/23 07:44 BP 146/63 H 12/11/23 11:50 Pulse Ox 95 12/11/23 07:44 O2 Del Method Room Air 12/11/23 07:44 BMI result Body Mass Index 26.3 Appearance: Alert.? Oriented X3.? mucousa -somewhat dry cvs: rrr, [id number] . res: clear to auscultation ,no rhonchii or wheezing abd: no rebound or guarding ,nt, bs present. ext pulses present , no cyanosis. neuro: axo3 , nonfocal. Objective Data Active Medications Acetaminophen (Acetaminophen 325 Mg Tablet) 650 mg PO Q6H PRN PRN Reason: Pain, Mild (Pain Scale 1-3) Amlodipine Besylate (Amlodipine Besylate 5 Mg Tablet) 5 mg PO DAILY [facility]; Protocol Last Admin: 12/11/23 09:07 Dose: 5 mg Documented By: ARMINDA Apixaban (Apixaban 5 Mg Tablet) 5 mg PO BID [facility] Last Admin: 12/11/23 09:07 Dose: 5 mg Documented By: ARMINDA Benzonatate (Benzonatate 100 Mg Capsule) 100 mg PO TID PRN PRN Reason: Cough Docusate Sodium (Docusate Sodium 100 Mg Capsule) 100 mg PO DAILY PRN PRN Reason: Constipation Flecainide Acetate (Flecainide Acetate 50 Mg Tablet) 50 mg PO BID [facility] Last Admin: 12/11/23 09:07 Dose: 50 mg Documented By: ARMINDA Hydrochlorothiazide (Hydrochlorothiazide 12.5 Mg Tablet) 12.5 mg PO DAILY [facility]; Protocol Last Admin: 12/11/23 09:06 Dose: 12.5 mg Documented By: ARMINDA Lactated Ringer's (Lr) 1,000 mls @ 100 mls/hr IVCONT .Q10H [facility] Last Infusion: 12/11/23 13:00 Dose: 100 mls/hr Documented By: ARMINDA Melatonin (Melatonin 3 Mg Tablet) 6 mg PO BEDTIME PRN PRN Reason: Insomnia Metoclopramide HCl (Metoclopramide Hcl 5 Mg Tablet) 5 mg PO QIDACHS PRN PRN Reason: stomach pain Metoprolol Tartrate (Metoprolol Tartrate 12.5 Mg Halftab) 12.5 mg PO BID [facility]; Protocol Last Admin: 12/11/23 09:06 Dose: 12.5 mg Documented By: ARMINDA Omeprazole (Omeprazole 40 Mg Capsule.) 40 mg PO BID@0630,1630 [facility] Last Admin: 12/11/23 06:23 Dose: 40 mg Documented By: DMITRI Ondansetron HCl (Ondansetron Hcl 4 Mg/2 Ml Vial) 4 mg IVPUSH Q8H PRN PRN Reason: Nausea and Vomiting Senna (Sennosides 8.6 Mg Tablet) 8.6 mg PO BEDTIME PRN PRN Reason: Constipation Sodium Chloride (0.9 % Sodium Chloride Flush 3 Ml Syringe) 3 ml IVFLUSH QSHIFT [facility] Last Admin: 12/11/23 09:07 Dose: 3 ml Documented By: ARMINDA Labs 12/09/23 10:55 12/09/23 10:55 Assessment and Plan (1) Dizziness: Status: Acute (2) Near syncope: Status: Acute Plan 83-year-old female with a PMH significant for?paroxysmal AFib on Eliquis, HTN, and irritable bowel syndrome who presents to the ED for evaluation of presyncopal episode with fall at home. Pt will be admitted to the hospital under observation for treatment and further evaluation presyncopal episode. Pre syncopal episode with fall at home Unclear etiology:? Differential includes neurocardiogenic CTA of head and neck negative for acute intracranial pathology or large vessel stenosis EKG NSR; CBC & CMP unremarkable; RSV/COVID/flu negative no clear cut evidence of orthostasis, but still symptomatic cardiology /neuroeval noted -adjusted metoprolol to 12.5 mg po bid , added eeg. Pt -possible need acute rehab. still has dizziness -Ivf trial possible dehration and prerenal azotemia , also added Ot eval. Monitor on telemetry Paroxysmal AFib Denies any chest pain/pressure, palpitations Reports last known to be in AFib many years ago EKG showing normal sinus rhythm Continue flecainide, metoprolol, Eliquis IBS/GERD Continue omeprazole, metoclopramide Full Code DVT Prophylaxis: On Eliquis ongoing hospitlisation stay for 48 -72 hrs -persistent dizziness , dehydration and prerenal azotemeia - need IVf and tele monitering ,as well as need EEg , Pt also recomeneded acute rehab. Quality Stroke Does the patient have a stroke diagnosis?: No VTE Prior VTE?: No VTE Risk Level:: Medical - moderate - high VTE Device Contraindication: Treatment Not Indicated VTE Drug Contraindication: N/A - Med Ordered
[2023-12-12] VITALS (9 sets, daily range): BP systolic 147–172; BP diastolic 63–108; PULSE 69–90; RESP 16–18; TEMP 36.1–37.1; O2SAT 97–99
--- NOTE | 2023-12-12 | EEG_ITS ---
This is a 16-channel EEG with an EKG lead. The patient is reported alert and awake during the tracing. Background EEG rhythm is mixed theta beta medium amplitude with no obvious asymmetry or paroxysmal tendency. Photic stimulation did not produce any significant abnormality. Hyperventilation is not performed. Cardiac lead did not reveal any significant abnormality. Frequent muscle and lead artifacts are noted. IMPRESSION: Mild slowing with no evidence of seizure disorder. MD LUZ MARIA Fitzgerald/NABIL / [phone]
[2023-12-12] MEDS: Omeprazole 40 MG CAPSULE.DR PO ×2 (06:03→15:48)
[2023-12-12] MEDS: Lactated Ringers 1,000 ML 100 ML IVCONT (06:04)
[2023-12-12] MEDS: hydroCHLOROthiazide 12.5 MG TABLET PO (08:40)
[2023-12-12] MEDS: Apixaban 5 MG TABLET PO ×2 (08:40→22:59)
[2023-12-12] MEDS: amLODIPine Besylate 5 MG TABLET PO (08:40)
[2023-12-12] MEDS: Flecainide Acetate 50 MG TABLET PO ×2 (08:40→22:59)
--- NOTE | 2023-12-12 09:31 | MHC.CM.PN ---
cm attempted to meet w/pt however pt off unit for EEG per hospitalist, cm to revisit, per hospitalist pt also being recommended acute rehab and referral to be placed.
[2023-12-12] MEDS: 0.9 % Sodium Chloride Flush 3 ML SYRINGE IVFLUSH ×2 (15:48→23:03)
--- NOTE | 2023-12-12 17:00 | P.PNIM_ITS ---
Subjective Subjective Date of Service: 12/12/23 Interval History: dizziness Review of Systems feels dizzy , difficult to walk feels dizzy denies chest pain or sob Physical Exam 2 Vital Signs: Vital Signs: Last Vital Signs Temp 98.1 F 12/12/23 15:43 Pulse 79 12/12/23 15:43 Resp 16 12/12/23 15:43 BP 160/65 H 12/12/23 15:43 Pulse Ox 97 12/12/23 15:43 O2 Del Method Room Air 12/12/23 15:43 BMI result Body Mass Index 26.3 Appearance: Alert.? Oriented X3.? mucousa -somewhat dry cvs: rrr, [id number] . res: clear to auscultation ,no rhonchii or wheezing abd: no rebound or guarding ,nt, bs present. ext pulses present , no cyanosis. neuro: axo3 , nonfocal Objective Data Active Medications Acetaminophen (Acetaminophen 325 Mg Tablet) 650 mg PO Q6H PRN PRN Reason: Pain, Mild (Pain Scale 1-3) Amlodipine Besylate (Amlodipine Besylate 5 Mg Tablet) 5 mg PO DAILY [facility]; Protocol Last Admin: 12/12/23 08:40 Dose: 5 mg Documented By: ARMINDA Apixaban (Apixaban 5 Mg Tablet) 5 mg PO BID [facility] Last Admin: 12/12/23 08:40 Dose: 5 mg Documented By: ARMINDA Benzonatate (Benzonatate 100 Mg Capsule) 100 mg PO TID PRN PRN Reason: Cough Docusate Sodium (Docusate Sodium 100 Mg Capsule) 100 mg PO DAILY PRN PRN Reason: Constipation Flecainide Acetate (Flecainide Acetate 50 Mg Tablet) 50 mg PO BID [facility] Last Admin: 12/12/23 08:40 Dose: 50 mg Documented By: ARMINDA Hydrochlorothiazide (Hydrochlorothiazide 12.5 Mg Tablet) 12.5 mg PO DAILY [facility]; Protocol Last Admin: 12/12/23 08:40 Dose: 12.5 mg Documented By: ARMINDA Melatonin (Melatonin 3 Mg Tablet) 6 mg PO BEDTIME PRN PRN Reason: Insomnia Metoclopramide HCl (Metoclopramide Hcl 5 Mg Tablet) 5 mg PO QIDACHS PRN PRN Reason: stomach pain Metoprolol Tartrate (Metoprolol Tartrate 12.5 Mg Halftab) 12.5 mg PO BID [facility]; Protocol Last Admin: 12/11/23 20:03 Dose: Not Given Documented By: JASON Non-Admin Reason: Physician Held Med Omeprazole (Omeprazole 40 Mg Capsule.Dr) 40 mg PO BID@0630,1630 [facility] Last Admin: 12/12/23 15:48 Dose: 40 mg Documented By: ARMINDA Ondansetron HCl (Ondansetron Hcl 4 Mg/2 Ml Vial) 4 mg IVPUSH Q8H PRN PRN Reason: Nausea and Vomiting Senna (Sennosides 8.6 Mg Tablet) 8.6 mg PO BEDTIME PRN PRN Reason: Constipation Sodium Chloride (0.9 % Sodium Chloride Flush 3 Ml Syringe) 3 ml IVFLUSH QSHIFT [facility] Last Admin: 12/12/23 15:48 Dose: 3 ml Documented By: ARMINDA Labs 12/09/23 10:55 12/09/23 10:55 Assessment and Plan (1) Dizziness: Status: Acute (2) Near syncope: Status: Acute Plan 83-year-old female with a PMH significant for?paroxysmal AFib on Eliquis, HTN, and irritable bowel syndrome who presents to the ED for evaluation of presyncopal episode with fall at home. Pt will be admitted to the hospital under observation for treatment and further evaluation presyncopal episode. Pre syncopal episode with fall at home Unclear etiology:? Differential includes neurocardiogenic CTA of head and neck negative for acute intracranial pathology or large vessel stenosis EKG NSR; CBC & CMP unremarkable; RSV/COVID/flu negative no clear cut evidence of orthostasis, but still symptomatic cardiology /neuroeval noted -adjusted metoprolol to 12.5 mg po bid , added eeg. Pt -possible need acute rehab. still has dizziness -Ivf trial possible dehration and prerenal azotemia , also added Ot eval. Monitor on telemetry Paroxysmal AFib Denies any chest pain/pressure, palpitations Reports last known to be in AFib many years ago EKG showing normal sinus rhythm Continue flecainide, metoprolol, Eliquis IBS/GERD Continue omeprazole, metoclopramide Full Code DVT Prophylaxis: On Eliquis ongoing hospitlisation stay for 48 -72 hrs -persistent dizziness , dehydration and prerenal azotemeia - need IVf and tele monitering ,as well as need EEg , Pt also recomeneded acute rehab. Quality Stroke Does the patient have a stroke diagnosis?: No VTE Prior VTE?: No VTE Risk Level:: Medical - moderate - high VTE Device Contraindication: Treatment Not Indicated VTE Drug Contraindication: N/A - Med Ordered
[2023-12-13] VITALS: BP 131/73; PULSE 74; RESP 20; TEMP 36.4
[2023-12-13 04:00] VITALS: BP 100/46; PULSE 70; RESP 20; TEMP 36.2
[2023-12-13] MEDS: Omeprazole 40 MG CAPSULE.DR PO ×2 (06:07→16:38)
[2023-12-13 07:59] VITALS: BP 140/66; PULSE 73; RESP 20; TEMP 36.1; O2SAT 99
[2023-12-13] MEDS: Apixaban 5 MG TABLET PO (08:33)
[2023-12-13] MEDS: Flecainide Acetate 50 MG TABLET PO (08:33)
--- NOTE | 2023-12-13 08:34 | MHC.CM.PN ---
LATE ENTRY NOTE FOR 12/12/23, CM MET W/PT TO DISCUSS DISPO, PT HAD JUST FINISHED WORKING W/P.T., PT REPORTS SHE IS DECLINING STR/ACUTE REHAB HOWEVER IS OPEN TO HOME P.T., PT REPORTS HER DTR IS AN RN AND THEREFORE DOES NOT NEED SN HOWEVER WILL ALLOW P.T. TO COME INTO HER HOME, NO PREFERENCES AND PT AGREEABLE TO REFERRAL TO [facility], CM WILL CONT TO FOLLOW DC NEEDS.
[2023-12-13] MEDS: 0.9 % Sodium Chloride Flush 3 ML SYRINGE IVFLUSH (08:35)
[2023-12-13] MEDS: LORazepam 0.5 MG TABLET 0.25 MG PO (10:25)
[2023-12-13 11:35] VITALS: BP 135/55; PULSE 77; RESP 17; TEMP 36.2; O2SAT 97
--- NOTE | 2023-12-13 13:09 | MHC.CM.PN ---
Pt medically cleared for dc home w/new [facility] for home OT/PT, pt's dtr for transport 4:30-5pm, pt's rn aware.
--- NOTE | 2023-12-13 13:26 | PM.DS ---
DS: Providers Provider Date of Service: 12/13/23 Date of admission: 12/11/23 13:25 Date of discharge: 12/13/23 Primary care physician: Mer Quinonez MD Consults: 12/09/23 14:37 Consult to Neurology Routine Consulting Provider: [facility] Reason for consultation: Pre-syncopal episode with fall at home 12/09/23 15:36 Consult to Cardiology Routine Consulting Provider: [facility] Reason for consultation: Pre-syncopal episode, hx of AFib on Eliquis and flecainide Attending physician on discharge: Padmaja Hdez Discharging clinician: Padmaja Hdez DS: Diagnosis Discharge Diagnosis (1) Dizziness: Status: Acute (2) Near syncope: Status: Acute DS: Summary Hospital Course Hospital Course: 83-year-old female with a PMH significant for?paroxysmal AFib on Eliquis, HTN, and irritable bowel syndrome who presents to the ED for evaluation of presyncopal episode with fall at home. Patient reports she was essentially in her normal state of health when she woke up this morning. [place] tired but states that has been her normal for awhile now. Went into the bathroom, sat on the toilet, and felt and aura like she was going to pass out before going to the bathroom. Began tipping to her right side, missed grabbing the safety rail and ended up on the floor. Denies head strike or any other trauma during the fall. Used a call rodriguez in the bathroom to reach out for help. When EMS arrived and helped her up she reports feeling lightheaded and dizzy with difficulty walking, though denies feeling like the room was spinning. Reports she has been eating and drinking normally. Has been complaint with medications and no recent medication changes. No recent illnesses. Denies any hemiparesis, numbness or tingling in extremities, dysarthria, or difficulty word finding. Reports one previous similar episode an unspecified long time ago . At that time pt was able to sit on the sofa until she felt better. Today in the ED pt was ambulated but felt wobbly and had difficutly walking. Denies chest pain/pressure, palpitations. No shortness of breath. Denies headache or acute vision changes. No fever, chills, nausea, vomiting, or abdominal pain. Of note, says it has been years since she was last known to be in AFib. In the ED pt was hypertensive up to 183/62, vitals otherwise WNL. Labs were grossly unremarkable. No leukocytosis. Stable H& H. No electrolyte abnormalities. Renal and hepatic function WNL. Troponin negative. BNP WNL. UA negative for UTI. Tested negative for flu, COVID, RSV. Ethyl alcohol levels undetectable. CTA of head and neck negative for acute intracranial abnormality including hemorrhage, mass effect, hydrocephalus, or acute territorial edematous infarction. Also negative for arterial high-grade stenosis or large vessel occlusion in the head or neck. EKG demonstrated sinus bradycardia 55 with pulmonary disease pattern and T-wave inversions in I, II, and aVL, the likely had limb lead reversal. Pt was treated with IVF, meclizine, and aspirin. Pt will be admitted to the hospital under observation for treatment and further evaluation presyncopal episode. Hospital course: Patient came to the hospital because of dizziness-etiology is unclear but possible related to dehydration and blood pressure medications: Patient's troponin negative, telemetry seems fine,Head Cta -negative , orthostasis negative, was evaluated by Cardiology and Neurology both. EEG also seems fine. Cardiology recommended to switch metoprolol to 12.5 mg b.i.d. due to bradycardia. Neurology recommended EEG which comes out to be okay. In addition amlodipine switched to 2.5 mg daily. Hydrochlorothiazide stopped With above supportive care including hydration and adjusting blood pressure medications-patient seems to be improved significantly ,currently asymptomatic. Seen by PT recommended rehab but patient not interested, patient will go home with PT OT. Above management discussed with the patient in detail length she understand and in agreement with the above plan. plan: Amlodipine adjusted to 2.5 mg daily, hydrochlorothiazide stopped, metoprolol changed to 12.5 mg b.i.d.. Patient was told to walk slowly and get up slowly also. Follow-up with PCP outpatient. Above management discussed with the patient in detail length she understand in agreement with the above plan, time spent 40 minute. Time Attestation Total time managing care of this patient today: 40 mintues. Discharge Coordination Time (in mins): 40 min Quality: Safe Use of Opioids Does Pt have an Active Cancer Diagnosis on the Problem List?: No Quality: Stroke Does the patient have a stroke diagnosis?: No Physical Exam Vital Signs: Vital Signs: Last Vital Signs Temp 97.2 F 12/13/23 11:35 Pulse 77 12/13/23 11:35 Resp 17 12/13/23 11:35 BP 135/55 L 12/13/23 11:35 Pulse Ox 97 12/13/23 11:35 O2 Del Method Room Air 12/13/23 11:35 BMI result Body Mass Index 26.3 Appearance: Alert.? Oriented X3.? mucousa -somewhat dry cvs: rrr, [id number] . res: clear to auscultation ,no rhonchii or wheezing abd: no rebound or guarding ,nt, bs present. ext pulses present , no cyanosis. neuro: axo3 , nonfocal Discharge Plan Discharge Anticipated Discharge Date/Time: 12/13/23 13:05 Patient Disposition: Home Health Service Discharge Diagnosis: htn ,dehydration/prerenal azotemia Referrals: Ernesto PURVIS [Outside] - 1 Day (HOME OCCUPATIONAL AND PHYSICAL THERAPY) Mer Quinonez MD [Primary Care Provider] - 1 Week Discharge Medications: New metoprolol tartrate 25 mg tablet 12.5 mg PO BID Qty: 120 0RF Continued flecainide 50 mg tablet 50 mg PO BID Qty: 180 3RF Eliquis 5 mg tablet 5 mg PO BID 90 Days Qty: 180 3RF Hold Instructions: Resume on 08/26/23. sennosides [Senna Laxative] 8.6 mg tablet 8.6 mg PO BEDTIME PRN (Reason: Constipation) metoclopramide HCl [Reglan] 5 mg tablet 5 mg PO QIDACHS PRN (Reason: stomach pain) omeprazole 40 mg capsule,delayed release(DR/EC) 40 mg PO BID 30 Days Qty: 180 1RF Changed amlodipine 2.5 mg tablet 2.5 mg PO DAILY Qty: 90 0RF Discontinued metoprolol succinate 25 mg tablet extended release 24 hr 25 mg PO DAILY Qty: 90 1RF hydrochlorothiazide 25 mg tablet 25 mg PO DAILY Qty: 90 1RF Discharge Orders: Discharge Order (Routine); Ordered 12/13/23 Ordered By: Padmaja Hdez Diet: Advance to usual diet Activity on Discharge: As tolerated Stand Alone Forms: Patient Portal Discharge page Print Language: Martiniquais Care Plan Goals: Patient came to the hospital because of dizziness-etiology is unclear but possible related to dehydration and blood pressure medications: Patient's troponin negative, telemetry seems fine,Head Cta -negative , orthostasis negative, was evaluated by Cardiology and Neurology both. EEG also seems fine. Cardiology recommended to switch metoprolol to 12.5 mg b.i.d. due to bradycardia. Neurology recommended EEG which comes out to be okay. In addition amlodipine switched to 2.5 mg daily. Hydrochlorothiazide stopped With above supportive care including hydration and adjusting blood pressure medications-patient seems to be improved significantly ,currently asymptomatic. Seen by PT recommended rehab but patient not interested, patient will go home with PT OT. Above management discussed with the patient in detail length she understand and in agreement with the above plan. Health Concerns: As above. Plan of Treatment: Amlodipine adjusted to 2.5 mg daily, hydrochlorothiazide stopped, metoprolol changed to 12.5 mg b.i.d.. Patient was told to walk slowly and get up slowly also. Follow-up with PCP outpatient. Assessment: As above.
--- NOTE | 2023-12-13 13:29 | W.MHC.F2F ---
Service Date Service Date: 12/13/23 Encounter Date of encounter: 12/13/23 Encounter: dizziness Reasons for Services Signs and symptoms assessed: dizziness Reason for shelter: CV/CP assess and/or care, medication management, medication treatment and teach disease management Reason for physical therapy: home safety and mobility, therapeutic exercises, restore joint function, gait/transfer training, assess need for DME, ADL training, energy conservation and other Reason for occupational therapy: home safety and mobility, therapeutic exercises, restore joint function, gait/transfer training, assess need for DME, ADL training, energy conservation and other MD Overseeing Care: Louisa Grijalva Homebound: Leaving the home is medically contraindicated at this time without the asist of a device and/or another person due th the listed conditions above and below. Reason homebound: weakness related to hospital stay Homebound supporting statement: Dizziness and generalized weak post hospitalization stay-need help to go to appointments, PT and OT Certification: Based on the above findings, I certify that this patient is confined to the home and needs intermittent shelter care, physical therapy and/or speech therapy, or continues to need occupational therapy. The patient is under my care, and I have initiated the establishment of the plan of care. The patient will be followed by a physician who will periodically review the plan of care. Time Spent With Patient Time: Total time managing care of this patient today ____ minutes.
--- NOTE | 2023-12-13 15:56 | P.F2F_ITS ---
Service Date Service Date: 12/13/23 Encounter Date of encounter: 12/13/23 Encounter: dizziness Reasons for Services Signs and symptoms assessed: dizziness Reason for physical therapy: home safety and mobility, therapeutic exercises, restore joint function, gait/transfer training, assess need for DME, ADL training, energy conservation and other Reason for occupational therapy: home safety and mobility, therapeutic exercises, restore joint function, gait/transfer training, assess need for DME, ADL training, energy conservation and other Homebound: Leaving the home is medically contraindicated at this time without the asist of a device and/or another person due th the listed conditions above and below. Reason homebound: weakness related to hospital stay Homebound supporting statement: patient with multiple comorbidities generalised weak post hospitlisation stay - need help with pt/ot. Certification: Based on the above findings, I certify that this patient is confined to the home and needs intermittent half-way care, physical therapy and/or speech therapy, or continues to need occupational therapy. The patient is under my care, and I have initiated the establishment of the plan of care. The patient will be followed by a physician who will periodically review the plan of care. Time Spent With Patient Time: Total time managing care of this patient today ____ minutes.
== END 2023-12-13 16:49 | disposition home health service (06) | DRG 641 ==
LOC: HO.ED 15:31 → HO.EDOVER 15:50 → HO.IMC 19:28
PROVIDERS: Admitting Provider Student in an Organized Health Care Education/Training Program; Emergency Provider Emergency Medicine; PCP Internal Medicine; Visit Provider Internal Medicine
DX: E86.0 Dehydration (principal); I10 Essential (primary) hypertension; I48.0 Paroxysmal atrial fibrillation; E78.5 Hyperlipidemia, unspecified; R55 Syncope and collapse; R42 Dizziness and giddiness; R00.1 Bradycardia, unspecified; T44.7X5A Adverse effect of beta-adrenoreceptor antagonists, initial encounter; K21.9 Gastro-esophageal reflux disease without esophagitis; K58.9 Irritable bowel syndrome, unspecified; Z20.822 Contact with and (suspected) exposure to COVID-19; Z79.01 Long term (current) use of anticoagulants; Z79.899 Other long term (current) drug therapy
CPT/HCPCS: 0241U; 36415; 70496; 70498; 80048; 80076; 80307; 81003; 83735; 83880; 84484; 85025; 86140; 93005; 95816; 97162; 97166; 97530; 99222; 99285; J7120; Q9967

== ENCOUNTER → 2023-12-09 10:13 | Outpatient (BNV) | payer MEDICARE, SELFPAY | PROVIDERS: Emergency Provider Emergency Medicine; Visit Provider Internal Medicine Cardiovascular Disease | DX: R00.1 Bradycardia, unspecified (principal) | CPT/HCPCS: 93010 ==

== ENCOUNTER → 2023-12-09 15:30 | Outpatient (BNV) | payer MEDICARE, SELFPAY | PROVIDERS: Admitting Provider Student in an Organized Health Care Education/Training Program; Emergency Provider Emergency Medicine; PCP Internal Medicine; Visit Provider Internal Medicine Cardiovascular Disease | DX: R42 Dizziness and giddiness (principal); I48.0 Paroxysmal atrial fibrillation | CPT/HCPCS: 99222 ==

== ENCOUNTER → 2023-12-09 15:30 | Outpatient (BNV) | payer MEDICARE, SELFPAY | PROVIDERS: Admitting Provider Student in an Organized Health Care Education/Training Program; Emergency Provider Emergency Medicine; PCP Internal Medicine; Visit Provider Student in an Organized Health Care Education/Training Program | DX: R42 Dizziness and giddiness (principal); R55 Syncope and collapse | CPT/HCPCS: 99222; 99231; 99239; G0180 ==

== ENCOUNTER → 2023-12-09 15:30 | Outpatient (BNV) | payer MEDICARE, SELFPAY | PROVIDERS: Admitting Provider Student in an Organized Health Care Education/Training Program; Emergency Provider Emergency Medicine; PCP Internal Medicine; Visit Provider Psychiatry & Neurology Neurology | DX: R55 Syncope and collapse (principal) | CPT/HCPCS: 99222 ==

== ENCOUNTER 2024-01-09 13:06 | Outpatient (AMB) | payer MEDICARE, SELFPAY ==
--- NOTE | 2024-01-09 13:28 | A.OFFPC_ITS ---
Vital Signs 01/09/24 13:31 Height 5 ft Weight 136 lb 6 oz BMI 26.6 BP 148/78 H Blood Pressure Location Lt brachial Position Sitting Pulse 67 Pulse Source Pulse Oximeter Pulse Oximetry (%) 98 Oxygen Delivery Method Room Air Intake Visit Reasons: ED f/u from 12/08/23 Allergies levofloxacin [From Levaquin] Allergy (Intermediate, Verified 05/08/24 01:33) RASH Medication List - Last Reconciled 05/08/24 by Mer Quinonez MD amlodipine 2.5 mg PO QAM apixaban (Eliquis) 5 mg PO BID 90 days buspirone 5 mg PO BID flecainide 50 mg PO BID metoclopramide HCl (Reglan) 5 mg PO QIDACHS PRN metoprolol succinate ER 12.5 mg PO BID omeprazole 40 mg PO BID@0630,1630 Tobacco use date assessed: 01/09/24 Fall risk assessment: 1 Fall in past year Last assessed Fall Risk: 01/09/24 Dental Screening Dental Screen Date: 01/09/24 Did you have a dental visit in the last 12 months?: No Did you have a dental problem in the last 6 months where you did not have access to dental care?: No Was dental information given to patient?: Patient has dentist HPI ED f/u from 12/08/23 HPI Details 83-year-old female with a past medical h istory significant for?paroxysmal AFib on Eliquis, HTN, and irritable bowel syndrome who is here for follow-up after recent hospital admission, where she presented for evaluation of presyncopal episode, with a fall at home. Patient reports she was essentially in her normal state of health when she woke up this morning. [place] tired but states that has been her normal for awhile now. Went into the bathroom, sat on the toilet, and felt and aura like she was going to pass out before going to the bathroom. Began tipping to her right side, missed grabbing the safety rail and ended up on the floor. Denies head strike or any other trauma during the fall. Used a call rodriguez in the bathroom to reach out for help. When EMS arrived and helped her up she reports feeling lightheaded and dizzy with difficulty walking, though denies feeling like the room was spinning. Reports she has been eating and drinking normally. Has been complaint with medications and no recent medication changes. No recent illnesses. Denies any hemiparesis, numbness or tingling in extremities, dysarthria, or difficulty word finding. Reports one previous similar episode an unspecified long time ago . At that time pt was able to sit on the sofa until she felt better. Blood pressure was elevated at ED at 183/62, vitals otherwise WNL, o rthostasis negative. . Labs were grossly unremarkable. No leukocytosis. Stable H& H. No electrolyte abnormalities. Renal and hepatic function WNL. Troponin negative. BNP WNL. UA negative for UTI. Tested negative for flu, COVID, RSV. Ethyl alcohol levels undetectable. CTA of head and neck negative for acute intracranial abnormality including hemorrhage, mass effect, hydrocephalus, or acute territorial edematous infarction. Also negative for arterial high-grade stenosis or large vessel occlusion in the head or neck. EKG demonstrated sinus bradycardia 55 with pulmonary disease pattern and T-wave inversions in I, II, and aVL, the likely had limb lead reversal. Pt was treated with IVF, meclizine, and aspirin.. She was evaluated by Cardiology and Neurology . Cardiology recommended to switch metoprolol to 12.5 mg b.i.d. due to bradycardia, amlodipine adjusted to 2.5 mg daily and hydrochlorothiazide was stopped. Neurology recommended EEG which comes out to be okay. In addition amlodipine switched to 2.5 mg daily. Hydrochlorothiazide stopped Seen by PT recommended rehab but patient not interested, patient receiving home with PT/OT. At present patient states that she has been feeling better, already receiving home PT/OT, has not had any further episodes of presyncope but still gets a little dizzy on sudden changes in position or getting up fast from a sitting or lying position. She however has been feeling anxious ever since her discharge from the hospital, she lives alone, sometimes unable to control her constant worrying. [facility] Medical History (Updated 05/08/24 @ 01:56 by Mer Quinonez MD) Diverticulitis Colitis GERD (gastroesophageal reflux disease) Anxiety Mixed dyslipidemia Hx of iron deficiency anemia Osteoarthritis of right knee Encounter for monitoring anti-arrhythmic therapy Post-menopause Vaginal dryness, menopausal Urinary frequency Primary osteoarthritis involving multiple joints Osteoporosis Paroxysmal atrial fibrillation Essential hypertension Surgical History History of esophagogastroduodenoscopy (EGD) H/O colonoscopy Hx of hysterectomy Hx of total knee arthroplasty Hx of bilateral oophorectomy History of bladder suspension procedure History of repair of hiatal hernia (01/26/06) History of cholecystectomy Family History Father No problems noted. Mother No problems noted. Family/Other Cancer Brother History of kidney cancer Lung cancer, Onset Age: 65 Sister Breast cancer, Onset Age: 28 Social History Household Members: None Housing: Apartment Housing Other:: resides at [facility] Are you a primary home care music therapist to a significant other at home: No Do you presently have visiting nurse or other home services: No Alcohol intake: current Alcohol intake frequency: holidays/special occasions only Alcohol type: wine Patient Tobacco Use Status: Former Tobacco user Tobacco use type: Cigarette Years Smoked: 2 e-Cigarette/Vaping Use: Never Used Advance Directives Date on File: 09/24/19 service: No Current occupational status: retired Cognitive needs: No Hearing needs: No Vision needs: Yes Questionnaire Thrive Questionnaire Date Thrive assessed: 12/10/23 AUDIT C Alcohol Use Questionnaire (AUDIT-C) 1. How often do you have a drink containing alcohol?: Never 3. How often do you have six or more drinks on one occasion?: Never Total Score: 0 Score Reviewed/Action Taken: Yes SERGIO-7 AMB Questionnaire SERGIO-7 Date SERGIO - 7 assessed: 01/09/24 Feeling nervous, anxious, or on edge: 1 = Several days Not being able to stop or control worryin = Several days Worrying too much about different things: 1 = Several days Trouble relaxin = Several days Being so restless that it is hard to sit still: 0 = Not at all Becoming easily annoyed or irritable: 1 = Several days Feeling afraid as if something awful might happen: 1 = Several days Total SERGIO-7 score (0-4 normal; 5-9 mild; 10-14 moderate; 15-21 severe): 6 Source: Developed by Hazel HickmanW. Jamaal, Ronnie Bueno and colleagues, with an educational patricia from [employer]. Review of Systems Const Reports as per HPI, Denies chills, Denies fatigue and Denies fever(s) Eyes Denies change in vision ENT Reports no additional complaints Card Reports as per HPI, Denies chest pain, Denies chest pain with activity, Denies syncope, Denies rapid heart rate, Denies leg edema, Denies palpitations, Denies dyspnea on exertion and Denies orthopnea Resp Denies cough and Denies dyspnea on exertion GI Reports no additional complaints Reports no additional complaints Musc Denies muscle weakness, Denies numbness, Denies radiating pain into limb and Denies tingling Skin/Breast Denies lesions and Denies rash Neuro Reports as per HPI, Denies Abnormal speech present, Denies syncope, Denies numbness and Denies tingling Psych Reports no additional complaints Endo Denies fatigue and Denies palpitations Geovanny/Lymph Reports no additional complaints Aller/Immun Reports no additional complaints Physical exam (Primary Care) Vital Signs: Last Vital Signs Pulse 67 01/09/24 13:31 BP 148/78 H 01/09/24 13:31 Pulse Ox 98 01/09/24 13:31 Oxygen Delivery Method Room Air 01/09/24 13:31 BMI result Body Mass Index 26.6 Tobacco/Smoking Status: Tobacco use Status Tobacco use date assessed 01/09/24 01/09/24 13:34 Patient Tobacco Use Status Never used Tobacco 01/09/24 13:30 e-Cigarette/Vaping Use Never Used 01/09/24 13:30 Thrive Assessment: Date of Thrive Assessment Date Thrive assessed 12/10/23 01/09/24 13:30 Const General: cooperative, comfortable and no acute distress Orientation/consciousness: patient oriented x3 HENMT Ears: hearing grossly normal bilaterally, external ears normal, TM's normal bilaterally and EAC's normal General nose exam: Normal external nose present, Normal nasal mucous membranes and turbinates present and No nasal discharge present Mouth: Normal oral and palatal mucosa present, oropharynx normal and moist mucous membranes Eyes General: appearance normal, both eyes and all related structures Conjunctivae: conjunctivae normal Pupils: Equal, round and reactive pupils present EOM: EOMs intact bilaterally Neck Neck: Yes full ROM, Yes no lymphadenopathy and Yes supple Resp Effort & Inspection: normal respiratory effort and able to speak in complete sentences Auscultation: clear to auscultation bilaterally Cardio Rate: regular rate Rhythm: regular rhythm Heart sounds: S1 normal heart sound present and S2 normal heart sound present GI Inspection: Yes normal to inspection Palpation (GI): Soft to palpation, nontender and no masses Auscultation: normal bowel sounds Back/Spine/Pelvis Cervical Spine: cervical ROM normal Thoracic/Lumbar Spine: thoracic and lumbar spine normal to inspection Skin General skin exam: no rashes or lesions noted Neuro General: patient oriented x3, gait normal, tone normal, moves all extremities, Normal light touch and pain sensation and no focal motor deficits Cranial nerves: Yes Equal, round and reactive pupils present Cognition (Neuro): normal cognition Speech: No Abnormal speech present Gait exam (Neuro): Normal gait present Motor exam (neuro): 5/5 motor strength present throughout Extrem General: Yes full ROM, Yes no joint enlargement, Yes no pedal edema and Yes normal gait Psych Appearance: grossly normal and well kempt Speech and movement: Normal speech and movement present Affect: normal affect Attitude: cooperative Thought process: Normal thought process present Results Reviewed Results Reviewed: Name: Alisa Castaneda Age/Sex: 83/F : 1940 Unit#: [id number] Attend Dr: Padmaja Hdez MD Re12/11/23 Status: DIS IN Location: [facility] 4821 Disch: 12/13/23 SPEC : [id number] ELIANE: 12/09/23 STATUS: COMP REQ : [id number] RECD: 12/09/[address]: Caleb Fuentes MD COMP: 12/09/23 ENTERED: 12/09/[address]: ORDERED: CBC Auto Diff Test Result Flag Reference WBC 7.5 4.8-10.8 X10*3/uL RBC 4.28 4.20-5.50 X10*6/uL HGB 13.3 12.0-16.0 g/dl HCT 39.1 37.0-47.0 % MCV 91.4 80.0-98.0 fL MCH 31.1 27.0-33.0 pg MCHC 34.0 31.0-35.0 g/dl RDW 13.2 11.0-16.0 % PLT 244 160-400 X10*3/uL MPV 9.0 L 9.4-12.3 fL Neut Pct Auto 63.2 45-73 % ImGran Pct Auto 0.3 0.0-0.4 % Lymp Pct Auto 28.1 20-40 % Pima Pct Auto 7.4 2-11 % Eos Pct Auto 0.7 0-4 % Baso Pct Auto 0.3 0-2 % NRBC Pct Auto 0.0 0.0-0.2 /100WBC ANC Neut Abs # 4.7 2.0-8.3 x10*3/uL ImGran Abs Auto 0.02 0.00-0.03 X10*3/uL Lymph Abs Auto 2.1 1.2-4.9 X10*3/uL Pima Abs Auto 0.6 0.1-1.2 X10*3/uL Eos Abs Auto 0.1 0.0-0.4 X10*3/uL Baso Abs Auto 0.0 0.0-0.2 X10*3/uL NRBC Abs Auto 0.000 0.0-0.012 X10*3/uL Name: Alisa Castaneda Age/Sex: 83/F : 1940 Unit#: [id number] Attend Dr: Padmaja Hdez MD Re12/11/23 Status: DIS IN Location: [facility] 481 Disch: 12/13/23 SPEC : [id number] ELIANE: 12/09/23 STATUS: COMP REQ : [id number] RECD: 12/09/23-[address]: Caleb Fuentes MD COMP: 12/09/23-1121 ENTERED: 12/09/23-[address]: ORDERED: Liver Panel, BMP, MG, C Reactive Prot, Ethanol Test Result Flag Reference Sodium 140 135-145 mmol/L Potassium 4.1 3.3-5.1 mmol/L CL 101 96-108 mmol/L CO2 29 22-29 mmol/L Gap 14 12-20 BUN 17 H 9-16 mg/dL Creat 0.72 0.5-1.4 mg/dL Estimated CrCl 47.5 Provided height and weight: 152.4 cm, 61.2 kg. eGFR (calculated from the MDRD study equation) and eCrCl (calculated from the Cockcroft-Gault equation) are based on different parameters and may not yield comparable results. If eCrCl result is absurd, please check patient's height/weight. EGFR > 60 NOTE: For -[place] individuals, multiply the result by 1.210. Chronic Kidney Disease: Estimated GFR < 60 mL/m in/1.73m2 Severe Kidney Disease: Estimated GFR < 15 mL/min/1.73m2 Glucose, Random 112 60-115 mg/dL CA 10.0 8.4-10.2 mg/dL Magnesium 1.9 1.6-2.6 mg/dL Total Bili 0.4 0.0-1.0 mg/dL Direct Bili 0.1 0.0-0.5 mg/dL AST (GOT) 14 5-31 U/L ALT (GPT) 12 0-31 U/L CRP 0.30 < or = 0.50 mg/dL Protein, Total 6.4 L 6.5-8.0 g/dL Alb 3.9 3.5-5.0 g/dL Alk Phos 52 39-117 U/L Ethanol < 10 mg/dL Serum/plasma ethanol results are to be used for medical/treatment purposes only. Assessment and Plan Assessment & Plan (1) Benign positional vertigo: Code(s): H81.10 - Benign paroxysmal vertigo, unspecified ear Qualifiers: Laterality: unspecified laterality Qualified Code(s): H81.10 - Benign paroxysmal vertigo, unspecified ear Plan: Referred to vestibular rehabilitation therapy for evaluation and treatment of possible benign positional vertigo. Given a prescription for meclizine 12.5 mg per tablet to take 1 tablet once a day only as needed for acute episodes of l ightheadedness (2) Paroxysmal atrial fibrillation: Comment: follows w/HCS Code(s): I48.0 - Paroxysmal atrial fibrillation Plan: Currently on flecainide and Eliquis (3) Essential hypertension: Code(s): I10 - Essential (primary) hypertension Plan: On amlodipine 2.5 mg daily, metoprolol succinate 12.5 mg 1 tab twice a day (4) Anxiety: Code(s): F41.9 - Anxiety disorder, unspecified Plan: Started on buspirone 5 mg per tablet taken 1 tablet twice a day. Patient however declines referral for counseling (5) Hospital discharge follow-up: Code(s): Z09 - Encounter for follow-up examination after completed treatment for conditions other than malignant neoplasm Orders: Orders PT Evaluation and Treatment 01/09/24 H81.10 - Benign paroxysmal vertigo, unspecified ear Medications: New buspirone 5 mg PO BID 60 tabs 1RF meclizine 12.5 mg PO DAILY PRN 10 tabs 0RF dizziness Coding Level of Care Code Est Pt Level 4 (05574) Complex EM visit Add On G2211 Diagnoses Benign paroxysmal positional vertigo, unspecified laterality H81.10 Laterality: unspecified laterality Paroxysmal atrial fibrillation I48.0 Essential hypertension I10 Anxiety F41.9 Hospital discharge follow-up Z09
[2024-01-09 13:31] VITALS: BP 148/78; PULSE 67; O2SAT 98; BMI 26.6
== END 2024-01-09 14:08 | disposition home or self-care (01) ==
PROVIDERS: PCP Internal Medicine; Visit Provider Internal Medicine
DX: H81.10 Benign paroxysmal vertigo, unspecified ear (principal); I48.0 Paroxysmal atrial fibrillation; I10 Essential (primary) hypertension; F41.9 Anxiety disorder, unspecified; Z09 Encounter for follow-up examination after completed treatment for conditions other than malignant neoplasm
CPT/HCPCS: 99214; G2211

== ENCOUNTER → 2024-01-16 12:39 | Outpatient (REF) | payer MEDICARE, SELFPAY ==
--- NOTE | 2024-01-16 12:54 | CA_ITS ---
Transthoracic Echocardiogram Patient (Last, First, Middle): Alisa Castaneda L Gender: Female Date of : 1940 Age: 83 Procedure Date: 01/16/2024 Procedure Type: Transthoracic Echocardiogram Location: OP Height: 152.4 cm Weight: 61.69 kg BSA: 1.58 m2 Heart Rate: 57 bpm BP: 148 / 74 mmHg Television Schedule Coordinator: SB Referring MD: William Hansen MD Marketing Production Specialist: Dawood Duncan MD Symptoms: Z51.81 - Encounter for therapeutic drug level monitoring Study Quality: Adequate ECG Rhythm: Bradycardia Conclusions: - 1. Normal LV ejection fraction of 60 65% with impaired relaxation filling pattern 2. Possible mild aortic stenosis 3. Normal RV systolic pressure 4. No gross pericardial effusion Findings Left Ventricle Normal left ventricular size, thickness, and systolic function. The visually estimated ejection fraction is between 60-65%. Spectral Doppler is indicative of an impaired relaxation filling pattern. E/E prime ratio is between 8 and 15 consistent with indeterminate filling pressures. Right Ventricle Normal right ventricular cavity size and systolic function. Atria The left atrium is likely dilated. Interatrial shunt cannot be excluded. The right atrium was not well visualized. Aortic Valve There is mild calcification of the aortic valve. There is mild aortic valve stenosis. There is no aortic valve regurgitation. Mitral Valve The mitral valve was not well visualized. There is mild anterior and posterior mitral leaflet thickening. There is mild mitral annular calcification. There is no mitral valve regurgitation. There is no mitral valve stenosis. Pulmonic Valve The pulmonic valve was not well visualized. Tricuspid Valve Likely normal tricuspid valve structure and function. There is trace tricuspid valve regurgitation. The right ventricular systolic pressure is normal. The right ventricular systolic pressure is 26 mmHg. Normal right atrial pressure. There is no evidence of pulmonary hypertension. Great Vessels The pulmonary artery was not well visualized. There is no dilatation of the ascending aorta measuring 2.90 cm. Small plaque is seen in the sino tubular ridge and ascending aorta. Venous The inferior vena cava is normal in size and collapses greater than 50% with inspiration. Pericardium/Pleural There is no evidence of pericardial effusion. Measurements 2D Linear Measurements IVSd: 0.80 0.6-0.9/0.6-1.0 cm LVIDd: 4.89 3.9-5.3/4.2-5.9 cm LVIDd Index: 3.09 2.4-3.2/2.2-3.1 cm/m2 LVIDs: 3.37 2.0-3.6 cm LVPWd: 0.71 0.7-1.1 cm LA Diam: 3.60 2.7-3.8/3.0-4.0 cm LAIDs Index: 2.28 1.5-2.3 cm/m2 LV Mass: 150.51 67-162/88-224 g LV Mass Index: 95.26 43-95/49-115 g/m2 LVOT Diam: 1.90 3.0+(-)1.3 cm 2D Systolic Function EF 4C: 67.70 >55% EF 2C: 63.40 >55% EF BiP: 65.20 >55% Mitral Valve MV Pk E: 0.58 MV PK A: 1.12 MV Decel Time: 245.00 E/A: 0.50 E'Lateral: 4.90 E'Medial: 5.22 E/E' Med: 11.10 E/E' Lat: 11.80 PHT: 72.00 MVA PHT: 3.06 Decel [place]: 2.36 Aortic Valve AoV Pk Nick: 1.80 AoV Mn Nick: 1.32 AoV VTI: 0.41 AoV Pk Grad: 13.00 Aov Mn Grad: 8.00 ELVIE Cont.VTI: 1.57 AI Pk Nick: 4.20 AI [place]: 1.48 LVOT LVOT Pk Nick: 0.92 LVOT Mn Nick: 0.61 LVOT VTI: 0.23 LVOT Pk Grad: 3.00 LVOT Mn Grad: 2.00 LVOT Diam: 1.90 LVOT Area: 2.84 Diastolic Function MV Pk E: 0.58 MV Pk A: 1.12 E/A: 0.50 E'Medial: 5.22 E/E' Med: 11.10 E' Laterial: 4.90 E/E' Lat: 11.80 Right Ventricle TAPSE (mm): 18.40 Tricuspid Valve TR Pk Nick: 2.39 TR Pk Grad: 23.00 RA Press: 3.00 RVSP: 26.00 Great Vessels Aorta Sinus of Valsalva: 2.40 2.0-3.5 cm Ao Asc: 2.90 2.1-3.4 cm Pulmonary Valve PV Pk Nick: 1.00 Peak PV Grad: 4.00 Updated in Other Vendor System with Status of Final Dawood Duncan MD electronically signed on 01/16/2024 3:18:46 PM with status of Final
== END ==
LOC: HO.CARD 12:39
PROVIDERS: PCP Internal Medicine; Visit Provider Internal Medicine
DX: I48.0 Paroxysmal atrial fibrillation (principal); Z79.899 Other long term (current) drug therapy
CPT/HCPCS: 93306

== ENCOUNTER → 2024-01-16 12:54 | Outpatient (BNV) | payer MEDICARE, SELFPAY | PROVIDERS: PCP Internal Medicine; Visit Provider Internal Medicine Cardiovascular Disease | DX: I35.0 Nonrheumatic aortic (valve) stenosis (principal); I34.81 Nonrheumatic mitral (valve) annulus calcification | CPT/HCPCS: 93306 ==

== ENCOUNTER 2024-02-02 13:11 | Outpatient (AMB) | payer MEDICARE, SELFPAY ==
[2024-02-02 13:26] VITALS: BP 134/62; PULSE 55; BMI 26.5
--- NOTE | 2024-02-02 13:26 | MHC.OFFVIS ---
Vital Signs 02/02/24 13:26 Height 5 ft Weight 135 lb 12.876 oz BMI 26.5 BP 134/62 Blood Pressure Location Lt brachial Position Sitting Pulse 55 Pulse Source Monitor Intake Visit Reasons: f/up echo/ event/ laura Instructor Ground Services Required: No Allergies levofloxacin [From Levaquin] Allergy (Unknown, Verified 02/02/24 13:28) RASH Medication List - Last Reconciled 02/02/24 by Bettie Ellsworth NP-C amlodipine 2.5 mg PO BID 90 days apixaban (Eliquis) 5 mg PO BID 90 days buspirone 5 mg PO BID flecainide 50 mg PO BID hydrochlorothiazide 25 mg PO DAILY metoclopramide HCl (Reglan) 5 mg PO QIDACHS PRN metoprolol succinate ER 25 mg PO DAILY omeprazole 40 mg PO BID 30 days sennosides (Senna Laxative) 8.6 mg PO BEDTIME PRN HPI HPI f/up echo/ event/ laura: Details: Alisa is an 83-year-old female with past medical history of hypertension, hyperlipidemia, paroxysmal atrial fibrillation who was recently admitted to [facility] with presyncope without acute findings. She was thought to have dehydration and medications were adjusted. Today she reports that since her hospital discharge she has been doing well. She resumed all her usual medications per the direction of Dr. Hansen. Upon discharge a cardiac event monitor and pharmacological nuclear stress test had been ordered however these have since been canceled. She was agreeable to do the echocardiogram. She did not want the other tests as they were not ordered by her primary mine environmental engineer. She is denying any shortness of breath, chest discomfort, heart palpitations, lightheadedness, presyncope, syncope, falls. Has been walking daily at her living facility. Taking all meds as directed. [facility] Medical History Encounter for monitoring anti-arrhythmic therapy Hx of diverticulitis of colon Mixed dyslipidemia Hx of iron deficiency anemia Osteoarthritis of right knee Anemia Post-menopause Vaginal dryness, menopausal Urinary frequency Primary osteoarthritis involving multiple joints Osteoporosis Paroxysmal atrial fibrillation Essential hypertension History of colitis Surgical History Diverticulitis large intestine Hx of total knee arthroplasty History of esophagogastroduodenoscopy (EGD) H/O colonoscopy Hx of hysterectomy History of mammogram Hx of total knee arthroplasty Hx of bilateral oophorectomy History of bladder suspension procedure History of repair of hiatal hernia (01/26/06) History of cholecystectomy Family History Father No problems noted. Mother No problems noted. Family/Other Cancer Brother History of kidney cancer Lung cancer, Onset Age: 65 Sister Breast cancer, Onset Age: 28 Social History Household Members: None Housing: Other Housing Other:: independent living Do you presently have visiting nurse or other home services: No Alcohol intake: current Alcohol intake frequency: holidays/special occasions only Alcohol type: wine Patient Tobacco Use Status: Never used Tobacco e-Cigarette/Vaping Use: Never Used service: No Current occupational status: retired Cognitive needs: No Hearing needs: No Vision needs: Yes Review of Systems Const All systems reviewed & are unremarkable except as noted in HPI and below ENT Denies dizziness Card Denies chest pain, Denies chest pain at rest, Denies chest pain with activity, Denies rapid heart rate, Denies pedal edema, Denies edema, Denies leg edema, Denies lightheadedness, Denies palpitations, Denies dyspnea, Denies dyspnea on exertion and Denies orthopnea Resp Denies cough, Denies dyspnea and Denies dyspnea on exertion GI Denies hematochezia and Denies change in stool character Musc Denies abnormal gait, Denies limited range of motion, Denies muscle cramps, Denies muscle weakness, Denies numbness, Denies radiating pain into limb, Denies stiffness and Denies tingling Neuro Denies abnormal gait, Denies dizziness, Denies numbness and Denies tingling Endo Denies palpitations Physical Exam Vital Signs: Last Vital Signs Pulse 55 02/02/24 13:26 BP 134/62 02/02/24 13:26 BMI result Body Mass Index 26.5 Const General: cooperative, healthy appearing, comfortable and no acute distress Orientation/consciousness: patient oriented x3 Neck Neck: Yes normal visual inspection and Yes no JVD Resp Effort & Inspection: normal respiratory effort Auscultation: clear to auscultation bilaterally, no crackles, no rales, no rhonchi and no wheezes Cardio Jugular venous distension: no JVD Rate: regular rate Rhythm: regular rhythm Heart sounds: S1 normal heart sound present, S2 normal heart sound present, no murmurs and no rubs Neuro General: patient oriented x3 Extrem General: Yes normal to inspection and No no pedal edema Psych Appearance: grossly normal Mental Status: mental status grossly normal Speech and movement: Normal speech and movement present Office Procedures EKG Details: Today, read by me, sinus bradycardia, voltage criteria for LVH, nonspecific T-wave abnormality, rate 57, QTC 445 milliseconds [id number], Complete Assessment & Plan Assessment & Plan (1) Near syncope: Code(s): R55 - Syncope and collapse Category: Medical Plan: Episode of near-syncope prior to recent [facility] admission. No acute findings identified through inpatient testing. She was thought to have dehydration. She was taken off her hydrochlorothiazide and metoprolol was changed to tartrate. As an outpatient a cardiac event monitor and pharmacological nuclear stress test were ordered. She did not want to complete these tests as they are not ordered or recommended by her primary mine environmental engineer. She agreed to do the echocardiogram which showed EF 60-65%, mild aortic stenosis, left atrium likely dilated, right atrium not well seen. Test results reviewed with her. At this point she has not had any recurrent lightheadedness, no presyncope, syncope or falls. She tells me she is back on her usual medication regime. She is feeling good and does not feel she needs any further testing or med adjustment. Blood pressure good at 134/62. EKG done today shows sinus bradycardia, nonspecific T-wave abnormality, rate 57. No med changes made. Reviewed need for good hydration, use caution when going sitting to standing, sit/lay down if she becomes lightheaded. She has a follow-up with Dr. Hansen in April which she would like to keep. (2) Paroxysmal atrial fibrillation: Code(s): I48.0 - Paroxysmal atrial fibrillation Category: Medical Plan: History of paroxysmal atrial fibrillation. Currently suppressed with flecainide and metoprolol. EKG done today showing sinus rhythm, rate 57 QTC 445 milliseconds. She is on Eliquis for anticoagulation. No bleeding issues reported. Will continue current treatment plan (3) Essential hypertension: Code(s): I10 - Essential (primary) hypertension Category: Medical Plan: Well controlled at this time (4) Hospital discharge follow-up: Code(s): Z09 - Encounter for follow-up examination after completed treatment for conditions other than malignant neoplasm Category: Medical Plan: As above Plan Time spent on chart review, documentation, interview and assessment Coding Level of Care Code Est Pt Level 4 (04910) Diagnoses Near syncope R55 Paroxysmal atrial fibrillation I48.0 Essential hypertension I10 Hospital discharge follow-up Z09 CPT Codes EKG - CPT: [id number], Complete ([id number]) Time Spent (min) 28
== END 2024-02-02 13:54 | disposition home or self-care (01) ==
PROVIDERS: PCP Internal Medicine; Visit Provider Nurse Practitioner Family
DX: R55 Syncope and collapse (principal); I48.0 Paroxysmal atrial fibrillation; I10 Essential (primary) hypertension; Z09 Encounter for follow-up examination after completed treatment for conditions other than malignant neoplasm
CPT/HCPCS: 93010; 99214

== ENCOUNTER → 2024-02-02 13:11 | Outpatient (BNVA) | payer MEDICARE, SELFPAY | PROVIDERS: PCP Internal Medicine; Visit Provider Nurse Practitioner Family | DX: Z09 Encounter for follow-up examination after completed treatment for conditions other than malignant neoplasm (principal); R55 Syncope and collapse; I48.0 Paroxysmal atrial fibrillation; I10 Essential (primary) hypertension | CPT/HCPCS: 93005; 99212 ==

== ENCOUNTER 2024-02-07 13:25 | Outpatient (AMB) | payer MEDICARE, SELFPAY ==
--- NOTE | 2024-02-07 13:36 | MHC.OFFVIS ---
Vital Signs 02/07/24 13:39 Height 5 ft Weight 137 lb BMI 26.8 BP 137/63 Blood Pressure Location Rt brachial Position Sitting Pulse 72 Intake Visit Reasons: experiencing colon issues Intake Note: Patient scheduled today's visit as has been experiencing colon issues. Was last seen by Sierra Conklin BASE DRAW OPERATOR/ GI on . F/u with December scheduled on 04-26-24. Upper EGD with Dr. Villasenor scheduled on 04-27-24. Patient c/o: LLQ abd pain that comes and goes but pain worsens if constipated. 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 She had a recent colonoscopy which demonstrated a diverticular stricture of the sigmoid colon. Please refer to June note. Because of recurrent and persistent of symptoms along with the colonoscopic findings, patient would like to consider operative intervention. Chart was reviewed and patient evaluated. Patient is currently on Eliquis for atrial fibrillation. [facility] Medical History Encounter for monitoring anti-arrhythmic therapy Hx of diverticulitis of colon Mixed dyslipidemia Hx of iron deficiency anemia Osteoarthritis of right knee Anemia Post-menopause Vaginal dryness, menopausal Urinary frequency Primary osteoarthritis involving multiple joints Osteoporosis Paroxysmal atrial fibrillation Essential hypertension History of colitis Surgical History Diverticulitis large intestine Hx of total knee arthroplasty History of esophagogastroduodenoscopy (EGD) H/O colonoscopy Hx of hysterectomy History of mammogram Hx of total knee arthroplasty Hx of bilateral oophorectomy History of bladder suspension procedure History of repair of hiatal hernia (01/26/06) History of cholecystectomy Family History Father No problems noted. Mother No problems noted. Family/Other Cancer Brother History of kidney cancer Lung cancer, Onset Age: 65 Sister Breast cancer, Onset Age: 28 Social History Household Members: None Housing: Other Housing Other:: independent living Do you presently have visiting nurse or other home services: No Alcohol intake: current Alcohol intake frequency: holidays/special occasions only Alcohol type: wine Patient Tobacco Use Status: Never used Tobacco e-Cigarette/Vaping Use: Never Used service: No Current occupational status: retired Cognitive needs: No Hearing needs: No Vision needs: Yes Physical Exam Vital Signs: Last Vital Signs Pulse 72 02/07/24 13:39 BP 137/63 02/07/24 13:39 BMI result Body Mass Index 26.8 Chest Other: Chest breath sounds bilaterally, HS 1 in 2 GI Other: Abdomen is mildly corpulent, soft, benign Assessment & Plan Assessment & Plan (1) Diverticular disease: Code(s): K57.90 - Diverticulosis of intestine, part unspecified, without perforation or abscess without bleeding Category: Surgical Plan I discussed with the patient therapeutic options which include conservative therapy or surgical intervention. We discussed the surgical procedure of sigmoid resection with the plan of a primary anastomosis. There would be a very small chance of a diverting ileostomy. Patient would receive a bowel prep day prior and then have surgery the following day in expect this bed anywhere from 2-5 days in the hospital postoperatively. Risks, benefits, alternatives of the procedure were reviewed and included but not limited to bleeding, infection, numbness, pain, scarring, anastomotic leak and the patient would like to consider her options and discuss this with her daughter. She will contact me should she wish to pursue any surgical intervention or has any questions. Coding Level of Care Code Est Pt Level 4 (91751) Diagnoses Diverticular disease K57.90
[2024-02-07 13:39] VITALS: BP 137/63; PULSE 72; BMI 26.8
== END 2024-02-07 13:52 | disposition home or self-care (01) ==
PROVIDERS: PCP Internal Medicine; Visit Provider Surgery
DX: K57.90 Diverticulosis of intestine, part unspecified, without perforation or abscess without bleeding (principal)
CPT/HCPCS: 99214

== ENCOUNTER → 2024-02-07 13:25 | Outpatient (BNVA) | payer MEDICARE, SELFPAY | PROVIDERS: PCP Internal Medicine; Visit Provider Surgery | DX: K57.90 Diverticulosis of intestine, part unspecified, without perforation or abscess without bleeding (principal) | CPT/HCPCS: 99212 ==

== ENCOUNTER 2024-02-08 13:00 | Outpatient (RCR) | payer MEDICARE, SELFPAY ==
[2024-01-12 12:50] VITALS: BP 140/65; PULSE 63
--- NOTE | 2024-01-16 08:42 | MHC.PT.EP ---
[facility] [place] Office [place] Office [place] Office [address] [phone] F: [phone] F: [phone] F: [phone] F: [phone] Physical Therapy Plan of Care Date of Evaluation: 01/13/24 Date of Surgery: Diagnosis: BPPV Assessment: ALLISON IS A PLEASANT 83 YO FEMALE WHO REPORTS ABOUT 1 MONTH AGO SHE HAD AN EPISODE OF DIZZINESS WHERE SHE FELL AND WAS BROUGHT TO ED [place] [facility]. SHE HAD A 3 DAY HOSPITAL STAY FOR DIZZINESS AND FATIGUE, CARDIAC WORK-UP. IT WAS RECOMMENDED SHE FOLLOW UP WITH OUTPT PT TO ASSESS VESTIBULAR SYMPTOMS. SHE STATES ROLLING IN BED CAUSES DIZZINESS, BETTER WITH WALKING AND MOVING. NOTES SYMPTOMS LAST FOR SECONDS AND SHE FEELS LIKE SHE IS GOING TO PASS OUT AND FEELS UNSTEADY ON FEET. UPON EXAM SHE DEMONSTRATES (+) SYMPTOMS IN RIGHT KLEVER HALLPIKE WHICH IMPROVED POST CRM. Frequency and Duration: The patient will be seen Short Term Goals: initiate HEP and promote self management of symptoms assess balance Dietitian Consultant Goals: Patient will negotiate community obstacles such as curbs, ramps and open spaces without LOB for a minimum of 1000 feet. Patient will demonstrate functional movement in all planes and directions without provocation of dizziness to show return to PLOF. Treatment Plan: Modalities to reduce pain, spasms and effusion. Manual therapy to restore motion and function. Therapeutic exercise to improve strength and flexibility. Neuromuscular re-education for posture and balance. Therapeutic activities to return to functional activities of daily living. Electronically signed by: ABBIE BUTLER PT DPT Please sign and return to therapist. Thank you for your referral.
== END 2024-03-28 10:18 | disposition home or self-care (01) ==
LOC: HO.PT 13:00
PROVIDERS: PCP Internal Medicine; Visit Provider Internal Medicine
DX: H81.10 Benign paroxysmal vertigo, unspecified ear (principal)
CPT/HCPCS: 95992; 97112; 97116; 97162; 97535

== ENCOUNTER 2024-03-15 06:57 | Inpatient (IN) | payer MEDICARE, SELFPAY ==
[2024-03-09 13:08] VITALS: BP 125/60; PULSE 59; RESP 20; O2SAT 97; BMI 26.6
--- NOTE | 2024-03-14 08:33 | MHC.SHP ---
Pre-Procedural Eval Section A - 24 Hr Update-Section A only Date of Service: 03/15/24 The patient is an INPATIENT: Yes Changes since office visit: No Cold of Flu in the past 2 weeks, No New Medical Problems, No Changes in Medication and No Patient answered all questions Section B - Complete if H&P > 30 days Chief Complaint: Diverticulosis of intestine, Allergies: Allergies Allergy/AdvReac Type Severity Reaction Status Date / Time levofloxacin [From Levaquin] Allergy Intermediate RASH Verified 03/09/24 12:53 Plan I have reviewed the history and physical and performed a pertinent physical examination on my patient. No changes have occurred unless specified. Time Spent With Patient Time: Total time managing care of this patient today ____ minutes.
--- NOTE | 2024-03-14 11:55 | HO.ANESPROP2 ---
Documented by User: Chinyere Lopez NP 03/14/24 11:58 HPI - Anesthesia Eval Consult details Narrative: 83yo F for Open Sigmoid Resection, lithotomy, proctoscopy PAT 03/09/[address] Yin Cardiac optimized Eliis for afib PMFSH Active Problems Active Problems: All Active Problems (Updated 03/09/24 @ 13:02 by Rachelle Champion, RN) Diverticular disease (Acute) Hospital discharge follow-up (Acute) Dizziness (Acute) Near syncope (Acute) Difficulty walking (Acute) Urinary tract infection (Acute) Fatigue (Acute) Gastritis determined by biopsy (Acute) Fundic gland polyposis of stomach (Acute) Tubular adenoma of colon (Acute) Chronic anticoagulation (Acute) Hx of diverticulitis of colon (Acute) Delayed gastric emptying (Acute) Sinus tachycardia (Acute) GERD (gastroesophageal reflux disease) (Acute) Irritable bowel syndrome with both constipation and diarrhea (Acute) Mixed dyslipidemia (Acute) Post-menopause (Acute) Vaginal dryness, menopausal (Acute) Primary osteoarthritis involving multiple joints (Acute) Osteoporosis (Acute) Paroxysmal atrial fibrillation (Acute) Essential hypertension (Acute) Past Medical History Medical History Diverticulitis Colitis GERD (gastroesophageal reflux disease) Anxiety Mixed dyslipidemia Hx of iron deficiency anemia Osteoarthritis of right knee Encounter for monitoring anti-arrhythmic therapy Post-menopause Vaginal dryness, menopausal Urinary frequency Primary osteoarthritis involving multiple joints Osteoporosis Paroxysmal atrial fibrillation Essential hypertension Family History Family History Father No problems noted. Mother No problems noted. Family/Other Cancer Brother History of kidney cancer Lung cancer, Onset Age: 65 Sister Breast cancer, Onset Age: 28 Family history of problems with anesthesia: No Surgical History Surgical History History of esophagogastroduodenoscopy (EGD) H/O colonoscopy Hx of hysterectomy Hx of total knee arthroplasty Hx of bilateral oophorectomy History of bladder suspension procedure History of repair of hiatal hernia (01/26/06) History of cholecystectomy History of Problems with Anesthesia: No Social History Social History Household Members: None Housing: Other Housing Other:: resides at [facility] Are you a primary furnace caretaker to a significant other at home: No Do you presently have visiting nurse or other home services: No (nursing home facility) Alcohol intake: current Alcohol intake frequency: holidays/special occasions only Alcohol type: wine Patient Tobacco Use Status: Former Tobacco user Tobacco use type: Cigarette Years Smoked: 2 e-Cigarette/Vaping Use: Never Used Use of substances other than those prescribed or required for medical reasons: No Have you been hit, kicked, punched, or otherwise hurt by someone within the past year? If so, by whom?: No Are you DNR?: No Advance Directives: Yes Advance Directives Information Provided: Yes Advance Directives on File: Yes Advance Directives Date on File: 09/24/19 Recently lost weight without trying: No Eating poorly because of decreased appetite: No Nutrition Risks: Surgical patient >75years Poor oral hygiene: No (1 missing tooth left upper molar) service: No Current occupational status: retired Cognitive needs: No Hearing needs: No Vision needs: Yes Meds Allergies Allergy/AdvReac Type Severity Reaction Status Date / Time levofloxacin [From Levaquin] Allergy Intermediate RASH Verified 03/15/24 06:04 Home Medications ?Medication ?Instructions ?Recorded ?Confirmed ?Last Taken ?Type metoclopramide HCl 5 mg tablet 5 mg PO QIDACHS PRN stomach pain 12/09/23 03/09/24 12/08/23 History (Reglan) amlodipine 2.5 mg tablet 5 mg PO QAM 03/09/24 03/09/24 03/15/24 05:00 History buspirone 5 mg tablet 5 mg PO QAM 03/09/24 03/09/24 03/14/24 History hydrochlorothiazide 25 mg tablet 25 mg PO QAM 03/09/24 03/09/24 03/14/24 History metoprolol succinate 25 mg 25 mg PO BEDTIME 03/09/24 03/09/24 03/14/24 History tablet,extended release 24 hr omeprazole 40 mg capsule,delayed 40 mg PO BID@0630,1630 03/15/24 03/15/24 03/15/24 05:00 History release Exam Height,Weight and Vital Signs: Height 5 ft Weight 61.689 kg Last Vital Signs Pulse 59 03/09/24 13:08 Resp 20 03/09/24 13:08 BP 125/60 03/09/24 13:08 Pulse Ox 97 03/09/24 13:08 O2 Del Method Room Air 03/09/24 13:08 Pertinent Lab Results Pertinent Lab Results: Laboratory Tests 03/09/24 14:00 Blood Type A Positive Antibody Screen NEGATIVE Laboratory Tests 12/09/23 10:55 WBC 7.5 Hgb 13.3 Hct 39.1 Plt Count 244 Sodium 140 Potassium 4.1 Chloride 101 Carbon Dioxide 29 BUN 17 H Creatinine 0.72 Narrative Narrative: EKG 01/2024 sinus bradycardia, voltage criteria for LVH, nonspecific T-wave abnormality, rate 57, QTC 445 milliseconds ECHO 01/2024 Conclusions: - 1. Normal LV ejection fraction of 60 65% with impaired relaxation filling pattern 2. Possible mild aortic stenosis 3. Normal RV systolic pressure 4. No gross pericardial effusion Assessment and Plan Assessment Anesthesia Assessment: Chart Reviewed Final Anesthetic Review Family History of Problems with Anesthesia: No History of Problems with Anesthesia: No Documented by User: Sakshi Olivas MD 03/15/24 09:07 [facility] Active Problems Active Problems: All Active Problems (Updated 03/15/24 @ 07:03 by Sakshi Olivas MD) Diverticular disease (Acute) Hospital discharge follow-up (Acute) Dizziness (Acute) Near syncope (Acute) Difficulty walking (Acute) Urinary tract infection (Acute) Fatigue (Acute) Gastritis determined by biopsy (Acute) Fundic gland polyposis of stomach (Acute) Tubular adenoma of colon (Acute) Chronic anticoagulation (Acute) Hx of diverticulitis of colon (Acute) Delayed gastric emptying (Acute) Sinus tachycardia (Acute) GERD (gastroesophageal reflux disease) (Acute) Irritable bowel syndrome with both constipation and diarrhea (Acute) Mixed dyslipidemia (Acute) Post-menopause (Acute) Vaginal dryness, menopausal (Acute) Primary osteoarthritis involving multiple joints (Acute) Osteoporosis (Acute) Paroxysmal atrial fibrillation (Acute). Last dose of eliquis 03/12/24 Essential hypertension (Acute) Sinus rhythm on monitor today pre-op Past Medical History Medical History Diverticulitis Colitis GERD (gastroesophageal reflux disease) Anxiety Mixed dyslipidemia Hx of iron deficiency anemia Osteoarthritis of right knee Encounter for monitoring anti-arrhythmic therapy Post-menopause Vaginal dryness, menopausal Urinary frequency Primary osteoarthritis involving multiple joints Osteoporosis Paroxysmal atrial fibrillation Essential hypertension Family History Family History Father No problems noted. Mother No problems noted. Family/Other Cancer Brother History of kidney cancer Lung cancer, Onset Age: 65 Sister Breast cancer, Onset Age: 28 Family history of problems with anesthesia: No Surgical History Surgical History History of esophagogastroduodenoscopy (EGD) H/O colonoscopy Hx of hysterectomy Hx of total knee arthroplasty Hx of bilateral oophorectomy History of bladder suspension procedure History of repair of hiatal hernia (01/26/06) History of cholecystectomy History of Problems with Anesthesia: Yes (PONV) Social History Social History Household Members: None Housing: Other Housing Other:: resides at [facility] [address] Are you a primary furnace caretaker to a significant other at home: No Do you presently have visiting nurse or other home services: No (nursing home facility) Alcohol intake: current Alcohol intake frequency: holidays/special occasions only Alcohol type: wine Patient Tobacco Use Status: Former Tobacco user Tobacco use type: Cigarette Years Smoked: 2 e-Cigarette/Vaping Use: Never Used Use of substances other than those prescribed or required for medical reasons: No Have you been hit, kicked, punched, or otherwise hurt by someone within the past year? If so, by whom?: No Are you DNR?: No Advance Directives: Yes Advance Directives Information Provided: Yes Advance Directives on File: Yes Advance Directives Date on File: 09/24/19 Recently lost weight without trying: No Eating poorly because of decreased appetite: No Nutrition Risks: Surgical patient >75years Poor oral hygiene: No (1 missing tooth left upper molar) service: No Current occupational status: retired Cognitive needs: No Hearing needs: No Vision needs: Yes Meds Allergies Allergy/AdvReac Type Severity Reaction Status Date / Time levofloxacin [From Levaquin] Allergy Intermediate RASH Verified 03/15/24 06:04 Home Medications ?Medication ?Instructions ?Recorded ?Confirmed ?Last Taken ?Type metoclopramide HCl 5 mg tablet 5 mg PO QIDACHS PRN stomach pain 12/09/23 03/09/24 12/08/23 History (Reglan) amlodipine 2.5 mg tablet 5 mg PO QAM 03/09/24 03/09/24 03/15/24 05:00 History buspirone 5 mg tablet 5 mg PO QAM 03/09/24 03/09/24 03/14/24 History hydrochlorothiazide 25 mg tablet 25 mg PO QAM 03/09/24 03/09/24 03/14/24 History metoprolol succinate 25 mg 25 mg PO BEDTIME 03/09/24 03/09/24 03/14/24 History tablet,extended release 24 hr omeprazole 40 mg capsule,delayed 40 mg PO BID@0630,1630 03/15/24 03/15/24 03/15/24 05:00 History release Exam Height,Weight and Vital Signs: Height 5 ft Weight 61.689 kg Last Vital Signs Pulse 59 03/09/24 13:08 Resp 20 03/09/24 13:08 BP 125/60 03/09/24 13:08 Pulse Ox 97 03/09/24 13:08 O2 Del Method Room Air 03/09/24 13:08 Vital Signs Temp Pulse Resp BP Pulse Ox O2 Del Method 03/15/24 06:33 97.4 F 66 16 151/64 H 96 Room Air Narrative Narrative: EKG 01/2024 sinus bradycardia, voltage criteria for LVH, nonspecific T-wave abnormality, rate 57, QTC 445 milliseconds ECHO 01/2024 Conclusions: - 1. Normal LV ejection fraction of 60-65% with impaired relaxation filling pattern 2. Possible mild aortic stenosis 3. Normal RV systolic pressure 4. No gross pericardial effusion Airway Mallampati Class: III TM Dist: >3cm Neck ROM: Full Loose/Missing/Broken Teeth: Yes (Missing molar Left top. Denies broken or loose teeth) Heart: RRR Lungs: CTAB Assessment and Plan Assessment Anesthesia Assessment: Anesthesia Plan Discussed, PAT Visit and Chart Reviewed Final Anesthetic Review Family History of Problems with Anesthesia: No History of Problems with Anesthesia: Yes (PONV) NPO: Yes ASA Class: III Final Preanesthetic Review: No Changes in Pt Med Stat, Meds/Allgs Chart Reviewed, Consent Obtained/Reviewed and Anes Risks/Benef Reviewed Patient Risk: Intermediate Procedure Risk: Intermediate Assessment/Block/Sedation in SS: Assess/Block/Sedation-SS Anesthetic Plan Anesthetic Plan: GA Disposition: Standard PACU and Inp. Admit - Standard Bed
[2024-03-15] VITALS (16 sets, daily range): BP systolic 102–151; BP diastolic 48–70; PULSE 59–72; RESP 12–20; TEMP 36.1–36.6; O2SAT 96–98; BMI 26.3; BMI 29.7
[2024-03-15] MEDS: Lactated Ringers 1,000 ML 100 ML IVCONT ×3 (06:38→16:55)
[2024-03-15] MEDS: Aprepitant 32 MG/4.4 ML VIAL IVPUSH (07:33)
--- NOTE | 2024-03-15 07:39 | P.HPSUR_ITS ---
Pre-Procedural Eval Section A - 24 Hr Update-Section A only Date of Service: 03/15/24 The patient is an INPATIENT: Yes Changes since office visit: No Cold of Flu in the past 2 weeks, No New Medical Problems, No Changes in Medication and No Patient answered all questions The patient has been examined within 24 hours of the surgical procedure. The History & Physical has been completed within 30 days and I have reviewed it.: Yes Section B - Complete if H&P > 30 days Chief Complaint: Postop bowel resection Details of Present Illness: See original H&P please Allergies: Allergies Allergy/AdvReac Type Severity Reaction Status Date / Time levofloxacin [From Levaquin] Allergy Intermediate RASH Verified 03/15/24 06:04 Review of Systems Sugical H&P ROS: Negative: Constitution, Cardiovascular, Respiratory, Neurological, Psychiatric, Hem-Onc, Allergic/Immunologic, Gastrointestinal, Gen itourinary, Musculoskeletal, Integumentary, Endocrine and Eyes/Ears/Nose/Throat Exam Surgical H&P Exam: Normal: HEENT, Normal: Heart, Normal: Lungs, Normal: Extremities, Normal: Abdomen, Normal: Skin and Normal: Neurological Plan I have reviewed the history and physical and performed a pertinent physical examination on my patient. No changes have occurred unless specified. Time Spent With Patient Time: Total time managing care of this patient today ____ minutes.
--- NOTE | 2024-03-15 09:05 | PHA.MEDREC ---
Pharmacy Consult ? Medication Reconciliation Pharmacy has completed the medication reconciliation. RN completed med rec, pharmacy reviewed
[2024-03-15] MEDS: Promethazine HCL 25 MG/ML VIAL 6.25 MG IM (09:58)
[2024-03-15] MEDS: HYDROmorphone HCl 0.5 MG/0.5 ML SYRINGE 0.25 MG IVPUSH ×2 (10:25→10:30)
--- NOTE | 2024-03-15 10:50 | W.PM.OPN ---
Operative Note Operative Note Date of Service: 03/15/24 Narrative: Preoperative diagnosis: [] Symptomatic sigmoid diverticular disease Postop diagnosis: [] The same Procedure [] open sigmoid resection with primary transanal colorectal anastomosis, proctosigmoidoscopy, enterolysis Surgeon: [] Benitez Summer Counselor: [] Marcelino Type of Anesthesia: [] General Indication for surgery: [] Symptomatic diverticular disease of the sigmoid colon. 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 Findings: [] Patient brought to the operating room, placed on operative table in supine position, after an adequate level of general anesthesia was induced, patient was placed in lithotomy position. Rectal exam was performed with no obvious pathology. Abdomen and peritoneum were then prepped and draped in usual sterile fashion. Using a small lower midline incision, this carried down through skin, subcutaneous tissue, and linea alba. Posterior fascia and peritoneum were opened and then entered uneventfully. Adhesions of small bowel and omentum were taken down and packed in the upper abdomen. Bookwalter retractor was then placed. Left colon and sigmoid colon were identified. Lateral peritoneal reflection was taken down to the rectosigmoid junction. Proximal colon was transected at the left colon/sigmoid colon junction using GROVER stapler. Mesentery to the sigmoid colon was then double firing of ligature device taken down to the pelvis. Retroperitoneum was not entered during dissection. Distal colon was transected with contour device of the rectosigmoid junction. The specimen sent to pathology. Proximal colon were was mobilized and reached the pelvis with no difficulty or tension. This was well perfused. Pursestring suture was then placed using running 2-0 Prolene suture because of the dissatisfaction with the pursestring device. Next the proximal colon was dilated and a 25 anvil was placed and pursestring suture uneventfully secured. Trans anal placement of the EEA stapler and trans rectal anastomosis with anvil was connected to stapler, uneventfully, fired, and 2 complete donuts obtained. Abdominal cavity was filled saline. Proximal left colon was digitally occluded and insufflation with the scope demonstrated no extravasation of air. Abdominal cavity was copiously irrigated, and secured hemostasis. Mass closure of the midline incision was performed using running 0 looped PDS. Skin was closed using interrupted inverted dermal 3-0 Vicryl sutures followed by Steri-Strips and sterile dressings. Wound was infiltrated 0.5% Marcaine at completion. Sponge, needle, and instrument counts were reported correct. Patient tolerated the procedure well and emerged from anesthesia stable condition. EBL minimal
--- NOTE | 2024-03-15 12:10 | P.CONHOSP_ITS ---
History of Present Illness Data of Consult Service Date: 03/15/24 Primary Care Provider: Mer Quinonez MD [facility] Reason for consult: Medical management This is a 83-year-old female with pertinent history of atrial fibrillation on Eliquis, hypertension, mood disorder, gastroesophageal reflux disease who underwent open sigmoid resection with colorectal anastomosis by Dr. Marquis on 03/15. Hospital medicine team consulted for medical management. Patient doing well postop. Is on 1 L supplemental oxygen. Denies any new complaints. States her pain is under control. Answering questions appropriately. No chest pain, shortness of breath, fever or chills. Review of Systems Constitutional: Constitutional: Reports no additional constitutional complaints Respiratory: Respiratory: Reports no additional respiratory complaints Gastrointestinal: Gastrointestinal: Reports no additional gastrointestinal complaints Genitourinary: Genitourinary: Reports no additional female genitourinary complaints PMFSH Medical History Diverticulitis Colitis GERD (gastroesophageal reflux disease) Anxiety Mixed dyslipidemia Hx of iron deficiency anemia Osteoarthritis of right knee Encounter for monitoring anti-arrhythmic therapy Post-menopause Vaginal dryness, menopausal Urinary frequency Primary osteoarthritis involving multiple joints Osteoporosis Paroxysmal atrial fibrillation Essential hypertension Family History Father No problems noted. Mother No problems noted. Family/Other Cancer Brother History of kidney cancer Lung cancer, Onset Age: 65 Sister Breast cancer, Onset Age: 28 Surgical History History of esophagogastroduodenoscopy (EGD) H/O colonoscopy Hx of hysterectomy Hx of total knee arthroplasty Hx of bilateral oophorectomy History of bladder suspension procedure History of repair of hiatal hernia (01/26/06) History of cholecystectomy Social History Household Members: None Housing: Other Housing Other:: resides at [address] Are you a primary rn progressive care to a significant other at home: No Do you presently have visiting nurse or other home services: No (residential facility) Alcohol intake: current Alcohol intake frequency: holidays/special occasions only Alcohol type: wine Patient Tobacco Use Status: Former Tobacco user Tobacco use type: Cigarette Years Smoked: 2 e-Cigarette/Vaping Use: Never Used Use of substances other than those prescribed or required for medical reasons: No Have you been hit, kicked, punched, or otherwise hurt by someone within the past year? If so, by whom?: No Are you DNR?: No Advance Directives: Yes Advance Directives Information Provided: Yes Advance Directives on File: Yes Advance Directives Date on File: 09/24/19 Recently lost weight without trying: No Eating poorly because of decreased appetite: No Nutrition Risks: Surgical patient >75years Poor oral hygiene: No (1 missing tooth left upper molar) service: No Current occupational status: retired Cognitive needs: No Hearing needs: No Vision needs: Yes Meds Allergies Allergy/AdvReac Type Severity Reaction Status Date / Time levofloxacin [From Levaquin] Allergy Intermediate RASH Verified 03/15/24 06:04 Active Medications: Current Medications Buspirone HCl (Buspirone Hcl 5 Mg Tablet) 5 mg PO DAILY [facility] Calcium Carbonate (Calcium Carbonate 750 Mg Tab.Chew) 750 mg PO Q4H PRN PRN Reason: Heartburn Flecainide Acetate (Flecainide Acetate 50 Mg Tablet) 50 mg PO BID [facility] Lactated Ringer's (Lr) 1,000 mls @ 100 mls/hr IVCONT .Q10H [facility] Last Infusion: 03/15/24 11:15 Dose: Infused Acetaminophen (Ofirmev) 1,000 mg in 100 mls @ 400 mls/hr IV Q6H [facility] Magnesium Hydroxide (Milk Of Magnesia 30 Ml Oral.Susp) 30 ml PO DAILY PRN PRN Reason: Constipation Melatonin (Melatonin 3 Mg Tablet) 6 mg PO BEDTIME PRN PRN Reason: Insomnia Metoclopramide HCl (Metoclopramide Hcl 5 Mg Tablet) 5 mg PO QIDACHS PRN PRN Reason: stomach pain Metoprolol Succinate (Metoprolol Succinate Er 25 Mg Tab.Er.24h) 25 mg PO BEDTIME [facility]; Protocol Morphine Sulfate (Morphine Sulfate 2 Mg/Ml Cartridge) 2 mg IVPUSH Q3H PRN; Protocol PRN Reason: Pain, Severe (Pain Scale 7-10) Omeprazole (Omeprazole 40 Mg Capsule.Dr) 40 mg PO BID@0630,1630 [facility] Ondansetron HCl (Ondansetron Hcl 4 Mg/2 Ml Vial) 4 mg IVPUSH Q6H PRN PRN Reason: Nausea Oxycodone HCl (Oxycodone Hcl Immed Release 5 Mg Tablet) 5 mg PO Q4H PRN PRN Reason: Pain, Moderate(Pain Scale 4-6) Sodium Chloride (0.9 % Sodium Chloride Flush 3 Ml Syringe) 3 ml IVFLUSH QSHIFT [facility] Medications ?Medication ?Instructions ?Recorded ?Confirmed ?Last Taken ?Type metoclopramide HCl 5 mg tablet 5 mg PO QIDACHS PRN stomach pain 12/09/23 03/09/24 12/08/23 History (Reglan) amlodipine 2.5 mg tablet 5 mg PO QAM 03/09/24 03/09/24 03/15/24 05:00 History buspirone 5 mg tablet 5 mg PO QAM 03/09/24 03/09/24 03/14/24 History hydrochlorothiazide 25 mg tablet 25 mg PO QAM 03/09/24 03/09/24 03/14/24 History metoprolol succinate 25 mg 25 mg PO BEDTIME 03/09/24 03/09/24 03/14/24 History tablet,extended release 24 hr omeprazole 40 mg capsule,delayed 40 mg PO BID@0630,1630 03/15/24 03/15/24 03/15/24 05:00 History release Physical Exam Vital Signs and Narrative: Vital Signs: Last Vital Signs Temp 97.5 F 03/15/24 11:51 Pulse 60 03/15/24 11:51 Resp 14 03/15/24 11:51 BP 123/52 L 03/15/24 11:10 Pulse Ox 98 03/15/24 11:51 O2 Del Method Nasal Cannula 03/15/24 11:51 O2 Flow Rate 1 03/15/24 11:51 BMI result Body Mass Index 26.3 Middle-aged female lying in bed in no distress Neck supple, no JVD Regular rate and rhythm, S1-S2 heard Regular breath sounds bilaterally, no wheezing or crackles appreciated Abdomen with dressing in place Patient is awake, alert and oriented to self, place, time and person ; no focal motor deficit Psych: Normal mood No pedal edema Assessment and Plan (1) Atrial fibrillation: Status: Acute Plan This is a 83-year-old female with pertinent history of atrial fibrillation on Eliquis, hypertension, mood disorder, gastroesophageal reflux disease who underwent open sigmoid resection with colorectal anastomosis by Dr. Marquis on 03/15. #. Postop day 0 status post sigmoid resection: Management as per General surgery #. Postop respiratory insufficiency: Currently on 1 L. Continue incentive spirometry. Wean as tolerated #. Hypertension: Hold hydrochlorothiazide, amlodipine to prevent postop hypotension and until appetite returns. Resume once BP sustains >140/90. On b nicole #. AFib: Rate controlled. On flecainide and metoprolol. Resume Eliquis once okay with surgery #. Gastroesophageal reflux disease: On PPI Patient is medically stable. Will sign off. Please call if we can help
[2024-03-15] MEDS: Acetaminophen 1,000 MG/100 ML PIGGYBACK 400 MG IV ×3 (12:34→23:55)
[2024-03-15] MEDS: busPIRone HCl 5 MG TABLET PO (12:40)
[2024-03-15] MEDS: oxyCODONE HCl Immed Release 5 MG TABLET PO ×2 (14:37→21:21)
[2024-03-15] MEDS: Omeprazole 40 MG CAPSULE.DR PO (16:55)
[2024-03-15] MEDS: Flecainide Acetate 50 MG TABLET PO (21:20)
[2024-03-15] MEDS: Metoprolol Succinate ER 25 MG TAB.ER.24H PO (21:20)
[2024-03-16] MEDS: Lactated Ringers 1,000 ML 100 ML IVCONT ×3 (00:07→15:48)
[2024-03-16 03:18] VITALS: BP 143/66; PULSE 59; RESP 18; TEMP 36.8; O2SAT 95
[2024-03-16] MEDS: Omeprazole 40 MG CAPSULE.DR PO ×2 (05:33→15:47)
[2024-03-16] MEDS: oxyCODONE HCl Immed Release 5 MG TABLET PO ×4 (05:39→21:44)
[2024-03-16 06:12] LABS: MANUAL DIFF FLAG NO
[2024-03-16 06:20] LABS: Basophils Percent Auto 0.1 % (0-2); Hematocrit 33.4 % (37.0-47.0); Hemoglobin 10.9 g/dl (12.0-16.0); Imm Gran Abs Auto 0.04 X10*3/uL (0.00-0.03); Imm Gran Pct Auto 0.4 % (0.0-0.4); Lymphocytes Absolute Auto 1.4 X10*3/uL (1.2-4.9); Lymphocytes Percent Auto 12.3 % (20-40); Mean Corpuscular HGB Conc 32.6 g/dl (31.0-35.0); Mean Corpuscular Hemoglobin 29.9 pg (27.0-33.0); Mean Corpuscular Volume 91.5 fL (80.0-98.0); Mean Platelet Volume 9.7 fL (9.4-12.3); Monocytes Absolute Auto 0.8 X10*3/uL (0.1-1.2); Neutrophils Absolute Auto 8.9 x10*3/uL (2.0-8.3); Neutrophils Percent Auto 80.2 % (45-73); Platelet Count 235 X10*3/uL (160-400); Red Blood Count 3.65 X10*6/uL (4.20-5.50); Red Cell Distribution Width 13.5 % (11.0-16.0)
[2024-03-16 06:42] LABS: Anion Gap 10 (12-20); Blood Urea Nitrogen 7 mg/dL (9-16); Calcium 8.9 mg/dL (8.4-10.2); Carbon Dioxide 24 mmol/L (22-29); Chloride 106 mmol/L (96-108); Creatinine Clr Calc Pharmacy 61.5; Estimated Glomerular Filt Rate > 60; Glucose Fasting 109 mg/dL (60-99); Potassium 3.4 mmol/L (3.3-5.1); Sodium 137 mmol/L (135-145)
[2024-03-16 08:00] VITALS: BP 132/62; PULSE 74; RESP 14; TEMP 36.6; O2SAT 95
--- NOTE | 2024-03-16 08:16 | P.PNGS_ITS ---
Subjective Subjective Date of Service: 03/16/24 Interval history: Chapman was removed last night. Has been OOB and ambulating to restroom without difficulty. Tolerating clear liquids but has no significant appetite. Denies nausea but reports belching. Denies flatus. Physical Exam 2 Vital Signs: Vital Signs: Last Vital Signs Temp 97.9 F 03/16/24 08:00 Pulse 74 03/16/24 08:00 Resp 14 03/16/24 08:00 BP 132/62 03/16/24 08:00 Pulse Ox 95 03/16/24 08:00 O2 Del Method Room Air 03/16/24 08:00 O2 Flow Rate 1 03/15/24 11:51 BMI result Body Mass Index 29.7 Const: General: comfortable, no acute distress and alert O rientation/consciousness: patient oriented x3 Resp: Effort & Inspection: normal respiratory effort GI: Inspection: No distended and Yes incision (dressing c/d/i) Palpation (GI): Soft to palpation, Tenderness to palpation present (GI) (mild incisional) and no guarding Skin: General skin exam: no rashes or lesions noted Neuro: General: patient oriented x3 Objective Data Active Medications Buspirone HCl (Buspirone Hcl 5 Mg Tablet) 5 mg PO DAILY [facility] Last Admin: 03/15/24 12:40 Dose: 5 mg Documented By: YEE Calcium Carbonate (Calcium Carbonate 750 Mg Tab.Chew) 750 mg PO Q4H PRN PRN Reason: Heartburn Flecainide Acetate (Flecainide Acetate 50 Mg Tablet) 50 mg PO BID [facility] Last Admin: 03/15/24 21:20 Dose: 50 mg Documented By: MARCELA Lactated Ringer's (Lr) 1,000 mls @ 100 mls/hr IVCONT .Q10H [facility] Last Admin: 03/16/24 00:07 Dose: 100 mls/hr Documented By: MARCELA Acetaminophen (Ofirmev) 1,000 mg in 100 mls @ 400 mls/hr IV Q6H [facility] Last Admin: 03/16/24 05:41 Dose: Not Given Documented By: MARCELA Non-Admin Reason: med contraindication Magnesium Hydroxide (Milk Of Magnesia 30 Ml Oral.Susp) 30 ml PO DAILY PRN PRN Reason: Constipation Melatonin (Melatonin 3 Mg Tablet) 6 mg PO BEDTIME PRN PRN Reason: Insomnia Metoclopramide HCl (Metoclopramide Hcl 5 Mg Tablet) 5 mg PO QIDACHS PRN PRN Reason: stomach pain Metoprolol Succinate (Metoprolol Succinate Er 25 Mg Tab.Er.24h) 25 mg PO BEDTIME [facility]; Protocol Last Admin: 03/15/24 21:20 Dose: 25 mg Documented By: MARCELA Morphine Sulfate (Morphine Sulfate 2 Mg/Ml Cartridge) 2 mg IVPUSH Q3H PRN; Protocol PRN Reason: Pain, Severe (Pain Scale 7-10) Omeprazole (Omeprazole 40 Mg Capsule.Dr) 40 mg PO BID@0630,1630 [facility] Last Admin: 03/16/24 05:33 Dose: 40 mg Documented By: MARCELA Ondansetron HCl (Ondansetron Hcl 4 Mg/2 Ml Vial) 4 mg IVPUSH Q6H PRN PRN Reason: Nausea Oxycodone HCl (Oxycodone Hcl Immed Release 5 Mg Tablet) 5 mg PO Q4H PRN PRN Reason: Pain, Moderate(Pain Scale 4-6) Last Admin: 03/16/24 05:39 Dose: 5 mg Documented By: MARCELA Sodium Chloride (0.9 % Sodium Chloride Flush 3 Ml Syringe) [facility] Last Admin: 03/16/24 00:11 Dose: Not Given Documented By: MARCELA Non-Admin Reason: IV Running Labs 03/16/24 05:29 03/16/24 05:29 Labs: Laboratory Results - last 24 hr 03/16/24 05:29 MCV 91.5 MCH 29.9 MCHC 32.6 RDW 13.5 Plt Count 235 MPV 9.7 Immature Gran % (Auto) 0.4 Neut % (Auto) 80.2 H Lymph % (Auto) 12.3 L Beckham % (Auto) 7.0 Eos % (Auto) 0.0 Baso % (Auto) 0.1 Lymph # (Auto) 1.4 Beckham # (Auto) 0.8 Eos # (Auto) 0.0 Baso # (Auto) 0.0 Abs Immat Gran (auto) 0.04 H Absolute Neuts (auto) 8.9 H Absolute Nucleated RBC 0.000 Nucleated RBC % (auto) 0.0 Anion Gap 10 L Estim Creat Clear Calc 61.5 Estimated GFR > 60 Fasting Glucose 109 H Calcium 8.9 D Procedures Date of Service Date of Service: 03/16/24 Progress Note: A&P Assessment and plan (1) S/P colon resection: Status: Acute Plan POD #1 s/p open sigmoid resection with primary transanal colorectal anastomosis, proctosigmoidoscopy, enterolysis. Overall doing well post op. Good pain control, OOB and ambulating. No evidence of GI function. VSS. Abd benign with clean and intact dressings, appropriate post op tenderness. Labs reviewed. Cont clear liquids for now, encouraged OOB/ambulation, cont pain control. Await return of GI function. Patient comfortable with plan. Resume eliquis tomorrow. Time Spent With Patient Time: Total time managing care of this patient today ____ minutes. Quality Stroke Does the patient have a stroke diagnosis?: No VTE Prior VTE?: No VTE Risk Level:: Surgical - low VTE Device Contraindication: N/A - Device Ordered VTE Drug Contraindication: Treatment Not Indicated
--- NOTE | 2024-03-16 09:04 | HO.POSTANES ---
Post Anesthesia Evaluation Post Anesthesia Evaluation Date of Service: 03/16/24 Vital Signs: Vital Signs Temp Pulse Resp BP Pulse Ox O2 Del Method 03/16/24 08:00 97.9 F 74 14 132/62 95 Room Air 03/16/24 03:18 98.2 F 59 18 143/66 H 95 Room Air 03/15/24 21:20 63 123/58 L Anesthesia: General Endotracheal-GETA Mental Status: Awake Pain Control: Satisfactory Nausea/Vomiting: None Hydration: Adequate Anesthesia-Related Issues: No Anes. Related Issues
[2024-03-16] MEDS: busPIRone HCl 5 MG TABLET PO (09:11)
[2024-03-16] MEDS: Flecainide Acetate 50 MG TABLET PO ×2 (09:11→21:40)
[2024-03-16] MEDS: Acetaminophen 1,000 MG/100 ML PIGGYBACK 400 MG IV ×3 (11:58→23:31)
--- NOTE | 2024-03-16 12:40 | MHC.CM.PN ---
IMM delivered. Patient reports she lives @ [facility]. Independent w/ ADL's. Meals provided by [facility]. Denies use of DME or outside services. PCP: Mer Quinonez MD Reports she has an HCP w/ daughter Shira listed as [facility]. Daughter will bring in copy tomorrow. DP: Per surgeon, patient will require VNA for SN. Patient has used [facility] in the past and prefers to use their services again. Referral sent via [employer]. Daughter/Son-in-law will transport home.
[2024-03-16 15:09] VITALS: BP 145/67; PULSE 91; RESP 18; TEMP 37.2; O2SAT 92
[2024-03-16 19:20] VITALS: BP 133/60; PULSE 58; RESP 20; TEMP 37.1; O2SAT 94
[2024-03-16 21:40] VITALS: BP 135/80; PULSE 71
[2024-03-16] MEDS: Metoprolol Succinate ER 25 MG TAB.ER.24H PO (21:40)
[2024-03-16] MEDS: Lactated Ringers 1,000 ML 60 ML IVCONT (23:31)
[2024-03-17 03:51] VITALS: BP 169/73; PULSE 65; RESP 16; TEMP 36.2; O2SAT 94
[2024-03-17] MEDS: Acetaminophen 1,000 MG/100 ML PIGGYBACK 400 MG IV ×4 (05:42→23:22)
[2024-03-17] MEDS: Omeprazole 40 MG CAPSULE.DR PO ×2 (05:42→16:26)
[2024-03-17 07:37] VITALS: BP 150/69; PULSE 59; RESP 16; TEMP 36.3; O2SAT 93
[2024-03-17] MEDS: oxyCODONE HCl Immed Release 5 MG TABLET PO ×2 (08:59→14:23)
[2024-03-17] MEDS: Flecainide Acetate 50 MG TABLET PO ×2 (08:59→20:51)
[2024-03-17] MEDS: busPIRone HCl 5 MG TABLET PO (08:59)
[2024-03-17] MEDS: Apixaban 5 MG TABLET PO ×2 (08:59→20:51)
--- NOTE | 2024-03-17 09:38 | PM.PNGS ---
Subjective Subjective Date of Service: 03/17/24 Interval history: States that she has been passing flatus Also had small amounts of BMs Good pain control Physical Exam Vital Signs: Vital Signs: Last Vital Signs Temp 97.3 F 03/17/24 07:37 Pulse 59 03/17/24 07:37 Resp 16 03/17/24 07:37 BP 150/69 H 03/17/24 07:37 Pulse Ox 93 03/17/24 07:37 O2 Del Method Room Air 03/17/24 07:37 O2 Flow Rate 1 03/15/24 11:51 BMI result Body Mass Index 29.7 Const: Other: Sitting on recliner General: comfortable and no acute distress Resp: Effort & Inspection: normal respiratory effort Cardio: Rate: regular rate GI: Other: Incision clean and dry Palpation (GI): Soft to palpation Objective Data Active Medications Apixaban (Apixaban 5 Mg Tablet) 5 mg PO BID@0800,1999 [facility] Last Admin: 03/17/24 08:59 Dose: 5 mg Documented By: PADMAJA Buspirone HCl (Buspirone Hcl 5 Mg Tablet) 5 mg PO DAILY [facility] Last Admin: 03/17/24 08:59 Dose: 5 mg Documented By: PADMAJA Calcium Carbonate (Calcium Carbonate 750 Mg Tab.Chew) 750 mg PO Q4H PRN PRN Reason: Heartburn Flecainide Acetate (Flecainide Acetate 50 Mg Tablet) 50 mg PO BID [facility] Last Admin: 03/17/24 08:59 Dose: 50 mg Documented By: PADMAJA Acetaminophen (Ofirmev) 1,000 mg in 100 mls @ 400 mls/hr IV Q6H [facility] Last Infusion: 03/17/24 06:09 Dose: Infused Documented By: TINY Magnesium Hydroxide (Milk Of Magnesia 30 Ml Oral.Susp) 30 ml PO DAILY PRN PRN Reason: Constipation Melatonin (Melatonin 3 Mg Tablet) 6 mg PO BEDTIME PRN PRN Reason: Insomnia Metoclopramide HCl (Metoclopramide Hcl 5 Mg Tablet) 5 mg PO QIDACHS PRN PRN Reason: stomach pain Metoprolol Succinate (Metoprolol Succinate Er 25 Mg Tab.Er.24h) 25 mg PO BEDTIME [facility]; Protocol Last Admin: 03/16/24 21:40 Dose: 25 mg Documented By: TINY Morphine Sulfate (Morphine Sulfate 2 Mg/Ml Cartridge) 2 mg IVPUSH Q3H PRN; Protocol PRN Reason: Pain, Severe (Pain Scale 7-10) Omeprazole (Omeprazole 40 Mg Capsule.Dr) 40 mg PO BID@0630,1630 [facility] Last Admin: 03/17/24 05:42 Dose: 40 mg Documented By: TINY Ondansetron HCl (Ondansetron Hcl 4 Mg/2 Ml Vial) 4 mg IVPUSH Q6H PRN PRN Reason: Nausea Oxycodone HCl (Oxycodone Hcl Immed Release 5 Mg Tablet) 5 mg PO Q4H PRN PRN Reason: Pain, Moderate(Pain Scale 4-6) Last Admin: 03/17/24 08:59 Dose: 5 mg Documented By: PADMAJA Sodium Chloride (0.9 % Sodium Chloride Flush 3 Ml Syringe) [facility] Last Admin: 03/17/24 08:59 Dose: Not Given Documented By: PADMAJA Non-Admin Reason: IV Running Labs 03/16/24 05:29 03/16/24 05:29 Procedures Date of Service Date of Service: 03/17/24 Progress Note: A&P Assessment and plan (1) S/P colon resection: Status: Acute Assessment and Plan: Doing well postoperatively We will advance diet to regular Getting out of bed to recliner Voiding well Pain management BP control - had been seen by the hospitalist service Time Spent With Patient Time: Total time managing care of this patient today ____ minutes. Quality Stroke Does the patient have a stroke diagnosis?: No VTE Prior VTE?: No VTE Risk Level:: Surgical - low VTE Device Contraindication: N/A - Device Ordered VTE Drug Contraindication: Treatment Not Indicated
[2024-03-17] MEDS: amLODIPine Besylate 5 MG TABLET PO (10:30)
[2024-03-17 15:03] VITALS: BP 122/58; PULSE 65; RESP 18; TEMP 36.8; O2SAT 93
--- NOTE | 2024-03-17 19:07 | PC.NURSE ---
Pt feeling bloated and belching. Ate 1/4 of dinner. Encouraged to drink fluids eat minimally. Ambulated in holley x3 7a-7p shift.
[2024-03-17 19:59] VITALS: BP 176/76; PULSE 76; RESP 20; TEMP 36.4; O2SAT 97
[2024-03-17 20:51] VITALS: BP 176/76; PULSE 76
[2024-03-17] MEDS: Metoprolol Succinate ER 25 MG TAB.ER.24H PO (20:51)
[2024-03-17] MEDS: 0.9 % Sodium Chloride Flush 3 ML SYRINGE IVFLUSH (20:51)
[2024-03-18 04:00] VITALS: BP 171/79; PULSE 76; RESP 18; TEMP 36.4; O2SAT 93
[2024-03-18] MEDS: ondansetron HCL 4 MG/2 ML VIAL IVPUSH (04:27)
[2024-03-18] MEDS: Omeprazole 40 MG CAPSULE.DR PO ×2 (05:34→15:45)
[2024-03-18 07:46] VITALS: BP 156/67; PULSE 65; RESP 18; TEMP 36.3; O2SAT 94
[2024-03-18 07:51] VITALS: BP 156/67
[2024-03-18] MEDS: Apixaban 5 MG TABLET PO ×2 (07:51→21:03)
[2024-03-18] MEDS: busPIRone HCl 5 MG TABLET PO (07:51)
[2024-03-18] MEDS: 0.9 % Sodium Chloride Flush 3 ML SYRINGE IVFLUSH ×2 (07:51→14:28)
[2024-03-18] MEDS: Flecainide Acetate 50 MG TABLET PO ×2 (07:51→21:03)
[2024-03-18] MEDS: amLODIPine Besylate 5 MG TABLET PO (07:51)
[2024-03-18] MEDS: oxyCODONE HCl Immed Release 5 MG TABLET PO ×2 (07:51→19:18)
--- NOTE | 2024-03-18 10:07 | P.PNGS_ITS ---
Subjective Subjective Date of Service: 03/18/24 Interval history: States that she is ?okay? Passing flatus Had BMs yesterday Tolerating diet but with small amounts Does state that she feels occasionally ?gassy? especially with meals Physical Exam 2 Vital Signs: Vital Signs: Last Vital Signs Temp 97.4 F 03/18/24 07:46 Pulse 65 03/18/24 07:46 Resp 18 03/18/24 07:46 BP 156/67 H 03/18/24 07:51 Pulse Ox 94 03/18/24 07:46 O2 Del Method Room Air 03/18/24 07:46 O2 Flow Rate 1 03/15/24 11:51 BMI result Body Mass Index 29.7 Const: Other: Sitting on recliner General: comfortable and no acute distress Resp: Effort & Inspection: normal respiratory effort Cardio: Rate: regular rate GI: Other: Incisions clean and dry Palpation (GI): Soft to palpation, not firm and no guarding Objective Data Active Medications Amlodipine Besylate (Amlodipine Besylate 5 Mg Tablet) 5 mg PO DAILY [facility]; Protocol Last Admin: 03/18/24 07:51 Dose: 5 mg Documented By: PADMAJA Apixaban (Apixaban 5 Mg Tablet) 5 mg PO BID@0800,2000 [facility] Last Admin: 03/18/24 07:51 Dose: 5 mg Documented By: PADMAJA Buspirone HCl (Buspirone Hcl 5 Mg Tablet) 5 mg PO DAILY [facility] Last Admin: 03/18/24 07:51 Dose: 5 mg Documented By: PADMAJA Calcium Carbonate (Calcium Carbonate 750 Mg Tab.Chew) 750 mg PO Q4H PRN PRN Reason: Heartburn Flecainide Acetate (Flecainide Acetate 50 Mg Tablet) 50 mg PO BID [facility] Last Admin: 03/18/24 07:51 Dose: 50 mg Documented By: PADMAJA Acetaminophen (Ofirmev) 1,000 mg in 100 mls @ 400 mls/hr IV Q6H [facility] Last Admin: 03/18/24 05:35 Dose: Not Given Documented By: TINY Non-Admin Reason: Patient Refused Magnesium Hydroxide (Milk Of Magnesia 30 Ml Oral.Susp) 30 ml PO DAILY PRN PRN Reason: Constipation Melatonin (Melatonin 3 Mg Tablet) 6 mg PO BEDTIME PRN PRN Reason: Insomnia Metoclopramide HCl (Metoclopramide Hcl 5 Mg Tablet) 5 mg PO QIDACHS PRN PRN Reason: stomach pain Metoprolol Succinate (Metoprolol Succinate Er 25 Mg Tab.Er.24h) 25 mg PO BEDTIME [facility]; Protocol Last Admin: 03/17/24 20:51 Dose: 25 mg Documented By: TINY Morphine Sulfate (Morphine Sulfate 2 Mg/Ml Cartridge) 2 mg IVPUSH Q3H PRN; Protocol PRN Reason: Pain, Severe (Pain Scale 7-10) Omeprazole (Omeprazole 40 Mg Capsule.Dr) 40 mg PO BID@0630,1630 [facility] Last Admin: 03/18/24 05:34 Dose: 40 mg Documented By: TINY Ondansetron HCl (Ondansetron Hcl 4 Mg/2 Ml Vial) 4 mg IVPUSH Q6H PRN PRN Reason: Nausea Last Admin: 03/18/24 04:27 Dose: 4 mg Documented By: TINY Oxycodone HCl (Oxycodone Hcl Immed Release 5 Mg Tablet) 5 mg PO Q4H PRN PRN Reason: Pain, Moderate(Pain Scale 4-6) Last Admin: 03/18/24 07:51 Dose: 5 mg Documented By: PADMAJA Sodium Chloride (0.9 % Sodium Chloride Flush 3 Ml Syringe) [facility] Admin: 03/18/24 07:51 Dose: 3 ml Documented By: PADMAJA Labs 03/16/24 05:29 03/16/24 05:29 Procedures Date of Service Date of Service: 03/18/24 Progress Note: A&P Assessment and plan (1) S/P colon resection: Status: Acute Assessment and Plan: Clinically looks well Abdomen soft and benign She says she has not ready to be discharged today Possible DC home tomorrow Out of bed and ambulate Pain management Time Spent With Patient Time: Total time managing care of this patient today ____ minutes. Quality Stroke Does the patient have a stroke diagnosis?: No VTE Prior VTE?: No VTE Risk Level:: Surgical - low VTE Device Contraindication: N/A - Device Ordered VTE Drug Contraindication: Treatment Not Indicated
[2024-03-18] MEDS: Acetaminophen 1,000 MG/100 ML PIGGYBACK 400 MG IV (11:58)
[2024-03-18 15:00] VITALS: BP 146/67; PULSE 70; RESP 16; TEMP 36.9; O2SAT 96
[2024-03-18 18:53] VITALS: BP 149/65; PULSE 74; RESP 16; TEMP 37; O2SAT 95
[2024-03-18 21:03] VITALS: BP 149/65; PULSE 74
[2024-03-18] MEDS: Metoprolol Succinate ER 25 MG TAB.ER.24H PO (21:03)
[2024-03-19 03:43] VITALS: BP 155/69; PULSE 69; RESP 16; TEMP 37.6; O2SAT 94
[2024-03-19] MEDS: Omeprazole 40 MG CAPSULE.DR PO (05:32)
[2024-03-19] MEDS: oxyCODONE HCl Immed Release 5 MG TABLET PO (05:45)
[2024-03-19 07:40] VITALS: BP 160/69; PULSE 70; RESP 17; TEMP 36.8; O2SAT 95
--- NOTE | 2024-03-19 07:50 | PM.PNGS ---
Subjective Subjective Date of Service: 03/19/24 Interval history: Feels well. OOB and ambulating without difficulty. Tolerating small meals without nausea or vomiting. Moving her bowels. Would like to go home. Physical Exam Vital Signs: Vital Signs: Last Vital Signs Temp 98.3 F 03/19/24 07:40 Pulse 70 03/19/24 07:40 Resp 17 03/19/24 07:40 BP 160/69 H 03/19/24 07:40 Pulse Ox 95 03/19/24 07:40 O2 Del Method Room Air 03/19/24 07:40 O2 Flow Rate 1 03/15/24 11:51 BMI result Body Mass Index 29.7 Const: General: comfortable, no acute distress and alert Orientation/consciousness: patient oriented x3 Resp: Effort & Inspection: normal respiratory effort GI: Inspection: No distended and Yes incision (clean, mild surrounding ecchymosis) Palpation (GI): Soft to palpation, Tenderness to palpation present (GI) (very mild incisional) and no guarding Skin: General skin exam: no rashes or lesions noted Neuro: General: patient oriented x3 Objective Data Active Medications Acetaminophen (Acetaminophen 325 Mg Tablet) 650 mg PO Q6H PRN PRN Reason: Pain, Mild (Pain Scale 1-3) Amlodipine Besylate (Amlodipine Besylate 5 Mg Tablet) 5 mg PO DAILY [facility]; Protocol Last Admin: 03/18/24 07:51 Dose: 5 mg Documented By: PADMAJA Apixaban (Apixaban 5 Mg Tablet) 5 mg PO BID@0800,2000 [facility] Last Admin: 03/18/24 21:03 Dose: 5 mg Documented By: ASH Buspirone HCl (Buspirone Hcl 5 Mg Tablet) 5 mg PO DAILY [facility] Last Admin: 03/18/24 07:51 Dose: 5 mg Documented By: PADMAJA Calcium Carbonate (Calcium Carbonate 750 Mg Tab.Chew) 750 mg PO Q4H PRN PRN Reason: Heartburn Flecainide Acetate (Flecainide Acetate 50 Mg Tablet) 50 mg PO BID [facility] Last Admin: 03/18/24 21:03 Dose: 50 mg Documented By: ASH Magnesium Hydroxide (Milk Of Magnesia 30 Ml Oral.Susp) 30 ml PO DAILY PRN PRN Reason: Constipation Melatonin (Melatonin 3 Mg Tablet) 6 mg PO BEDTIME PRN PRN Reason: Insomnia Metoclopramide HCl (Metoclopramide Hcl 5 Mg Tablet) 5 mg PO QIDACHS PRN PRN Reason: stomach pain Metoprolol Succinate (Metoprolol Succinate Er 25 Mg Tab.Er.24h) 25 mg PO BEDTIME [facility]; Protocol Last Admin: 03/18/24 21:03 Dose: 25 mg Documented By: ASH Morphine Sulfate (Morphine Sulfate 2 Mg/Ml Cartridge) 2 mg IVPUSH Q3H PRN; Protocol PRN Reason: Pain, Severe (Pain Scale 7-10) Omeprazole (Omeprazole 40 Mg Capsule.Dr) 40 mg PO BID@0630,1630 [facility] Last Admin: 03/19/24 05:32 Dose: 40 mg Documented By: ASH Ondansetron HCl (Ondansetron Hcl 4 Mg/2 Ml Vial) 4 mg IVPUSH Q6H PRN PRN Reason: Nausea Last Admin: 03/18/24 04:27 Dose: 4 mg Documented By: CASTJAILYN Oxycodone HCl (Oxycodone Hcl Immed Release 5 Mg Tablet) 5 mg PO Q4H PRN PRN Reason: Pain, Moderate(Pain Scale 4-6) Last Admin: 03/19/24 05:45 Dose: 5 mg Documented By: ASH Sodium Chloride (0.9 % Sodium Chloride Flush 3 Ml Syringe) 3 ml IVFLUSH QSHIFT [facility] Last Admin: 03/19/24 00:38 Dose: Not Given Documented By: ASH Non-Admin Reason: No Access Labs 03/16/24 05:29 03/16/24 05:29 Procedures Date of Service Date of Service: 03/19/24 Progress Note: A&P Assessment and plan (1) S/P colon resection: Status: Acute (2) Atrial fibrillation: Status: Acute Plan Doing well post op, tolerating solid diet with good GI function. Abd benign, clean incisions. Stable for dc to home today. F/u in office in 1 week. Time Spent With Patient Time: Total time managing care of this patient today ____ minutes. Quality Stroke Does the patient have a stroke diagnosis?: No VTE Prior VTE?: No VTE Risk Level:: Surgical - low VTE Device Contraindication: N/A - Device Ordered VTE Drug Contraindication: Treatment Not Indicated
[2024-03-19] MEDS: amLODIPine Besylate 5 MG TABLET PO (08:29)
[2024-03-19] MEDS: Apixaban 5 MG TABLET PO (08:29)
[2024-03-19] MEDS: busPIRone HCl 5 MG TABLET PO (08:29)
[2024-03-19] MEDS: Flecainide Acetate 50 MG TABLET PO (08:29)
--- NOTE | 2024-03-19 08:51 | MHC.CM.PN ---
PT WILL DC HOME TODAY WITH [facility] UPDATED
--- NOTE | 2024-03-19 09:45 | MHC.CM.PN ---
CM MET WITH PT TO DISCUSS DC PLANNING SHE SAYS THE MD WANTED TO KEEP HER ANOTHER DAY, BUT SHE IS LOOKING FORWARD TO GETTING HOME SHE SAYS SHE HAS ALL OF HER MEALS DELIVERED AND CAN GET ASSISTANCE IF NEEDED PT REPORTS HER DAUGHTER WILL BE PICKING HER UP, LIKELY SHORTLY AFTER 1200 HOURS PT IS AWARE [facility] WILL BE PROVIDING SN SERVICES [facility] UPDATED [facility] [employer]
--- NOTE | 2024-03-19 10:30 | PM.DS ---
DS: Providers Provider Date of Service: 03/19/24 Date of admission: 03/15/24 06:57 Date of discharge: 03/19/24 Primary care physician: Mer Quinonez MD Attending physician on admission: Ky Marquis Consults: 03/15/24 11:41 Consult to Hospitalist Routine Comment: Consulting Provider: Hospitalist Reason For Exam: s/p sigmoid resection, HTN, afib Attending physician on discharge: Ky Marquis DS: Diagnosis Discharge Diagnosis (1) S/P colon resection: Status: Acute (2) Atrial fibrillation: Status: Acute DS: Summary Hospital Course Hospital Course: HPI AT ADMISSION: Patient whom I saw back in the fall of last year as well as through a recent hospitalization last year for diverticulitis presents here because of persistence of symptoms. She had a recent colonoscopy which demonstrated a diverticular stricture of the sigmoid colon. Please refer to October note. Because of recurrent and persistent of symptoms along with the colonoscopic findings, patient would like to consider operative intervention. Chart was reviewed and patient evaluated. Patient is currently on Eliquis for atrial fibrillation. Patient discussed with her daughter the surgical procedure and wishes to proceed with sigmoid resection with primary anastomosis. She now presents for the planned procedure. HOSPITAL COURSE: On 03/15/24, an open sigmoid resection with primary transanal colorectal anastomosis, proctosigmoidoscopy, enterolysis was performed by Dr. Marquis without complication. She tolerated the procedure well and was admitted to the surgical service for observation following. She had an uncomplicated recovery course. On POD #1, she was doing well with good pain control. Her allen was removed. She was tolerating liquids. Her activity was increased. The following day she began to move her bowels. She was advanced to a solid diet. She remained inpatient until POD #4 for pain control. On the day of discharge, she was tolerating solid diet without nausea or vomiting, had good pain control on oral analgesics. She was ambulating without difficulty. Her abdomen was benign with a clean incision. She was discharged to home on 03/19/24 with VNA services. She is to follow up in the office in 1 week. Status at Discharge Functional status at discharge: independent ambulation Time Attestation Discharge Coordination Time (in mins): 35 Quality: Safe Use of Opioids Does Pt have an Active Cancer Diagnosis on the Problem List?: No Quality: Stroke Does the patient have a stroke diagnosis?: No Physical Exam Vital Signs: Vital Signs: Last Vital Signs Temp 98.3 F 03/19/24 07:40 Pulse 70 03/19/24 07:40 Resp 17 03/19/24 07:40 BP 160/69 H 03/19/24 07:40 Pulse Ox 95 03/19/24 07:40 O2 Del Method Room Air 03/19/24 07:40 O2 Flow Rate 1 03/15/24 11:51 BMI result Body Mass Index 29.7 Const: General: comfortable, no acute distress and alert Orientation/consciousness: patient oriented x3 Resp: Effort & Inspection: normal respiratory effort GI: Inspection: No distended and Yes incision (clean) Palpation (GI): Soft to palpation, Tenderness to palpation present (GI) (mild incisional) and no guarding Skin: General skin exam: no rashes or lesions noted Neuro: General: patient oriented x3 and moves all extremities DS: Data Data Completed and Pending Pending studies at discharge: Pending at discharge 03/15/24 09:00 Surgical [PTH] Urgent Discharge Plan Discharge Anticipated Discharge Date/Time: 03/18/24 14:11 Patient Disposition: Home Health Service Discharge Diagnosis: Symptomatic Diverticular disease of sigmoid colon Referrals: Ernesto PURVIS [Outside] Mer Quinonez MD [Primary Care Provider] - 1 Week Ky Marquis MD [Physician] - 1 Week Discharge Medications: New hydrocodone-acetaminophen 5-325 mg tablet 1 tab PO Q4-6H PRN (Reason: pain) Qty: 30 0RF Rx Instructions: Partial Fill upon patient request. Continued flecainide 50 mg tablet 50 mg PO BID Qty: 180 3RF Eliquis 5 mg tablet 5 mg PO BID 90 Days Qty: 180 3RF Hold Instructions: Resume on 08/26/23. metoclopramide HCl [Reglan] 5 mg tablet 5 mg PO QIDACHS PRN (Reason: stomach pain) buspirone 5 mg tablet 5 mg PO QAM amlodipine 2.5 mg tablet 5 mg PO QAM hydrochlorothiazide 25 mg tablet 25 mg PO QAM metoprolol succinate 25 mg tablet extended release 24 hr 25 mg PO BEDTIME omeprazole 40 mg capsule,delayed release(DR/EC) 40 mg PO BID@0630,1630 Discharge Orders: Discharge Order (Routine); Ordered 03/19/24 Ordered By: Susanne Benson Diet: Advance to usual diet Activity on Discharge: No heavy lifting Stand Alone Forms: Patient Portal Discharge page Print Language: Barbadian Activity Restrictions/Additional Instructions: Ice to wound 20 minutes several times today and tomorrow. May shower in 2 days. Remove outside dressing only. Leave Steri-Strips intact. No strenuous activities Care Plan Goals: Convalescence Health Concerns: No new concerns Plan of Treatment: Returned to baseline Assessment: Stable Discharge Date/Time: 03/19/24 11:18
--- NOTE | 2024-03-19 10:32 | W.MHC.F2F ---
Service Date Service Date: 03/19/24 Encounter Date of encounter: 03/19/24 Reasons for Services Signs and symptoms assessed: abdominal pain, PO intake, GI function, incision appearance Reason for retirement: postoperative assessment and/or care Homebound: Leaving the home is medically contraindicated at this time without the asist of a device and/or another person due th the listed conditions above and below. Reason homebound: weakness related to hospital stay and unable to drive Homebound supporting statement: Ms. Castaneda is POD # 4 s/p sigmoid resection with primary anastomosis. She is doing well post operatively. She will need VNA services post operatively for wound checks. Certification: Based on the above findings, I certify that this patient is confined to the home and needs intermittent retirement care, physical therapy and/or speech therapy, or continues to need occupational therapy. The patient is under my care, and I have initiated the establishment of the plan of care. The patient will be followed by a physician who will periodically review the plan of care. Time Spent With Patient Time: Total time managing care of this patient today ____ minutes.
== END 2024-03-19 11:18 | disposition home health service (06) | DRG 331 ==
LOC: HO.SSSA 07:01 → HO.S3 09:55 → HO.SSSA 10:02 → HO.S3 10:54
PROVIDERS: Physician Assistant Surgical; Admitting Provider Surgery; PCP Internal Medicine; Visit Provider Surgery
PROC: 0DTN0ZZ Resection of Sigmoid Colon, Open Approach (ICD-10-PCS; principal; 2024-03-15 07:30)
DX: K57.30 Diverticulosis of large intestine without perforation or abscess without bleeding (principal); R06.89 Other abnormalities of breathing; I10 Essential (primary) hypertension; I48.91 Unspecified atrial fibrillation; K21.9 Gastro-esophageal reflux disease without esophagitis; Z87.891 Personal history of nicotine dependence; Z79.01 Long term (current) use of anticoagulants; Z79.899 Other long term (current) drug therapy
CPT/HCPCS: 36415; 80048; 85025; 86850; 86900; 86901; 88305; 88307; C9145; J0131; J0690; J1100; J1170; J1596; J2250; J2405; J2550; J2704; J2795; J3010; J7120

== ENCOUNTER → 2024-03-15 06:57 | Outpatient (BNV) | payer MEDICARE, SELFPAY | PROVIDERS: Admitting Provider Surgery; PCP Internal Medicine; Visit Provider Surgery | DX: Z90.49 Acquired absence of other specified parts of digestive tract (principal); I48.91 Unspecified atrial fibrillation | CPT/HCPCS: 44145; 99024; G0180 ==

== ENCOUNTER → 2024-03-15 06:57 | Outpatient (BNV) | payer MEDICARE, SELFPAY | PROVIDERS: Admitting Provider Surgery; PCP Internal Medicine; Visit Provider Student in an Organized Health Care Education/Training Program | DX: I48.91 Unspecified atrial fibrillation (principal) | CPT/HCPCS: 99222 ==

== ENCOUNTER 2024-03-26 11:17 | Outpatient (AMB) | payer MEDICARE, SELFPAY ==
--- NOTE | 2024-03-26 11:23 | MHC.OFFVIS ---
Intake Visit Reasons: S/P sigmoid colectomy Intake Note: Patient here s/p sigmoid colectomy. Reports incisions healing well. Patient c/o: not much appetite. SX: 03-15-2024. Collision Repair Technician Required: No Accompanied by: Self / Same As Patient Allergies levofloxacin [From Levaquin] Allergy (Intermediate, Verified 03/26/24 11:24) RASH HPI Comments Details: Patient presents for follow-up. She is doing quite well. Tolerating a diet. Her bowel habits are starting to regulate. She has minimal incisional discomfort. She is increasing her activity level. [facility] Medical History Diverticulitis Colitis GERD (gastroesophageal reflux disease) Anxiety Mixed dyslipidemia Hx of iron deficiency anemia Osteoarthritis of right knee Encounter for monitoring anti-arrhythmic therapy Post-menopause Vaginal dryness, menopausal Urinary frequency Primary osteoarthritis involving multiple joints Osteoporosis Paroxysmal atrial fibrillation Essential hypertension Surgical History History of esophagogastroduodenoscopy (EGD) H/O colonoscopy Hx of hysterectomy Hx of total knee arthroplasty Hx of bilateral oophorectomy History of bladder suspension procedure History of repair of hiatal hernia (01/26/06) History of cholecystectomy Family History Father No problems noted. Mother No problems noted. Family/Other Cancer Brother History of kidney cancer Lung cancer, Onset Age: 65 Sister Breast cancer, Onset Age: 28 Social History Household Members: None Housing: Apartment Housing Other:: resides at [facility] Are you a primary neonatal intensive care unit nurse to a significant other at home: No Do you presently have visiting nurse or other home services: No Alcohol intake: current Alcohol intake frequency: holidays/special occasions only Alcohol type: wine Patient Tobacco Use Status: Former Tobacco user Tobacco use type: Cigarette Years Smoked: 2 e-Cigarette/Vaping Use: Never Used Advance Directives Date on File: 09/24/19 service: No Current occupational status: retired Cognitive needs: No Hearing needs: No Vision needs: Yes Physical Exam GI Other: Abdomen is soft incision clean dry and intact healing very well Assessment & Plan Assessment & Plan (1) S/P colon resection: Comment: open sigmoid resection with primary transanal colorectal anastomosis, proctosigmoidoscopy, enterolysis 03/15/24 ([employer]) Code(s): Z90.49 - Acquired absence of other specified parts of digestive tract Category: Medical Plan Patient will see me in a few weeks' time for follow-up. She is encouraged to gently increase her activity level. All questions answered. Coding Level of Care Code Global (20227) Diagnoses S/P colon resection Z90.49
== END 2024-03-26 11:28 | disposition home or self-care (01) ==
PROVIDERS: PCP Internal Medicine; Visit Provider Surgery
DX: Z90.49 Acquired absence of other specified parts of digestive tract (principal)
CPT/HCPCS: 99024

== ENCOUNTER → 2024-03-26 11:17 | Outpatient (BNVA) | payer MEDICARE, SELFPAY | PROVIDERS: PCP Internal Medicine; Visit Provider Surgery | DX: Z90.49 Acquired absence of other specified parts of digestive tract (principal) | CPT/HCPCS: 99212 ==

== ENCOUNTER 2024-04-10 12:36 | Outpatient (AMB) | payer MEDICARE, SELFPAY ==
--- NOTE | 2024-04-10 12:40 | A.OFFVIS_ITS ---
Vital Signs 04/10/24 12:41 Height 5 ft Weight 134 lb 14.766 oz BMI 26.3 BP 132/72 Blood Pressure Location Lt brachial Position Sitting Pulse 62 Intake Visit Reasons: 6 month fu Tongue Carrier Required: No Accompanied by: Self / Same As Patient Allergies levofloxacin [From Levaquin] Allergy (Intermediate, Verified 04/09/24 16:39) RASH Medication List - Last Reconciled 04/10/24 by William aHnsen MD amlodipine 5 mg PO QAM apixaban (Eliquis) 5 mg PO BID 90 days buspirone 5 mg PO QAM flecainide 50 mg PO BID hydrochlorothiazide 25 mg PO QAM hydrocodone-acetaminophen 5-325 mg 1 tab PO Q4-6H PRN metoclopramide HCl (Reglan) 5 mg PO QIDACHS PRN metoprolol succinate ER 25 mg PO BEDTIME omeprazole 40 mg PO BID@0630,1630 HPI Comments Details: Alisa returns for follow-up regarding atrial fibrillation. To recall, she was hospitalized in 2016 with atrial fibrillation and rapid rate. She was treated with beta-blockers for rate control and converted to sinus. On another occasion, she was readmitted with dizziness and presyncope and had sinus bradycardia. Then beta-nicole dose was decreased and Flecainide added. For the most part, she has been doing okay from atrial fibrillation standpoint. Has not really had any recurrences of clinical significance. She also has hypertension and she has had high and low readings. She believes it is improved now compared to before. Otherwise, dizziness versus vertigo type issues earlier this year but she believes it is vertigo as he apparently went some therapy for that and resolved. Most recently, underwent sigmoid resection surgery for diverticulitis. She is recovering from that. [facility] Medical History Diverticulitis Colitis GERD (gastroesophageal reflux disease) Anxiety Mixed dyslipidemia Hx of iron deficiency anemia Osteoarthritis of right knee Encounter for monitoring anti-arrhythmic therapy Post-menopause Vaginal dryness, menopausal Urinary frequency Primary osteoarthritis involving multiple joints Osteoporosis Paroxysmal atrial fibrillation Essential hypertension Surgical History History of esophagogastroduodenoscopy (EGD) H/O colonoscopy Hx of hysterectomy Hx of total knee arthroplasty Hx of bilateral oophorectomy History of bladder suspension procedure History of repair of hiatal hernia (01/26/06) History of cholecystectomy Family History Father No problems noted. Mother No problems noted. Family/Other Cancer Brother History of kidney cancer Lung cancer, Onset Age: 65 Sister Breast cancer, Onset Age: 28 Social History Household Members: None Housing: Apartment Housing Other:: resides at [facility] Are you a primary long term care social worker to a significant other at home: No Do you presently have visiting nurse or other home services: No Alcohol intake: current Alcohol intake frequency: holidays/special occasions only Alcohol type: wine Patient Tobacco Use Status: Former Tobacco user Tobacco use type: Cigarette Years Smoked: 2 e-Cigarette/Vaping Use: Never Used Advance Directives Date on File: 09/24/19 service: No Current occupational status: retired Cognitive needs: No Hearing needs: No Vision needs: Yes Review of Systems Const Denies chills, Denies fatigue, Denies fever(s), Denies weight gain and Denies weight loss ENT Denies dizziness Card Denies chest pain, Denies leg edema, Denies lightheadedness, Denies palpitations, Denies dyspnea on exertion, Denies orthopnea and Denies other Resp Denies cough and Denies dyspnea on exertion GI Denies hematochezia and Denies change in stool character Musc Denies abnormal gait, Denies muscle weakness, Denies numbness, Denies radiating pain into limb and Denies tingling Neuro Denies abnormal gait, Denies dizziness, Denies numbness and Denies tingling Endo Denies fatigue and Denies palpitations Physical Exam Vital Signs: Last Vital Signs Pulse 62 04/10/24 12:41 BP 132/72 04/10/24 12:41 BMI result Body Mass Index 26.3 Const General: comfortable and no acute distress Orientation/consciousness: patient oriented x3 HEENT Other: Unremarkable Head: Yes normal to inspection Neck Neck: Yes normal visual inspection Chest Chest palpation & inspection: normal inspection of the chest Resp Auscultation: clear to auscultation bilaterally Cardio Palpation: normal PMI Heart sounds: S1 normal heart sound present, S2 normal heart sound present, no gallops, no murmurs and no rubs GI Palpation (GI): Soft to palpation Back/Spine/Pelvis Other: unremarkable Skin General skin exam: no rashes or lesions noted Neuro General: patient oriented x3 Extrem General: Yes normal to inspection Psych Mental Status: mental status grossly normal Office Procedures EKG Details: EKG with underlying sinus rhythm at 62; leftward axis; left ventricular hypertrophy with some QRS widening; [place]. [id number], Complete Assessment & Plan Assessment & Plan (1) Paroxysmal atrial fibrillation: Comment: follows w/HCS Code(s): I48.0 - Paroxysmal atrial fibrillation Category: Medical Plan: Stable. In the most recent echocardiogram, LVEF 60-60%; suspected LV dilata tion; no significant valvular findings. Continue beta-blockers and flecainide. Continue Eliquis. (2) Encounter for monitoring anti-arrhythmic therapy: Code(s): Z51.81 - Encounter for therapeutic drug level monitoring; Z79.899 - Other intermediate teacher (current) drug therapy Category: Medical Plan: Has been stable on flecainide for many years. In the past, perfusion imaging unremarkable. Echocardiogram with preserved LVEF. She does not have any conc erning symptoms like angina. (3) Essential hypertension: Code(s): I10 - Essential (primary) hypertension Category: Medical Plan: On metoprolol and amlodipine. No changes. Coding Level of Care Code Est Pt Level 4 (34983) Diagnoses Paroxysmal atrial fibrillation I48.0 Encounter for monitoring anti-arrhythmic therapy Z51.81; Z79.899 Essential hypertension I10 CPT Codes EKG - CPT: 12341-[id number], Complete ([id number])
[2024-04-10 12:41] VITALS: BP 132/72; PULSE 62; BMI 26.3
== END 2024-04-10 13:01 | disposition home or self-care (01) ==
PROVIDERS: PCP Internal Medicine; Visit Provider Internal Medicine
DX: I48.0 Paroxysmal atrial fibrillation (principal); Z51.81 Encounter for therapeutic drug level monitoring; Z79.899 Other long term (current) drug therapy; I10 Essential (primary) hypertension
CPT/HCPCS: 93010; 99214

== ENCOUNTER → 2024-04-10 12:36 | Outpatient (BNVA) | payer MEDICARE, SELFPAY | PROVIDERS: PCP Internal Medicine; Visit Provider Internal Medicine | DX: I48.0 Paroxysmal atrial fibrillation (principal); I10 Essential (primary) hypertension; Z51.81 Encounter for therapeutic drug level monitoring; Z79.899 Other long term (current) drug therapy | CPT/HCPCS: 36415; 83540; 85025; 93005; 99212 ==

== ENCOUNTER 2024-04-10 13:05 | Outpatient (REF) | payer MEDICARE, SELFPAY ==
[2024-04-10 13:14] LABS: MANUAL DIFF FLAG NO
[2024-04-10 13:55] LABS: Basophils Percent Auto 0.4 % (0-2); Eosinophils Absolute Auto 0.2 X10*3/uL (0.0-0.4); Eosinophils Percent Auto 2.1 % (0-4); Hematocrit 38.9 % (37.0-47.0); Imm Gran Abs Auto 0.04 X10*3/uL (0.00-0.03); Imm Gran Pct Auto 0.5 % (0.0-0.4); Lymphocytes Absolute Auto 2.3 X10*3/uL (1.2-4.9); Lymphocytes Percent Auto 29.7 % (20-40); Mean Corpuscular HGB Conc 33.4 g/dl (31.0-35.0); Mean Corpuscular Hemoglobin 29.5 pg (27.0-33.0); Mean Corpuscular Volume 88.4 fL (80.0-98.0); Mean Platelet Volume 9.3 fL (9.4-12.3); Monocytes Absolute Auto 0.7 X10*3/uL (0.1-1.2); Neutrophils Absolute Auto 4.5 x10*3/uL (2.0-8.3); Neutrophils Percent Auto 58.3 % (45-73); Platelet Count 323 X10*3/uL (160-400); Red Cell Distribution Width 13.1 % (11.0-16.0); White Blood Count 7.6 X10*3/uL (4.8-10.8)
[2024-04-10 14:16] LABS: Iron 48 mcg/dL (30-160); Percent Iron Saturation 15 % (15-50); Total Iron Binding Capacity 317 mcg/dL (228-428); Unsaturated Iron Binding 269 ug/dL
== END 2024-04-10 13:06 | disposition home or self-care (01) ==
LOC: HO.LAB 13:05
PROVIDERS: PCP Internal Medicine; Visit Provider Internal Medicine
DX: Z13.89 Encounter for screening for other disorder (principal)
CPT/HCPCS: 36415; 83540; 85025

== ENCOUNTER 2024-04-23 11:12 | Outpatient (AMB) | payer MEDICARE, SELFPAY ==
--- NOTE | 2024-04-23 11:29 | A.OFFVIS_ITS ---
Intake Visit Reasons: S/P 4wk sigmoid colectomy Intake Note: Patient here for 4wk s/p sigmoid colectomy. Reports eating well. Patient c/o: oozing reddish discharge noted on gauze after dressing change. Grain Unloader Required: No Accompanied by: Self / Same As Patient Allergies levofloxacin [From Levaquin] Allergy (Intermediate, Verified 04/23/24 11:31) RASH Medication List - Last Reconciled 04/23/24 by Ky Marquis MD amlodipine 5 mg PO QAM apixaban (Eliquis) 5 mg PO BID 90 days buspirone 5 mg PO QAM flecainide 50 mg PO BID hydrochlorothiazide 25 mg PO QAM hydrocodone-acetaminophen 5-325 mg 1 tab PO Q4-6H PRN metoclopramide HCl (Reglan) 5 mg PO QIDACHS PRN metoprolol succinate ER 25 mg PO BEDTIME omeprazole 40 mg PO BID@0630,1630 HPI Comments Details: Patient presents for follow-up. All things considered, she is doing quite well. Her prior left lower quadrant pain has completely resolved. She is tolerating a diet. He is having regular bowel habits. She has a spot in her mid incision which is occasionally discharging which we will evaluate. [facility], [facility] Medical History Diverticulitis Colitis GERD (gastroesophageal reflux disease) Anxiety Mixed dyslipidemia Hx of iron deficiency anemia Osteoarthritis of right knee Encounter for monitoring anti-arrhythmic therapy Post-menopause Vaginal dryness, menopausal Urinary frequency Primary osteoarthritis involving multiple joints Osteoporosis Paroxysmal atrial fibrillation Essential hypertension Surgical History History of esophagogastroduodenoscopy (EGD) H/O colonoscopy Hx of hysterectomy Hx of total knee arthroplasty Hx of bilateral oophorectomy History of bladder suspension procedure History of repair of hiatal hernia (01/26/06) History of cholecystectomy Family History Father No problems noted. Mother No problems noted. Family/Other Cancer Brother History of kidney cancer Lung cancer, Onset Age: 65 Sister Breast cancer, Onset Age: 28 Social History Household Members: None Housing: Apartment Housing Other:: resides at [facility] Are you a primary college and career counselor to a significant other at home: No Do you presently have visiting nurse or other home services: No Alcohol intake: current Alcohol intake frequency: holidays/special occasions only Alcohol type: wine Patient Tobacco Use Status: Former Tobacco user Tobacco use type: Cigarette Years Smoked: 2 e-Cigarette/Vaping Use: Never Used Advance Directives Date on File: 09/24/19 service: No Current occupational status: retired Cognitive needs: No Hearing needs: No Vision needs: Yes Physical Exam GI Other: Abdomen is soft, benign. Central aspect of the incision has a small draining area which was evaluated and a stitch was retrieved. Bacitracin and sterile dressing applied. Assessment & Plan Assessment & Plan (1) Status post partial resection of colon: Code(s): Z90.49 - Acquired absence of other specified parts of digestive tract Category: Surgical Plan Often considered, patient has had an exemplary postoperative course. She has been given local instructions including bacitracin demanding to the stitch abscess site. She will otherwise follow-up p.r.n.. All questions answered. Coding Level of Care Code Global (46854) Diagnoses Status post partial resection of colon Z90.49
== END 2024-04-23 11:33 | disposition home or self-care (01) ==
PROVIDERS: PCP Internal Medicine; Visit Provider Surgery
DX: Z90.49 Acquired absence of other specified parts of digestive tract (principal)
CPT/HCPCS: 99024

== ENCOUNTER → 2024-04-23 11:12 | Outpatient (BNVA) | payer MEDICARE, SELFPAY | PROVIDERS: PCP Internal Medicine; Visit Provider Surgery | DX: Z09 Encounter for follow-up examination after completed treatment for conditions other than malignant neoplasm (principal); Z90.49 Acquired absence of other specified parts of digestive tract | CPT/HCPCS: 99212 ==

== ENCOUNTER 2024-05-08 12:55 | Outpatient (AMB) | payer MEDICARE, SELFPAY ==
[2024-05-08 13:03] VITALS: BP 110/70; PULSE 59; O2SAT 97; BMI 26.4
--- NOTE | 2024-05-08 13:03 | A.OFFPC_ITS ---
Vital Signs 05/08/24 13:03 Height 5 ft Weight 135 lb BMI 26.4 BP 110/70 Blood Pressure Location Rt brachial Position Sitting Pulse 59 Pulse Source Pulse Oximeter Pulse Oximetry (%) 97 Oxygen Delivery Method Room Air Intake Visit Reasons: 4M F/U HTN Intake Note: Pt is here today for her 4mo. f/u HTN Allergies levofloxacin [From Levaquin] Allergy (Intermediate, Verified 05/08/24 13:38) RASH Medication List - Last Reconciled 05/08/24 by Mer Quinonez MD amlodipine 2.5 mg PO QAM apixaban (Eliquis) 5 mg PO BID 90 days buspirone 5 mg PO ONCE flecainide 50 mg PO BID metoclopramide HCl (Reglan) 5 mg PO QIDACHS PRN metoprolol succinate ER 25 mg PO ONCE omeprazole 40 mg PO BID@0630,1630 Tobacco use date assessed: 05/08/24 Fall risk assessment: No Falls in past year Last assessed Fall Risk: 05/08/24 Dental Screening Dental Screen Date: 05/08/24 Did you have a dental visit in the last 12 months?: No Did you have a dental problem in the last 6 months where you did not have access to dental care?: No Was dental information given to patient?: Patient has dentist HPI 4M F/U HTN HPI Details 83-year-old lady with hypertension, here today for follow-up. The patient has been taking amlodipine 2.5 mg daily and metoprolol succinate ER 25 mg once a day with blood pressure stable controlled. She attributes this also to her not being in constant abdominal pain anymore ever since she had her partial resection of colon for recurrent diverticular disease done 03/19/24 . She is now eating regular diet, and has been feeling well. [facility] Medical History (Updated 05/08/24 @ 13:56 by Mer Quinonez MD) Diverticulitis Colitis GERD (gastroesophageal reflux disease) Anxiety Mixed dyslipidemia Hx of iron deficiency anemia Osteoarthritis of right knee Encounter for monitoring anti-arrhythmic therapy Post-menopause Vaginal dryness, menopausal Urinary frequency Primary osteoarthritis involving multiple joints Osteoporosis Paroxysmal atrial fibrillation Essential hypertension Surgical History (Updated 05/14/24 @ 03:40 by Mer Quinonez MD) Status post partial resection of colon History of esophagogastroduodenoscopy (EGD) H/O colonoscopy Hx of hysterectomy Hx of total knee arthroplasty Hx of bilateral oophorectomy History of bladder suspension procedure History of repair of hiatal hernia (01/26/06) History of cholecystectomy Family History Father No problems noted. Mother No problems noted. Family/Other Cancer Brother History of kidney cancer Lung cancer, Onset Age: 65 Sister Breast cancer, Onset Age: 28 Social History Household Members: None Housing: Apartment Housing Other:: resides at [facility] Are you a primary zoo caretaker to a significant other at home: No Do you presently have visiting nurse or other home services: No Alcohol intake: current Alcohol intake frequency: holidays/special occasions only Alcohol type: wine Patient Tobacco Use Status: Former Tobacco user Tobacco use type: Cigarette Years Smoked: 2 e-Cigarette/Vaping Use: Never Used Advance Directives Date on File: 09/24/19 service: No Current occupational status: retired Cognitive needs: No Hearing needs: No Vision needs: Yes Questionnaire PHQ-9 Over the last 2 weeks, how often have you been bothered by any of the following problems? 1. Little interest or pleasure in doing things: not at all 2. Feeling down, depressed, or hopeless: not at all 3. Trouble falling or staying asleep, or sleeping too much: not at all 4. Feeling tired or having little energy: not at all 5. Poor appetite or overeating: not at all 6. Feeling bad about yourself - or that you are a failure or have let yourself or your family down: not at all 7. Trouble concentrating on things, such as reading the newspaper or watching t elevision: not at all 8. Moving or speaking so slowly that other people could have noticed. Or the opposite - being so fidgety or restless that you have been moving around a lot more than usual: not at all 9. Thoughts that you would be better off or of hurting yourself in some way: not at all Total score: 0 Depression Screening Interpretation: Negative Depression Screening Done: Yes 12832 - PHQ-9 Billing: Yes Source: Developed by Drs. Rio Levine, Hazel Hinton, Ronnie Bueno and colleagues, with an educational patricia from [employer]. Thrive Questionnaire Date Thrive assessed: 05/08/24 I am a: Patient What is your living situation today?: I have a steady place to live Within the past 12 months, did the food you bought not last and you didn't have the money to get more?: Never true Within the past 12 months, did you worry whether your food would run out before you got money to buy more?: Never true Do you have trouble paying for medicines?: No Do you have trouble getting transportation to medical appointments?: No Do you have trouble paying your heating and electricity bill?: No Do you have trouble taking care of your child, family member or friend?: I choose not to answer this question Do you have trouble with day-to-day activities such as bathing, preparing meals, shopping, managing finances, etc.?: No Are you currently unemployed and looking for a job?: No Are you interested in more education?: No Please select the resources that you would like help with: None Currently or been in a relationship where the following occur: I choose not to answer THRIVE Score: 0 AUDIT C Alcohol Use Questionnaire (AUDIT-C) 1. How often do you have a drink containing alcohol?: Monthly or less 2. How many drinks containing alcohol do you have on a typical day when you are drinking?: 1 or 2 3. How often do you have six or more drinks on one occasion?: Never Total Score: 1 SERGIO-7 AMB Questionnaire SERGIO-7 Date SERGIO - 7 assessed: 05/08/24 Feeling nervous, anxious, or on edge: 0 = Not at all Not being able to stop or control worryin = Not at all Worrying too much about different things: 0 = Not at all Trouble relaxin = Not at all Being so restless that it is hard to sit still: 0 = Not at all Becoming easily annoyed or irritable: 0 = Not at all Feeling afraid as if something awful might happen: 0 = Not at all Total SERGIO-7 score (0-4 normal; 5-9 mild; 10-14 moderate; 15-21 severe): 0 Source: Developed by Hazel Hickman. Jamaal, Ronnie Bueno and colleagues, with an educational patricia from [employer]. SERGIO-7 Assessment Billing SERGIO-7 Assessment Tool: SERGIO-7 Assessment 83529 Review of Systems Const Denies body aches, Reports fatigue, Denies fever(s) and Denies headache(s) ENT Denies headache(s) Card Denies chest pain, Denies syncope, Denies lightheadedness, Denies palpitations and Denies dyspnea Resp Denies dyspnea GI Reports no additional complaints Reports no additional complaints Musc Reports stiffness Skin/Breast Denies breast pain, Denies breast mass and Denies rash Neuro Denies Abnormal speech present, Denies syncope and Denies headache(s) Endo Reports fatigue and Denies palpitations Geovanny/Lymph Reports no additional complaints Physical exam (Primary Care) Vital Signs: Last Vital Signs Pulse 59 05/08/24 13:03 BP 110/70 05/08/24 13:03 Pulse Ox 97 05/08/24 13:03 Oxygen Delivery Method Room Air 05/08/24 13:03 BMI result Body Mass Index 26.4 Tobacco/Smoking Status: Tobacco use Status Tobacco use date assessed 05/08/24 05/08/24 13:05 Patient Tobacco Use Status Former Tobacco user 05/08/24 13:05 Tobacco use type Cigarette 05/08/24 13:05 e-Cigarette/Vaping Use Never Used 05/08/24 13:05 PHQ-9: PHQ-9 Score PHQ-9: Total score 0 05/08/24 13:57 Depression Screening Interpretation: Negative Thrive Assessment: Date of Thrive Assessment Date Thrive assessed 05/08/24 05/08/24 13:05 Currently or been in a relationship where the following occur: I choose not to answer Const General: cooperative, comfortable and no acute distress Orientation/consciousness: patient oriented x3 HENMT Ears: hearing grossly normal bilaterally and external ears normal General nose exam: Normal external nose present Mouth: Normal oral and palatal mucosa present, oropharynx normal and moist mucous membranes Eyes General: appearance normal, both eyes and all related structures Conjunctivae: conjunctivae normal Pupils: Equal, round and reactive pupils present EOM: EOMs intact bilaterally Neck Neck: Yes full ROM, Yes no lymphadenopathy and Yes supple Resp Effort & Inspection: normal respiratory effort and able to speak in complete sentences Auscultation: clear to auscultation bilaterally Cardio Rate: regular rate Rhythm: regular rhythm Heart sounds: S1 normal heart sound present and S2 normal heart sound present GI Inspection: Yes scar (Healing surgical scar with no dehiscence or discharge noted on abdomen) Palpation (GI): Soft to palpation, nontender and no masses Auscultation: normal bowel sounds Back/Spine/Pelvis Cervical Spine: cervical ROM normal Thoracic/Lumbar Spine: thoracic and lumbar spine normal to inspection Skin General skin exam: no rashes or lesions noted Neuro General: patient oriented x3, gait normal, tone normal, moves all extremities, Normal light touch and pain sensation and no focal motor deficits Cranial nerves: Yes Equal, round and reactive pupils present Cognition (Neuro): normal cognition Speech: No Abnormal speech present Gait exam (Neuro): Normal gait present Motor exam (neuro): 5/5 motor strength present throughout Extrem General: Yes full ROM, Yes no joint enlargement, Yes no pedal edema and Yes normal gait Psych Appearance: grossly normal and well kempt Speech and movement: Normal speech and movement present Affect: normal affect Attitude: cooperative Thought process: Normal thought process present Assessment and Plan Assessment & Plan (1) Essential hypertension: Code(s): I10 - Essential (primary) hypertension Plan: Blood pressure at goal of less than 130/80. Continue with metoprolol succinate 25 mg daily and amlodipine 2.5 mg daily in a.m.. Reinforced importance of following a low sodium diet, getting regular exercise, and lowering stress levels. (2) Paroxysmal atrial fibrillation: Comment: follows w/[facility] Code(s): I48.0 - Paroxysmal atrial fibrillation Plan: Continued on apixaban 5 mg twice a day and flecainide 50 mg 1 tablet twice a day, followed by cardiology (3) Hospital discharge follow-up: Code(s): Z09 - Encounter for follow-up examination after completed treatment for conditions other than malignant neoplasm Plan: Wound is healing well, patient tolerating regular diet and has been having regular bowel movements, denies any abdominal pain, no nausea or vomiting since discharge Coding Level of Care Code Est Pt Level 4 (69289) Complex EM visit Add On G2211 Diagnoses Essential hypertension I10 Paroxysmal atrial fibrillation I48.0 Hospital discharge follow-up Z09 Additional Codes SERGIO-7 Assessment Billing - SERGIO-7 Assessment Tool: SERGIO-7 Assessment 06987 ([id number])
== END 2024-05-08 13:58 | disposition home or self-care (01) ==
PROVIDERS: PCP Internal Medicine; Visit Provider Internal Medicine
DX: I10 Essential (primary) hypertension (principal); I48.0 Paroxysmal atrial fibrillation; Z09 Encounter for follow-up examination after completed treatment for conditions other than malignant neoplasm
CPT/HCPCS: 99214; G2211

== ENCOUNTER 2024-05-24 11:43 | Outpatient (AMB) | payer MEDICARE, SELFPAY ==
--- NOTE | 2024-05-24 11:47 | MHC.OFFVIS ---
Vital Signs 05/24/24 11:48 Height 5 ft Weight 134 lb 7.712 oz BMI 26.3 BP 127/60 Blood Pressure Location Lt brachial Position Sitting Pulse 57 Intake Visit Reasons: follow up r/s from 04/26 Intake Note: Alisa returns in 6 months follow up of CC: Patient states that on 03/15 she underwent bowel resection with Dr. Marquis. She report feeling good but she feels very tired. 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[employer] Education Required: No Accompanied by: Self / Same As Patient Allergies levofloxacin [From Levaquin] Allergy (Intermediate, Verified 05/24/24 11:51) RASH HPI HPI follow up r/s from 04/26: Details: Assessment & Plan (1) GERD (gastroesophageal reflux disease): Code(s): K21.9 - Gastro-esophageal reflux disease without esophagitis (2) Irritable bowel syndrome with both constipation and diarrhea: Comment: seems to have resolved once started reglan that solved the CIC part of the sequence Code(s): K58.2 - Mixed irritable bowel syndrome (3) Delayed gastric emptying: Code(s): K30 - Functional dyspepsia Plan Things are going well at the moment, she finds that if she does not get herself constipated, she does much better. She is using the senna every other day with good results. She continues on Reglan 5 mg which she takes only twice a day, senna 2 tabs at bedtime as needed, and omeprazole 40 mg twice a day. Return office visit in 6 months and after the EGD. Medications: Refilled omeprazole 40 mg PO BID 180 caps 1RF 30 days K29.70 - Gastritis, unspecified, without bleeding, K31.7 - Polyp of stomach and duodenum sennosides (Senna Laxative) 17.2 mg (2 x 8.6 mg) PO BEDTIME 180 tabs 1RF metoclopramide HCl (Reglan) 5 mg PO QIDACHS 360 tabs 1RF stomach pain K30 - Functional dyspepsia omeprazole 40 mg PO BID 60 caps 6RF 30 days K29.70 - Gastritis, unspecified, without bleeding, K31.7 - Polyp of stomach and duodenum metoclopramide HCl (Reglan) 5 mg PO QIDACHS 360 tabs 1RF stomach pain K30 - Functional dyspepsia sennosides (Senna Laxative) 17.2 mg (2 x 8.6 mg) PO BEDTIME 180 tabs 1RF REPEAT EGD FROM 08/27 PROCEDURE r/t gastric polyps. BIOPSY TODAY'S VISIT Her repeat EGD will be in August, she had a elective partial bowel resection for her TICs in March. It went well and has resolved her pain in the LLQ and her CIC is improved! She is still having fatigue, but this may take time given her age. She is using senna occasionally and same with reglan. She continues on her omeprazole. ROV after EGD in August. [facility] Medical History (Updated 05/24/24 @ 11:53 by DAVIDA Harper) Fundic gland polyposis of stomach Gastritis determined by biopsy Hospital discharge follow-up Diverticulitis Colitis GERD (gastroesophageal reflux disease) Anxiety Mixed dyslipidemia Hx of iron deficiency anemia Osteoarthritis of right knee Encounter for monitoring anti-arrhythmic therapy Post-menopause Vaginal dryness, menopausal Urinary frequency Primary osteoarthritis involving multiple joints Osteoporosis Paroxysmal atrial fibrillation Essential hypertension Surgical History (Updated 05/24/24 @ 11:53 by DAVIDA Harper) Diverticular disease Status post partial resection of colon History of esophagogastroduodenoscopy (EGD) H/O colonoscopy Hx of hysterectomy Hx of total knee arthroplasty Hx of bilateral oophorectomy History of bladder suspension procedure History of repair of hiatal hernia (01/26/06) History of cholecystectomy Family History Father No problems noted. Mother No problems noted. Family/Other Cancer Brother History of kidney cancer Lung cancer, Onset Age: 65 Sister Breast cancer, Onset Age: 28 Social History Household Members: None Housing: Apartment Housing Other:: resides at [facility] Are you a primary direct care supervisor to a significant other at home: No Do you presently have visiting nurse or other home services: No Alcohol intake: current Alcohol intake frequency: holidays/special occasions only Alcohol type: wine Patient Tobacco Use Status: Former Tobacco user Tobacco use type: Cigarette Years Smoked: 2 e-Cigarette/Vaping Use: Never Used Advance Directives Date on File: 09/24/19 service: No Current occupational status: retired Cognitive needs: No Hearing needs: No Vision needs: Yes Review of Systems Const Denies fatigue, Denies fever(s), Denies night sweats, Denies poor appetite and Denies weight loss ENT Reports Normal hearing present, Denies dental pain, Denies dysphagia, Denies hearing loss, Denies mouth pain, Denies odynophagia, Denies throat swelling, Denies tongue swelling and Reports other (Dentition adequate) Card Reports no additional complaints Resp Reports no additional complaints GI Details: Denies abdominal pain, Denies melena, Denies bloating, Denies hematochezia, Reports constipation, Denies GI cramping, Denies dysphagia, Denies excessive flatus, Denies early satiety, Reports heartburn, Denies diarrhea, Reports nausea, Denies odynophagia, Denies vomiting and Denies hematemesis Skin/Breast Denies pruritus, Denies lesions, Denies rash and Denies jaundice Neuro Reports Normal hearing present and Denies Abnormal speech present Endo Denies fatigue Aller/Immun Denies throat swelling and Denies tongue swelling Physical Exam Vital Signs: Last Vital Signs Pulse 57 05/24/24 11:48 BP 127/60 05/24/24 11:48 BMI result Body Mass Index 26.3 Const General: cooperative, no acute distress, well developed and well groomed Nutritional Appearance: average body habitus and well nourished Orientation/consciousness: oriented to person, oriented to place and oriented to time Limitations: No language barrier HEENT Head: Yes normocephalic and Yes atraumatic Eyes General: appearance normal, both eyes and all related structures Pupils: Equal, round and reactive pupils present Neck Neck: Yes normal visual inspection and Yes no lymphadenopathy Thyroid: Thyroid normal Resp Effort & Inspection: normal respiratory effort and able to speak in complete sentences Auscultation: clear to auscultation bilaterally Cardio Rate: regular rate Rhythm: regular rhythm Heart sounds: Normal, physiologic split S2 sound present Peripheral pulses: radial pulses present and posterior tibial pulses present GI Inspection: No distended, Yes Abdominal panniculus present and Yes obesity Palpation (GI): Soft to palpation, nontender, no guarding, not rigid and No hepatosplenomegaly present Percussion: Yes normal to percussion Auscultation: normal bowel sounds Rectal Exam - Female: deferred Abdomen image: 1. well healing surgical scar Skin General skin exam: no rashes or lesions noted, turgor normal, skin not dry, no jaundice, No spider nevi and no striae Rashes: no rashes Nails: normal Neuro General: oriented to person, oriented to place and oriented to time Cranial nerves: Yes Equal, round and reactive pupils present and Yes Normal hearing present Speech: No Abnormal speech present Extrem General: Yes normal to inspection, No clubbing, No cyanosis and No edema Psych Appearance: grossly normal and well kempt Mental Status: mental status grossly normal Speech and movement: Normal speech and movement present Affect: normal affect Attitude: cooperative Thought process: Normal thought process present and not confabulating Thought content: Normal thought content present Insight: Fair insight present (Psych) Judgement: Fair judgement present (Psych) Assessment & Plan Assessment & Plan (1) Irritable bowel syndrome with both constipation and diarrhea: Comment: seems to have resolved once started reglan that solved the CIC part of the sequence Code(s): K58.2 - Mixed irritable bowel syndrome Category: Medical (2) GERD (gastroesophageal reflux disease): Code(s): K21.9 - Gastro-esophageal reflux disease without esophagitis Category: Medical (3) Status post partial resection of colon: Comment: Code(s): Z90.49 - Acquired absence of other specified parts of digestive tract Category: Surgical Plan Her repeat EGD will be in August, she had a elective partial bowel resection for her TICs in March. It went well and has resolved her pain in the LLQ and her CIC is improved! She is still having fatigue, but this may take time given her age. She is using senna occasionally and same with reglan. She continues on her omeprazole. ROV after EGD in August. REPEAT EGD FROM 08/27 PROCEDURE r/t gastric polyps. BIOPSY Coding Level of Care Code Est Pt Level 3 (49750) Diagnoses Irritable bowel syndrome with both constipation and diarrhea K58.2 GERD (gastroesophageal reflux disease) K21.9 Status post partial resection of colon Z90.49
[2024-05-24 11:48] VITALS: BP 127/60; PULSE 57; BMI 26.3
== END 2024-05-24 12:26 | disposition home or self-care (01) ==
PROVIDERS: PCP Internal Medicine; Visit Provider Nurse Practitioner
DX: K58.2 Mixed irritable bowel syndrome (principal); K21.9 Gastro-esophageal reflux disease without esophagitis; Z90.49 Acquired absence of other specified parts of digestive tract
CPT/HCPCS: 99213

== ENCOUNTER → 2024-05-24 11:43 | Outpatient (BNVA) | payer MEDICARE, SELFPAY | PROVIDERS: PCP Internal Medicine; Visit Provider Nurse Practitioner | DX: K21.9 Gastro-esophageal reflux disease without esophagitis (principal); K58.2 Mixed irritable bowel syndrome; K30 Functional dyspepsia; K29.70 Gastritis, unspecified, without bleeding; K31.7 Polyp of stomach and duodenum; Z90.49 Acquired absence of other specified parts of digestive tract | CPT/HCPCS: 99212 ==

== ENCOUNTER 2024-08-06 09:03 | Outpatient (REF) | payer MEDICARE, SELFPAY ==
[2024-08-06 19:44] LABS: Influenza A PCR NEGATIVE (Negative); Influenza B PCR NEGATIVE (Negative); Resp Syncy Virus RNA Qual PCR NEGATIVE (Negative); SARS COV2 PCR INHOUSE NEGATIVE (Negative)
== END 2024-08-06 09:04 | disposition home or self-care (01) ==
LOC: HO.LAB 09:03
PROVIDERS: PCP Internal Medicine; Visit Provider Internal Medicine
DX: J06.9 Acute upper respiratory infection, unspecified (principal); I10 Essential (primary) hypertension; E78.2 Mixed hyperlipidemia; F41.9 Anxiety disorder, unspecified; Z87.440 Personal history of urinary (tract) infections
CPT/HCPCS: 0241U; 99212

== ENCOUNTER 2024-08-06 09:03 | Outpatient (AMB) | payer MEDICARE, SELFPAY ==
[2024-08-06 09:10] VITALS: BP 140/80; PULSE 82; O2SAT 96; BMI 26.4
--- NOTE | 2024-08-06 09:10 | A.OFFPC_ITS ---
Vital Signs 08/06/24 09:10 Height 5 ft Weight 135 lb BMI 26.4 BP 140/80 H Blood Pressure Location Lt brachial Position Sitting Pulse 82 Pulse Source Pulse Oximeter Pulse Oximetry (%) 96 Oxygen Delivery Method Room Air Intake Visit Reasons: 3 month follow up HTN and Anxiety Allergies levofloxacin [From Levaquin] Allergy (Intermediate, Verified 08/06/24 09:27) RASH Medication List - Last Reconciled 08/06/24 by Mer Quinonez MD amlodipine 2.5 mg PO QAM amoxicillin 500 mg PO BID apixaban (Eliquis) 5 mg PO BID buspirone 5 mg PO ONCE flecainide 50 mg PO BID metoclopramide HCl (Reglan) 5 mg PO QIDACHS PRN metoprolol succinate ER 25 mg PO ONCE omeprazole 40 mg PO BID Tobacco use date assessed: 08/06/24 Fall risk assessment: No Falls in past year Last assessed Fall Risk: 08/06/24 Dental Screening Dental Screen Date: 08/06/24 Did you have a dental visit in the last 12 months?: Yes Did you have a dental problem in the last 6 months where you did not have access to dental care?: No Was dental information given to patient?: Patient has dentist HPI 3 month follow up HTN and Anxiety HPI Details The patient is an 84-year-old female presenting for follow-up of a urinary tract infection and respiratory symptoms. The patient reports being diagnosed with a urinary tract infection on a visit to urgent care on Tuesday. Initially treated with Keflex, follow-up communication indicated resistance necessitating a switch to amoxicillin, which she started on Tuesday. The infection history notes prior E. coli infections, but lab confirmations for this episode have not been relayed to the patient. She experiences persistent symptoms suggesting incomplete resolution, with prior advisement for potential intravenous antibiotic therapy if symptoms persists after recent change in treatment. Concurrently, the patient presents with respiratory symptoms including cough and drainage. The cough, persisting for several weeks following a cold, which she thinks is likely due to her postnasal drip . The patient has an established GERD diagnosis prompting twice-daily omeprazole. Despite recent symptom improvement, GERD-related cough remains concerning. She has essential hypertension managed with amlodipine, with mild elevation in her blood pressure today likely due to her coughing spells She has anxiety disorder currently on buspirone which she only takes 5 mg in the morning. Patient reports that her anxiety are not fully controlled on current dose PFSH Medical History Fundic gland polyposis of stomach Gastritis determined by biopsy Hospital discharge follow-up Diverticulitis Colitis GERD (gastroesophageal reflux disease) Anxiety Mixed dyslipidemia Hx of iron deficiency anemia Osteoarthritis of right knee Encounter for monitoring anti-arrhythmic therapy Post-menopause Vaginal dryness, menopausal Urinary frequency Primary osteoarthritis involving multiple joints Osteoporosis Paroxysmal atrial fibrillation Essential hypertension Surgical History Diverticular disease Status post partial resection of colon History of esophagogastroduodenoscopy (EGD) H/O colonoscopy Hx of hysterectomy Hx of total knee arthroplasty Hx of bilateral oophorectomy History of bladder suspension procedure History of repair of hiatal hernia (01/26/06) History of cholecystectomy Family History Father No problems noted. Mother No problems noted. Family/Other Cancer Brother History of kidney cancer Lung cancer, Onset Age: 65 Sister Breast cancer, Onset Age: 28 Social History Household Members: None Housing: Apartment Housing Other:: resides at [address] Are you a primary day care center director to a significant other at home: No Do you presently have visiting nurse or other home services: No Alcohol intake: current Alcohol intake frequency: holidays/special occasions only Alcohol type: wine Patient Tobacco Use Status: Former Tobacco user Tobacco use type: Cigarette Years Smoked: 2 e-Cigarette/Vaping Use: Never Used Advance Directives Date on File: 09/24/19 service: No Current occupational status: retired Cognitive needs: No Hearing needs: No Vision needs: Yes Questionnaire PHQ-9 Over the last 2 weeks, how often have you been bothered by any of the following problems? Depression Screening Interpretation: Negative Depression Screening Done: Yes Source: Developed by Drs. Rio Levine, Hazel Hinton, Ronnie Bueno and colleagues, with an educational patricia from [employer]. Thrive Questionnaire Date Thrive assessed: 05/08/24 I am a: Patient What is your living situation today?: I have a steady place to live Within the past 12 months, did the food you bought not last and you didn't have the money to get more?: Never true Within the past 12 months, did you worry whether your food would run out before you got money to buy more?: Never true Do you have trouble paying for medicines?: No Do you have trouble getting transportation to medical appointments?: No Do you have trouble paying your heating and electricity bill?: No Do you have trouble taking care of your child, family member or friend?: I choose not to answer this question Do you have trouble with day-to-day activities such as bathing, preparing meals, shopping, managing finances, etc.?: No Are you currently unemployed and looking for a job?: No Are you interested in more education?: No Please select the resources that you would like help with: None Currently or been in a relationship where the following occur: I choose not to answer THRIVE Score: 0 SERGIO-7 AMB Questionnaire SERGIO-7 Date SERGIO - 7 assessed: 05/08/24 Source: Developed by Drs. Rio Levine, Hazel Hinton, Ronnie Bueno and colleagues, with an educational patricia from [employer]. Review of Systems Const Denies fever(s), Denies night sweats and Denies poor appetite ENT Denies dental pain, Denies dysphagia, Denies hearing loss, Denies mouth pain, Denies throat swelling and Denies tongue swelling Card Denies chest pain and Denies dyspnea Resp Reports as per HPI, Denies excessive phlegm production and Denies dyspnea GI Details: Denies abdominal pain, Denies melena, Denies bloating, Denies hematochezia, Denies dysphagia, Denies excessive flatus and Reports heartburn Musc Reports no additional complaints Neuro Reports no additional complaints and Denies Abnormal speech present Psych Reports as per HPI Endo Reports no additional complaints Geovanny/Lymph Reports no additional complaints Aller/Immun Denies throat swelling and Denies tongue swelling Physical exam (Primary Care) Vital Signs: Last Vital Signs Pulse 82 08/06/24 09:10 BP 140/80 H 08/06/24 09:10 Pulse Ox 96 08/06/24 09:10 Oxygen Delivery Method Room Air 08/06/24 09:10 BMI result Body Mass Index 26.4 Tobacco/Smoking Status: Tobacco use Status Tobacco use date assessed 08/06/24 08/06/24 09:12 Patient Tobacco Use Status Former Tobacco user 08/06/24 09:12 Tobacco use type Cigarette 08/06/24 09:12 e-Cigarette/Vaping Use Never Used 08/06/24 09:12 Depression Screening Interpretation: Negative Thrive Assessment: Date of Thrive Assessment Date Thrive assessed 05/08/24 08/06/24 09:12 Currently or been in a relationship where the following occur: I choose not to answer Const Other: - ENT- Ears without redness or bulging; throat mildly irritated; no sinus pain elicited. - Respiratory- Lungs clear on auscultation; no crackles or wheezes. General: cooperative, comfortable and no acute distress Orientation/consciousness: patient oriented x3 HENMT Ears: external ears normal, TM's normal bilaterally and EAC's normal General nose exam: Normal external nose present and No nasal discharge present Face and sinus: Yes sinuses nontender and Yes face symmetric Mouth: Normal oral and palatal mucosa present, oropharynx normal and moist mucous membranes Neck Neck: Yes full ROM, Yes no lymphadenopathy and Yes supple Resp Effort & Inspection: normal respiratory effort and able to speak in complete sentences Auscultation: clear to auscultation bilaterally Cardio Rate: regular rate Rhythm: regular rhythm Heart sounds: S1 normal heart sound present and S2 normal heart sound present GI Palpation (GI): Soft to palpation, nontender and no masses Auscultation: normal bowel sounds Skin General skin exam: no rashes or lesions noted Neuro General: patient oriented x3, gait normal, tone normal, moves all extremities, Normal light touch and pain sensation and no focal motor deficits Cognition (Neuro): normal cognition Speech: No Abnormal speech present Gait exam (Neuro): Normal gait present Motor exam (neuro): 5/5 motor strength present throughout Extrem General: Yes full ROM, Yes no joint enlargement, Yes no pedal edema and Yes normal gait Psych Appearance: grossly normal and well kempt Speech and movement: Normal speech and movement present Affect: normal affect Attitude: cooperative Thought process: Normal thought process present Coding Level of Care Code Est Pt Level 4 (66467) Complex EM visit Add On G2211 Diagnoses Essential hypertension I10 Mixed dyslipidemia E78.2 Anxiety F41.9 Acute upper respiratory infection J06.9 Hx: UTI (urinary tract infection) Z87.440 Assessment & Plan Assessment & Plan (1) Essential hypertension: Code(s): I10 - Essential (primary) hypertension Category: Medical (2) Mixed dyslipidemia: Code(s): E78.2 - Mixed hyperlipidemia Category: Medical (3) Anxiety: Code(s): F41.9 - Anxiety disorder, unspecified Category: Medical (4) Acute upper respiratory infection: Code(s): J06.9 - Acute upper respiratory infection, unspecified (5) Hx: UTI (urinary tract infection): Code(s): Z87.440 - Personal history of urinary (tract) infections Plan - For Urinary Tract Infection: Complete course of amoxicillin and monitor response. Consider IV antibiotics if symptoms persist. Reassess resistance data once available. - For Upper Respiratory Infection: Administer allergy medication fexofenadine) and nasal spray to manage cough and drainage. Proceed with RSV/flu/COVID panel to confirm infective origin. RSV vaccine deferred until acute symptoms resolve. - For Essential Hypertension: Maintain current regimen. Monitor blood pressure; elevated due to coughing. - For GERD: Continue omeprazole as prescribed. Monitor for symptom exacerbation. - For Anxiety Disorder: Increase buspirone to twice daily to manage anxiety. - For Anemia: Monitoring only, as anemia is currently resolved. - For Hypertriglyceridemia: Recheck lipid panel as planned for future monitoring. I discussed with the patient the management of her urinary tract infection, emphasizing completing the ongoing antibiotic regimen (amoxicillin) and following up on persistent symptoms. We reviewed potential IV antibiotic interventions should the current plan be inadequate. Respiratory symptoms were addressed through a trial of allergy medication and nasal spray, with the addition of diagnostic swabs for RSV, flu, and COVID. To further elucidate lifestyle adjustments, blood pressure management was re-evaluated within the context of her respiratory symptoms. It's crucial to monitor anxiety levels, thus increasing buspirone dosage was recommended. We discussed deferring the RSV vaccine until symptom resolution. Anticipated lab work follow-up was outlined for triglycerides and general wellness. Patient was informed and verbally consented to the use of an ambient scribe for clinic note documentation during this visit. Orders: Orders SARS-CoV2/FLU/RSV 08/06/24 J06.9 - Acute upper respiratory infection, unspecified Lipid Panel 08/06/24 E78.2 - Mixed hyperlipidemia, I10 - Essential (primary) hypertension, Z78.0 - Asymptomatic menopausal state Alanine Aminotransferase 08/06/24 E78.2 - Mixed hyperlipidemia, I10 - Essential (primary) hypertension, Z78.0 - Asymptomatic menopausal state Aspartate Amino Transferase 08/06/24 E78.2 - Mixed hyperlipidemia, I10 - Essential (primary) hypertension, Z78.0 - Asymptomatic menopausal state Basic Metabolic Panel Fasting 08/06/24 E78.2 - Mixed hyperlipidemia, I10 - Essential (primary) hypertension, Z78.0 - Asymptomatic menopausal state Vitamin D 25-OH Total 08/06/24 E78.2 - Mixed hyperlipidemia, I10 - Essential (primary) hypertension, Z78.0 - Asymptomatic menopausal state
== END 2024-08-06 09:48 | disposition home or self-care (01) ==
PROVIDERS: PCP Internal Medicine; Visit Provider Internal Medicine
DX: I10 Essential (primary) hypertension (principal); E78.2 Mixed hyperlipidemia; F41.9 Anxiety disorder, unspecified; J06.9 Acute upper respiratory infection, unspecified; Z87.440 Personal history of urinary (tract) infections

== ENCOUNTER 2024-08-13 11:07 | Day surgery (SDC) | payer MEDICARE, SELFPAY ==
[2024-08-09 14:35] VITALS: BMI 26.2
--- NOTE | 2024-08-10 12:55 | HO.ANESPROP2 ---
Documented by User: Chinyere Lopez NP 08/10/24 12:59 HPI - Anesthesia Eval Consult details Narrative: 84yo F for Upper Endoscopy s/p sigmoid resection 03/2024 [place] [facility] [place] (eliquis). Stable at 04/2024 office visit PMF Active Problems Active Problems: All Active Problems Anxiety (Acute) Status post partial resection of colon (Acute) Tubular adenoma of colon (Acute) Chronic anticoagulation (Acute) Hx of diverticulitis of colon (Acute) Delayed gastric emptying (Acute) GERD (gastroesophageal reflux disease) (Acute) Irritable bowel syndrome with both constipation and diarrhea (Acute) Mixed dyslipidemia (Acute) Vaginal dryness, menopausal (Acute) Primary osteoarthritis involving multiple joints (Acute) Osteoporosis (Acute) Paroxysmal atrial fibrillation (Acute) Essential hypertension (Acute) Past Medical History Medical History Fundic gland polyposis of stomach Gastritis determined by biopsy Hospital discharge follow-up Diverticulitis Colitis GERD (gastroesophageal reflux disease) Anxiety Mixed dyslipidemia Hx of iron deficiency anemia Osteoarthritis of right knee Encounter for monitoring anti-arrhythmic therapy Post-menopause Vaginal dryness, menopausal Urinary frequency Primary osteoarthritis involving multiple joints Osteoporosis Paroxysmal atrial fibrillation Essential hypertension Family History Family History Father No problems noted. Mother No problems noted. Family/Other Cancer Brother History of kidney cancer Lung cancer, Onset Age: 65 Sister Breast cancer, Onset Age: 28 Family history of problems with anesthesia: No Surgical History Surgical History Diverticular disease Status post partial resection of colon History of esophagogastroduodenoscopy (EGD) H/O colonoscopy Hx of hysterectomy Hx of total knee arthroplasty Hx of bilateral oophorectomy History of bladder suspension procedure History of repair of hiatal hernia (01/26/06) History of cholecystectomy History of Problems with Anesthesia: Yes (PONV) Social History Social History Household Members: None Household Members Other:: lives at [facility] Housing: Apartment Housing Other:: resides at [facility] Are you a primary respiratory care practitioner to a significant other at home: No Do you presently have visiting nurse or other home services: No Alcohol intake: current Alcohol intake frequency: holidays/special occasions only Alcohol type: wine Patient Tobacco Use Status: Former Tobacco user Tobacco use type: Cigarette Years Smoked: 2 e-Cigarette/Vaping Use: Never Used Have you been hit, kicked, punched, or otherwise hurt by someone within the past year? If so, by whom?: No Are you DNR?: No Advance Directives: No Advance Directives Information Provided: Yes Advance Directives Date on File: 09/24/19 Recently lost weight without trying: No Nutrition Risks: No Nutritional Risk service: No Current occupational status: retired Cognitive needs: No Hearing needs: No Vision needs: Yes Meds Allergies Allergy/AdvReac Type Severity Reaction Status Date / Time levofloxacin [From Levaquin] Allergy Intermediate RASH Verified 08/13/24 11:48 Home Medications ?Medication ?Instructions ?Recorded ?Confirmed ?Last Taken ?Type metoclopramide HCl 5 mg tablet 5 mg PO QIDACHS PRN stomach pain 12/09/23 08/09/24 12/08/23 History (Reglan) amlodipine 2.5 mg tablet 2.5 mg PO QAM 05/08/24 08/09/24 08/13/24 History metoprolol succinate 25 mg 25 mg PO BEDTIME 05/08/24 08/09/24 Unknown History tablet,extended release 24 hr buspirone 5 mg tablet 5 mg PO DAILY 08/09/24 08/09/24 Unknown History Exam Height,Weight and Vital Signs: Height 5 ft Weight 60.781 kg Pertinent Lab Results Pertinent Lab Results: Laboratory Tests 03/16/24 04/10/24 05:29 13:13 WBC 7.6 Hgb 13.0 Hct 38.9 Plt Count 323 D Sodium 137 Potassium 3.4 Chloride 106 Carbon Dioxide 24 BUN 7 L Creatinine 0.59 Narrative Narrative: EKG 04/2024 EKG Details: EKG with underlying sinus rhythm at 62; leftward axis; left ventricular hypertrophy with some QRS widening; normal DC and corrected QT. ECHO 01/2024 Conclusions: - 1. Normal LV ejection fraction of 60 65% with impaired relaxation filling pattern 2. Possible mild aortic stenosis 3. Normal RV systolic pressure 4. No gross pericardial effusion Assessment and Plan Assessment Anesthesia Assessment: Chart Reviewed Final Anesthetic Review Family History of Problems with Anesthesia: No History of Problems with Anesthesia: Yes (PONV) Documented by User: Caryl Avila MD 08/13/24 12:44 [facility] Past Medical History Medical History Fundic gland polyposis of stomach Gastritis determined by biopsy Hospital discharge follow-up Diverticulitis Colitis GERD (gastroesophageal reflux disease) Anxiety Mixed dyslipidemia Hx of iron deficiency anemia Osteoarthritis of right knee Encounter for monitoring anti-arrhythmic therapy Post-menopause Vaginal dryness, menopausal Urinary frequency Primary osteoarthritis involving multiple joints Osteoporosis Paroxysmal atrial fibrillation Essential hypertension Family History Family History Father No problems noted. Mother No problems noted. Family/Other Cancer Brother History of kidney cancer Lung cancer, Onset Age: 65 Sister Breast cancer, Onset Age: 28 Surgical History Surgical History Diverticular disease Status post partial resection of colon History of esophagogastroduodenoscopy (EGD) H/O colonoscopy Hx of hysterectomy Hx of total knee arthroplasty Hx of bilateral oophorectomy History of bladder suspension procedure History of repair of hiatal hernia (01/26/06) History of cholecystectomy History of Problems with Anesthesia: Yes Social History Social History Household Members: None Household Members Other:: lives at [facility] Housing: Apartment Housing Other:: resides at [facility] Are you a primary respiratory care practitioner to a significant other at home: No Do you presently have visiting nurse or other home services: No Alcohol intake: current Alcohol intake frequency: holidays/special occasions only Alcohol type: wine Patient Tobacco Use Status: Former Tobacco user Tobacco use type: Cigarette Years Smoked: 2 e-Cigarette/Vaping Use: Never Used Have you been hit, kicked, punched, or otherwise hurt by someone within the past year? If so, by whom?: No Are you DNR?: No Advance Directives: No Advance Directives Information Provided: Yes Advance Directives Date on File: 09/24/19 Recently lost weight without trying: No Nutrition Risks: No Nutritional Risk service: No Current occupational status: retired Cognitive needs: No Hearing needs: No Vision needs: Yes Meds Allergies Allergy/AdvReac Type Severity Reaction Status Date / Time levofloxacin [From Levaquin] Allergy Intermediate RASH Verified 08/13/24 11:48 Home Medications ?Medication ?Instructions ?Recorded ?Confirmed ?Last Taken ?Type metoclopramide HCl 5 mg tablet 5 mg PO QIDACHS PRN stomach pain 12/09/23 08/09/24 12/08/23 History (Reglan) amlodipine 2.5 mg tablet 2.5 mg PO QAM 05/08/24 08/09/24 08/13/24 History metoprolol succinate 25 mg 25 mg PO BEDTIME 05/08/24 08/09/24 Unknown History tablet,extended release 24 hr buspirone 5 mg tablet 5 mg PO DAILY 08/09/24 08/09/24 Unknown History Exam Airway Mallampati Class: III TM Dist: >3cm Neck ROM: Full Assessment and Plan Assessment Anesthesia Assessment: Anesthesia Plan Discussed Final Anesthetic Review History of Problems with Anesthesia: Yes NPO: Yes ASA Class: III Final Preanesthetic Review: No Changes in Pt Med Stat, Meds/Allgs Chart Reviewed, Consent Obtained/Reviewed and Anes Risks/Benef Reviewed Patient Risk: Intermediate Procedure Risk: Low Anesthetic Plan Anesthetic Plan: TIVA Disposition: Standard PACU
[2024-08-13 11:40] VITALS: BMI 26.1
[2024-08-13] MEDS: Lactated Ringers 1,000 ML 100 ML IVCONT (11:40)
[2024-08-13 12:02] VITALS: BP 154/53; PULSE 63; RESP 18; TEMP 36.6; O2SAT 96
--- NOTE | 2024-08-13 12:25 | MHC.SHP ---
Pre-Procedural Eval Section A - 24 Hr Update-Section A only Date of Service: 08/13/24 The patient is an INPATIENT: No The patient has been examined within 24 hours of the surgical procedure. The History & Physical has been completed within 30 days and I have reviewed it.: No Section B - Complete if H&P > 30 days Chief Complaint: Fu of multiple hyperplastic gastric polyps Relevant Family History (Specify if Yes): No Relevant Social History: Tobacco Use (Former smoker) Present Medications: see Short Stay Collaborative assessment Medical History: Significant History (Fundic gland polyposis of stomach Gastritis determined by biopsy Hospital discharge follow-up Diverticulitis Colitis GERD (gastroesophageal reflux disease) Anxiety Mixed dyslipidemia Hx of iron deficiency anemia Osteoarthritis of right knee Encounter for monitoring anti-arrhythmic therapy Post-menop) History of Previous Operations: Relevant previous surgery/procedure and date(s) (Status post partial resection of colon History of esophagogastroduodenoscopy (EGD) H/O colonoscopy Hx of hysterectomy Hx of total knee arthroplasty Hx of bilateral oophorectomy History of bladder suspension procedure History of repair of hiatal hernia (01/26/06) History of cholecystectomy) Allergies: Allergies Allergy/AdvReac Type Severity Reaction Status Date / Time levofloxacin [From Levaquin] Allergy Intermediate RASH Verified 08/13/24 11:48 Review of Systems Sugical H&P ROS: Negative: Constitution, Cardiovascular and Gastrointestinal and Yes, Specify: Respiratory (non-productive cough) Exam Surgical H&P Exam: Normal: Heart, Normal: Lungs, Normal: Extremities and Normal: Abdomen Plan Diagnosis/Plan: Unchanged I have reviewed the history and physical and performed a pertinent physical examination on my patient. No changes have occurred unless specified. Time Spent With Patient Time: Total time managing care of this patient today ____ minutes.
--- NOTE | 2024-08-13 15:11 | W.PM.OPN ---
Operative Note Operative Note Date of Service: 08/13/24 Narrative: FLEXIBLE TRANSORAL UPPER GASTROINTESTINAL ENDOSCOPY WITH BIOPSIES AND SNARE POLYPECTOMY OF MULTIPLE GASTRIC POLYPS Pre-op diagnosis: FU of multiple hyperplastic gastric polyps Post-op diagnosis: Hiatal hernia with a large polyp in he hiatal hernia sac, Multiple gastric polyps Endoscopist:Юлия Villasenor MD Anesthesia:?MAC UPPER ENDOSCOPY Consent: Indications for the procedure and potential complications of bleeding, perforation, reaction to medications and missed diagnosis were discussed with the patient and informed consent was obtained. Instrument: Olympus GIF H 190 mid size upper endoscope Monitoring: Vital signs and clinical assessment, continuous EKG monitoring, Pulse oximetry, Carbon Dioxide monitoring and blood pressure monitoring were done throughout the procedure. Procedure: The patient was placed in the left lateral decubitis position and pre-procedure medications were administered and a bite block was placed. The endoscope was inserted into the mouth and advanced under direct vision to the third part of duodenum. A careful inspection was made as the upper endoscope was withdrawn including a retroflexed examination of the proximal stomach; Findings and interventions are described below. Findings: Larynx: Normal Esophagus: GE junction at 34 cms, hiatal hernia 34 to 36 cms. A 3 cms elongated and polyp in the hiatal hernia sac - polyp was removed piece meal with a stiff hot snare. and retrieved with a Brewer net. Polyp could not be removed completely due to excessive spasm and location in the esophagus. Stomach: Multiple 2 to 3 cms elongated and ulcerated polyps in the gastric antrum and body. Two 1.5 to 2 cms ulcerated polyps were removed from the antrum with a stiff hot snare and retrieved with a Brewer net. Ten 1 - 3 cms ulcerated polyps were removed from the gastric body with a hot snare and removed with a Brewer net. Multiple 5 to 10 mm smaller polyps in the gastric body and fundus were not removed due to excessive length of the procedure. Mild gastric erythema. Biopsies were obtained from the gastric body to check for gastric metaplasia. Biopsies were obtained from the antrum to check for H pylori. Grade 3 flap valve on retroflexed examination of the cardia. Duodenum: Normal bulb and descending duodenum Impression and Post Procedure Diagnosis: Endoscopy Findings: ESOPHAGUS: Hiatal hernia and a large polyp in the hiatal hernia sac - polyp was removed piece meal with a stiff hot snare and retrieved with a Brewer net. Polyp could not be removed completely due to excessive spasm and location in the esophagus. STOMACH: Multiple (twelve large and ulcerated gastric polyps were removed from the gastric body and antrum. Plan: Pt has a FU appointment on 08/24/24 with Sierra Conklin NP. Repeat EGD with GA in 6 months for removal of esophageal and multiple gastric polyps. Above findings were reviewed with the patient and relevant handouts were given and the discharge area.
[2024-08-13 15:15] VITALS: BP 104/56; PULSE 65; RESP 15; TEMP 36.8; O2SAT 95
[2024-08-13 15:30] VITALS: BP 118/55; PULSE 58; RESP 17; TEMP 36.9; O2SAT 96
== END 2024-08-13 15:46 | disposition home or self-care (01) ==
PROVIDERS: PCP Internal Medicine; Visit Provider Internal Medicine Gastroenterology
PROC: 0DJ08ZZ Inspection of Upper Intestinal Tract, Via Natural or Artificial Opening Endoscopic (ICD-10-PCS; CPT 43235; principal; 2024-08-13 13:50)
DX: K31.7 Polyp of stomach and duodenum (principal); K22.81 Esophageal polyp; K22.4 Dyskinesia of esophagus; K44.9 Diaphragmatic hernia without obstruction or gangrene; K21.9 Gastro-esophageal reflux disease without esophagitis; K30 Functional dyspepsia; K29.70 Gastritis, unspecified, without bleeding; K58.2 Mixed irritable bowel syndrome; I10 Essential (primary) hypertension; E78.2 Mixed hyperlipidemia; M81.0 Age-related osteoporosis without current pathological fracture; Z87.19 Personal history of other diseases of the digestive system; Z79.01 Long term (current) use of anticoagulants; Z79.899 Other long term (current) drug therapy; Z88.1 Allergy status to other antibiotic agents; Z90.49 Acquired absence of other specified parts of digestive tract; Z87.891 Personal history of nicotine dependence
CPT/HCPCS: 43251; 43239; 88305; 88313; 88342

== ENCOUNTER → 2024-08-13 11:07 | Outpatient (BNV) | payer MEDICARE, SELFPAY | PROVIDERS: PCP Internal Medicine; Visit Provider Internal Medicine Gastroenterology | DX: K31.7 Polyp of stomach and duodenum (principal); K22.81 Esophageal polyp | CPT/HCPCS: 43239; 43251 ==

== ENCOUNTER 2024-11-19 14:00 | Outpatient (AMB) | payer MEDICARE, SELFPAY ==
[2024-11-19 14:17] VITALS: BP 122/66; PULSE 62; BMI 26.9
--- NOTE | 2024-11-19 14:17 | MHC.OFFVIS ---
Vital Signs 11/19/24 14:17 Height 5 ft Weight 138 lb BMI 26.9 BP 122/66 Blood Pressure Location Lt brachial Position Sitting Pulse 62 Pulse Source Monitor Intake Visit Reasons: 6 mth f/up Allergies levofloxacin [From Levaquin] Allergy (Intermediate, Verified 08/13/24 11:48) RASH Medication List - Last Reconciled 11/19/24 by William Hansen MD amlodipine 2.5 mg PO BID apixaban (Eliquis) 5 mg PO BID buspirone 5 mg PO DAILY flecainide 50 mg PO BID metoclopramide HCl (Reglan) 5 mg PO QIDACHS PRN metoprolol succinate ER 25 mg PO BEDTIME omeprazole 40 mg PO BID HPI Comments Details: Alisa returns for follow-up regarding atrial fibrillation. To recall, she was hospitalized in 2016 with atrial fibrillation and rapid rate. She was treated with beta-blockers for rate control and converted to sinus. On another occasion, she was readmitted with dizziness and presyncope and had sinus bradycardia. Then beta-nicole dose was decreased and Flecainide added. Home over the last several years, she has had no major atrial fibrillation events and they are actually well controlled with the current regimen. Otherwise, no new concerns since last seen from cardiac standpoint. [facility] Medical History Fundic gland polyposis of stomach Gastritis determined by biopsy Hospital discharge follow-up Diverticulitis Colitis GERD (gastroesophageal reflux disease) Anxiety Mixed dyslipidemia Hx of iron deficiency anemia Osteoarthritis of right knee Encounter for monitoring anti-arrhythmic therapy Post-menopause Vaginal dryness, menopausal Urinary frequency Primary osteoarthritis involving multiple joints Osteoporosis Paroxysmal atrial fibrillation Essential hypertension Surgical History Diverticular disease Status post partial resection of colon History of esophagogastroduodenoscopy (EGD) H/O colonoscopy Hx of hysterectomy Hx of total knee arthroplasty Hx of bilateral oophorectomy History of bladder suspension procedure History of repair of hiatal hernia (01/26/06) History of cholecystectomy Family History Father No problems noted. Mother No problems noted. Family/Other Cancer Brother History of kidney cancer Lung cancer, Onset Age: 65 Sister Breast cancer, Onset Age: 28 Social History Household Members: None Household Members Other:: lives at [facility] Housing: Apartment Housing Other:: resides at [facility] Are you a primary point of care technician to a significant other at home: No Do you presently have visiting nurse or other home services: No Alcohol intake: current Alcohol intake frequency: holidays/special occasions only Alcohol type: wine Patient Tobacco Use Status: Former Tobacco user Tobacco use type: Cigarette Years Smoked: 2 e-Cigarette/Vaping Use: Never Used Advance Directives Date on File: 09/24/19 service: No Current occupational status: retired Cognitive needs: No Hearing needs: No Vision needs: Yes Review of Systems Const Denies weakness ENT Denies dizziness Card Denies chest pain, Denies chest pain with activity, Denies syncope, Denies rapid heart rate, Denies pedal edema, Denies edema, Denies leg edema, Denies lightheadedness, Denies palpitations, Denies dyspnea, Denies dyspnea on exertion and Denies orthopnea Resp Denies cough, Denies dyspnea and Denies dyspnea on exertion GI Denies hematochezia and Denies change in stool character Musc Denies abnormal gait, Denies muscle cramps, Denies muscle weakness, Denies numbness, Denies radiating pain into limb and Denies tingling Neuro Denies abnormal gait, Denies dizziness, Denies syncope, Denies numbness, Denies tingling and Denies weakness Endo Denies palpitations Physical Exam Vital Signs: Last Vital Signs Pulse 62 11/19/24 14:17 BP 122/66 11/19/24 14:17 BMI result Body Mass Index 26.9 Const General: comfortable and no acute distress Orientation/consciousness: patient oriented x3 HEENT Other: Unremarkable Head: Yes normal to inspection Neck Neck: Yes normal visual inspection Chest Chest palpation & inspection: normal inspection of the chest Resp Auscultation: clear to auscultation bilaterally Cardio Palpation: normal PMI Heart sounds: S1 normal heart sound present, S2 normal heart sound present, no gallops, no murmurs and no rubs GI Palpation (GI): Soft to palpation Back/Spine/Pelvis Other: unremarkable Skin General skin exam: no rashes or lesions noted Neuro General: patient oriented x3 Extrem General: Yes normal to inspection Psych Mental Status: mental status grossly normal Office Procedures EKG Details: EKG with underlying sinus rhythm at 62/Min; leftward axis; voltage criteria for LVH; nonspecific ST-T [place]; [place] [id number], Complete Assessment & Plan Assessment & Plan (1) Paroxysmal atrial fibrillation: Comment: follows w/[facility] Code(s): I48.0 - Paroxysmal atrial fibrillation Category: Medical Plan: Stable. In the most recent echocardiogram, LVEF 60-60%; suspected LA dilatation; no significant valvular findings. Continue beta-blockers and flecainide. Continue Eliquis. (2) Encounter for monitoring anti-arrhythmic therapy: Code(s): Z51.81 - Encounter for therapeutic drug level monitoring; Z79.899 - Other long term acute care registered nurse (current) drug therapy Category: Medical Plan: Has been stable on flecainide for many years. In the past, perfusion imaging unremarkable. Echocardiogram with preserved LVEF. She does not have any concerning symptoms like angina. (3) Essential hypertension: Code(s): I10 - Essential (primary) hypertension Category: Medical Plan: On metoprolol and amlodipine. Stable. Plan - Continue all current medications: Flecainide, Metoprolol, anticoagulant, and Amlodipine. - Adjust Amlodipine dose as specified and ensure correct dosage. - Schedule and complete necessary blood work as soon as possible. - Contact the office if any new symptoms occur or existing symptoms worsen. - Plan to follow up in six months or sooner if needed. Coding Level of Care Code Est Pt Level 4 (96812) Complex EM visit Add On G2211 Diagnoses Paroxysmal atrial fibrillation I48.0 Encounter for monitoring anti-arrhythmic therapy Z51.81; Z79.899 Essential hypertension I10 CPT Codes EKG - CPT: 42222-[id number], Complete ([id number])
== END 2024-11-19 14:36 | disposition home or self-care (01) ==
PROVIDERS: PCP Internal Medicine; Visit Provider Internal Medicine
DX: I48.0 Paroxysmal atrial fibrillation (principal); Z51.81 Encounter for therapeutic drug level monitoring; Z79.899 Other long term (current) drug therapy; I10 Essential (primary) hypertension
CPT/HCPCS: 93010; 99214; G2211

== ENCOUNTER → 2024-11-19 14:00 | Outpatient (BNVA) | payer MEDICARE, SELFPAY | PROVIDERS: PCP Internal Medicine; Visit Provider Internal Medicine | DX: I48.0 Paroxysmal atrial fibrillation (principal); I10 Essential (primary) hypertension; Z51.81 Encounter for therapeutic drug level monitoring; Z79.899 Other long term (current) drug therapy | CPT/HCPCS: 93005; 99212 ==

== ENCOUNTER 2024-12-03 09:18 | Outpatient (REF) | payer MEDICARE, SELFPAY ==
[2024-12-03 11:36] LABS: Alanine Aminotransferase 14 U/L (0-31); Anion Gap 14 (12-20); Aspartate Amino Transferase 17 U/L (5-31); Blood Urea Nitrogen 15 mg/dL (9-16); Calcium 9.6 mg/dL (8.4-10.2); Carbon Dioxide 28 mmol/L (22-29); Chloride 101 mmol/L (96-108); Cholesterol 209 mg/dL (<200); Estimated Glomerular Filt Rate > 60; Glucose Fasting 128 mg/dL (60-99); HDL Cholesterol 52 mg/dL (>40); LDL Cholesterol Calculated 111 mg/dL (<100); Potassium 3.8 mmol/L (3.3-5.1); Sodium 139 mmol/L (135-145); Triglycerides 233 mg/dL (<150); Vitamin D 25-OH Total 41.4 ng/mL (>30)
== END 2024-12-03 09:19 | disposition home or self-care (01) ==
LOC: HO.LAB 09:18
PROVIDERS: PCP Internal Medicine; Visit Provider Internal Medicine
DX: E78.2 Mixed hyperlipidemia (principal); I10 Essential (primary) hypertension; Z78.0 Asymptomatic menopausal state
CPT/HCPCS: 36415; 80048; 80061; 82306; 84450; 84460

== ENCOUNTER 2024-12-06 13:20 | Outpatient (AMB) | payer MEDICARE, SELFPAY ==
--- NOTE | 2024-12-06 13:24 | A.OFFPC_ITS ---
Vital Signs 12/06/24 13:25 Height 5 ft Weight 138 lb 4 oz BMI 27.0 BP 136/78 Blood Pressure Location Lt brachial Position Sitting Pulse 66 Pulse Source Pulse Oximeter Pulse Oximetry (%) 97 Oxygen Delivery Method Room Air Intake Visit Reasons: 4 months f/up Intake Note: Pt is here today for 4 month follow up. Allergies levofloxacin [From Levaquin] Allergy (Intermediate, Verified 12/09/24 02:41) RASH Medication List - Last Reconciled 12/06/24 by Mer Quinonez MD amlodipine 2.5 mg PO BID apixaban (Eliquis) 5 mg PO BID buspirone 5 mg PO DAILY flecainide 50 mg PO BID metoclopramide HCl (Reglan) 5 mg PO QIDACHS PRN metoprolol succinate ER 25 mg PO BEDTIME omeprazole 40 mg PO BID Tobacco use date assessed: 12/06/24 Fall risk assessment: No Falls in past year Last assessed Fall Risk: 12/06/24 Dental Screening Dental Screen Date: 12/06/24 Did you have a dental visit in the last 12 months?: Yes Did you have a dental problem in the last 6 months where you did not have access to dental care?: No Was dental information given to patient?: Patient has dentist HPI 4 months f/up HPI Details 84-year-old lady with history of hyperte nsion , mixed dyslipidemia paroxysmal atrial fibrillation, stable and controlled on flecainide, metoprolol succinate ER and is currently anticoagulated on apixaban 5 mg twice a day. She states that she has been feeling well, with no episodes of palpitations, dizziness, shortness breath or chest pain. Last echocardiogram showed LVEF 60- 60%; suspected LA dilatation; no significant valvular findings, previous perfusion imaging was unremarkable. She was recently seen by Cardiology a month ago when was continued on present medications . She has history of anxiety disorder, currently controlled on buspirone 5 mg taken 1 tablet twice a day. Takes omeprazole 40 mg twice a day for chronic GERD. She has osteoporosis with no history of fractures, previously seen by endocrinology . Previous treatment includes hormone replacement therapy for 2 years, Boniva which she stopped taking as cost her severe bone pain in 1999 , and Actonel which she took from 2011 -2012 which caused significant GI issues. Prolia was discussed in offered at that time but patient declined further treatment. She has just been taking [id number] vitamin-D 3 supplements and calcium. [facility] Medical History (Updated 12/09/24 @ 03:08 by Mer Quinonez MD) Generalized anxiety disorder Fundic gland polyposis of stomach Gastritis determined by biopsy Diverticulitis Colitis GERD (gastroesophageal reflux disease) Mixed dyslipidemia Hx of iron deficiency anemia Osteoarthritis of right knee Encounter for monitoring anti-arrhythmic therapy Post-menopause Vaginal dryness, menopausal Urinary frequency Primary osteoarthritis involving multiple joints Osteoporosis Paroxysmal atrial fibrillation Essential hypertension Surgical History Diverticular disease Status post partial resection of colon History of esophagogastroduodenoscopy (EGD) H/O colonoscopy Hx of hysterectomy Hx of total knee arthroplasty Hx of bilateral oophorectomy History of bladder suspension procedure History of repair of hiatal hernia (01/26/06) History of cholecystectomy Family History Father No problems noted. Mother No problems noted. Family/Other Cancer Brother History of kidney cancer Lung cancer, Onset Age: 65 Sister Breast cancer, Onset Age: 28 Social History Household Members: None Household Members Other:: lives at [facility] Housing: Apartment Housing Other:: resides at [facility] Are you a primary vehicle care specialist to a significant other at home: No Do you presently have visiting nurse or other home services: No Alcohol intake: current Alcohol intake frequency: holidays/special occasions only Alcohol type: wine Patient Tobacco Use Status: Former Tobacco user Tobacco use type: Cigarette Years Smoked: 2 Smoked in Last 30 Days: No e-Cigarette/Vaping Use: Never Used Use of substances other than those prescribed or required for medical reasons: No Advance Directives: Yes Advance Directives on File: Yes Advance Directives Date on File: 09/24/19 service: No Current occupational status: retired Cognitive needs: No Hearing needs: No Vision needs: Yes Female Reproductive History Menstrual Menopause type: natural (age 35) Questionnaire PHQ-9 Over the last 2 weeks, how often have you been bothered by any of the following problems? 1. Little interest or pleasure in doing things: not at all 2. Feeling down, depressed, or hopeless: not at all 3. Trouble falling or staying asleep, or sleeping too much: several days 4. Feeling tired or having little energy: several days 5. Poor appetite or overeating: not at all 6. Feeling bad about yourself - or that you are a failure or have let yourself or your family down: not at all 7. Trouble concentrating on things, such as reading the newspaper or watching television: not at all 8. Moving or speaking so slowly that other people could have noticed. Or the opposite - being so fidgety or restless that you have been moving around a lot more than usual: not at all 9. Thoughts that you would be better off or of hurting yourself in some way: not at all Total score: 2 Depression Screening Interpretation: Negative Depression Screening Done: Yes 06228 - PHQ-9 Billing: Yes Source: Developed by Drs. Rio Levine, Hazel Hinton, Ronnie Bueno and colleagues, with an educational patricia from [employer]. Thrive Questionnaire Date Thrive assessed: 12/06/24 I am a: Patient What is your living situation today?: I have a steady place to live Within the past 12 months, did the food you bought not last and you didn't have the money to get more?: I choose not to answer this question Within the past 12 months, did you worry whether your food would run out before you got money to buy more?: I choose not to answer this question Do you have trouble paying for medicines?: I choose not to answer this question Do you have trouble getting transportation to medical appointments?: I choose not to answer this question Do you have trouble paying your heating and electricity bill?: I choose not to answer this question Do you have trouble taking care of your child, family member or friend?: I choose not to answer this question Do you have trouble with day-to-day activities such as bathing, preparing meals, shopping, managing finances, etc.?: I choose not to answer this question Are you currently unemployed and looking for a job?: I choose not to answer this question Are you interested in more education?: I choose not to answer this question Please select the resources that you would like help with: None Currently or been in a relationship where the following occur: I choose not to answer THRIVE Score: 0 AUDIT C Alcohol Use Questionnaire (AUDIT-C) 1. How often do you have a drink containing alcohol?: 2-4 times a month 2. How many drinks containing alcohol do you have on a typical day when you are drinking?: 1 or 2 3. How often do you have six or more drinks on one occasion?: Never Total Score: 2 Score Reviewed/Action Taken: Yes SERGIO-7 AMB Questionnaire SERGIO-7 Date SERGIO - 7 assessed: 12/06/24 Feeling nervous, anxious, or on edge: 1 = Several days Not being able to stop or control worryin = Not at all Worrying too much about different things: 0 = Not at all Trouble relaxin = Not at all Being so restless that it is hard to sit still: 0 = Not at all Becoming easily annoyed or irritable: 0 = Not at all Feeling afraid as if something awful might happen: 0 = Not at all Total SERGIO-7 score (0-4 normal; 5-9 mild; 10-14 moderate; 15-21 severe): 1 Source: Developed by Drs. Rio Levine, Hazel Hinton, Ronnie Bueno and colleagues, with an educational patricia from [employer]. SERGIO-7 Assessment Billing SERGIO-7 Assessment Tool: SERGIO-7 Assessment 71812 Review of Systems Const Denies difficulty sleeping, Denies fatigue and Denies weakness Eyes Denies change in vision ENT Denies dizziness Card Denies chest pain, Denies chest pain with activity, Denies syncope, Denies rapid heart rate, Denies pedal edema, Denies lightheadedness, Denies palpitations, Denies dyspnea and Denies dyspnea on exertion Resp Denies cough, Denies dyspnea and Denies dyspnea on exertion GI Denies hematochezia and Denies change in stool character Musc Denies abnormal gait, Denies muscle cramps, Denies muscle weakness and Denies numbness Neuro Denies Abnormal speech present, Denies abnormal gait, Denies dizziness, Denies syncope, Denies numbness and Denies weakness Psych Reports no additional complaints Endo Denies fatigue and Denies palpitations Geovanny/Lymph Denies easy bleeding and Denies easy bruising Aller/Immun Reports no additional complaints Physical exam (Primary Care) Vital Signs: Last Vital Signs Pulse 66 12/06/24 13:25 BP 136/78 12/06/24 13:25 Pulse Ox 97 12/06/24 13:25 Oxygen Delivery Method Room Air 12/06/24 13:25 BMI result Body Mass Index 27.0 Tobacco/Smoking Status: Tobacco use Status Tobacco use date assessed 12/06/24 12/06/24 13:37 Patient Tobacco Use Status Former Tobacco user 12/06/24 13:25 Tobacco use type Cigarette 12/06/24 13:25 e-Cigarette/Vaping Use Never Used 12/06/24 13:25 PHQ-9: PHQ-9 Score PHQ-9: Total score 2 12/09/24 02:41 Depression Screening Interpretation: Negative Thrive Assessment: Date of Thrive Assessment Date Thrive assessed 12/06/24 12/06/24 13:37 Currently or been in a relationship where the following occur: I choose not to answer Const General: comfortable and no acute distress Orientation/consciousness: patient oriented x3 HENMT Ears: external ears normal, TM's normal bilaterally and EAC's normal General nose exam: Normal external nose present Face and sinus: Yes face symmetric Mouth: Normal oral and palatal mucosa present, oropharynx normal and moist mucous membranes Eyes General: appearance normal, both eyes and all related structures Neck Neck: Yes full ROM, Yes no lymphadenopathy and Yes supple Resp Effort & Inspection: normal respiratory effort and able to speak in complete sentences Auscultation: clear to auscultation bilaterally Cardio Rate: regular rate Rhythm: regular rhythm Heart sounds: S1 normal heart sound present and S2 normal heart sound present GI Palpation (GI): Soft to palpation, nontender and no masses Auscultation: normal bowel sounds Skin General skin exam: no rashes or lesions noted Neuro General: patient oriented x3, gait normal, tone normal, moves all extremities, Normal light touch and pain sensation and no focal motor deficits Cognition (Neuro): normal cognition Speech: No Abnormal speech present Gait exam (Neuro): Normal gait present Motor exam (neuro): 5/5 motor strength present throughout Extrem General: Yes full ROM, Yes no joint enlargement, Yes no pedal edema and Yes normal gait Psych Appearance: grossly normal and well kempt Speech and movement: Normal speech and movement present Affect: normal affect Attitude: cooperative Thought process: Normal thought process present Coding Level of Care Code Est Pt Level 4 (64245) Complex EM visit Add On G2211 Diagnoses Generalized anxiety disorder F41.1 GERD (gastroesophageal reflux disease) K21.9 Essential hypertension I10 Paroxysmal atrial fibrillation I48.0 Additional Codes SERGIO-7 Assessment Billing - SERGIO-7 Assessment Tool: SERGIO-7 Assessment 07026 ([id number]) PHQ-9 - 73868 - PHQ-9 Billing: Yes ([id number]) Assessment & Plan Assessment & Plan (1) Generalized anxiety disorder: Code(s): F41.1 - Generalized anxiety disorder Category: Medical Plan: Continued on buspirone 5 mg twice a day (2) GERD (gastroesophageal reflux disease): Code(s): K21.9 - Gastro-esophageal reflux disease without esophagitis Category: Medical Plan: Currently on omeprazole 40 mg/ capsule twice a day, followed by [facility] (3) Essential hypertension: Code(s): I10 - Essential (primary) hypertension Category: Medical Plan: Continue amlodipine 2.5 mg 1 tablet twice a day (4) Paroxysmal atrial fibrillation: Comment: follows w/[facility] Code(s): I48.0 - Paroxysmal atrial fibrillation Category: Medical Plan: Currently on metoprolol succinate ER, flecainide and anticoagulated with apixaban, followed by cardiology Medications: Changed From buspirone 5 mg PO DAILY To buspirone 5 mg PO BID 3 months 180 tabs 4RF
[2024-12-06 13:25] VITALS: BP 136/78; PULSE 66; O2SAT 97; BMI 27.0
== END 2024-12-06 14:09 | disposition home or self-care (01) ==
LOC: HO.HMCC 13:21
PROVIDERS: PCP Internal Medicine; Visit Provider Internal Medicine
DX: F41.1 Generalized anxiety disorder (principal); K21.9 Gastro-esophageal reflux disease without esophagitis; I10 Essential (primary) hypertension; I48.0 Paroxysmal atrial fibrillation

== ENCOUNTER → 2024-12-06 13:20 | Outpatient (BNVA) | payer MEDICARE, SELFPAY | PROVIDERS: PCP Internal Medicine; Visit Provider Internal Medicine | DX: F41.1 Generalized anxiety disorder (principal); K21.9 Gastro-esophageal reflux disease without esophagitis; I10 Essential (primary) hypertension; I48.0 Paroxysmal atrial fibrillation | CPT/HCPCS: 96127; 99212 ==

== ENCOUNTER 2024-12-09 02:10 | Emergency (ER) | payer MEDICARE, SELFPAY ==
[2024-12-09] VITALS (7 sets, daily range): BP systolic 132–173; BP diastolic 48–76; PULSE 58–105; RESP 16–19; TEMP 36.5–36.9; O2SAT 97–99; BMI 26.8
--- NOTE | ~2024-12-09 | CT_ITS ---
CLINICAL HISTORY: bilateral lower back and abdomen pain, r o AAA CT abdomen and pelvis with contrast Comparison: CT/REG/RI/SR - CT ABDOMEN PELVIS W IV CON - 08/09/23 15:45 EST Findings: There is a small sliding hiatal hernia. There has been prior cholecystectomy. Contrast is seen within bilateral renal collecting systems. Multiple simple right renal cortical and parapelvic cysts are seen measuring up to 3.6 cm. Multiple simple left renal parapelvic cysts are seen measuring up to 1.6 cm. Additional subcentimeter hypodensities in bilateral kidneys are too small to characterize. The liver, pancreas, spleen, and bilateral adrenal glands appear within normal limits. There is no evidence of bowel obstruction. The appendix is not well-visualized. There is no pneumoperitoneum or ascites. The urinary bladder appears normal for degree of distention. There is no adenopathy. Moderate degenerative changes are seen in the spine. No acute osseous abnormality is identified. No aggressive lytic or blastic lesion is seen. IMPRESSION: 1. No acute abdominopelvic abnormality is identified. No evidence of abdominal aortic aneurysm. 2. Small sliding hiatal hernia. This document has been electronically signed by: Jim Mehta on 12/09/2024 05:32:42
--- NOTE | 2024-12-09 04:03 | ED_ITS ---
HPI - Back Pain/Injury General Chief Complaint: Back Pain/Injury Stated Complaint: back pain Time Seen by Provider: 12/09/24 03:48 Source: patient and EMS Mode of arrival: EMS Limitations: no limitations History of Present Illness ED Provider: Dr. Gloria Casanova HPI Narrative: Patient comes to the emergency room from assisted living. Patient states that for the last 2 days she has been having severe middle and lower back pain, some hip pain, some lower quadrant pain bilaterally in the abdomen but can not quite pinpoint words hurting. Patient states that she has never had this pain before. Denies any injuries. Patient denies any nausea vomiting or diarrhea. Patient states that she has history of diverticulitis. Patient denies hematuria or dysuria, denies fever or chills. Related Data Home Medications ?Medication ?Instructions ?Recorded ?Confirmed metoclopramide HCl 5 mg tablet 5 mg PO QIDACHS PRN stomach pain 12/09/23 11/19/24 (Reglan) metoprolol succinate 25 mg 25 mg PO BEDTIME 05/08/24 11/19/24 tablet,extended release 24 hr Previous Rx's ?Medication ?Instructions ?Recorded flecainide 50 mg tablet 50 mg PO BID #180 tabs 05/14/24 omeprazole 40 mg capsule,delayed 40 mg PO BID #60 caps 05/28/24 release apixaban 5 mg tablet (Eliquis) 5 mg PO BID #180 tabs 06/19/24 amlodipine 2.5 mg tablet 2.5 mg PO BID #90 tabs 11/26/24 buspirone 5 mg tablet 5 mg PO BID 3 months #180 tabs 12/06/24 oxycodone 5 mg tablet 5 mg PO BID PRN pain #8 tabs 12/09/24 Allergies Allergy/AdvReac Type Severity Reaction Status Date / Time levofloxacin [From Levaquin] Allergy Intermediate RASH Verified 12/09/24 02:41 Review of Systems 2 Review of Systems: Constitutional : No Weight loss, No Fever, No Chills, No Night Sweats, No Fatigue, No Malaise ENT/Mouth : No Hearing loss, No Ear Pain, No Nasal Congestion, No Sinus Pain, No Hoarseness, No sore throat, No Rhinorrhea, No Swallowing Difficulty Eyes: No Eye Pain, No Swelling, No Redness, No Foreign Body, No Discharge, No Vision Changes Cardiovascular : No Chest Pain, No SOB, No Dyspnea on Exertion, No Orthopnea, No Edema, No Palpitations Respiratory : No Cough, No Sputum, No Wheezing, No Smoke Exposure, No Dyspnea Gastrointestinal : No Nausea, No Vomiting, No Diarrhea, No Constipation, No abdominal Pain, No Hematochezia, No Melena Genitourinary : no irregular bleeding, No Dysuria, No Urinary Frequency, No Hematuria, No Urinary Incontinence, No Urgency, No Flank Pain, No Urinary Flow Changes, No Hesitancy Musculoskeletal : No joint pain, No Myalgias, No Joint Swelling Skin : No Skin Lesions, No rash Neuro : No Weakness, No Numbness, No Paresthesias, No Loss of Consciousness, No Dizziness, No Headache Psych : No Anxiety/Panic, No Depression, No SI/HI/AH/VH, No Social Issues, Heme/Lymph: No Bruising, No Bleeding,No Lymphadenopathy Endocrine : No Polyuria, No Polydipsia, No Temperature Intolerance PMFSH Past Medical History Medical History (Updated 12/09/24 @ 06:54 by Gloria Casanova MD) Generalized anxiety disorder Fundic gland polyposis of stomach Gastritis determined by biopsy Diverticulitis Colitis GERD (gastroesophageal reflux disease) Mixed dyslipidemia Hx of iron deficiency anemia Osteoarthritis of right knee Encounter for monitoring anti-arrhythmic therapy Post-menopause Vaginal dryness, menopausal Urinary frequency Primary osteoarthritis involving multiple joints Osteoporosis Paroxysmal atrial fibrillation Essential hypertension Surgical History Diverticular disease Status post partial resection of colon History of esophagogastroduodenoscopy (EGD) H/O colonoscopy Hx of hysterectomy Hx of total knee arthroplasty Hx of bilateral oophorectomy History of bladder suspension procedure History of repair of hiatal hernia (01/26/06) History of cholecystectomy Family History Family History Father No problems noted. Mother No problems noted. Family/Other Cancer Brother History of kidney cancer Lung cancer, Onset Age: 65 Sister Breast cancer, Onset Age: 28 Social History Social History Household Members: None Household Members Other:: lives at [facility] Housing: Apartment Housing Other:: resides at [facility] Are you a primary healthcare financial analyst to a significant other at home: No Do you presently have visiting nurse or other home services: No Alcohol intake: current Alcohol intake frequency: holidays/special occasions only Alcohol type: wine Patient Tobacco Use Status: Former Tobacco user Tobacco use type: Cigarette Years Smoked: 2 Smoked in Last 30 Days: No e-Cigarette/Vaping Use: Never Used Use of substances other than those prescribed or required for medical reasons: No Advance Directives: Yes Advance Directives on File: Yes Advance Directives Date on File: 09/24/19 service: No Current occupational status: retired Cognitive needs: No Hearing needs: No Vision needs: Yes Physical Exam 2 Vital Signs: Vital Signs: Last Vital Signs Temp 98.4 F 12/09/24 05:54 Pulse 58 12/09/24 05:54 Resp 19 12/09/24 05:54 BP 173/70 H 12/09/24 05:54 Pulse Ox 98 12/09/24 05:54 O2 Del Method Room Air 12/09/24 05:54 BMI result Body Mass Index 26.8 Const: Other: Appearance: Alert. Oriented X3. No acute distress. Eyes: Pupils equal, round and reactive to light. ENT: Pharynx normal. Neck: Normal inspection. Neck supple. No lymph nodes noted. No crepitus CVS: Normal heart rate and rhythm. Pulses normal. Normal S1 and S2 Respiratory: No respiratory distress. Breath sounds normal. No Wheezing. No rales Abdomen: Soft and nontender. No rigidity. No distention. Back: Pain to palpation over the lower back bilaterally, no thoracic or lumbar spine tenderness. Skin: Skin warm and dry. Normal skin color. Normal skin turgor. Extremities: No lower extremity edema. No Lacerations. No Rash Neuro: Oriented X 3. No motor deficit. No sensory deficit. Moving all extremities. No slurred speech. CN 2 through 12 grossly intact Psych: calm, cooperative, normal affect Medications Administered Discontinued Medications Generic Name Dose Route Start Last Admin Trade Name Freq PRN Reason Stop Dose Admin Iohexol 85 ml 12/09/24 04:34 12/09/24 04:34 Iohexol 350 Mg/Ml 100 Ml Infus..Btl IV 12/09/24 04:35 85 ml ONCE ONE Administration Iohexol 85 ml 12/09/24 04:34 12/09/24 04:35 Iohexol 350 Mg/Ml 100 Ml Infus..Btl IV 12/09/24 04:35 85 ml ONCE ONE Administration Morphine Sulfate 1 mg 12/09/24 03:58 12/09/24 04:09 Morphine Sulfate 2 Mg/Ml Cartridge IVPUSH 12/09/24 03:59 1 mg ONCE ONE Administration Protocol Oxycodone HCl 5 mg 12/09/24 05:54 12/09/24 06:15 Oxycodone Hcl Immed Release 5 Mg Tablet PO 12/09/24 05:55 5 mg ONCE ONE Administration Medical Decision Making Medical Decision Making MDM Narrative: My interpretation of labs: Normal hematology and chemistry, UA negative CT scan of the abdomen pelvis did not show any acute abnormality. No AAA, no acute osseous abnormality Patient was giving IV morphine wants and then p.o. oxycodone patient states that she feels better to go home. Patient states that she has plenty of support at home. Patient declined PT or case management. Patient states that she will be okay at home Differential Diagnosis Differential Diagnoses: The differential diagnosis associated with the presentation includes (AAA, pyelonephritis, musculoskeletal pain) Lab Data [facility] Lab Attestation statement: I reviewed the patient's lab results. 12/09/24 04:11 12/09/24 04:11 Labs: Lab Results 12/09/24 12/09/24 Range/Units 04:11 05:02 WBC 6.7 (4.8-10.8) X10*3/uL RBC 4.23 (4.20-5.50) X10*6/uL Hgb 11.7 L (12.0-16.0) g/dl Hct 34.9 L (37.0-47.0) % MCV 82.5 (80.0-98.0) fL MCH 27.7 (27.0-33.0) pg MCHC 33.5 (31.0-35.0) g/dl RDW 13.8 (11.0-16.0) % Plt Count 275 (160-400) X10*3/uL MPV 9.1 L (9.4-12.3) fL Immature Gran % (Auto) 0.3 (0.0-0.4) % Neut % (Auto) 50.4 (45-73) % Lymph % (Auto) 41.0 H (20-40) % [place] % (Auto) 7.9 (2-11) % Eos % (Auto) 0.3 (0-4) % Baso % (Auto) 0.1 (0-2) % Lymph # (Auto) 2.8 (1.2-4.9) X10*3/uL [place] # (Auto) 0.5 (0.1-1.2) X10*3/uL Eos # (Auto) 0.0 (0.0-0.4) X10*3/uL Baso # (Auto) 0.0 (0.0-0.2) X10*3/uL Abs Immat Gran (auto) 0.02 (0.00-0.03) X10*3/uL Absolute Neuts (auto) 3.4 (2.0-8.3) x10*3/uL Absolute Nucleated RBC 0.000 (0.0-0.012) X10*3/uL Nucleated RBC % (auto) 0.0 (0.0-0.2) /100WBC Hold Purple Top SEE NOTE Hold Blue Top SEE NOTE Sodium 140 (135-145) mmol/L Potassium 4.1 (3.3-5.1) mmol/L Chloride 102 (96-108) mmol/L Carbon Dioxide 26 (22-29) mmol/L Anion Gap 16 (12-20) BUN 18 H (9-16) mg/dL Creatinine 0.78 (0.5-1.4) mg/dL Estim Creat Clear Calc 43.4 Estimated GFR > 60 Random Glucose 111 (60-115) mg/dL Calcium 10.3 H D (8.4-10.2) mg/dL Total Bilirubin 0.6 (0.0-1.0) mg/dL Direct Bilirubin 0.2 (0.0-0.5) mg/dL AST 19 (5-31) U/L ALT 7 (0-31) U/L Alkaline Phosphatase 55 (39-117) U/L Total Protein 6.5 (6.5-8.0) g/dL Albumin 4.1 (3.5-5.0) g/dL Urine Color Yellow Urine Appearance Clear Urine pH 8.0 (5.0-9.0) Ur Specific [place] >= 1.030 H (1.005-1.025) Urine Protein Negative (Neg-Trace) mg/dL Urine Glucose (UA) Negative (Negative) mg/dL Urine Ketones Trace (Negative) mg/dL Urine Blood Negative (Negative) Urine Nitrite Negative (Negative) Ur Leukocyte Esterase Trace H (Negative) Urine RBC 0-2 (0-2) /HPF Urine WBC 0-5 (0-5) /HPF Ur Squamous Epith Cells 0-2 (0-2) /HPF Urine Bacteria None Seen (None Seen) Hyaline Casts 0-2 (0-2) /LPF Independent Interpretation I performed an independent interpretation of an: CT Scan Radiology Impression Discussion of test interpretation with radiology: I have reviewed the radiologist's reading. Radiologist Impression: There has been prior cholecystectomy. Contrast is seen within bilateral renal collecting systems. Multiple simple right renal cortical and parapelvic cysts are seen measuring up to 3.6 cm. Multiple simple left renal parapelvic cysts are seen measuring up to 1.6 cm. Additional subcentimeter hypodensities in bilateral kidneys are too small to characterize. The liver, pancreas, spleen, and bilateral adrenal glands appear within normal limits. There is no evidence of bowel obstruction. The appendix is not well-visualized. There is no pneumoperitoneum or ascites. The urinary bladder appears normal for degree of distention. There is no adenopathy. Moderate degenerative changes are seen in the spine. No acute osseous abnormality is identified. No aggressive lytic or blastic lesion is seen. IMPRESSION: 1. No acute abdominopelvic abnormality is identified. No evidence of abdominal aortic aneurysm. 2. Small sliding hiatal hernia. Discharge Plan Discharge Clinical Impression: Musculoskeletal back pain Patient Disposition: Home, Self-Care Instructions: Back Pain (ED) Additional Instructions: Please follow-up with your primary care physician tomorrow. If you have any worsening or new symptoms, please return to the emergency room or call 911 Prescriptions: New oxycodone 5 mg tablet 5 mg PO BID PRN (Reason: pain) Qty: 8 0RF Rx Instructions: Partial Fill upon patient request. No Action flecainide 50 mg tablet 50 mg PO BID Qty: 180 3RF omeprazole 40 mg capsule,delayed release(DR/EC) 40 mg PO BID Qty: 60 6RF Eliquis 5 mg tablet 5 mg PO BID Qty: 180 3RF amlodipine 2.5 mg tablet 2.5 mg PO BID Qty: 90 2RF metoclopramide HCl [Reglan] 5 mg tablet 5 mg PO QIDACHS PRN (Reason: stomach pain) metoprolol succinate 25 mg tablet extended release 24 hr 25 mg PO BEDTIME buspirone 5 mg tablet 5 mg PO BID 90 Days Qty: 180 4RF Print Language: Latvian
[2024-12-09] MEDS: Morphine Sulfate 2 MG/ML CARTRIDGE 1 MG IVPUSH (04:09)
[2024-12-09 04:22] LABS: MANUAL DIFF FLAG NO
[2024-12-09 04:25] LABS: Basophils Percent Auto 0.1 % (0-2); Eosinophils Percent Auto 0.3 % (0-4); Hematocrit 34.9 % (37.0-47.0); Hemoglobin 11.7 g/dl (12.0-16.0); Imm Gran Abs Auto 0.02 X10*3/uL (0.00-0.03); Imm Gran Pct Auto 0.3 % (0.0-0.4); Lymphocytes Absolute Auto 2.8 X10*3/uL (1.2-4.9); Mean Corpuscular HGB Conc 33.5 g/dl (31.0-35.0); Mean Corpuscular Hemoglobin 27.7 pg (27.0-33.0); Mean Corpuscular Volume 82.5 fL (80.0-98.0); Mean Platelet Volume 9.1 fL (9.4-12.3); Monocytes Absolute Auto 0.5 X10*3/uL (0.1-1.2); Monocytes Percent Auto 7.9 % (2-11); Neutrophils Absolute Auto 3.4 x10*3/uL (2.0-8.3); Neutrophils Percent Auto 50.4 % (45-73); Platelet Count 275 X10*3/uL (160-400); Red Blood Count 4.23 X10*6/uL (4.20-5.50); Red Cell Distribution Width 13.8 % (11.0-16.0); White Blood Count 6.7 X10*3/uL (4.8-10.8)
[2024-12-09] MEDS: iohexoL 350 MG/ML 100 ML INFUS..BTL 85 ML IV ×2 (04:34→04:35)
[2024-12-09 04:42] LABS: Alanine Aminotransferase 7 U/L (0-31); Albumin Level 4.1 g/dL (3.5-5.0); Alkaline Phosphatase 55 U/L (39-117); Anion Gap 16 (12-20); Aspartate Amino Transferase 19 U/L (5-31); Bilirubin Direct 0.2 mg/dL (0.0-0.5); Bilirubin Total 0.6 mg/dL (0.0-1.0); Blood Urea Nitrogen 18 mg/dL (9-16); Calcium 10.3 mg/dL (8.4-10.2); Carbon Dioxide 26 mmol/L (22-29); Chloride 102 mmol/L (96-108); Creatinine Clr Calc Pharmacy 43.4; Estimated Glomerular Filt Rate > 60; Glucose Random 111 mg/dL (60-115); Potassium 4.1 mmol/L (3.3-5.1); Sodium 140 mmol/L (135-145); Total Protein 6.5 g/dL (6.5-8.0)
[2024-12-09 05:10] LABS: Appearance Urine Clear; Color Urine Yellow; Glucose Urine UA Negative (Negative); Leukocyte Esterase Urine Trace (Negative); Nitrite Urine Negative (Negative); Specific Gravity - Urine >= 1.030 (1.005-1.025); UMIC TRIGGER UACC YES; Urine Blood Negative (Negative); Urine Ketones Trace mg/dL (Negative); Urine Protein Negative (Neg-Trace)
[2024-12-09 05:15] LABS: Bacteria Urine None Seen (None Seen); Hyaline Casts Urine 0-2 /LPF (0-2); RBC Urine 0-2 /HPF (0-2); Squamous Epithelial Cell Urine 0-2 /HPF (0-2); WBC Urine 0-5 /HPF (0-5)
--- NOTE | 2024-12-09 05:54 | PC.NURSE ---
nitro paste taken off at this time
[2024-12-09] MEDS: oxyCODONE HCl Immed Release 5 MG TABLET PO (06:15)
== END 2024-12-09 07:55 | disposition home or self-care (01) ==
PROVIDERS: Emergency Provider Emergency Medicine; PCP Internal Medicine
DX: M79.18 Myalgia, other site (principal); M54.50 Low back pain, unspecified; I10 Essential (primary) hypertension; E78.5 Hyperlipidemia, unspecified; I48.0 Paroxysmal atrial fibrillation; Z79.01 Long term (current) use of anticoagulants; Z79.899 Other long term (current) drug therapy
CPT/HCPCS: 36415; 74177; 80048; 80076; 81001; 85025; 96374; 99284; J2270; Q9967

== ENCOUNTER → 2024-12-09 03:55 | Outpatient (BNV) | payer MEDICARE, SELFPAY | PROVIDERS: Emergency Provider Emergency Medicine; PCP Internal Medicine; Visit Provider Radiology Vascular & Interventional Radiology | DX: R10.9 Unspecified abdominal pain (principal); M54.9 Dorsalgia, unspecified | CPT/HCPCS: 74177 ==

== ENCOUNTER 2024-12-14 10:07 | Outpatient (REF) | payer MEDICARE, SELFPAY ==
--- NOTE | ~2024-12-14 | XR_ITS ---
CLINICAL HISTORY: M54.50 - Low back pain, unspecified 3 views sacroiliac joints Comparison: None Findings No acute fractures. Moderate degenerative changes of the SI joints bilaterally. IMPRESSION: No acute findings This document has been electronically signed by: Bubba Herrera MD on 12/15/2024 09:11:18
--- NOTE | ~2024-12-14 | XR_ITS ---
CLINICAL HISTORY: M54.50 - Low back pain, unspecified 3 views lumbar spine Comparison: None Findings: No evidence of acute fracture or acute malalignment. Multilevel degenerative changes most pronounced at L5-S1 with significant disc space narrowing and facet hypertrophy at this level. Impression: Advanced degenerative changes at L5-S1. This document has been electronically signed by: Bubba Herrera MD on 12/15/2024 09:08:50
== END 2024-12-14 10:08 | disposition home or self-care (01) ==
LOC: HO.HMGCX 10:07
PROVIDERS: PCP Internal Medicine; Visit Provider Internal Medicine
DX: M54.50 Low back pain, unspecified (principal); M53.3 Sacrococcygeal disorders, not elsewhere classified
CPT/HCPCS: 72100; 72200

== ENCOUNTER → 2024-12-14 10:43 | Outpatient (BNV) | payer MEDICARE, SELFPAY | PROVIDERS: PCP Internal Medicine; Visit Provider Radiology Vascular & Interventional Radiology | DX: M51.360 Other intervertebral disc degeneration, lumbar region with discogenic back pain only (principal); M46.1 Sacroiliitis, not elsewhere classified | CPT/HCPCS: 72100; 72200 ==

== ENCOUNTER 2025-01-30 13:44 | Outpatient (RCR) | payer MEDICARE, SELFPAY | END 2025-05-07 10:08 | disposition home or self-care (01) | LOC: HO.PT 13:44 | PROVIDERS: PCP Internal Medicine; Visit Provider Internal Medicine | DX: M53.3 Sacrococcygeal disorders, not elsewhere classified (principal); M54.50 Low back pain, unspecified | CPT/HCPCS: 95992; 97110; 97140; 97161 ==

== ENCOUNTER 2025-02-08 08:09 | Day surgery (SDC) | payer MEDICARE, SELFPAY ==
--- NOTE | 2025-02-07 13:31 | HO.ANESPROP2 ---
Documented by User: Chinyere Lopez NP 02/07/25 13:35 HPI - Anesthesia Eval Consult details Narrative: 84yo F for Upper Endoscopy s/p same 08/2024 with TIVA Eliquis for afib. Follows [facility] Cardiology. Stable at 11/2024 office visit PMF Active Problems Active Problems: All Active Problems Seen in emergency room (Acute) Frail elderly (Acute) Sacro-iliac pain (Acute) Lumbar pain (Acute) Generalized anxiety disorder (Acute) Tubular adenoma of colon (Acute) Chronic anticoagulation (Acute) Hx of diverticulitis of colon (Acute) Delayed gastric emptying (Acute) GERD (gastroesophageal reflux disease) (Acute) Irritable bowel syndrome with both constipation and diarrhea (Acute) Mixed dyslipidemia (Acute) Vaginal dryness, menopausal (Acute) Primary osteoarthritis involving multiple joints (Acute) Osteoporosis (Acute) Paroxysmal atrial fibrillation (Acute) Essential hypertension (Acute) Past Medical History Medical History Generalized anxiety disorder Fundic gland polyposis of stomach Gastritis determined by biopsy Diverticulitis Colitis GERD (gastroesophageal reflux disease) Mixed dyslipidemia Hx of iron deficiency anemia Osteoarthritis of right knee Encounter for monitoring anti-arrhythmic therapy Post-menopause Vaginal dryness, menopausal Urinary frequency Primary osteoarthritis involving multiple joints Osteoporosis Paroxysmal atrial fibrillation Essential hypertension Family History Family History Father No problems noted. Mother No problems noted. Family/Other Cancer Brother History of kidney cancer Lung cancer, Onset Age: 65 Sister Breast cancer, Onset Age: 28 Family history of problems with anesthesia: No Surgical History Surgical History Diverticular disease Status post partial resection of colon History of esophagogastroduodenoscopy (EGD) H/O colonoscopy Hx of hysterectomy Hx of total knee arthroplasty Hx of bilateral oophorectomy History of bladder suspension procedure History of repair of hiatal hernia (01/26/06) History of cholecystectomy History of Problems with Anesthesia: Yes (PONV) Social History Social History Household Members: None Household Members Other:: lives at [facility] Housing: Apartment Housing Other:: resides at [facility] Are you a primary respiratory care faculty to a significant other at home: No Do you presently have visiting nurse or other home services: No Alcohol intake: current Alcohol intake frequency: holidays/special occasions only Alcohol type: wine Patient Tobacco Use Status: Former Tobacco user Tobacco use type: Cigarette Years Smoked: 2 e-Cigarette/Vaping Use: Never Used Have you been hit, kicked, punched, or otherwise hurt by someone within the past year? If so, by whom?: No Are you DNR?: No Advance Directives: No Advance Directives Information Provided: Yes Advance Directives Date on File: 09/24/19 Poor oral hygiene: No service: No Current occupational status: retired Cognitive needs: No Hearing needs: No Vision needs: Yes Meds Allergies Allergy/AdvReac Type Severity Reaction Status Date / Time levofloxacin [From Levaquin] Allergy Intermediate RASH Verified 02/08/25 09:05 Home Medications ?Medication ?Instructions ?Recorded ?Confirmed ?Last Taken ?Type metoclopramide HCl 5 mg tablet 5 mg PO QIDACHS PRN stomach pain 12/09/23 02/08/25 12/08/23 History (Reglan) Exam Pertinent Lab Results Pertinent Lab Results: Laboratory Tests 12/09/24 04:11 WBC 6.7 Hgb 11.7 L Hct 34.9 L Plt Count 275 Sodium 140 Potassium 4.1 Chloride 102 Carbon Dioxide 26 BUN 18 H Creatinine 0.78 Narrative Narrative: EKG 11/2024 Details: EKG with underlying sinus rhythm at 62/Min; leftward axis; voltage criteria for LVH; nonspecific ST-T changes; normal AK and corrected QT. ECHO 2023 Conclusions: - 1. Normal LV ejection fraction of 60 65% with impaired relaxation filling pattern 2. Possible mild aortic stenosis 3. Normal RV systolic pressure 4. No gross pericardial effusion Assessment and Plan Assessment Anesthesia Assessment: Chart Reviewed Final Anesthetic Review Family History of Problems with Anesthesia: No History of Problems with Anesthesia: Yes (PONV) Documented by User: Debbi Riley MD 02/08/25 09:13 [facility] Past Medical History Medical History Generalized anxiety disorder Fundic gland polyposis of stomach Gastritis determined by biopsy Diverticulitis Colitis GERD (gastroesophageal reflux disease) Mixed dyslipidemia Hx of iron deficiency anemia Osteoarthritis of right knee Encounter for monitoring anti-arrhythmic therapy Post-menopause Vaginal dryness, menopausal Urinary frequency Primary osteoarthritis involving multiple joints Osteoporosis Paroxysmal atrial fibrillation Essential hypertension Family History Family History Father No problems noted. Mother No problems noted. Family/Other Cancer Brother History of kidney cancer Lung cancer, Onset Age: 65 Sister Breast cancer, Onset Age: 28 Surgical History Surgical History Diverticular disease Status post partial resection of colon History of esophagogastroduodenoscopy (EGD) H/O colonoscopy Hx of hysterectomy Hx of total knee arthroplasty Hx of bilateral oophorectomy History of bladder suspension procedure History of repair of hiatal hernia (01/26/06) History of cholecystectomy History of Problems with Anesthesia: No (PONV) Social History Social History Household Members: None Household Members Other:: lives at [facility] Housing: Apartment Housing Other:: resides at [facility] Are you a primary respiratory care faculty to a significant other at home: No Do you presently have visiting nurse or other home services: No Alcohol intake: current Alcohol intake frequency: holidays/special occasions only Alcohol type: wine Patient Tobacco Use Status: Former Tobacco user Tobacco use type: Cigarette Years Smoked: 2 e-Cigarette/Vaping Use: Never Used Have you been hit, kicked, punched, or otherwise hurt by someone within the past year? If so, by whom?: No Are you DNR?: No Advance Directives: No Advance Directives Information Provided: Yes Advance Directives Date on File: 09/24/19 Poor oral hygiene: No service: No Current occupational status: retired Cognitive needs: No Hearing needs: No Vision needs: Yes Meds Allergies Allergy/AdvReac Type Severity Reaction Status Date / Time levofloxacin [From Levaquin] Allergy Intermediate RASH Verified 02/08/25 09:05 Home Medications ?Medication ?Instructions ?Recorded ?Confirmed ?Last Taken ?Type metoclopramide HCl 5 mg tablet 5 mg PO QIDACHS PRN stomach pain 12/09/23 02/08/25 12/08/23 History (Reglan) Exam Airway Mallampati Class: II (missing a couple) TM Dist: >3cm Neck ROM: Full Heart: ireeg Lungs: cta Assessment and Plan Assessment Anesthesia Assessment: Anesthesia Plan Discussed Final Anesthetic Review History of Problems with Anesthesia: No (PONV) NPO: Yes ASA Class: III Final Preanesthetic Review: No Changes in Pt Med Stat, Meds/Allgs Chart Reviewed and Consent Obtained/Reviewed Patient Risk: Intermediate Procedure Risk: Intermediate Anesthetic Plan Anesthetic Plan: MAC: Disposition: Standard PACU
[2025-02-08 08:41] VITALS: BMI 26.7
[2025-02-08] MEDS: Lactated Ringers 1,000 ML 100 ML IVCONT (08:52)
[2025-02-08 09:03] VITALS: BP 141/52; PULSE 57; RESP 18; TEMP 36.7; O2SAT 99
--- NOTE | 2025-02-08 10:11 | MHC.SHP ---
Pre-Procedural Eval Section A - 24 Hr Update-Section A only Date of Service: 02/08/25 Section B - Complete if H&P > 30 days Chief Complaint: Follow-up gastric and esophageal polyps Relevant Family History (Specify if Yes): No Relevant Social History: Tobacco Use (Former smoker) Present Medications: see Short Stay Collaborative assessment Medical History: Significant History (Fundic gland polyposis of stomach Gastritis determined by biopsy Hospital discharge follow-up Diverticulitis Colitis GERD (gastroesophageal reflux disease) Anxiety Mixed dyslipidemia Hx of iron deficiency anemia Osteoarthritis of right knee Encounter for monitoring anti-arrhythmic therapy Post-menop) History of Previous Operations: Relevant previous surgery/procedure and date(s) (Diverticular disease Status post partial resection of colon History of esophagogastroduodenoscopy (EGD) H/O colonoscopy Hx of hysterectomy Hx of total knee arthroplasty Hx of bilateral oophorectomy History of bladder suspension procedure History of repair of hiatal hernia (01/26/06) History of tay) Allergies: Allergies Allergy/AdvReac Type Severity Reaction Status Date / Time levofloxacin [From Levaquin] Allergy Intermediate RASH Verified 02/08/25 09:05 Review of Systems Sugical H&P ROS: Negative: Constitution, Cardiovascular, Respiratory and Gastrointestinal Exam Surgical H&P Exam: Normal: Heart, Normal: Lungs, Normal: Extremities and Normal: Abdomen Plan Diagnosis/Plan: Change (Proceed with EGD) I have reviewed the history and physical and performed a pertinent physical examination on my patient. No changes have occurred unless specified. Time Spent With Patient Time: Total time managing care of this patient today ____ minutes.
--- NOTE | 2025-02-08 10:12 | W.PM.OPN ---
Operative Note Operative Note Date of Service: 02/08/25 Narrative: FLEXIBLE TRANSORAL UPPER GASTROINTESTINAL ENDOSCOPY WITH BIOPSIES AND SNARE POLYPECTOMY OF DISTAL ESOPHAGEAL POLYP Pre-op diagnosis: FU of multiple hyperplastic gastric polyps Post-op diagnosis: Hiatal hernia with a large polyp in hiatal hernia sac, Multiple gastric polyps Endoscopist:? Jasper Villasenor MD Anesthesia:?MAC UPPER ENDOSCOPY Consent: Indications for the procedure and potential complications of bleeding, perforation, reaction to medications and missed diagnosis were discussed with the patient and informed consent was obtained. Instrument: Olympus GIF H 190 mid size upper endoscope Monitoring: Vital signs and clinical assessment, continuous EKG monitoring, Pulse oximetry, Carbon Dioxide monitoring and blood pressure monitoring were done throughout the procedure. Procedure: The patient was placed in the left lateral decubitis position and pre-procedure medications were administered and a bite block was placed. The endoscope was inserted into the mouth and advanced under direct vision to the third part of duodenum. A careful inspection was made as the upper endoscope was withdrawn including a retroflexed examination of the proximal stomach; Findings and interventions are described below. Findings: Larynx: Normal Esophagus: GE junction at 34 cms, hiatal hernia 34 to 36 cms. A 3.5 to 4 cms elongated polyp in the hiatal hernia sac - polyp was removed piece meal with a stiff hot snare. and retrieved with a Brewer net. Polyp could not be removed completely due to excessive spasm. Stomach: Multiple 1-2 cms polyps in the gastric antrum and body. Multiple 5 to 10 mm smaller polyps in the gastric body and fundus were not removed due to excessive length of the procedure. Grade 3 flap valve on retroflexed examination of the cardia. Duodenum: Normal bulb and descending duodenum Impression and Post Procedure Diagnosis: Endoscopy Findings: ESOPHAGUS: Hiatal hernia and a large polyp in the hiatal hernia sac - polyp was removed piece meal with a stiff hot snare and retrieved with a Brewer net. Polyp could not be removed completely due to excessive spasm and location in the esophagus. STOMACH: Multiple gastric polyps. Plan: Pt has a FU appointment on 02/22/25 with Sierra Conklin NP. Repeat EGD in 3 - 4 months with VARGAS (needs 60 min appointment) - scheduled 05/17/25 Above findings were reviewed with the patient and relevant handouts were given and the discharge area. BIOPSIES SHOWED: Esophagus, distal, polypectomy: - Hyperplastic gastric polyp, inflamed and eroded; background squamocolumnar mucosa. - No intestinal metaplasia or dysplasia seen. - Negative for H. pylori.
[2025-02-08 11:31] VITALS: BP 130/61; PULSE 80; RESP 16; TEMP 36.4; O2SAT 100
[2025-02-08 11:46] VITALS: BP 124/53; PULSE 80; RESP 17; O2SAT 98
[2025-02-08 12:01] VITALS: BP 126/50; PULSE 70; RESP 17; TEMP 36.6; O2SAT 98
== END 2025-02-08 13:28 | disposition home or self-care (01) ==
PROVIDERS: PCP Internal Medicine; Visit Provider Internal Medicine Gastroenterology
PROC: 0DJ08ZZ Inspection of Upper Intestinal Tract, Via Natural or Artificial Opening Endoscopic (ICD-10-PCS; CPT 43235; principal; 2025-02-08 10:20)
DX: K21.9 Gastro-esophageal reflux disease without esophagitis (principal); K22.81 Esophageal polyp; K31.7 Polyp of stomach and duodenum; K44.9 Diaphragmatic hernia without obstruction or gangrene; K29.70 Gastritis, unspecified, without bleeding; K30 Functional dyspepsia; K58.2 Mixed irritable bowel syndrome; Z90.49 Acquired absence of other specified parts of digestive tract; Z87.19 Personal history of other diseases of the digestive system; I10 Essential (primary) hypertension; E78.2 Mixed hyperlipidemia; I48.0 Paroxysmal atrial fibrillation; Z79.899 Other long term (current) drug therapy; Z88.1 Allergy status to other antibiotic agents; Z98.890 Other specified postprocedural states; Z87.891 Personal history of nicotine dependence
CPT/HCPCS: 43251; 88305; 88313; 88342; J1596; J2371; J2704

== ENCOUNTER → 2025-02-08 08:09 | Outpatient (BNV) | payer MEDICARE, SELFPAY | PROVIDERS: PCP Internal Medicine; Visit Provider Internal Medicine Gastroenterology | DX: K22.81 Esophageal polyp (principal); K31.7 Polyp of stomach and duodenum | CPT/HCPCS: 43251 ==

== ENCOUNTER 2025-02-22 11:11 | Outpatient (AMB) | payer MEDICARE, SELFPAY ==
--- NOTE | 2025-02-22 11:12 | MHC.OFFVIS ---
Vital Signs 02/22/25 11:23 Height 5 ft Weight 133 lb BMI 26.0 BP 126/60 Blood Pressure Location Lt brachial Position Sitting Pulse 60 Pulse Source Pulse Oximeter Pulse Oximetry (%) 97 Oxygen Delivery Method Room Air Intake Visit Reasons: S/P EGD; Dr. Villasenor Intake Note: Est pt for GERD mgmt. S/P EGD. CC: Allergies levofloxacin (From Levaquin) Allergy (Intermediate, Verified 02/22/25 11:13) RASH HPI HPI S/P EGD; Dr. Villasenor: Details: Assessment & Plan (1) Irritable bowel syndrome with both constipation and diarrhea: Comment: seems to have resolved once started reglan that solved the CIC part of the sequence Code(s): K58.2 - Mixed irritable bowel syndrome Category: Medical (2) GERD (gastroesophageal reflux disease): Code(s): K21.9 - Gastro-esophageal reflux disease without esophagitis Category: Medical (3) Status post partial resection of colon: Comment: Code(s): Z90.49 - Acquired absence of other specified parts of digestive tract Category: Surgical Plan Her repeat EGD will be in August, she had a elective partial bowel resection for her TICs in March. It went well and has resolved her pain in the LLQ and her CIC is improved! She is still having fatigue, but this may take time given her age. She is using senna occasionally and same with reglan. She continues on her omeprazole. ROV after EGD in August. REPEAT EGD FROM 08/27 PROCEDURE r/t gastric polyps. Findings: Larynx: Normal Esophagus: GE junction at 34 cms, hiatal hernia 34 to 36 cms. A 3.5 to 4 cms elongated polyp in the hiatal hernia sac - polyp was removed piece meal with a stiff hot snare. and retrieved with a Brewer net. Polyp could not be removed completely due to excessive spasm. Stomach: Multiple 1-2 cms polyps in the gastric antrum and body. Multiple 5 to 10 mm smaller polyps in the gastric body and fundus were not removed due to excessive length of the procedure. Grade 3 flap valve on retroflexed examination of the cardia. Duodenum: Normal bulb and descending duodenum Impression and Post Procedure Diagnosis: Endoscopy Findings: ESOPHAGUS: Hiatal hernia and a large polyp in the hiatal hernia sac - polyp was removed piece meal with a stiff hot snare and retrieved with a Brewer net. Polyp could not be removed completely due to excessive spasm and location in the esophagus. STOMACH: Multiple (twelve large ulcerated gastric polyps were removed from the gastric body and antrum. Plan: Pt has a FU appointment on 02/22/25 with Sierra Conklin NP. Repeat EGD in 3 - 4 months BIOPSY Received: 02/08/25 Diagnosis Esophagus, distal, polypectomy: - Hyperplastic gastric polyp, inflamed and eroded; background squamocolumnar mucosa. - No intestinal metaplasia or dysplasia seen. - Negative for H. pylori. TODAYS VISIT She had a sore throat for about a week after zuniga but it has improved. She has been having more nausea recently, she is uncertain why she did get treated with physical therapy for vertigo but this has since resolved. I encouraged her to take the Reglan she can take it up to 4 times a day so that she does not have to suffer and so she can meet her nutritional requirements. I did tell her that nausea can be multifactorial and sometimes were uncertain if it is from her gastric irritation from the polyps, or is neurologic or even metabolic. However, I think we should just treat the symptom and not worry about the cause unless it becomes more severe. She is agreeable to having the EGD repeated and I have sent an urgent request to the schedulers. She continues on her omeprazole 40 mg twice a day. Return office visit after the EGD [facility] Medical History (Updated 02/22/25 @ 11:35 by DAVIDA Harper) Nausea Generalized anxiety disorder Fundic gland polyposis of stomach Gastritis determined by biopsy Diverticulitis Colitis GERD (gastroesophageal reflux disease) Mixed dyslipidemia Hx of iron deficiency anemia Osteoarthritis of right knee Encounter for monitoring anti-arrhythmic therapy Post-menopause Vaginal dryness, menopausal Urinary frequency Primary osteoarthritis involving multiple joints Osteoporosis Paroxysmal atrial fibrillation Essential hypertension Surgical History Diverticular disease Status post partial resection of colon History of esophagogastroduodenoscopy (EGD) H/O colonoscopy Hx of hysterectomy Hx of total knee arthroplasty Hx of bilateral oophorectomy History of bladder suspension procedure History of repair of hiatal hernia (01/26/06) History of cholecystectomy Family History Father No problems noted. Mother No problems noted. Family/Other Cancer Brother History of kidney cancer Lung cancer, Onset Age: 65 Sister Breast cancer, Onset Age: 28 Social History Household Members: None Household Members Other:: lives at [facility] Housing: Apartment Housing Other:: resides at [facility] Are you a primary inpatient care manager rn to a significant other at home: No Do you presently have visiting nurse or other home services: No Alcohol intake: current Alcohol intake frequency: holidays/special occasions only Alcohol type: wine Patient Tobacco Use Status: Former Tobacco user Tobacco use type: Cigarette Years Smoked: 2 e-Cigarette/Vaping Use: Never Used Advance Directives Date on File: 09/24/19 service: No Current occupational status: retired Cognitive needs: No Hearing needs: No Vision needs: Yes Review of Systems Const Denies fatigue, Denies fever(s), Denies night sweats, Denies poor appetite and Denies weight loss Eyes Details: Glasses Reports requires corrective lenses ENT Reports Normal hearing present, Denies dental pain, Denies dysphagia, Denies hearing loss, Denies mouth pain, Denies odynophagia, Denies throat swelling, Denies tongue swelling and Reports other (Dentition adequate) Card Reports no additional complaints Resp Reports no additional complaints GI Details: Denies abdominal pain, Denies melena, Denies bloating, Denies hematochezia, Denies constipation, Denies GI cramping, Denies dysphagia, Denies excessive flatus, Denies early satiety, Reports dyspepsia, Denies heartburn, Denies diarrhea, Reports nausea, Denies odynophagia, Denies vomiting and Denies hematemesis Skin/Breast Denies pruritus, Denies lesions, Denies rash and Denies jaundice Neuro Reports Normal hearing present and Denies Abnormal speech present Endo Denies fatigue Aller/Immun Denies throat swelling and Denies tongue swelling Physical Exam Vital Signs: Last Vital Signs Pulse 60 02/22/25 11:23 BP 126/60 02/22/25 11:23 Pulse Ox 97 02/22/25 11:23 Oxygen Delivery Method Room Air 02/22/25 11:23 BMI result Body Mass Index 26.0 Const General: cooperative, no acute distress, well developed and well groomed Nutritional Appearance: well nourished Orientation/consciousness: oriented to person, oriented to place and oriented to time Limitations: No language barrier HEENT Head: Yes normocephalic and Yes atraumatic Eyes General: appearance normal, both eyes and all related structures Pupils: Equal, round and reactive pupils present Neck Neck: Yes normal visual inspection and Yes no lymphadenopathy Thyroid: Thyroid normal Resp Effort & Inspection: normal respiratory effort and able to speak in complete sentences Auscultation: clear to auscultation bilaterally Cardio Rate: regular rate Rhythm: regular rhythm Heart sounds: Normal, physiologic split S2 sound present Peripheral pulses: radial pulses present and posterior tibial pulses present GI Inspection: No distended and No Abdominal panniculus present Palpation (GI): Soft to palpation, nontender, no guarding, not rigid and No hepatosplenomegaly present Percussion: Yes normal to percussion Auscultation: normal bowel sounds Rectal Exam - Female: deferred Skin General skin exam: no rashes or lesions noted, turgor normal, skin not dry, no jaundice, No spider nevi and no striae Rashes: no rashes Nails: normal Neuro General: oriented to person, oriented to place and oriented to time Cranial nerves: Yes Equal, round and reactive pupils present and Yes Normal hearing present Speech: No Abnormal speech present Extrem General: Yes normal to inspection, No clubbing, No cyanosis and No edema Psych Appearance: grossly normal and well kempt Mental Status: mental status grossly normal Speech and movement: Normal speech and movement present Affect: normal affect Attitude: cooperative Thought process: Normal thought process present and not confabulating Thought content: Normal thought content present Insight: Good insight present (Psych) Judgement: Good judgement present (Psych) Assessment & Plan Assessment & Plan (1) Erosive gastritis: Comment: 02/2025 EGD=erosions and multiple eroded polyps; repeat 3-4 mos. Code(s): K29.60 - Other gastritis without bleeding Category: Medical (2) Nausea: Code(s): R11.0 - Nausea Category: Medical Plan She had a sore throat for about a week after zuniga but it has improved. She has been having more nausea recently, she is uncertain why she did get treated with physical therapy for vertigo but this has since resolved. I encouraged her to take the Reglan she can take it up to 4 times a day so that she does not have to suffer and so she can meet her nutritional requirements. I did tell her that nausea can be multifactorial and sometimes were uncertain if it is from her gastric irritation from the polyps, or is neurologic or even metabolic. However, I think we should just treat the symptom and not worry about the cause unless it becomes more severe. She is agreeable to having the EGD repeated and I have sent an urgent request to the schedulers. She continues on her omeprazole 40 mg twice a day. Return office visit after the EGD Medications: Changed From metoclopramide HCl (Reglan) 5 mg PO QIDACHS PRN stomach pain R11.0 - Nausea To metoclopramide HCl (Reglan) 5 mg PO QIDACHS 120 tabs 6RF NAUSEA R11.0 - Nausea Coding Level of Care Code Est Pt Level 3 (79042) Diagnoses Erosive gastritis K29.60 Nausea R11.0
[2025-02-22 11:23] VITALS: BP 126/60; PULSE 60; O2SAT 97; BMI 26.0
== END 2025-02-22 11:39 | disposition home or self-care (01) ==
LOC: HO.HGI 11:11
PROVIDERS: PCP Internal Medicine; Visit Provider Nurse Practitioner
DX: K29.60 Other gastritis without bleeding (principal); R11.0 Nausea
CPT/HCPCS: 99213

== ENCOUNTER → 2025-02-22 11:11 | Outpatient (BNVA) | payer MEDICARE, SELFPAY | PROVIDERS: PCP Internal Medicine; Visit Provider Nurse Practitioner | DX: K29.60 Other gastritis without bleeding (principal); R11.0 Nausea | CPT/HCPCS: 99212 ==

== ENCOUNTER 2025-05-17 07:45 | Day surgery (SDC) | payer MEDICARE, SELFPAY ==
--- OUTSIDE RECORDS SUMMARY | 2025-04-01 09:51 | XMS_ITS | Encounter Summary ---
Author Organization [facility] Address [address] [place] [id number] Phone Care Team Providers Care Steam Plant Control Room Operator Name Role Phone Mer Quinonez MD Primary Care Provider Reason for Referral * Physical Therapy (Routine) - Closed Specialty Diagnoses / Procedures Referred By Sami griffith Referred To Contact Physical Therapy Diagnoses Encounter for rehabilitation System, Provider Not In, PhD [id number] [place] [id number] Phone: tel: Referral ID Status Reason Start Date Expiration Date Visits Re quested Visits Authorized [id number] Closed 12/22/2017 09/04/2018 99 [phone] Encounter Details Date Type Department Care Team (Latest Contact Info) Description 12/22/2017 Transcribe Orders [facility] [address] [place] [id number] InstrumDelgado MD [address] [place] [address] [place] [address] Encounter for rehabilitation (Primary Dx) Social History Tobacco Use Types Packs/Day Years Used Date Smoking Tobacco: Never Assessed Comments Unknown Sex and Gender Information Value Date Recorded Sex Assigned at Not on file Legal Sex Female 10:15 AM EDT Gender Identity Not on file Sexual Orientation Not on file documented as of this encounter Plan of Treatment Scheduled Referrals Name Type Priority Associated Diagnoses Orde r Schedule Ambulatory referral to [facility] Physical Therapy Outpatient Referral Routine Encounter for rehabilitation Ordered: 12/22/2017 documented as of this encounter Visit Diagnoses Diagnosis Encounter for rehabilitation- Primary documented in this encounter Additional Health Concerns Infection Onset Date Last Indicated Resolved Time 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 It is not the complete legal health record.[facility]
--- OUTSIDE RECORDS SUMMARY | 2025-04-01 09:51 | XMS_ITS | Patient Health Record ---
Author Organization [facility] Address [address] [place] [address] Care Team Providers Care Hard Metals Engraver Hand Name Role Phone Cristiano DOMINGUEZ, Mer Primary Care Provider Rio Maloney Unavailable [phone] Paulo DOMINGUEZ, Adriana Unavailable Unavailable Reason For Referral No Information Medications Medication SIG (Take, Route, Fr equency, Duration) Notes Start Date End Date Status Omeprazole 20 MG 1 capsule Orally twi ce a day for 90 days 04/24/2013 Active Plan Of Treatment No Information Insurance Providers Payer Name Payer Address Payer Phone Subscriber Number Group Number Insured Name Patient Relationship to Insured Coverage Start Date Coverage End Date [facility] [address] [place] [phone] [id number] ALLISON EWING Self - patient is the insured MEDICARE OF [place] [address] [place] [address] [phone] [id number] ALLISON EWING Self - patient is the insured
--- NOTE | 2025-05-15 11:01 | HO.ANESPROP2 ---
Documented by User: Reny Hyatt NP 05/15/25 11:07 HPI - Anesthesia Eval Consult details Narrative: 84 yr old female for upper endoscopy Paroxysmal afib: on eliquis, flecanide, metoprolol; follows with [facility] cardiology with last echo recorded 01/2024 (*see below) [facility] Active Problems Active Problems: All Active Problems (Updated 02/22/25 @ 11:35 by DAVIDA Harper) Nausea (Acute) Erosive gastritis (Acute) Seen in emergency room (Acute) Frail elderly (Acute) Sacro-iliac pain (Acute) Lumbar pain (Acute) Generalized anxiety disorder (Acute) Tubular adenoma of colon (Acute) Chronic anticoagulation (Acute) Hx of diverticulitis of colon (Acute) Delayed gastric emptying (Acute) GERD (gastroesophageal reflux disease) (Acute) Irritable bowel syndrome with both constipation and diarrhea (Acute) Mixed dyslipidemia (Acute) Vaginal dryness, menopausal (Acute) Primary osteoarthritis involving multiple joints (Acute) Osteoporosis (Acute) Paroxysmal atrial fibrillation (Acute) Essential hypertension (Acute) Past Medical History Medical History Nausea Generalized anxiety disorder Fundic gland polyposis of stomach Gastritis determined by biopsy Diverticulitis Colitis GERD (gastroesophageal reflux disease) Mixed dyslipidemia Hx of iron deficiency anemia Osteoarthritis of right knee Encounter for monitoring anti-arrhythmic therapy Post-menopause Vaginal dryness, menopausal Urinary frequency Primary osteoarthritis involving multiple joints Osteoporosis Paroxysmal atrial fibrillation Essential hypertension Family History Family History Father No problems noted. Mother No problems noted. Family/Other Cancer Brother History of kidney cancer Lung cancer, Onset Age: 65 Sister Breast cancer, Onset Age: 28 Family history of problems with anesthesia: No Surgical History Surgical History Diverticular disease Status post partial resection of colon (03/15/24) History of esophagogastroduodenoscopy (EGD) (02/08/25) H/O colonoscopy Hx of hysterectomy Hx of total knee arthroplasty Hx of bilateral oophorectomy History of bladder suspension procedure History of repair of hiatal hernia (01/26/06) History of cholecystectomy History of Problems with Anesthesia: No (PONV) Social History Social History Household Members: None Household Members Other:: lives at [facility] Housing: Apartment Housing Other:: resides at [facility] Are you a primary manager intensive care unit to a significant other at home: No Do you presently have visiting nurse or other home services: No Alcohol intake: current Alcohol intake frequency: holidays/special occasions only Alcohol type: wine Patient Tobacco Use Status: Former Tobacco user Tobacco use type: Cigarette Years Smoked: 2 e-Cigarette/Vaping Use: Never Used Use of substances other than those prescribed or required for medical reasons: No Advance Directives: No Advance Directives Information Provided: Yes Advance Directives Date on File: 09/24/19 service: No Current occupational status: retired Cognitive needs: No Hearing needs: No Vision needs: Yes Meds Allergies Allergy/AdvReac Type Severity Reaction Status Date / Time levofloxacin (From Levaquin) Allergy Intermediate RASH Verified 02/22/25 11:13 Home Medications ?Medication ?Instructions ?Recorded ?Confirmed ?Last Taken ?Type amlodipine 2.5 mg tablet 5 mg PO 1XD 05/17/25 05/17/25 Unknown History Exam Narrative Narrative: EKG 04/2024 NSR, rate 62 Left axis, left ventricular hypertrophy with QRS widening Nonspecific T wave abnormality ECHO 11/2023 Conclusions: - 1. Normal LV ejection fraction of 60 65% with impaired relaxation filling pattern 2. Possible mild aortic stenosis 3. Normal RV systolic pressure 4. No gross pericardial effusion Assessment and Plan Final Anesthetic Review Family History of Problems with Anesthesia: No History of Problems with Anesthesia: No (PONV) Documented by User: Ebonie Peña MD 05/17/25 09:55 [facility] Past Medical History Medical History Nausea Generalized anxiety disorder Fundic gland polyposis of stomach Gastritis determined by biopsy Diverticulitis Colitis GERD (gastroesophageal reflux disease) Mixed dyslipidemia Hx of iron deficiency anemia Osteoarthritis of right knee Encounter for monitoring anti-arrhythmic therapy Post-menopause Vaginal dryness, menopausal Urinary frequency Primary osteoarthritis involving multiple joints Osteoporosis Paroxysmal atrial fibrillation Essential hypertension Family History Family History Father No problems noted. Mother No problems noted. Family/Other Cancer Brother History of kidney cancer Lung cancer, Onset Age: 65 Sister Breast cancer, Onset Age: 28 Surgical History Surgical History Diverticular disease Status post partial resection of colon (03/15/24) History of esophagogastroduodenoscopy (EGD) (02/08/25) H/O colonoscopy Hx of hysterectomy Hx of total knee arthroplasty Hx of bilateral oophorectomy History of bladder suspension procedure History of repair of hiatal hernia (01/26/06) History of cholecystectomy Social History Social History Household Members: None Household Members Other:: lives at [facility] Housing: Apartment Housing Other:: resides at [facility] Are you a primary manager intensive care unit to a significant other at home: No Do you presently have visiting nurse or other home services: No Alcohol intake: current Alcohol intake frequency: holidays/special occasions only Alcohol type: wine Patient Tobacco Use Status: Former Tobacco user Tobacco use type: Cigarette Years Smoked: 2 e-Cigarette/Vaping Use: Never Used Use of substances other than those prescribed or required for medical reasons: No Advance Directives: No Advance Directives Information Provided: Yes Advance Directives Date on File: 09/24/19 service: No Current occupational status: retired Cognitive needs: No Hearing needs: No Vision needs: Yes Meds Allergies Allergy/AdvReac Type Severity Reaction Status Date / Time levofloxacin (From Levaquin) Allergy Intermediate RASH Verified 02/22/25 11:13 Home Medications ?Medication ?Instructions ?Recorded ?Confirmed ?Last Taken ?Type amlodipine 2.5 mg tablet 5 mg PO 1XD 05/17/25 05/17/25 Unknown History Exam Airway Mallampati Class: II TM Dist: >3cm Loose/Missing/Broken Teeth: No Heart: RRR Lungs: CTA Assessment and Plan Assessment Anesthesia Assessment: Anesthesia Plan Discussed and Chart Reviewed Final Anesthetic Review NPO: Yes ASA Class: III Final Preanesthetic Review: Meds/Allgs Chart Reviewed, Consent Obtained/Reviewed and Anes Risks/Benef Reviewed Patient Risk: Intermediate Procedure Risk: Intermediate Anesthetic Plan Anesthetic Plan: MAC: Disposition: Standard PACU
[2025-05-15 14:35] VITALS: BMI 26.0
[2025-05-17 08:14] VITALS: BP 164/45; PULSE 51; RESP 16; TEMP 36.1; O2SAT 100
[2025-05-17] MEDS: Lactated Ringers 1,000 ML 100 ML IVCONT (08:16)
--- NOTE | 2025-05-17 08:38 | MHC.SHP ---
Pre-Procedural Eval Section A - 24 Hr Update-Section A only Date of Service: 05/17/25 Section B - Complete if H&P > 30 days Chief Complaint: Follow-up of multiple gastric polyps Relevant Family History (Specify if Yes): No Relevant Social History: Tobacco Use (Former smoker) Present Medications: see Short Stay Collaborative assessment Medical History: Significant History (Fundic gland polyposis of stomach Gastritis determined by biopsy Hospital discharge follow-up Diverticulitis Colitis GERD (gastroesophageal reflux disease) Anxiety Mixed dyslipidemia Hx of iron deficiency anemia Osteoarthritis of right knee Encounter for monitoring anti-arrhythmic therapy Post-menop) History of Previous Operations: Relevant previous surgery/procedure and date(s) (Diverticular disease Status post partial resection of colon History of esophagogastroduodenoscopy (EGD) H/O colonoscopy Hx of hysterectomy Hx of total knee arthroplasty Hx of bilateral oophorectomy History of bladder suspension procedure History of repair of hiatal hernia (01/26/06) History of tay) Allergies: Allergies Allergy/AdvReac Type Severity Reaction Status Date / Time levofloxacin (From Levaquin) Allergy Intermediate RASH Verified 02/22/25 11:13 Review of Systems Sugical H&P ROS: Negative: Constitution, Cardiovascular, Respiratory and Gastrointestinal Exam Surgical H&P Exam: Normal: Heart, Normal: Lungs, Normal: Extremities and Normal: Abdomen Plan Diagnosis/Plan: Change (Proceed with EGD) I have reviewed the history and physical and performed a pertinent physical examination on my patient. No changes have occurred unless specified. Time Spent With Patient Time: Total time managing care of this patient today ____ minutes.
--- NOTE | 2025-05-17 09:42 | W.PM.OPN ---
Operative Note Operative Note Date of Service: 05/17/25 Narrative: FLEXIBLE TRANSORAL UPPER GASTROINTESTINAL ENDOSCOPY WITH SNARE POLYPECTOMY Pre-op diagnosis: Follow-up of multiple gastric polyps Post-op diagnosis: GERD, multiple gastric polyps Endoscopist:? Jasper Villasenor MD Anesthesia:?MAC UPPER ENDOSCOPY Consent: Indications for the procedure and potential complications of bleeding, perforation, reaction to medications and missed diagnosis were discussed with the patient and informed consent was obtained. Instrument: Olympus GIF H 190 mid size upper endoscope Monitoring: Vital signs and clinical assessment, continuous EKG monitoring, Pulse oximetry, Carbon Dioxide monitoring and blood pressure monitoring were done throughout the procedure. Procedure: The patient was placed in the left lateral decubitis position and pre-procedure medications were administered and a bite block was placed. The endoscope was inserted into the mouth and advanced under direct vision to the third part of duodenum. A careful inspection was made as the upper endoscope was withdrawn including a retroflexed examination of the proximal stomach; Findings and interventions are described below. Findings: Larynx: Normal Esophagus: GE junction at 34 cms, hiatal hernia 34 to 36 cms. Two 15 mm polyps in the hiatal hernia sac - One polyp was removed with a hot snare Stomach: Multiple 1-2 cms polyps in the gastric antrum and body. Two 4-5 cms elongated polyps at the cardia (seen on retroflexed exam) Polyps were removed piece meal with a hexagonal hot snare. and retrieved with a Brewer net. Polyps could not be removed completely due to excessive length of the procedure.. Multiple 5 to 10 mm smaller polyps in the gastric body and fundus were not removed Grade 3 flap valve on retroflexed examination of the cardia. Duodenum: Not examined Intervention: Snare polypectomy of multiple gastric polyps Impression and Post Procedure Diagnosis: Endoscopy Findings: ESOPHAGUS: STOMACH: DUODENUM: Plan: Pt has a FU appointment on 05/28/25 with Sierra Conklin NP. Repeat EGD in 4 - 6months Decrease Omeprazole to 20 mg twice daily Above findings were reviewed with the patient and relevant handouts were given and the discharge area.
[2025-05-17 10:43] VITALS: BP 113/49; PULSE 68; RESP 18; TEMP 37.2; O2SAT 100
[2025-05-17 10:58] VITALS: BP 121/62; PULSE 97; RESP 19; TEMP 36.5; O2SAT 98
== END 2025-05-17 12:00 | disposition home or self-care (01) ==
PROVIDERS: PCP Internal Medicine; Visit Provider Internal Medicine Gastroenterology
PROC: 0DJ08ZZ Inspection of Upper Intestinal Tract, Via Natural or Artificial Opening Endoscopic (ICD-10-PCS; CPT 43235; principal; 2025-05-17 09:30)
DX: K21.9 Gastro-esophageal reflux disease without esophagitis (principal); K31.7 Polyp of stomach and duodenum; K31.A22 Gastric intestinal metaplasia with high grade dysplasia; K29.60 Other gastritis without bleeding; I10 Essential (primary) hypertension; E78.2 Mixed hyperlipidemia; I48.0 Paroxysmal atrial fibrillation; Z79.01 Long term (current) use of anticoagulants; Z79.899 Other long term (current) drug therapy
CPT/HCPCS: 43251; 88305; 88313; 88342; J2003; J2704

== ENCOUNTER → 2025-05-17 07:45 | Outpatient (BNV) | payer MEDICARE, SELFPAY | PROVIDERS: PCP Internal Medicine; Visit Provider Internal Medicine Gastroenterology | DX: K21.9 Gastro-esophageal reflux disease without esophagitis (principal); K22.81 Esophageal polyp; K31.7 Polyp of stomach and duodenum | CPT/HCPCS: 43251 ==

== ENCOUNTER 2025-05-22 12:50 | Outpatient (AMB) | payer MEDICARE, SELFPAY ==
[2025-05-22 12:53] VITALS: BP 120/60; PULSE 54; BMI 24.5
--- NOTE | 2025-05-22 12:53 | MHC.OFFVIS ---
Vital Signs 05/22/25 12:53 Height 5 ft Weight 125 lb 10.616 oz BMI 24.5 BP 120/60 Blood Pressure Location Lt brachial Position Sitting Pulse 54 Pulse Source Monitor Intake Visit Reasons: 6 mth f/up Allergies levofloxacin (From Levaquin) Allergy (Intermediate, Verified 02/22/25 11:13) RASH Medication List - Last Reconciled 05/22/25 by William Hansen MD amlodipine 5 mg PO 1XD apixaban (Eliquis) 5 mg PO BID Held on 05/17/25. Instructions: Resume on 05/19/25. buspirone 5 mg PO BID 3 months flecainide 50 mg PO BID hydrochlorothiazide 25 mg PO QAM metoclopramide HCl (Reglan) 5 mg PO QIDACHS metoprolol succinate ER 25 mg PO DAILY omeprazole 20 mg PO BID 60 days HPI Comments Details: Alisa returns for follow-up regarding atrial fibrillation. To recall, she was hospitalized in 2016 with atrial fibrillation and rapid rate. She was treated with beta-blockers for rate control and converted to sinus. On another occasion, she was readmitted with dizziness and presyncope and had sinus bradycardia. Then beta-nicole dose was decreased and Flecainide added. Home over the last several years, she has had no major atrial fibrillation events and they are actually well controlled with the current regimen. Otherwise, no new concerns since last seen from cardiac standpoint. FORMERLY [facility], [facility]–1983 Medical History Nausea Generalized anxiety disorder Fundic gland polyposis of stomach Gastritis determined by biopsy Diverticulitis Colitis GERD (gastroesophageal reflux disease) Mixed dyslipidemia Hx of iron deficiency anemia Osteoarthritis of right knee Encounter for monitoring anti-arrhythmic therapy Post-menopause Vaginal dryness, menopausal Urinary frequency Primary osteoarthritis involving multiple joints Osteoporosis Paroxysmal atrial fibrillation Essential hypertension Surgical History Diverticular disease Status post partial resection of colon (03/15/24) History of esophagogastroduodenoscopy (EGD) (02/08/25) H/O colonoscopy Hx of hysterectomy Hx of total knee arthroplasty Hx of bilateral oophorectomy History of bladder suspension procedure History of repair of hiatal hernia (01/26/06) History of cholecystectomy Family History Father No problems noted. Mother No problems noted. Family/Other Cancer Brother History of kidney cancer Lung cancer, Onset Age: 65 Sister Breast cancer, Onset Age: 28 Social History Household Members: None Household Members Other:: lives at [facility] Housing: Apartment Housing Other:: resides at [facility] Are you a primary post anesthesia care unit nurse to a significant other at home: No Do you presently have visiting nurse or other home services: No Alcohol intake: current Alcohol intake frequency: holidays/special occasions only Alcohol type: wine Patient Tobacco Use Status: Former Tobacco user Tobacco use type: Cigarette Years Smoked: 2 e-Cigarette/Vaping Use: Never Used Advance Directives Date on File: 09/24/19 service: No Current occupational status: retired Cognitive needs: No Hearing needs: No Vision needs: Yes Review of Systems Const Denies weakness ENT Denies dizziness Card Denies chest pain, Denies chest pain with activity, Denies syncope, Denies rapid heart rate, Denies pedal edema, Denies edema, Denies leg edema, Denies lightheadedness, Denies palpitations, Denies dyspnea, Denies dyspnea on exertion and Denies orthopnea Resp Denies cough, Denies dyspnea and Denies dyspnea on exertion GI Denies hematochezia and Denies change in stool character Musc Denies abnormal gait, Denies muscle cramps, Denies muscle weakness, Denies numbness, Denies radiating pain into limb and Denies tingling Neuro Denies abnormal gait, Denies dizziness, Denies syncope, Denies numbness, Denies tingling and Denies weakness Endo Denies palpitations Physical Exam Vital Signs: Last Vital Signs Pulse 54 05/22/25 12:53 BP 120/60 05/22/25 12:53 BMI result Body Mass Index 24.5 Const General: comfortable and no acute distress Orientation/consciousness: patient oriented x3 HEENT Other: Unremarkable Head: Yes normal to inspection Neck Neck: Yes normal visual inspection Chest Chest palpation & inspection: normal inspection of the chest Resp Auscultation: clear to auscultation bilaterally Cardio Palpation: normal PMI Heart sounds: S1 normal heart sound present, S2 normal heart sound present, no gallops, no murmurs and no rubs GI Palpation (GI): Soft to palpation Back/Spine/Pelvis Other: unremarkable Skin General skin exam: no rashes or lesions noted Neuro General: patient oriented x3 Extrem General: Yes normal to inspection Psych Mental Status: mental status grossly normal Office Procedures EKG Details: EKG with sinus bradycardia at 54/Min; RI prolongation to 204 milliseconds; minimal criteria for LVH; [place]. [address]-[id number], Complete Assessment & Plan Assessment & Plan (1) Paroxysmal atrial fibrillation: Code(s): I48.0 - Paroxysmal atrial fibrillation Category: Medical Plan: Stable. In the most recent echocardiogram, LVEF 60-65%; suspected LA dilatation; no significant valvular findings. Continue beta-blockers and flecainide. Continue Eliquis. (2) Encounter for monitoring anti-arrhythmic therapy: Code(s): Z51.81 - Encounter for therapeutic drug level monitoring; Z79.899 - Other alf (current) drug therapy Category: Medical Plan: Has been stable on flecainide for many years. In the past, perfusion imaging unremarkable. Echocardiogram with preserved LVEF. She does not have any concerning symptoms like angina. (3) Essential hypertension: Code(s): I10 - Essential (primary) hypertension Category: Medical Plan: On hydrochlorothiazide, amlodipine. Stable. Plan Discussion Notes During the visit, we discussed the management of atrial fibrillation, emphasizing the importance of medication adherence to maintain stability. We also addressed the patient's generalized weakness and fatigue, advising her to monitor her symptoms and report any significant changes. Patient was informed and verbally consented to the use of an ambient scribe for clinic note documentation during this visit. Patient Instructions: - Continue taking Flecainide, metoprolol, and Eliquis as prescribed. - Monitor for any changes in weakness or fatigue and report to your healthcare provider. Coding Level of Care Code Est Pt Level 4 (84839) Complex EM visit Add On G2211 Diagnoses Paroxysmal atrial fibrillation I48.0 Encounter for monitoring anti-arrhythmic therapy Z51.81; Z79.899 Essential hypertension I10 CPT Codes EKG - CPT: 72307-[id number], Complete ([id number])
--- OUTSIDE RECORDS SUMMARY | 2025-05-22 16:17 | XMS_ITS | Patient Health Record ---
Author Organization [facility] Address [address] [place] [address] Care Team Providers Care Licensed Physical Therapist Name Role Phone Cristiano DOMINGUEZ, Mer Primary Care Provider Rio Maloney Unavailable [phone] Paulo DOMINGUEZ, Adriana Unavailable Unavailable Reason For [...] Insured Coverage Start Date Coverage End Date [employer] [address] [place] [address] [id number] ALLISON EWING Self - patient is the insured MEDICARE OF [place] [address] [place] [address] [phone] [id number] ALLISON EWING Self - patient is the insured
--- OUTSIDE RECORDS SUMMARY | 2025-05-22 16:17 | XMS_ITS | Encounter Summary ---
Author Organization [facility] Address [address] [place] [phone] Phone Care Team Providers Care Staple Fiber Washer Name Role Phone Mer Quinonez MD Primary Care Provider Encounter Details Date Type Department Care Team (Late st Contact Info) Description 04/04/2020 Transcribe Orders [facility] [address] [place] [id number] Mer Quinonez MD [address] [facility] [place] [address] Social History Tobacco Use Types Packs/Day Years Used Date Smoking Tobacco: Never Assessed Comments Unknown Sex and Gender Information Value Date Recorded Sex Assigned at Not on file Legal Sex Female 10:15 AM EDT Gender Identity Not on file Sexual Orientation Not on file documented as of this encounter Plan of Treatment Not on file documented as of this encounter Visit Diagnoses Not on filedocumented in this encounter Additional Health Concerns Infection Onset Date Last Indicated Resolved Time 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 It is not the complete legal health record.[facility]
--- OUTSIDE RECORDS SUMMARY | 2025-05-22 16:17 | XMS_ITS | Encounter Summary ---
Author Organization [facility] Address [address] [place] [phone] Phone Care Team Providers Care Pit Crane Operator Name Role Phone Mer Quinonez MD Primary Care Provider Reason for Referral * Physical Therapy (Routine) - Closed Specialty Diagnoses / Procedures Referred By Sami griffith Referred To Contact Physical Therapy Diagnoses Encounter for rehabilitation System, Provider Not In, PhD [id number] [place] [address] Phone: tel: Referral ID Status Reason Start Date Expiration Date Visits Re quested Visits Authorized [id number] Closed 12/22/2017 09/04/2018 99 [phone] Encounter Details Date Type Department Care Team (Latest Contact Info) Description 12/22/2017 Transcribe Orders [facility] [address] [place] [phone] InstrumDelgado MD [address] [place] [address] [place] [address] Encounter for rehabilitation (Primary Dx) Social History [...] Diagnoses Orde r Schedule Ambulatory referral to [facility] Physical Therapy Outpatient Referral Routine Encounter for rehabilitation Ordered: 12/22/2017 documented as of this encounter Visit Diagnoses Diagnosis Encounter for rehabilitation- Primary documented in this encounter Additional Health Concerns Infection Onset Date Last Indicated Resolved Time 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 It is not the complete legal health record.[facility]
--- OUTSIDE RECORDS SUMMARY | 2025-05-22 16:17 | XMS_ITS | Clinical Summary ---
Author Organization [facility] Address [address] [place] [phone] Phone Care Team Providers Care Australian Rules Footballer Name Role Phone Mer Quinonez MD Primary Care Provider Allergies Active Allergy Reactions Criticality Noted Date Comments Other Anaphylaxis High 12/15/2017 LEVAQUIN Medications flecainide (TAMBOCOR) 50 MG tablet Take 50 mg by mouth 2 (two) times a day. 12/15/2017 Active apixaban (ELIQUIS) 5 mg tablet Take 5 mg by mouth 2 (two) times a day. 12/15/2017 Active hydroCHLOROthiaz bebe 25 MG tablet Take 25 mg by mouth daily. 12/15/2017 Active metoprolol succinate (TOPROL-XL) 25 MG 24 hr tablet Take 25 mg by mouth daily. 12/15/2017 Active cholecalciferol (VITAMIN D3) 25 MCG (1,000 unit) tablet Take 2,000 Units by mouth daily. 12/15/2017 Active calcium-vitamin D3-vitamin K (VIACTIV) 1,250 mg (500 mg elemental)-500 unit-40 mcg Chew Take 1 tablet by mouth daily. 12/15/2017 Active oxyCODONE 5 MG immediate release tablet Take 5 mg by mouth every 4 (four) hours as needed for severe pain. 12/15/2017 Active ondansetron (ZOFRAN) 4 MG tablet Take 4 mg by mouth every 8 (eight) hours as needed for nausea. 12/15/2017 Active amLODIPine (NORVASC) 2.5 MG tablet Take 2.5 mg by mouth daily. 03/28/2024 Active busPIRone (BUSPAR) 5 MG tablet Take 1 tablet by mouth 2 (two) times a day. 04/01/2024 Active omeprazole (PRILOSEC) 40 MG capsule Take 40 mg by mouth daily. 04/16/2024 Active Active Problems Problem Noted Date Diagnosed Date Acute cystitis with hematuria 04/28/2024 Social History Tobacco Use Types Packs/Day Years Used Date Smoking Tobacco: Never Assessed Education Answer Date Recorded Are you interested in more education? Not on damaris e 12/31/2022 Are you concerned about learning? Not on file 12/31/2022 No 12/31/2022 No 12/31/2022 Digital Access Answer Date Recorded No 01/29/2023 No 01/29/2023 No 01/29/2023 Reliable internet access at home? Not on file 01/29/2023 Device with a working camera? Not on file Comments Unknown Sex and Gender Information Value Date Recorded Sex Assigned at Not on file Legal Sex Female 10:15 AM EDT Gender Identity Not on file Sexual Orientation Not on file Last Filed Vital Signs Vital Sign Reading Time Taken Comments Blood Pressure 129/80 08/01/2024 10:33 AM EST Pulse 61 08/01/2024 10:33 AM EST Temperature 36.9 C (98.5 F) 08/01/2024 10:33 AM EST Respiratory Rate 18 08/01/2024 10:33 AM EST Oxygen Saturation 96% 08/01/2024 10:33 AM EST Inhaled Oxygen Concentration - - Weight - - Height - - Body Mass Index - - Plan of Treatment Health Maintenance Due Date Last Done Comments Adult Td,Tdap Booster 1940 CREATININE LEVEL 1939 POTASSIUM LEVEL 1939 DEPRESSION SCREENING 1951 ZOSTER VACCINES (1 of 2) 1989 OSTEOPOROSIS SCREENING INITIAL (ONE-TIME) 2004 RSV VACCINE (1 - 1-dose 75+ series) 2014 PNEUMOCOCCAL VACCINES (50+ years) (2 of 2 - PPSV23) 05/29/2016 05/29/2015 INFLUENZA VACCINE (#1) 2025 , 06/17/2023, 06/28/2022, Additional history exists COVID-19 VACCINE ( - 2024-25 season) 2025 06/15/2024, 01/03/2022, 06/18/2021, Additional history exists HEPATITIS A VACCINES Aged Out No long er eligible based on patient's age to complete this topic HIB VACCINES Aged Out No longer eligi ble based on patient's age to complete this topic MENINGOCOCCAL VACCINES (ACWY) Aged Out No longer eligible based on patient's age to complete this topic MENINGOCOCCAL VACCINES (B) Aged Out N o longer eligible based on patient's age to complete this topic Medical Devices Not on file Additional Health Concerns Infection Onset Date Last Indicated MDR-GN 04/28/2024 08/01/2024 Insurance [employer] MEDEX SUPPLEMENT MEDICARE PART A & B [employer] MEDEX SUPPLEMENT MEDICARE PART A & B [id number] CROSS MEDEX SUPPLEMENT MEDICARE PART A & B [employer] MEDEX SUPPLEMENT MEDICARE PART A & B [employer] MEDEX SUPPLEMENT MEDICARE PART A & B [employer] MEDEX SUPPLEMENT MEDICARE PART A & B [employer] MEDEX SUPPLEMENT MEDICARE PART A & B XOG CROSS MEDEX SUPPLEMENT MEDICARE PART A & B [employer]OG [employer] MEDEX SUPPLEMENT MEDICARE PART A & B Care Teams Australian Rules Footballer Relationship Specialty Start Date End Date Mer Quinonez MD [facility] [place] [address] PCP - General Internal Medicine 12/14/17 Additional Source Comments The information contained in this document represents components of the legal health record. It is not the complete legal health record.[facility]
== END 2025-05-22 13:15 | disposition home or self-care (01) ==
LOC: HO.HCS 12:51
PROVIDERS: PCP Internal Medicine; Visit Provider Internal Medicine
DX: I48.0 Paroxysmal atrial fibrillation (principal); Z51.81 Encounter for therapeutic drug level monitoring; Z79.899 Other long term (current) drug therapy; I10 Essential (primary) hypertension
CPT/HCPCS: 93010; 99214; G2211

== ENCOUNTER → 2025-05-22 12:50 | Outpatient (BNVA) | payer MEDICARE, SELFPAY | PROVIDERS: PCP Internal Medicine; Visit Provider Internal Medicine | DX: I48.0 Paroxysmal atrial fibrillation (principal); I10 Essential (primary) hypertension; Z79.899 Other long term (current) drug therapy | CPT/HCPCS: 93005; 99212 ==

== ENCOUNTER 2025-05-28 11:18 | Outpatient (AMB) | payer MEDICARE, SELFPAY ==
[2025-05-28 11:20] VITALS: BP 102/53; PULSE 51; BMI 24.7
--- NOTE | 2025-05-28 11:20 | A.OFFVIS_ITS ---
Vital Signs 05/28/25 11:20 Height 5 ft Weight 126 lb 8.725 oz BMI 24.7 BP 102/53 L Blood Pressure Location Lt brachial Position Sitting Pulse 51 Intake Visit Reasons: S/P egd Hamilton Intake Note: Alisa presents in follow up s/p EGD. CC: Patient reports some constipation , denies other GI symptoms or concerns. Slab Lifting Supervisor Required: No Accompanied by: Self / Same As Patient Allergies levofloxacin (From Levaquin) Allergy (Intermediate, Verified 06/13/25 12:02) RASH HPI HPI S/P egd Hamilton: Details: Assessment & Plan (1) Erosive gastritis: Comment: 02/2025 EGD=erosions and multiple eroded polyps; repeat 3-4 mos. Code(s): K29.60 - Other gastritis without bleeding Category: Medical (2) Nausea: Code(s): R11.0 - Nausea Category: Medical Plan She had a sore throat for about a week after zuniga but it has improved. She has been having more nausea recently, she is uncertain why she did get treated with physical therapy for vertigo but this has since resolved. I encouraged her to take the Reglan she can take it up to 4 times a day so that she does not have to suffer and so she can meet her nutritional requirements. I did tell her that nausea can be multifactorial and sometimes were uncertain if it is from her gastric irritation from the polyps, or is neurologic or even metabolic. Howev er, I think we should just treat the symptom and not worry about the cause unless it becomes more severe. She is agreeable to having the EGD repeated and I have sent an urgent request to the schedulers. She continues on her omeprazole 40 mg twice a day. Return office visit after the EGD Medications: Changed From metoclopramide HCl (Reglan) 5 mg PO QIDACHS PRN stomach pain R11.0 - Nausea To metoclopramide HCl (Reglan) 5 mg PO QIDACHS 120 tabs 6RF NAUSEA R11.0 - Nausea EGD Findings: Larynx: Normal Esophagus: GE junction at 34 cms, hiatal hernia 34 to 36 cms. Two 15 mm polyps in the hiatal hernia sac - One polyp was removed with a hot snare Stomach: Multiple 1-2 cms polyps in the gastric antrum and body. Two 4-5 cms elongated polyps at the cardia (seen on retroflexed exam) Polyps were removed piece meal with a hexagonal hot snare. and retrieved with a Berwer net. Polyps could not be removed completely due to excessive length of the procedure.. Multiple 5 to 10 mm smaller polyps in the gastric body and fundus were not removed Grade 3 flap valve on retroflexed examination of the cardia. Duodenum: Not examined Intervention: Snare polypectomy of multiple gastric polyps Impression and Post Procedure Diagnosis: Endoscopy Findings: ESOPHAGUS: STOMACH: DUODENUM: Plan: Pt has a FU appointment on 05/28/25 with Sierra Conklin NP. Repeat EGD in 4 - 6months Decrease Omeprazole to 20 mg twice daily BIOPSY Received: 05/17/25 Diagnosis A. Gastric polyps: -Hyperplastic polyp/s with low-grade and high-grade dysplasia (multiple pieces), and intestinal metaplasia; negative for H. pylori. -Dysplasia is present at the tissue edges with focal cautery artifact. -Hyperplastic polyp/s without dysplasia, with focal intestinal metaplasia; negative for H. pylori. -Fundic gland polyps; negative for H. pylori, intestinal metaplasia and dysplasia. B. Esophageal polyp: -Hyperplastic polyp with low-grade and high-grade dysplasia and focal intestinal metaplasia. -Dysplasia is present at the tissue edges with focal cautery artifact TODAY'S VISIT [facility] Medical History (Updated 07/16/25 @ 17:34 by Mer Quinonez MD) Iron deficiency anemia Nausea Generalized anxiety disorder Fundic gland polyposis of stomach Gastritis determined by biopsy Diverticulitis Colitis GERD (gastroesophageal reflux disease) Mixed dyslipidemia Hx of iron deficiency anemia Osteoarthritis of right knee Encounter for monitoring anti-arrhythmic therapy Post-menopause Vaginal dryness, menopausal Urinary frequency Primary osteoarthritis involving multiple joints Osteoporosis Paroxysmal atrial fibrillation Essential hypertension Surgical History Diverticular disease Status post partial resection of colon (03/15/24) History of esophagogastroduodenoscopy (EGD) (02/08/25) H/O colonoscopy Hx of hysterectomy Hx of total knee arthroplasty Hx of bilateral oophorectomy History of bladder suspension procedure History of repair of hiatal hernia (01/26/06) History of cholecystectomy Family History Father No problems noted. Mother No problems noted. Family/Other Cancer Brother History of kidney cancer Lung cancer, Onset Age: 65 Sister Breast cancer, Onset Age: 28 Social History Household Members: None Household Members Other:: lives at [facility] Housing: Apartment Housing Other:: resides in [place] across her daughter's house Are you a primary care transitions manager to a significant other at home: No Do you presently have visiting nurse or other home services: No Alcohol intake: current Alcohol intake frequency: holidays/special occasions only Alcohol type: wine Patient Tobacco Use Status: Former Tobacco user Tobacco use type: Cigarette Years Smoked: 2 e-Cigarette/Vaping Use: Never Used Advance Directives Date on File: 09/24/19 service: No Current occupational status: retired Cognitive needs: No Hearing needs: No Vision needs: Yes Review of Systems Const Denies fatigue, Denies fever(s), Denies night sweats, Denies poor appetite and Denies weight loss ENT Reports Normal hearing present, Denies dental pain, Denies dysphagia, Denies hearing loss, Denies mouth pain, Denies odynophagia, Denies throat swelling, Denies tongue swelling and Reports other (Dentition adequate) Card Reports no additional complaints Resp Reports no additional complaints GI Details: Denies abdominal pain, Denies melena, Denies bloating, Denies hematochezia, Denies constipation, Denies GI cramping, Denies dysphagia, Denies excessive flatus, Denies early satiety, Reports dyspepsia, Reports heartburn, Denies diarrhea, Denies nausea, Denies odynophagia, Denies vomiting and Denies hematemesis Skin/Breast Denies pruritus, Denies lesions, Denies rash and Denies jaundice Neuro Reports Normal hearing present and Denies Abnormal speech present Endo Denies fatigue Aller/Immun Denies throat swelling and Denies tongue swelling Physical Exam Vital Signs: Last Vital Signs Pulse 51 05/28/25 11:20 BP 102/53 L 05/28/25 11:20 BMI result Body Mass Index 24.7 Const General: cooperative, no acute distress, well developed and well groomed Nutritional Appearance: average body habitus and well nourished Orientation/consciousness: oriented to person, oriented to place and oriented to time Limitations: No language barrier HEENT Head: Yes normocephalic and Yes atraumatic Eyes General: appearance normal, both eyes and all related structures Pupils: Equal, round and reactive pupils present Neck Neck: Yes normal visual inspection and Yes no lymphadenopathy Thyroid: Thyroid normal Resp Effort & Inspection: normal respiratory effort and able to speak in complete sentences Auscultation: clear to auscultation bilaterally Cardio Rate: regular rate Rhythm: regular rhythm Heart sounds: Normal, physiologic split S2 sound present Peripheral pulses: radial pulses present and posterior tibial pulses present GI Inspection: No distended and No Abdominal panniculus present Palpation (GI): Soft to palpation, nontender, no guarding, not rigid and No hepatosplenomegaly present Percussion: Yes normal to percussion Auscultation: normal bowel sounds Rectal Exam - Female: deferred Skin General skin exam: no rashes or lesions noted, turgor normal, skin not dry, no jaundice, No spider nevi and no striae Rashes: no rashes Nails: normal Neuro General: oriented to person, oriented to place and oriented to time Cranial nerves: Yes Equal, round and reactive pupils present and Yes Normal hearing present Speech: No Abnormal speech present Extrem General: Yes normal to inspection, No clubbing, No cyanosis and No edema Psych Appearance: grossly normal and well kempt Mental Status: mental status grossly normal Speech and movement: Normal speech and movement present Affect: normal affect Attitude: cooperative Thought process: Normal thought process present and not confabulating Thought content: Normal thought content present Insight: Good insight present (Psych) Judgement: Good judgement present (Psych) Results Reviewed Results Reviewed: EGD Findings: Larynx: Normal Esophagus: GE junction at 34 cms, hiatal hernia 34 to 36 cms. Two 15 mm polyps in the hiatal hernia sac - One polyp was removed with a hot snare Stomach: Multiple 1-2 cms polyps in the gastric antrum and body. Two 4-5 cms elongated polyps at the cardia (seen on retroflexed exam) Polyps were removed piece meal with a hexagonal hot snare. and retrieved with a Brewer net. Polyps could not be removed completely due to excessive length of the procedure.. Multiple 5 to 10 mm smaller polyps in the gastric body and fundus were not removed Grade 3 flap valve on retroflexed examination of the cardia. Duodenum: Not examined Intervention: Snare polypectomy of multiple gastric polyps Impression and Post Procedure Diagnosis: Endoscopy Findings: ESOPHAGUS: STOMACH: DUODENUM: Plan: Pt has a FU appointment on 05/28/25 with Sierra Conklin NP. Repeat EGD in 4 - 6months Decrease Omeprazole to 20 mg twice daily BIOPSY Received: 05/17/25 Diagnosis A. Gastric polyps: -Hyperplastic polyp/s with low-grade and high-grade dysplasia (multiple pieces), and intestinal metaplasia; negative for H. pylori. -Dysplasia is present at the tissue edges with focal cautery artifact. -Hyperplastic polyp/s without dysplasia, with focal intestinal metaplasia; negative for H. pylori. -Fundic gland polyps; negative for H. pylori, intestinal metaplasia and dysplasia. B. Esophageal polyp: -Hyperplastic polyp with low-grade and high-grade dysplasia and focal intestinal metaplasia. -Dysplasia is present at the tissue edges with focal cautery artifact Assessment & Plan Assessment & Plan (1) Gastric dysplasia: Comment: On polyps removed 05/17/2025 EGD Code(s): 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, unspecified Category: Medical (2) Erosive gastritis: Comment: 02/2025 EGD=erosions and multiple eroded polyps; repeat 3-4 mos. Code(s): K29.60 - Other gastritis without bleeding Category: Medical (3) Delayed gastric emptying: Code(s): K30 - Functional dyspepsia Category: Medical (4) GERD (gastroesophageal reflux disease): Code(s): K21.9 - Gastro-esophageal reflux disease without esophagitis Category: Medical Qualifiers: Esophagitis presence: without esophagitis Qualified Code(s): K21.9 - Gastro-esophageal reflux disease without esophagitis Plan Her current GI regimen is omeprazole 20 mg twice a day and Reglan 5 mg 4 times a day. - The patient is an 85-year-old female presenting with a follow-up evaluation post-endoscopy due to esophageal and gastric polyps showing areas of dysplasia. - Endoscopic examination identified several polyps in the esophagus and stomach, with some demonstrating changes suggestive of a precancerous state. - Post-procedural sore throat noted, likely resulting from the duration and nature of the procedure. - Awaiting further input from Dr. Villasenor to determine if 4 months is still appropriate for follow-up with the biopsy findings or whether it should be sooner. Prudence is aware I will be in touch shortly about this. For now we will put a six-month follow-up with me on the books. Coding Level of Care Code Est Pt Level 3 (63598) Diagnoses Gastric dysplasia Q40.3 Erosive gastritis K29.60 Delayed gastric emptying K30 Gastroesophageal reflux disease without esophagitis K21.9 Esophagitis presence: without esophagitis
--- OUTSIDE RECORDS SUMMARY | 2025-05-28 14:11 | XMS_ITS | Patient Health Record ---
Author Organization [facility] Address [address] [place] [address] Care Team Providers Care Slate Trimmer Name Role Phone Cristiano DOMINGUEZ, Mer Primary Care Provider Rio Maloney Unavailable [phone] Paulo DOMINGUEZ, Adriana Unavailable Unavailable Reason For [...] Insured Coverage Start Date Coverage End Date [facility] [address] [place] [phone] [id number] ALLISON EWING Self - patient is the insured MEDICARE OF [place] [address] [facility] [place] [address] [id number] ALLISON EWING Self - patient is the insured
--- OUTSIDE RECORDS SUMMARY | 2025-05-28 14:11 | XMS_ITS | Encounter Summary ---
Author Organization [facility] Address [address] [place] [address] Phone Care Team Providers Care Country Printer Apprentice Name Role Phone Mer Quinonez MD Primary Care Provider Encounter Details Date Type Department Care Team (Late st Contact Info) Description 04/04/2020 Transcribe Orders [facility] Rehabilitation Services [address] [place] [id number] Mer Quinonez MD [address] [facility] [place] [address] Social History Tobacco Use Types Packs/Day Years [...] documented as of this encounter Care Teams Country Printer Apprentice Relationship Specialty Start Date End Date Mer Quinonez MD [address] [place] [address] [place] [address] PCP - General Internal Medicine 12/14/17 documented as of this encounter Additional Source Comments The information contained in this document represents components of the legal health record. It is not the complete legal health record.[facility]
--- OUTSIDE RECORDS SUMMARY | 2025-05-28 14:11 | XMS_ITS | Encounter Summary ---
Author Organization [facility] Address [address] [place] [phone] Phone Care Team Providers Care Distilling Department Supervisor Name Role Phone Mer Quinonez MD Primary Care Provider Reason for Referral * Physical Therapy (Routine) - Closed Specialty Diagnoses / Procedures Referred By Sami griffith Referred To Contact Physical Therapy Diagnoses Encounter for rehabilitation System, Provider Not In, PhD [id number] [place] [phone] Phone: tel: Referral ID Status Reason Start Date Expiration Date Visits Re quested Visits Authorized [id number] Closed 12/22/2017 09/04/2018 99 [phone] Encounter Details Date Type Department Care Team (Latest Contact Info) Description 12/22/2017 Transcribe Orders [facility] [address] [place] [phone] InstrumDelgado MD [address] [place] [address] [place] [address] Encounter for rehabilitation (Primary Dx) Social History [...] Diagnoses Orde r Schedule Ambulatory referral to [facility] Physical Therapy Outpatient Referral Routine Encounter for rehabilitation Ordered: 12/22/2017 documented as of this encounter Visit Diagnoses Diagnosis Encounter for rehabilitation- Primary documented in this encounter Additional Health Concerns Infection Onset Date Last Indicated Resolved Time 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 It is not the complete legal health record.[facility]
--- OUTSIDE RECORDS SUMMARY | 2025-05-28 14:11 | XMS_ITS | Clinical Summary ---
Author Organization [facility] Address [address] [place] [address] Phone Care Team Providers Care Air Traffic Controller Center Name Role Phone Mer Quinonez MD Primary [...] Date Last Indicated MDR-GN 04/28/2024 08/01/2024 Insurance [employer] MEDEX SUPPLEMENT MEDICARE PART A & B [employer] MEDEX SUPPLEMENT MEDICARE PART A & B [id number] CROSS MEDEX SUPPLEMENT MEDICARE PART A & B [employer] MEDEX SUPPLEMENT MEDICARE PART A & B [employer] MEDEX SUPPLEMENT MEDICARE PART A & B [employer] CROSS MEDEX SUPPLEMENT MEDICARE PART A & B [employer] MEDEX SUPPLEMENT MEDICARE PART A & B [employer] CROSS MEDEX SUPPLEMENT MEDICARE PART A & B [employer] CROSS MEDEX SUPPLEMENT MEDICARE PART A & B Care Teams Air Traffic Controller Center Relationship Specialty Start Date End Date Mer Quinonez MD [facility] [place] [address] PCP - General Internal Medicine 12/14/17 Additional Source Comments The information contained in this document represents components of the legal health record. It is not the complete legal health record.[facility]
== END 2025-05-28 12:45 | disposition home or self-care (01) ==
LOC: HO.HGI 11:19
PROVIDERS: PCP Internal Medicine; Visit Provider Nurse Practitioner
DX: Q40.3 Congenital malformation of stomach, unspecified (principal); K29.60 Other gastritis without bleeding; K30 Functional dyspepsia; K21.9 Gastro-esophageal reflux disease without esophagitis
CPT/HCPCS: 99213

== ENCOUNTER → 2025-05-28 11:18 | Outpatient (BNVA) | payer MEDICARE, SELFPAY | PROVIDERS: PCP Internal Medicine; Visit Provider Nurse Practitioner | DX: K21.9 Gastro-esophageal reflux disease without esophagitis (principal); K30 Functional dyspepsia; K29.60 Other gastritis without bleeding; K31.7 Polyp of stomach and duodenum; K31.A22 Gastric intestinal metaplasia with high grade dysplasia; F17.210 Nicotine dependence, cigarettes, uncomplicated; Q40.3 Congenital malformation of stomach, unspecified; Z98.890 Other specified postprocedural states | CPT/HCPCS: 99212 ==

== ENCOUNTER 2025-06-13 11:31 | Outpatient (AMB) | payer MEDICARE, SELFPAY ==
--- NOTE | 2025-06-13 11:44 | A.OFFPC_ITS ---
Vital Signs 06/13/25 11:45 Height 5 ft Weight 126 lb BMI 24.6 BP 132/62 Blood Pressure Location Lt brachial Position Sitting Respiration 16 Pulse 56 Pulse Source Pulse Oximeter Temp 97.6 F Temp Source Oral Pulse Oximetry (%) 100 Oxygen Delivery Method Room Air Intake Visit Reasons: 6m follow up Intake Note: Pt is here today for her 6mo. f/u Line Therapist Required: No Allergies levofloxacin (From Levaquin) Allergy (Intermediate, Verified 06/13/25 12:02) RASH Medication List - Last Reconciled 06/13/25 by Mer Quinonez MD amlodipine 5 mg PO 1XD apixaban (Eliquis) 5 mg PO BID Held on 05/17/25. Instructions: Resume on 05/19/25. buspirone 5 mg PO BID 3 months flecainide 50 mg PO BID hydrochlorothiazide 25 mg PO QAM metoclopramide HCl (Reglan) 5 mg PO QIDACHS metoprolol succinate ER 25 mg PO DAILY omeprazole 20 mg PO BID 60 days Tobacco use date assessed: 06/13/25 Fall risk assessment: 1 Fall in past year Last assessed Fall Risk: 06/13/25 Dental Screening Dental Screen Date: 06/13/25 Did you have a dental visit in the last 12 months?: No Did you have a dental problem in the last 6 months where you did not have access to dental care?: No Was dental information given to patient?: Patient has dentist HPI 6m follow up HPI Details 85 -year-old lady with history of hypert ension , mixed dyslipidemia paroxysmal atrial fibrillation, stable and controlled on flecainide, metoprolol succinate ER and is currently anticoagulated on apixaban 5 mg twice a day The patient reports a recent fall while squatting to retrieve an item from under her bed, which did not result in head injury . She was able to get up independently and has considered using a lifeline for emergencies, although she currently does not have one. The patient has a history of osteoarthritis, primarily affecting her knees, s/p bilateral knee replacement. She uses a cane for ambulation and reports difficulty walking 200 feet without stopping. The patient has a history of gastric dysplasia and precancerous gastric polyps, which were identified during a recent endoscopy. Multiple polyps were removed, and she is on omeprazole 20 mg twice daily for management. The patient also has a history of gastroesophageal reflux disease (GERD),and occasional nausea , takes metoclopramide as needed She is on a regimen of metoprolol and hydrochlorothiazide for blood pressure management. The patient was noted to be slightly anemic in December, with normal electrolytes and kidney function, but elevated cholesterol levels. Her vitamin D level was 41 in November, and she plans to have fasting blood work done soon. The patient has a history of COVID-19 infection, which resulted in several days of illness characterized by body aches and fatigue. She did not require Paxlovid treatment and has not received a recent COVID-19 vaccine. [facility] Medical History Nausea Generalized anxiety disorder Fundic gland polyposis of stomach Gastritis determined by biopsy Diverticulitis Colitis GERD (gastroesophageal reflux disease) Mixed dyslipidemia Hx of iron deficiency anemia Osteoarthritis of right knee Encounter for monitoring anti-arrhythmic therapy Post-menopause Vaginal dryness, menopausal Urinary frequency Primary osteoarthritis involving multiple joints Osteoporosis Paroxysmal atrial fibrillation Essential hypertension Surgical History Diverticular disease Status post partial resection of colon (03/15/24) History of esophagogastroduodenoscopy (EGD) (02/08/25) H/O colonoscopy Hx of hysterectomy Hx of total knee arthroplasty Hx of bilateral oophorectomy History of bladder suspension procedure History of repair of hiatal hernia (01/26/06) History of cholecystectomy Family History Father No problems noted. Mother No problems noted. Family/Other Cancer Brother History of kidney cancer Lung cancer, Onset Age: 65 Sister Breast cancer, Onset Age: 28 Social History Household Members: None Household Members Other:: lives at [facility] Housing: Apartment Housing Other:: resides in [place] across her daughter's house Are you a primary hiv/aids care nurse to a significant other at home: No Do you presently have visiting nurse or other home services: No Alcohol intake: current Alcohol intake frequency: holidays/special occasions only Alcohol type: wine Patient Tobacco Use Status: Former Tobacco user Tobacco use type: Cigarette Years Smoked: 2 e-Cigarette/Vaping Use: Never Used Advance Directives Date on File: 09/24/19 service: No Current occupational status: retired Cognitive needs: No Hearing needs: No Vision needs: Yes Questionnaire PHQ-9 Over the last 2 weeks, how often have you been bothered by any of the following problems? Depression Screening Interpretation: Negative Depression Screening Done: Yes 33192 - PHQ-9 Billing: Patient declined-do not bill Source: Developed by Drs. Rio Levine, Hazel Hintno, Ronnie Bueno and colleagues, with an educational patricia from [employer]. Thrive Questionnaire Date Thrive assessed: 12/14/24 I am a: Patient What is your living situation today?: I have a steady place to live Within the past 12 months, did the food you bought not last and you didn't have the money to get more?: I choose not to answer this question Within the past 12 months, did you worry whether your food would run out before you got money to buy more?: I choose not to answer this question Do you have trouble paying for medicines?: I choose not to answer this question Do you have trouble getting transportation to medical appointments?: I choose not to answer this question Do you have trouble paying your heating and electricity bill?: I choose not to answer this question Do you have trouble taking care of your child, family member or friend?: I choose not to answer this question Do you have trouble with day-to-day activities such as bathing, preparing meals, shopping, managing finances, etc.?: I choose not to answer this question Are you currently unemployed and looking for a job?: I choose not to answer this question Are you interested in more education?: I choose not to answer this question Please select the resources that you would like help with: None Currently or been in a relationship where the following occur: I choose not to answer THRIVE Score: 0 SERGIO-7 AMB Questionnaire SERGIO-7 Date SERGIO - 7 assessed: 12/06/24 Source: Developed by Drs. Rio Levine, Hazel Hinton, Ronnie Bueno and colleagues, with an educational patricia from [employer]. Review of Systems Const Denies fatigue and Denies weakness Eyes Denies change in vision ENT Denies dizziness Card Denies chest pain, Denies chest pain with activity, Denies syncope, Denies rapid heart rate, Denies pedal edema, Denies lightheadedness, Denies palpitations, Denies dyspnea and Denies dyspnea on exertion Resp Denies cough, Denies dyspnea and Denies dyspnea on exertion GI Denies hematochezia and Denies change in stool character Musc Denies abnormal gait, Denies muscle cramps, Denies muscle weakness and Denies numbness Neuro Denies Abnormal speech present, Denies abnormal gait, Denies dizziness, Denies syncope, Denies numbness and Denies weakness Psych Reports no additional complaints Endo Denies fatigue and Denies palpitations Geovanny/Lymph Denies easy bleeding and Denies easy bruising Aller/Immun Reports no additional complaints Physical exam (Primary Care) Vital Signs: Last Vital Signs Temp 97.6 F 06/13/25 11:45 Pulse 56 06/13/25 11:45 Resp 16 06/13/25 11:45 BP 132/62 06/13/25 11:45 Pulse Ox 100 06/13/25 11:45 Oxygen Delivery Method Room Air 06/13/25 11:45 BMI result Body Mass Index 24.6 Tobacco/Smoking Status: Tobacco use Status Tobacco use date assessed 06/13/25 06/13/25 11:51 Patient Tobacco Use Status Former Tobacco user 06/13/25 12:10 Tobacco use type Cigarette 06/13/25 12:10 e-Cigarette/Vaping Use Never Used 06/13/25 12:10 Depression Screening Interpretation: Negative Thrive Assessment: Date of Thrive Assessment Date Thrive assessed 12/14/24 06/13/25 11:51 Currently or been in a relationship where the following occur: I choose not to answer Const General: comfortable and no acute distress Orientation/consciousness: patient oriented x3 HENMT Ears: external ears normal, TM's normal bilaterally and EAC's normal General nose exam: Normal external nose present Face and sinus: Yes face symmetric Mouth: Normal oral and palatal mucosa present, oropharynx normal and moist mucous membranes Eyes General: appearance normal, both eyes and all related structures Neck Neck: Yes full ROM, Yes no lymphadenopathy and Yes supple Resp Effort & Inspection: normal respiratory effort and able to speak in complete sentences Auscultation: clear to auscultation bilaterally Cardio Rate: regular rate Rhythm: regular rhythm Heart sounds: S1 normal heart sound present and S2 normal heart sound present GI Palpation (GI): Soft to palpation, nontender and no masses Auscultation: normal bowel sounds Skin General skin exam: no rashes or lesions noted Neuro General: patient oriented x3, gait normal, tone normal, moves all extremities, Normal light touch and pain sensation and no focal motor deficits Cognition (Neuro): normal cognition Speech: No Abnormal speech present Gait exam (Neuro): Normal gait present Motor exam (neuro): 5/5 motor strength present throughout Extrem General: Yes full ROM, Yes no joint enlargement, Yes no pedal edema and Yes normal gait Psych Appearance: grossly normal and well kempt Speech and movement: Normal speech and movement present Affect: normal affect Coding Level of Care Code Est Pt Level 4 (71553) Complex EM visit Add On G2211 Diagnoses Gastroesophageal reflux disease without esophagitis K21.9 Esophagitis presence: without esophagitis Essential hypertension I10 Paroxysmal atrial fibrillation I48.0 Mixed dyslipidemia E78.2 Generalized anxiety disorder F41.1 Anemia D64.9 Assessment & Plan Assessment & Plan (1) GERD (gastroesophageal reflux disease): Code(s): K21.9 - Gastro-esophageal reflux disease without esophagitis Category: Medical Qualifiers: Esophagitis presence: without esophagitis Qualified Code(s): K21.9 - Gastro-esophageal reflux disease without esophagitis (2) Essential hypertension: Code(s): I10 - Essential (primary) hypertension Category: Medical (3) Paroxysmal atrial fibrillation: Code(s): I48.0 - Paroxysmal atrial fibrillation Category: Medical (4) Mixed dyslipidemia: Code(s): E78.2 - Mixed hyperlipidemia Category: Medical (5) Generalized anxiety disorder: Code(s): F41.1 - Generalized anxiety disorder Category: Medical (6) Anemia: Code(s): D64.9 - Anemia, unspecified Plan During the visit, I discussed with the patient the importance of managing her fall risk by avoiding sudden positional changes and considering a lifeline for emergencies. We also reviewed her osteoarthritis management, emphasizing the use of assistive devices and the potential benefits of physical therapy. Regarding her gastric dysplasia, I explained the need for regular follow-up endoscopies and adherence to her current medication regimen. We discussed her GERD management, including the use of metoclopramide as needed, and the importance of monitoring her symptoms. I advised her on the significance of follow-up blood work to monitor her anemia and encouraged her to consider COVID-19 vaccination for ongoing protection. Patient was informed and verbally consented to the use of an ambient scribe for clinic note documentation during this visit. Orders: Orders Complete Blood Count Auto Diff 06/13/25 D12.6 - Benign neoplasm of colon, unspecified, D64.9 - Anemia, unspecified, E78.2 - Mixed hyperlipidemia, F41.1 - Generalized anxiety disorder, I10 - Essential (primary) hypertension, I48.0 - Paroxysmal atrial fibrillation, K21.9 - Gastro-esophageal reflux disease without esophagitis, 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 IRON PROFILE 06/13/25 D12.6 - Benign neoplasm of colon, unspecified, D64.9 - Anemia, unspecified, E78.2 - Mixed hyperlipidemia, F41.1 - Generalized anxiety disorder, I10 - Essential (primary) hypertension, I48.0 - Paroxysmal atrial fibrillation, K21.9 - Gastro-esophageal reflux disease without esophagitis, 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 Lipid Panel 06/13/25 D12.6 - Benign neoplasm of colon, unspecified, D64.9 - Anemia, unspecified, E78.2 - Mixed hyperlipidemia, F41.1 - Generalized anxiety disorder, I10 - Essential (primary) hypertension, I48.0 - Paroxysmal atrial fibrillation, K21.9 - Gastro-esophageal reflux disease without esophagitis, 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 Aspartate Amino Transferase 06/13/25 D12.6 - Benign neoplasm of colon, unspecified, D64.9 - Anemia, unspecified, E78.2 - Mixed hyperlipidemia, F41.1 - Generalized anxiety disorder, I10 - Essential (primary) hypertension, I48.0 - Paroxysmal atrial fibrillation, K21.9 - Gastro-esophageal reflux disease without esophagitis, 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 Alanine Aminotransferase 06/13/25 D12.6 - Benign neoplasm of colon, unspecified, D64.9 - Anemia, unspecified, E78.2 - Mixed hyperlipidemia, F41.1 - Generalized anxiety disorder, I10 - Essential (primary) hypertension, I48.0 - Paroxysmal atrial fibrillation, K21.9 - Gastro-esophageal reflux disease without esophagitis, 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 Basic Metabolic Panel Fasting 06/13/25 D12.6 - Benign neoplasm of colon, unspecified, D64.9 - Anemia, unspecified, E78.2 - Mixed hyperlipidemia, F41.1 - Generalized anxiety disorder, I10 - Essential (primary) hypertension, I48.0 - Paroxysmal atrial fibrillation, K21.9 - Gastro-esophageal reflux disease without esophagitis, 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
[2025-06-13 11:45] VITALS: BP 132/62; PULSE 56; RESP 16; TEMP 36.4; O2SAT 100; BMI 24.6
== END 2025-06-13 12:25 | disposition home or self-care (01) ==
LOC: HO.HMCC 11:31
PROVIDERS: PCP Internal Medicine; Visit Provider Internal Medicine
DX: K21.9 Gastro-esophageal reflux disease without esophagitis (principal); I10 Essential (primary) hypertension; I48.0 Paroxysmal atrial fibrillation; E78.2 Mixed hyperlipidemia; F41.1 Generalized anxiety disorder; D64.9 Anemia, unspecified

== ENCOUNTER → 2025-06-13 11:31 | Outpatient (BNVA) | payer MEDICARE, SELFPAY | PROVIDERS: PCP Internal Medicine; Visit Provider Internal Medicine | DX: I10 Essential (primary) hypertension (principal); E78.2 Mixed hyperlipidemia; I48.0 Paroxysmal atrial fibrillation; K21.9 Gastro-esophageal reflux disease without esophagitis; D64.9 Anemia, unspecified; F41.1 Generalized anxiety disorder; Z86.0100 Personal history of colon polyps, unspecified; Z79.899 Other long term (current) drug therapy; Z91.81 History of falling; Z79.01 Long term (current) use of anticoagulants | CPT/HCPCS: 99212 ==

== ENCOUNTER 2025-07-03 06:57 | Outpatient (REF) | payer MEDICARE, SELFPAY ==
--- OUTSIDE RECORDS SUMMARY | 2025-07-03 07:01 | XMS_ITS | Encounter Summary ---
Author Organization [facility] Address [address] [place] [phone] Phone Care Team Providers Care Cloth Edge Singer Name Role Phone Mer Quinonez MD Primary Care Provider Encounter Details Date Type Department Care Team (Late st Contact Info) Description 04/04/2020 Transcribe Orders [facility] [address] [place] [id number] Mer Quinonez MD [address] [facility] [place] [address] Social History Tobacco Use Types Packs/Day Years [...] documented as of this encounter Care Teams Cloth Edge Singer Relationship Specialty Start Date End Date Mer Quinonez MD [address] [place] [address] [place] [address] PCP - General Internal Medicine 12/14/17 documented as of this encounter Additional Source Comments The information contained in this document represents components of the legal health record. It is not the complete legal health record.[facility]
--- OUTSIDE RECORDS SUMMARY | 2025-07-03 07:01 | XMS_ITS | Patient Health Record ---
Author Organization [facility] Address [address] [place] [address] Care Team Providers Care Hood Maker Name Role Phone Cristiano DOMINGUEZ, Mer Primary Care Provider Rio Maloney Unavailable [phone] Paulo DOMINGUEZ, Adriana Unavailable Unavailable Reason For Referral No Information Medications Medication SIG (Take, Route, Fr equency, Duration) Notes Start Date End Date Status Omeprazole 20 MG 1 capsule Orally twi ce a day; Duration: 90 days 04/24/2013 Active Plan Of Treatment No Information Insurance Providers Payer Name Payer Address Payer Phone Subscriber Number Group Number Insured Name Patient Relationship to Insured Coverage Start Date Coverage End Date [facility] [address] [place] [phone] [id number] ALLISON EWING Self - patient is the insured MEDICARE OF [place] [address] [place] [address] [phone] [id number] ALLISON EWING Self - patient is the insured
--- OUTSIDE RECORDS SUMMARY | 2025-07-03 07:01 | XMS_ITS | Clinical Summary ---
Author Organization [facility] Address [address] [place] [phone] Phone Care Team Providers Care Manager Of Organizational Development Name Role Phone Mer Quinonez MD Primary [...] Additional history exists COVID-19 VACCINE ( - season) 2025 06/15/2024, 01/03/2022, 06/18/2021, Additional history [...] Date Last Indicated MDR-GN 04/28/2024 08/01/2024 Insurance [employer] SUPPLEMENT MEDICARE PART A & B [employer] MED[employer] SUPPLEMENT MEDICARE PART A & B [id number] [employer] MEDEX SUPPLEMENT MEDICARE PART A & B [employer] MEDEX SUPPLEMENT MEDICARE PART A & B [employer] MEDEX SUPPLEMENT MEDICARE PART A & B [employer] CROSS MEDEX SUPPLEMENT MEDICARE PART A & B [employer] MED[employer] SUPPLEMENT MEDICARE PART A & B [employer] CROSS MEDEX SUPPLEMENT MEDICARE PART A & B [employer] CR[employer] MEDEX SUPPLEMENT MEDICARE PART A & B Care Teams Manager Of Organizational Development Relationship Specialty Start Date End Date Mer Quinonez MD [facility] [place] [address] PCP - General Internal Medicine 12/14/17 Additional Source Comments The information contained in this document represents components of the legal health record. It is not the complete legal health record.[facility]
--- OUTSIDE RECORDS SUMMARY | 2025-07-03 07:01 | XMS_ITS | Encounter Summary ---
Author Organization [facility] Address [address] [place] [address] Phone Care Team Providers Care Courseware Developer Name Role Phone Mer Quinonez MD Primary Care Provider Reason for Referral * Physical Therapy (Routine) - Closed Specialty Diagnoses / Procedures Referred By Sami griffith Referred To Contact Physical Therapy Diagnoses Encounter for rehabilitation System, Provider Not In, PhD [id number] [place] [address] Phone: tel: Referral ID Status Reason Start Date Expiration Date Visits Re quested Visits Authorized [id number] Closed 12/22/2017 09/04/2018 99 [phone] Encounter Details Date Type Department Care Team (Latest Contact Info) Description 12/22/2017 Transcribe Orders [facility] Rehabilitation Services [address] [place] [phone] InstrumDelgado MD [address] [place] [address] [place] [address] Encounter for rehabilitation (Primary Dx) Social History [...] Diagnoses Orde r Schedule Ambulatory referral to [facility] Physical Therapy Outpatient Referral Routine Encounter for rehabilitation Ordered: 12/22/2017 documented as of this encounter Visit Diagnoses Diagnosis Encounter for rehabilitation- Primary documented in this encounter Additional Health Concerns Infection Onset Date Last Indicated Resolved Time MDR-GN 04/28/2024 08/01/2024 documented as of this encounter Care Teams Courseware Developer Relationship Specialty Start Date End Date Mer Quinonez MD [facility] [place] [address] PCP - General Internal Medicine 12/14/17 documented as of this encounter Additional Source Comments The information contained in this document represents components of the legal health record. It is not the complete legal health record.[facility]
[2025-07-03 07:09] LABS: MANUAL DIFF FLAG NO
[2025-07-03 07:28] LABS: Hematocrit 32.0 % (37.0-47.0); Hemoglobin 9.6 g/dl (12.0-16.0); Imm Gran Abs Auto 0.02 X10*3/uL (0.00-0.03); Imm Gran Pct Auto 0.2 % (0.0-0.4); Lymphocytes Absolute Auto 4.2 X10*3/uL (1.2-4.9); Mean Corpuscular HGB Conc 30.0 g/dl (31.0-35.0); Mean Corpuscular Hemoglobin 24.2 pg (27.0-33.0); Mean Corpuscular Volume 80.8 fL (80.0-98.0); NRBC Abs Auto 0.000 X10*3/uL (0.0-0.012); NRBC Pct Auto 0.0 /100WBC (0.0-0.2); Platelet Count 386 X10*3/uL (160-400); Red Blood Count 3.96 X10*6/uL (4.20-5.50); White Blood Count 8.6 X10*3/uL (4.8-10.8)
[2025-07-03 08:31] LABS: Alanine Aminotransferase 13 U/L (0-31); Anion Gap 13 (12-20); Aspartate Amino Transferase 18 U/L (5-31); Blood Urea Nitrogen 26 mg/dL (9-16); Calcium 10.0 mg/dL (8.4-10.2); Carbon Dioxide 27 mmol/L (22-29); Chloride 104 mmol/L (96-108); Cholesterol 195 mg/dL (<200); Estimated Glomerular Filt Rate > 60; HDL Cholesterol 52 mg/dL (>40); Iron 19 mcg/dL (30-160); Percent Iron Saturation 5 % (15-50); Potassium 4.0 mmol/L (3.3-5.1); Sodium 140 mmol/L (135-145); Total Iron Binding Capacity 365 mcg/dL (228-428); Triglycerides 142 mg/dL (<150); Unsaturated Iron Binding 346 ug/dL
== END 2025-07-03 06:58 | disposition home or self-care (01) ==
LOC: HO.LAB 06:57
PROVIDERS: PCP Internal Medicine; Visit Provider Internal Medicine
DX: I48.0 Paroxysmal atrial fibrillation (principal); D64.9 Anemia, unspecified; D12.6 Benign neoplasm of colon, unspecified; K21.9 Gastro-esophageal reflux disease without esophagitis; Q40.3 Congenital malformation of stomach, unspecified; E78.2 Mixed hyperlipidemia; I10 Essential (primary) hypertension; F41.1 Generalized anxiety disorder; Z78.0 Asymptomatic menopausal state
CPT/HCPCS: 36415; 80048; 80061; 82306; 83540; 84450; 84460; 85025

== ENCOUNTER 2025-08-13 07:56 | Day surgery (SDC) | payer MEDICARE, SELFPAY ==
--- NOTE | 2025-08-09 11:01 | HO.ANESPROP2 ---
HPI - Anesthesia Eval Consult details Narrative: 85 yr old female for upper endosocpy s/p upper endoscopy with TIVA 05/2025 Paroxysmal Afib: on eliquis, metoprolol, flecanide; stable at 11/2024 [facility] cards visit. PMFSH Active Problems Active Problems: All Active Problems Iron deficiency anemia (Acute) Gastric dysplasia (Acute) Erosive gastritis (Acute) Seen in emergency room (Acute) Frail elderly (Acute) Sacro-iliac pain (Acute) Lumbar pain (Acute) Tubular adenoma of colon (Acute) Chronic anticoagulation (Acute) Hx of diverticulitis of colon (Acute) Delayed gastric emptying (Acute) GERD (gastroesophageal reflux disease) (Acute) Irritable bowel syndrome with both constipation and diarrhea (Acute) Nausea (Acute) Generalized anxiety disorder (Acute) Mixed dyslipidemia (Acute) Vaginal dryness, menopausal (Acute) Primary osteoarthritis involving multiple joints (Acute) Osteoporosis (Acute) Paroxysmal atrial fibrillation (Acute) Essential hypertension (Acute) Past Medical History Medical History (Updated 07/16/25 @ 17:34 by Mer Quinonez MD) Iron deficiency anemia Nausea Generalized anxiety disorder Fundic gland polyposis of stomach Gastritis determined by biopsy Diverticulitis Colitis GERD (gastroesophageal reflux disease) Mixed dyslipidemia Hx of iron deficiency anemia Osteoarthritis of right knee Encounter for monitoring anti-arrhythmic therapy Post-menopause Vaginal dryness, menopausal Urinary frequency Primary osteoarthritis involving multiple joints Osteoporosis Paroxysmal atrial fibrillation Essential hypertension Family History Family History Father No problems noted. Mother No problems noted. Family/Other Cancer Brother History of kidney cancer Lung cancer, Onset Age: 65 Sister Breast cancer, Onset Age: 28 Family history of problems with anesthesia: No Surgical History Surgical History Diverticular disease Status post partial resection of colon (03/15/24) History of esophagogastroduodenoscopy (EGD) (02/08/25) H/O colonoscopy Hx of hysterectomy Hx of total knee arthroplasty Hx of bilateral oophorectomy History of bladder suspension procedure History of repair of hiatal hernia (01/26/06) History of cholecystectomy History of Problems with Anesthesia: No (PONV) Social History Social History Household Members: None Household Members Other:: lives at [facility] Housing: Apartment Housing Other:: resides in [place] across her daughter's house Are you a primary vehicle care specialist to a significant other at home: No Do you presently have visiting nurse or other home services: No Alcohol intake: current Alcohol intake frequency: holidays/special occasions only Alcohol type: wine Patient Tobacco Use Status: Former Tobacco user Tobacco use type: Cigarette Years Smoked: 2 e-Cigarette/Vaping Use: Never Used Advance Directives Date on File: 09/24/19 service: No Current occupational status: retired Cognitive needs: No Hearing needs: No Vision needs: Yes Meds Allergies Allergy/AdvReac Type Severity Reaction Status Date / Time levofloxacin (From Levaquin) Allergy Intermediate RASH Verified 06/13/25 12:02 Home Medications ?Medication ?Instructions ?Recorded ?Confirmed ?Last Taken ?Type amlodipine 2.5 mg tablet 5 mg PO 1XD 05/17/25 05/22/25 Unknown History Exam Pertinent Lab Results Pertinent Lab Results: Laboratory Tests 07/03/25 07:07 WBC 8.6 RBC 3.96 L Hgb 9.6 L Hct 32.0 L Plt Count 386 D Sodium 140 Potassium 4.0 BUN 26 H Creatinine 0.88 Narrative Narrative: EKG 05/2025 Sinus luz rate 54 Left axis deviation Minimal voltage criteria for LVH ECHO January 2024 Conclusions: - 1. Normal LV ejection fraction of 60 65% with impaired relaxation filling pattern 2. Possible mild aortic stenosis 3. Normal RV systolic pressure 4. No gross pericardial effusion Assessment and Plan Final Anesthetic Review Family History of Problems with Anesthesia: No History of Problems with Anesthesia: No (PONV)
[2025-08-09 14:31] VITALS: BMI 24.6
[2025-08-13] VITALS (7 sets, daily range): BP systolic 104–151; BP diastolic 47–89; PULSE 50–54; RESP 10–21; TEMP 36.1–36.7; O2SAT 90–100
[2025-08-13] MEDS: Lactated Ringers 1,000 ML 100 ML IVCONT (08:21)
--- NOTE | 2025-08-13 08:57 | MHC.SHP ---
Pre-Procedural Eval Section A - 24 Hr Update-Section A only Date of Service: 08/13/25 Section B - Complete if H&P > 30 days Chief Complaint: gastric polyps Relevant Family History (Specify if Yes): No Relevant Social History: None Present Medications: see Short Stay Collaborative assessment Medical History: Significant History (Iron deficiency anemia Nausea Generalized anxiety disorder Fundic gland polyposis of stomach Gastritis determined by biopsy Diverticulitis Colitis GERD (gastroesophageal reflux disease) Mixed dyslipidemia Hx of iron deficiency anemia Osteoarthritis of right knee Encounter for monitoring anti-arrhyth) History of Previous Operations: Relevant previous surgery/procedure and date(s) (Diverticular disease Status post partial resection of colon (03/15/24) History of esophagogastroduodenoscopy (EGD) (02/08/25) H/O colonoscopy Hx of hysterectomy Hx of total knee arthroplasty Hx of bilateral oophorectomy History of bladder suspension procedure History of repair of hiatal hernia (01/04) Allergies: Allergies Allergy/AdvReac Type Severity Reaction Status Date / Time levofloxacin (From Levaquin) Allergy Intermediate RASH Verified 08/13/25 08:09 Review of Systems Sugical H&P ROS: Negative: Constitution, Cardiovascular, Respiratory, Neurological, Psychiatric, Hem-Onc, Allergic/Immunologic, Gastrointestinal, Genitourinary, Musculoskeletal, Integumentary, Endocrine and Eyes/Ears/Nose/Throat Exam Surgical H&P Exam: Normal: HEENT, Normal: Heart, Normal: Lungs, Normal: Extremities, Normal: Abdomen, Normal: Skin and Normal: Neurological Plan Diagnosis/Plan: Unchanged I have reviewed the history and physical and performed a pertinent physical examination on my patient. No changes have occurred unless specified. Time Spent With Patient Time: Total time managing care of this patient today ____ minutes.
--- NOTE | 2025-08-13 11:08 | W.PM.OPN ---
Operative Note Operative Note Date of Service: 08/13/25 Narrative: Procedure Description: EGD Indication: Gastric polyps Anesthesia: MAC FLEXIBLE TRANSORAL UPPER GASTROINTESTINAL ENDOSCOPY UPPER ENDOSCOPY Consent: Indications for the procedure and potential complications of bleeding, perforation, reaction to medications and missed diagnosis were discussed with the patient and informed consent was obtained. Instrument: Olympus GIF H 190 J mid size upper endoscope Monitoring: Vital signs and clinical assessment, continuous EKG monitoring, Pulse oximetry, Carbon Dioxide monitoring and blood pressure monitoring were done throughout the procedure. Procedure: The patient was placed in the left lateral decubitis position and pre-procedure medications were administered and a bite block was placed. The endoscope was inserted into the mouth and advanced under direct vision to the third part of duodenum. A careful inspection was made as the upper endoscope was withdrawn including a retroflexed examination of the proximal stomach; Findings and interventions are described below. Findings: Larynx:normal Esophagus: GE junction at 34 cm, diaphragm hiatus at 37 cm, with fixed hiatal hernia noted about 3 cm. An irregular polypoid semi pedunculated lesion was noted within the sac measuring about 12-15 mm in length with surrounding granular mucosa. this was lifted with ERBE jet and then removed piece meal with cold snare and then APC 40 W applied to the surrounding mucosa. Stomach: x 2 inflammed sessile polyps in the distal body, removed with cold snare, with one clip applied for hemostasis . Biopsies were also obtained from antrum,. angularis. lesser and greater curve using cold forceps . Grade 3 flap valve on retroflexed examination of the cardia which also revealed a semi pedunculated polyp in the cardia area, this was injected with 1 cc of epinpehrine and then removed with cold snare and retrieved with net. Duodenum: Normal bulb and descending duodenum, Intervention: Biopsies as noted above, cold snare, epinephrine injection, APC ablation, clip placement Impression/Findings: gastric polyps hiatal hernia PLAN: await bx, repeat EGD in few months with [place] GERD precautions if H pylori neg confirm with breath test after stopping PPI for 2 weeks
== END 2025-08-13 12:13 | disposition home or self-care (01) ==
PROVIDERS: PCP Internal Medicine; Visit Provider Internal Medicine Gastroenterology
PROC: 0DJ08ZZ Inspection of Upper Intestinal Tract, Via Natural or Artificial Opening Endoscopic (ICD-10-PCS; CPT 43235; principal; 2025-08-13 10:00)
DX: Q40.3 Congenital malformation of stomach, unspecified (principal); K31.7 Polyp of stomach and duodenum; K29.60 Other gastritis without bleeding; K31.A15 Gastric intestinal metaplasia without dysplasia, involving multiple sites; K44.9 Diaphragmatic hernia without obstruction or gangrene; K21.9 Gastro-esophageal reflux disease without esophagitis; K30 Functional dyspepsia; Z87.19 Personal history of other diseases of the digestive system; K52.9 Noninfective gastroenteritis and colitis, unspecified; D50.9 Iron deficiency anemia, unspecified; E78.2 Mixed hyperlipidemia; I10 Essential (primary) hypertension; M81.0 Age-related osteoporosis without current pathological fracture; I48.0 Paroxysmal atrial fibrillation; R35.0 Frequency of micturition; F41.1 Generalized anxiety disorder; Z79.899 Other long term (current) drug therapy; Z88.1 Allergy status to other antibiotic agents; Z98.890 Other specified postprocedural states; Z87.891 Personal history of nicotine dependence
CPT/HCPCS: 43251; 43239; 43236; 88305; 88313; 88342; C1889; J1100; J2003; J2704; Q9968

== ENCOUNTER → 2025-08-13 07:56 | Outpatient (BNV) | payer MEDICARE, SELFPAY | PROVIDERS: PCP Internal Medicine; Visit Provider Internal Medicine Gastroenterology | DX: K31.7 Polyp of stomach and duodenum (principal) | CPT/HCPCS: 43251 ==

== ENCOUNTER 2025-08-22 10:41 | Outpatient (AMB) | payer MEDICARE, SELFPAY ==
--- NOTE | 2025-08-22 10:54 | A.OFFVIS_ITS ---
Vital Signs 08/22/25 10:57 Height 5 ft Weight 124 lb BMI 24.2 BP 140/78 H Blood Pressure Location Lt brachial Position Sitting Pulse 101 H Intake Visit Reasons: s/p EGD per [facility] Intake Note: Alisa presents to in office follow up s/p EGD. CC: Patient reports a sore throat and stomach for a few days after procedure but she is doing fine now. 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 Code(s): K29.60 - Other gastritis without bleeding Category: Medical (3) Delayed gastric emptying: Code(s): K30 - Functional dyspepsia Category: Medical (4) GERD (gastroesophageal reflux disease): Code(s): K21.9 - Gastro-esophageal reflux disease without esophagitis Category: Medical Qualifiers: Esophagitis presence: without esophagitis Qualified Code(s): K21.9 - Gastro-esophageal reflux disease without esophagitis Plan Her current GI regimen is omeprazole 20 mg twice a day and Reglan 5 mg 4 times a day. - The patient is an 85-year-old female presenting with a follow-up evaluation post-endoscopy due to esophageal and gastric polyps showing areas of dysplasia. - Endoscopic examination identified several polyps in the esophagus and stomach, with some demonstrating changes suggestive of a precancerous state. - Post-procedural sore throat noted, likely resulting from the duration and nature of the procedure. - Awaiting further input from Dr. Villasenor to determine if 4 months is still appropriate for follow-up with the biopsy findings or whether it should be sooner. Prudence is aware I will be in touch shortly about this. For now we will put a six-month follow-up with me on the books. EGD Findings: Larynx:normal Esophagus: GE junction at 34 cm, diaphragm hiatus at 37 cm, with fixed hiatal hernia noted about 3 cm. An irregular polypoid semi pedunculated lesion was n oted within the sac measuring about 12-15 mm in length with surrounding granular mucosa. this was lifted with ERBE jet and then removed piece meal with cold snare and then APC 40 W applied to the surrounding mucosa. Stomach: x 2 inflammed sessile polyps in the distal body, removed with cold snare, with one clip applied for hemostasis . Biopsies were also obtained from antrum,. angularis. lesser and greater curve using cold forceps . Grade 3 flap valve on retroflexed examination of the cardia which also revealed a semi pedunculated polyp in the cardia area, this was injected with 1 cc of epinp ehrine and then removed with cold snare and retrieved with net. Duodenum: Normal bulb and descending duodenum, Intervention: Biopsies as noted above, cold snare, epinephrine injection, APC ablation, clip placement Impression/Findings: gastric polyps hiatal hernia PLAN: await bx, repeat EGD in few months with GA GERD precautions if H pylori neg confirm with breath test after stopping PPI for 2 weeks BIOPSY Received: 08/13/25 Diagnosis A. Gastric body, polyps: Fundic gland and hyperplastic polyps with minimal to mild chronic inflammation, focal erosion, granulation tissue and active inflammation, reactive epithelial changes, and focal intestinal metaplasia (incomplete); negative for H. pylori and dysplasia. B. Gastric antrum, biopsy: Gastric antral mucosa with mild reactive changes and minimal chronic inactive gastritis; negative for H. pylori, intestinal metaplasia and dysplasia. C. Gastric angularis, biopsy: Gastric antral and body mucosa with focal minimal chronic inactive inflammation; negative for H. pylori, intestinal metaplasia and dysplasia. D. Gastric body, greater curve, biopsy: Gastric body mucosa with reactive changes and minimal chronic inactive gastritis; negative for H. pylori, intestinal metaplasia and dysplasia. E. Gastric body, lesser curve, biopsy: Gastric body mucosa with focal minimal chronic inactive inflammation; negative for H. pylori, intestinal metaplasia and dysplasia. F. Gastric fundus/hiatal hernia polyp: Fundic gland and hyperplastic polyp with [id number] chronic active inflammation, erosions, granulation tissue, edema, reactive epithelial changes, focal squamous epithelium, focal intestinal metaplasia (incomplete), and focal pigmented crystalline material in the superficial lamina propria compatible with inorganic (non-heme) iron; negative for H. pylori and dysplasia (see comment). Comment: (F): The inorganic iron may cause mucosal injury and exacerbate the existing process. If applicable, switching the patient to an alternative iron preparation may be helpfu TODAY'S VISIT [facility] Medical History Iron deficiency anemia Nausea Generalized anxiety disorder Fundic gland polyposis of stomach Gastritis determined by biopsy Diverticulitis Colitis GERD (gastroesophageal reflux disease) Mixed dyslipidemia Hx of iron deficiency anemia Osteoarthritis of right knee Encounter for monitoring anti-arrhythmic therapy Post-menopause Vaginal dryness, menopausal Urinary frequency Primary osteoarthritis involving multiple joints Osteoporosis Paroxysmal atrial fibrillation Essential hypertension Surgical History Diverticular disease Status post partial resection of colon (03/15/24) History of esophagogastroduodenoscopy (EGD) (02/08/25) H/O colonoscopy Hx of hysterectomy Hx of total knee arthroplasty Hx of bilateral oophorectomy History of bladder suspension procedure History of repair of hiatal hernia (01/26/06) History of cholecystectomy Family History Father No problems noted. Mother No problems noted. Family/Other Cancer Brother History of kidney cancer Lung cancer, Onset Age: 65 Sister Breast cancer, Onset Age: 28 Social History Household Members: None Household Members Other:: lives at [facility] Housing: Apartment Housing Other:: resides in [place] across her daughter's house Are you a primary healthcare educator to a significant other at home: No Do you presently have visiting nurse or other home services: No Alcohol intake: current Alcohol intake frequency: holidays/special occasions only Alcohol type: wine Patient Tobacco Use Status: Former Tobacco user Tobacco use type: Cigarette Years Smoked: 2 e-Cigarette/Vaping Use: Never Used Advance Directives Date on File: 09/24/19 service: No Current occupational status: retired Cognitive needs: No Hearing needs: No Vision needs: Yes Review of Systems ENT Reports Normal hearing present Neuro Reports Normal hearing present and Denies Abnormal speech present Physical Exam Vital Signs: Last Vital Signs Pulse 101 H 08/22/25 10:57 BP 140/78 H 08/22/25 10:57 BMI result Body Mass Index 24.2 Const General: cooperative, no acute distress, well developed and well groomed Nutritional Appearance: average body habitus and well nourished Orientation/consciousness: oriented to person, oriented to place and oriented to time Limitations: No language barrier HEENT Head: Yes normocephalic and Yes atraumatic Eyes General: appearance normal, both eyes and all related structures Pupils: Equal, round and reactive pupils present Neck Neck: Yes normal visual inspection and Yes no lymphadenopathy Thyroid: Thyroid normal Resp Effort & Inspection: normal respiratory effort and able to speak in complete sentences Auscultation: clear to auscultation bilaterally Cardio Rate: regular rate Rhythm: regular rhythm Heart sounds: Normal, physiologic split S2 sound present Peripheral pulses: radial pulses present and posterior tibial pulses present GI Inspection: No distended and No Abdominal panniculus present Palpation (GI): Soft to palpation, nontender, no guarding, not rigid and No hepatosplenomegaly present Percussion: Yes normal to percussion Auscultation: normal bowel sounds Rectal Exam - Female: deferred Skin General skin exam: no rashes or lesions noted, turgor normal, skin not dry, no jaundice, No spider nevi and no striae Rashes: no rashes Nails: normal Neuro General: oriented to person, oriented to place and oriented to time Cranial nerves: Yes Equal, round and reactive pupils present and Yes Normal hearing present Speech: No Abnormal speech present Extrem General: Yes normal to inspection, No clubbing, No cyanosis and No edema Psych Thought process: Normal thought process present and not confabulating Thought content: Normal thought content present Insight: Good insight present (Psych) Judgement: Good judgement present (Psych) Results Reviewed Results Reviewed: EGD Findings: Larynx:normal Esophagus: GE junction at 34 cm, diaphragm hiatus at 37 cm, with fixed hiatal hernia noted about 3 cm. An irregular polypoid semi pedunculated lesion was noted within the sac measuring about 12-15 mm in length with surrounding granular mucosa. this was lifted with ERBE jet and then removed piece meal with cold snare and then APC 40 W applied to the surrounding mucosa. Stomach: x 2 inflammed sessile polyps in the distal body, removed with cold snare, with one clip applied for hemostasis . Biopsies were also obtained from antrum,. angularis. lesser and greater curve using cold forceps . Grade 3 flap valve on retroflexed examination of the cardia which also revealed a semi pedunculated polyp in the cardia area, this was injected with 1 cc of epinpehrine and then removed with cold snare and retrieved with net. Duodenum: Normal bulb and descending duodenum, Intervention: Biopsies as noted above, cold snare, epinephrine injection, APC ablation, clip placement Impression/Findings: gastric polyps hiatal hernia PLAN: await bx, repeat EGD in few months with [place] GERD precautions if H pylori neg confirm with breath test after stopping PPI for 2 weeks BIOPSY Received: 08/13/25 Diagnosis A. Gastric body, polyps: Fundic gland and hyperplastic polyps with minimal to mild chronic inflammation, focal erosion, granulation tissue and active inflammation, reactive epithelial changes, and focal intestinal metaplasia (incomplete); negative for H. pylori and dysplasia. B. Gastric antrum, biopsy: Gastric antral mucosa with mild reactive changes and minimal chronic inactive gastritis; negative for H. pylori, intestinal metaplasia and dysplasia. C. Gastric angularis, biopsy: Gastric antral and body mucosa with focal minimal chronic inactive inflammation; negative for H. pylori, intestinal metaplasia and dysplasia. D. Gastric body, greater curve, biopsy: Gastric body mucosa with reactive change s and minimal chronic inactive gastritis; negative for H. pylori, intestinal metaplasia and dysplasia. E. Gastric body, lesser curve, biopsy: Gastric body mucosa with focal minimal chronic inactive inflammation; negative for H. pylori, intestinal metaplasia and dysplasia. F. Gastric fundus/hiatal hernia polyp: Fundic gland and hyperplastic polyp with [id number] chronic active inflammation, erosions, granulation tissue, edema, reactive epithelial changes, focal squamous epithelium, focal intestinal metaplasia (incomplete), and focal pigmented crystalline material in the superficial lamina propria compatible with inorganic (non-heme) iron; negative for H. pylori and dysplasia (see comment). Comment: (F): The inorganic iron may cause mucosal injury and exacerbate the existing process. If applicable, switching the patient to an alternative iron preparation may be helpfu Assessment & Plan Assessment & Plan (1) Erosive gastritis: Comment: 02/2025 EGD=erosions and multiple eroded polyps; repeat 3-4 mos. Code(s): K29.60 - Other gastritis without bleeding Category: Medical (2) Gastric dysplasia: Comment: On polyps removed 05/17/2025 EGD Code(s): 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, unspecified Category: Medical (3) Delayed gastric emptying: Code(s): K30 - Functional dyspepsia Category: Medical (4) GERD (gastroesophageal reflux disease): Code(s): K21.9 - Gastro-esophageal reflux disease without esophagitis Category: Medical Qualifiers: Esophagitis presence: without esophagitis Qualified Code(s): K21.9 - Gastro-esophageal reflux disease without esophagitis Plan Subjective Follow-up after recent upper endoscopy. Patient reports feeling tired all the time. Notes stomach upset with oral iron when not taken with food; plans to take with supper going forward. Appetite varies with some early satiety but overall eating adequately. Currently taking omeprazole 20 mg twice daily (previously 40 mg twice daily, reduced due to concern for gastric polyps), metoclopramide, senna as needed for constipation, iron supplementation for low blood counts, and Eliquis. Relevant Past Medical, Social, and Family History On anticoagulation with Eliquis. Objective - Upper endoscopy on 08/13 demonstrated active gastric irritation and erosions; no precancerous changes were seen. Assessment & Plan Gastric irritation with erosions, GERD/dyspepsia: EGD on 08/13 showed active irritation and erosions without precancerous changes. Symptoms likely exacerbated by oral iron when taken without food. - Continue omeprazole 20 mg twice daily. - Avoid stopping PPI for H. pylori breath test given biopsy-based assessment already performed; no breath test planned. 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 - Discussed short course of sucralfate for mucosal protection; patient declined. - Continue metoclopramide as currently prescribed. - Continue senna for constipation as needed. - Arrange repeat EGD in approximately 2 months per prior recommendation for a deeper evaluation; may require general anesthesia per endoscopist preference. I sent an urgent scheduling request to ensure timely booking. - Note: Patient is on Eliquis; will coordinate periprocedural anticoagulation planning with endoscopy team as needed. - Follow-up with me in 6 months; timing may be adjusted based on EGD scheduling and results. Iron deficiency anemia (on supplementation): On oral iron for low blood counts; experiencing gastric irritation when taken without food. - Take iron with a full stomach to improve tolerability. - Consider slow-release iron if GI side effects persist. Orders: Referrals GI Procedure Notification K29.60 - Other gastritis without bleeding, 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, unspecified Medications: Refilled omeprazole 20 mg PO BID 120 caps 6RF 60 days K21.9 - Gastro-esophageal reflux disease without esophagitis metoclopramide HCl (Reglan) 5 mg PO QIDACHS 120 tabs 6RF NAUSEA R11.0 - Nausea Coding Level of Care Code Est Pt Level 3 (91577) Diagnoses Erosive gastritis K29.60 Gastric dysplasia Q40.3 Delayed gastric emptying K30 Gastroesophageal reflux disease without esophagitis K21.9 Esophagitis presence: without esophagitis
[2025-08-22 10:57] VITALS: BP 140/78; PULSE 101; BMI 24.2
== END 2025-08-22 12:01 | disposition home or self-care (01) ==
LOC: HO.HGI 10:42
PROVIDERS: PCP Internal Medicine; Visit Provider Nurse Practitioner
DX: K29.60 Other gastritis without bleeding (principal); Q40.3 Congenital malformation of stomach, unspecified; K30 Functional dyspepsia; K21.9 Gastro-esophageal reflux disease without esophagitis
CPT/HCPCS: 99213

== ENCOUNTER → 2025-08-22 10:41 | Outpatient (BNVA) | payer MEDICARE, SELFPAY | PROVIDERS: PCP Internal Medicine; Visit Provider Nurse Practitioner | DX: K21.9 Gastro-esophageal reflux disease without esophagitis (principal); K30 Functional dyspepsia; Q40.3 Congenital malformation of stomach, unspecified; K29.60 Other gastritis without bleeding | CPT/HCPCS: 99212 ==